=== PATIENT | male | born 1945 | race Caucasian/White ===

== ENCOUNTER → 2017-12-26 09:50 | Outpatient (BNVA) | payer MEDICARE, OTHER, SELFPAY | PROVIDERS: PCP Family Medicine; Referring Provider Family Medicine; Visit Provider Orthopaedic Surgery | DX: M65.342 Trigger finger, left ring finger (principal) | CPT/HCPCS: 99213; 99214 ==

== ENCOUNTER 2017-12-27 14:21 | Day surgery (SDC) | payer MEDICARE, OTHER, SELFPAY ==
[2017-12-27 14:28] VITALS: BP 168/94; PULSE 77; RESP 16; TEMP 35.6; O2SAT 100
[2017-12-27] MEDS: Lidocaine 2% Multi-Dose 50 ML VIAL (15:20)
--- NOTE | 2017-12-27 15:29 | PDOC.DSDIS_ITS ---
Discharge Plan Disposition Patient Disposition: HOME Condition: Good Discharge Details Reason For Visit: TRIGGER LRF Attending Provider: Tima Sharif Primary Care Provider: Ilia Palacios Home Meds and New Rx's Prescriptions: Continue ascorbic acid (vitamin C) [Vitamin C] 500 MG tablet 1 tab PO DAILY RF: 0 multivitamin 1 EACH capsule 1 cap PO DAILY RF: 0 calcium carbonate-vitamin D3 [Os-Heladio 500 + D3] 1 EACH tablet,chewable 1 tab PO DAILY RF: 0 varicella virus vacc live (PF) [Varivax (PF)] 1,350 UNIT/0.5 ML suspension for reconstitution 1,350 unit SQ ONCE Qty: 1 RF: 0 phenytoin [Dilantin Infatabs] 50 MG tablet,chewable 50 mg PO HS Qty: 90 RF: 4 diphenoxylate-atropine [Lomotil] 1 EACH tablet 1 tab PO Q6H PRN Qty: 120 RF: 0 phenytoin sodium extended [Dilantin Extended] 100 MG capsule 2 cap PO BID Qty: 450 RF: 3 hydrocortisone 2.5 % cream with perineal applicator 1 applic Topical BID Qty: 30 RF: 3 Discharge Instructions Additional Instructions: Bend and straighten fingers L hand 10 times/hour when awake to prevent swelling. Remove dressings, shower or bathe and get incision wet after 48 hours. Leave incision uncovered when it is dry and sealed. Keep dressings dry and intact for 48 hours Follow up in 's office in 10-14 days. Take tylenol or ibuprofen for pain, if needed. Stand Alone Forms: Aleta Malin (DSU) Referrals: Tima Sharif MD [ [facility] STAFF PHYSICIAN] - (f/u in 10-14 days.) Activity:: Activity as Tolerated Remove Dressings/Wound Care:: 48 hours Shower/Bathe:: 48 hours Diet:: As Tolerated Discharge Orders Discharge Orders: Discharge Order (Routine); Ordered 12/27/17 Ordered By: Tima Sharif DS: Diagnosis Discharge Diagnosis (1) Trigger finger, left ring finger: Status: Acute
--- NOTE | 2017-12-27 20:10 | ROE_ITS ---
DATE OF PROCEDURE: December 27, 2017 PREOPERATIVE DIAGNOSIS: Trigger left ring finger. POSTOPERATIVE DIAGNOSIS: Trigger left ring finger. PROCEDURE: Tendon sheath incision for trigger left ring finger. SURGEON: Tima Sharif M.D. ANESTHESIA: Local infiltration 2% Xylocaine solution and 0.5% Marcaine with epinephrine solution. INDICATIONS: This is a 72-year-old white male who has developed painful locking and catching of his left ring finger. This is interfering with his activities of daily living in a significant way. He has had a previous trigger finger on the right ring finger. He had a release with good results. He is asking for release on the left side at this point. The risks and complications of the procedure w ere explained to the patient in detail preoperatively. PROCEDURE: The patient was taken to the Operating Room on 12/27/17. He was placed supine on the str etcher. The left hand was prepped and draped free in the usual sterile fashion. I infiltrated over the proximal gennaro of the flexor sheath of the left ring finger with 2% Xylocaine solution. I then made a transverse incision about 5 to 7 mm distal to the distal palmar flexion crease over the flexor sheath of the left ring finger. The incision was about 2 cm in length. The incision was carried do wn to the subcu. Blunt-tipped Littler scissors were used to mobilize the soft tissue away from the f lexor sheath. With retractors inserted I was able to directly visualize the proximal gennaro of the f lexor sheath. I incised the proximal gennaro in the midline its entire length. The patient was then asked to actively flex and extend his left ring finger. He is now able to fully flex and extend his left ring finger without any locking or catching. The wound was infiltrated with saline solution. The wound margins were infiltrated with 0.5% Marcain e with epinephrine solution and further hemostasis was obtained with simple direct pressure. The ski n edges were approximated with 3 interrupted #4-0 nylon sutures. The wound was dressed with Xeroform gauze, sterile gauze 4x4s, and wrapped with a 2-inch Regulo bandage for a light pressure dressing. T he patient tolerated the procedure well. He was discharged to the Day Surgery Unit in good condition . The patient was discharged home from the Day Surgery Unit with instructions to keep his dressings dry and intact for 48 hours. After 48 hours he can remove his dressing, shower or bathe and get his inc ision wet. He is to leave the incision uncovered when it is dry and sealed. He may use his left barrios d as much as discomfort allows. He is encouraged to flex and extend the fingers of his left hand 10 times an hour while awake to prevent swelling. He will take Tylenol and ibuprofen for pain. He will follow up in Dr. Sharif's office in 10 to 14 days.
== END 2017-12-27 15:50 | disposition home or self-care (01) ==
PROVIDERS: PCP Family Medicine; Visit Provider Orthopaedic Surgery
PROC: (CPT 26055; principal; 2017-12-27 15:30)
DX: M65.342 Trigger finger, left ring finger (principal)
CPT/HCPCS: 26055

== ENCOUNTER → 2018-01-10 10:25 | Outpatient (BNVA) | payer MEDICARE, OTHER, SELFPAY | PROVIDERS: PCP Family Medicine; Referring Provider Family Medicine; Visit Provider Orthopaedic Surgery | DX: Z47.89 Encounter for other orthopedic aftercare (principal); M65.342 Trigger finger, left ring finger ==

== ENCOUNTER → 2018-02-20 09:08 | Outpatient (BNVA) | payer MEDICARE, OTHER, SELFPAY | PROVIDERS: PCP Family Medicine; Referring Provider Family Medicine; Visit Provider Orthopaedic Surgery | DX: Z47.89 Encounter for other orthopedic aftercare (principal); M65.342 Trigger finger, left ring finger; M72.8 Other fibroblastic disorders ==

== ENCOUNTER → 2018-04-10 09:50 | Outpatient (BNVA) | payer OTHER, SELFPAY | PROVIDERS: PCP Family Medicine; Referring Provider Family Medicine; Visit Provider Orthopaedic Surgery | DX: M65.342 Trigger finger, left ring finger (principal) | CPT/HCPCS: 99212; 99213 ==

== ENCOUNTER 2018-05-26 01:00 | Outpatient (CLI) | payer OTHER, SELFPAY ==
[2018-05-26 09:47] LABS: HCT 43.8 % (40.0-50.0); HGB 15.4 g/dL (13.5-17.5); Mean Corp. HGB Concentration 35.2 g/dL (32.0-36.0); Mean Corpuscular Hemoglobin 33.3 pg (27.0-33.0); Mean Corpuscular Volume 94.8 fL (80-95); Mean Platelet Volume 9.3 fL (8.0-11.0); Platelet Count 137 x1000/uL (130-400); RBC 4.62 m/cumm (4.50-6.00); RBC Distribution Width 12.5 % (11.8-14.1); White Blood Cell Count 5.65 k/cumm (4.4-10.8)
[2018-05-26 09:55] LABS: ALT 60 U/L (12-78); AST 39 U/L (15-37); Albumin 3.7 g/dL (3.4-5.0); Alkaline Phosphatase 63 U/L (46-116); Anion Gap 9.3 mmol/L (3-11); BUN 24 mg/dL (7-18); Bilirubin, Total 0.3 mg/dL (0.2-1.0); CO2 26.7 mmol/L (21.0-32.0); CREATININE 1.22 mg/dL (0.70-1.30); Calcium 8.3 mg/dL (8.5-10.1); Chloride 103 mmol/L (98-107); Estimated GFR 58.39 (mL/min/1.73m2); Glucose 98 mg/dL (70-100); Potassium 3.8 mmol/L (3.5-5.1); Sodium 139 mmol/L (136-145); Total Protein 7.2 g/dL (6.4-8.2)
[2018-05-26 10:09] LABS: PHENYTOIN (DILANTIN) 20.1 ug/mL (10.0-20.0)
== END 2018-05-26 01:20 ==
PROVIDERS: PCP Family Medicine; Visit Provider Family Medicine
DX: G40.909 Epilepsy, unspecified, not intractable, without status epilepticus (principal); Z51.81 Encounter for therapeutic drug level monitoring; Z79.899 Other long term (current) drug therapy
CPT/HCPCS: 36415; 80053; 85027; 80185

== ENCOUNTER 2018-07-12 10:36 | Outpatient (CLI) | payer OTHER, SELFPAY ==
--- NOTE | 2018-07-12 10:32 | DI.RAD_ITS ---
SYMPTOM/DIAGNOSIS: INDEX PAIN. LEFT HAND: Two views. No priors At the interphalangeal joints of the hand, note is made of varying degrees of joint space narrowing and periarticular spurring. The findings are most marked at the distal interphalangeal joints of the index, middle and little fingers. No acute fracture or dislocation is seen. Vascular calcifications are present in the soft tissues. 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 The findings are most marked in the index, middle and little fingers.
== END 2018-07-12 10:56 ==
PROVIDERS: PCP Family Medicine; Referring Provider Family Medicine; Visit Provider Orthopaedic Surgery
DX: M79.642 Pain in left hand (principal); M79.645 Pain in left finger(s); M19.042 Primary osteoarthritis, left hand; R29.898 Other symptoms and signs involving the musculoskeletal system; R20.8 Other disturbances of skin sensation
CPT/HCPCS: 99211; 99213; 73120

== ENCOUNTER 2018-10-17 12:46 | Emergency (ER) | payer OTHER, SELFPAY ==
[2018-10-17] VITALS (7 sets, daily range): BP systolic 155–173; BP diastolic 78–88; PULSE 55–61; RESP 16–22; TEMP 36.7; O2SAT 96–99
--- NOTE | 2018-10-17 13:16 | W.ED.GENAD ---
Discharge Plan Disposition Patient Disposition: HOME Condition: Stable Discharge Details Chief Complaint: Chest/Rib Clinical Impression: Contusion of rib Primary Care Provider: Ilia Palacios ED Provider: Sanjeev Nino Home Meds and New Rx's Prescriptions: Continued Urinox PO RF: 0 ascorbic acid (vitamin C) [Vitamin C] 500 MG tablet 1 tab PO DAILY RF: 0 multivitamin 1 EACH capsule 1 cap PO DAILY RF: 0 Os-Heladio 500 + D3 1 EACH tablet,chewable 1 tab PO DAILY RF: 0 diphenoxylate-atropine [Lomotil] 1 EACH tablet 1 tab PO Q6H PRN Qty: 120 RF: 0 hydrocortisone 2.5 % cream with perineal applicator 1 applic Topical BID Qty: 30 RF: 3 phenytoin [Dilantin Infatabs] 50 mg tablet,chewable 50 mg PO HS Qty: 90 RF: 4 phenytoin sodium extended [Dilantin Extended] 100 mg capsule 200 mg PO BID Qty: 450 RF: 3 benzonatate 100 mg capsule 100 mg PO TID PRN (Reason: cough) Qty: 30 RF: 2 Discharge Instructions Instructions: Rib Contusion (ED) Additional Instructions: you can take 1000mg tylenol and 600mg ibuprofen every 6 hours for pain as needed if pain is still present in a week see your primary care provider return to the emergency department for severe worsening pain, difficulty breathing or fevers Medical Decision Making 73 yo male comes in with left anterior chest pain that started after he fell and landed on a barrel while doing yard work. No loc and no fevers. Has no headache, neck pain, abd pian. He has pain with palptaion over 6-7 left ribs in lateral clavicular line without crepitus. will xray to eval for fx, less likely ptx. Given pain is traumatic do not feel workup for acs, pe or dissection indicated xray negative on my read and only has pain when I palpate the wall on his left chest. Will d/c home, advised f/u with pcp and return precautions given Differential Diagnosis contusion, fracture Imaging Data Radiologic Study: Attestation: I personally reviewed and interpreted this imaging study as follows: Imaging: X-Ray My impression: no acute findings ECG Data Attestation: I personally reviewed and interpreted this ECG (s) as follows: Prior ECG tracings: not available for review Interpretation: sinsu rhythm, rate of 60, pr 2-4, qtc 426 HPI General Mode of arrival: ambulatory. Date/Time Provider Initiated Documentation: 10/17/18 13:02. Limitations to Documentation: no limitations. Information obtained by: patient. History of Present Illness 73 year old M presents to the emergency department with the chief complaint of left sided chest pain, described as moderate, Quality is described as aching, and is localized to the chest. Patient reports no radiation. Patient started experiencing this day(s) (2) and it has been constant. No relieving factors improve symptom(s), Patient did receive the following treatments prior to arrival, none Related Data Home Medications Medication Instructions Recorded Confirmed Os-Heladio 500 + D3 1 tab PO DAILY tab.chew 04/30/12 10/04/18 ascorbic acid (vitamin C) [Vitamin 1 tab PO DAILY 04/30/12 10/04/18 C] multivitamin 1 cap PO DAILY 04/30/12 10/04/18 diphenoxylate-atropine [Lomotil] 1 tab PO Q6H PRN #120 tab 05/16/17 10/04/18 hydrocortisone 2.5 % topical cream 1 applic TOPICAL BID #30 gm 12/18/17 10/04/18 with perineal applicator Urinox PO 05/24/18 10/04/18 phenytoin 50 mg chewable tablet 50 mg PO HS #90 tab.chew 10/04/18 phenytoin sodium extended 100 mg 200 mg PO BID #450 cap 10/04/18 capsule benzonatate 100 mg capsule 100 mg PO TID PRN #30 cap 10/11/18 Previous Rx's Medication Instructions Recorded diphenoxylate-atropine [Lomotil] 1 tab PO Q6H PRN #120 tab 05/16/17 hydrocortisone 2.5 % topical cream 1 applic TOPICAL BID #30 gm 12/18/17 with perineal applicator phenytoin 50 mg chewable tablet 50 mg PO HS #90 tab.chew 10/04/18 phenytoin sodium extended 100 mg 200 mg PO BID #450 cap 10/04/18 capsule benzonatate 100 mg capsule 100 mg PO TID PRN #30 cap 10/11/18 Allergies Allergy/AdvReac Type Severity Reaction Status Date / Time camphor AdvReac Intermediate Nicolas Verified 10/04/18 10:04 lactose AdvReac Verified 10/04/18 10:04 General Stated Complaint: Chest/Rib GRACIA: 2 Review of Systems Review of Systems All systems reviewed & are unremarkable except as noted in HPI and below Constitutional Denies chills, Denies fever(s) and Denies weakness Cardiovascular Denies dyspnea Respiratory Denies cough and Denies dyspnea Gastrointestinal Denies abdominal pain, Denies nausea and Denies vomiting Musculoskeletal Denies joint swelling Neurologic Denies weakness Psychiatric Denies depression Endocrine Denies heat intolerance [facility] Surgical History (Updated 10/04/18 @ 12:41 by Ilia Palacios MD) History of surgical procedure (Inactive) INTESTINES (02/07/1955) STOMACH (02/07/1955) Trigger finger, left ring finger (Resolved) S/P trigger finger release DOS: 12/27/17 Family History Mother , 63 Alzheimer's disease Father , 62 Lung cancer Maternal Grandfather , 67 Stroke Heart disease Paternal Grandfather , 69 Stroke Maternal Grandmother , 72 Heart disease Stroke Paternal Grandmother , 77 Heart disease Daughter No problems noted. Daughter No problems noted. Social History (Updated 05/28/18 @ 14:33 by José Manuel Dickey) Smoking/Tobacco Use Status: Never Alcohol Intake: current Alcohol Intake frequency: 0-2 drinks per day Alcohol type: beer, wine and hard liquor Drug use: Never Substance use type: does not use Caregiver/Support person: No Household members: spouse Communication Needs: Corrective Lenses Pets and animals: No Sexually active: Yes Do you think of yourself as: straight/heterosexual Current gender identity: male What is your relationship status?: How often do you talk on the phone with friends or family?: decline to answer How often do you get together with friends or relatives?: decline to answer How often do you attend druze or taoist services?: decline to answer Do you belong to any clubs or organized social groups?: decline to answer Panel score (0-1 are the most socially isolated patients): 1 What type of physical activity do you participate in: walking Duration: 15-30 minutes/day Frequency: daily Cat/Pentecostalism: Faith Special cat needs: No Seatbelt use: sometimes Helmet use: No 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 Do you feel safe at home: Yes Do you feel safe in your relationship?: Yes Exam Const General: no acute distress Orientation: alert HENMT Head: normal to inspection Ears: external ears normal General nose exam: external nose normal Mouth: moist mucous membranes Eyes General: appearance normal, both eyes and all related structures Neck Neck: normal visual inspection Chest Chest: other (left anterior chest tenderness) Resp Effort & Inspection: normal respiratory effort and able to speak in complete sentences Cardio Rate: regular rate Skin General skin exam: no rashes or lesions noted Neuro General: alert and oriented x3 Extrem General: normal to inspection Psych Mental Status: mental status grossly normal Course Vital Signs Temperature 36.7 C 10/17/18 12:53 Pulse 59 L 10/17/18 12:53 Respiratory Rate 18 10/17/18 12:53 Blood Pressure 173/88 H 10/17/18 12:53 Pulse Oximetry 96 10/17/18 12:53 Temperature 36.7 C 10/17/18 12:53 Temperature Source Skin 10/17/18 12:53 Pulse 59 L 10/17/18 12:53 Respiratory Rate 18 10/17/18 12:53 Respiratory Effort Non-Labored 10/17/18 13:01 Blood Pressure 173/88 H 10/17/18 12:53 Blood Pressure Position Sitting 10/17/18 12:53 Pulse Oximetry 96 10/17/18 12:53 Oxygen Delivery Method Room Air 10/17/18 12:53 Oxygen Flow Rate 0 10/17/18 12:53
[2018-10-17] MEDS: Ibuprofen 600 MG TAB PO (13:36)
--- NOTE | 2018-10-17 13:37 | DI.RAD_ITS ---
SYMPTOMS/DIAGNOSIS: LEFT-SIDED CHEST PAIN PA AND LATERAL CHEST: Comparison is made with March,. The heart size is normal. The lungs are suboptimally inflated but appear clear. No infiltrate or effusion is seen. There is no evidence of pneumothorax. IMPRESSION: Negative chest x-ray.
== END 2018-10-17 13:58 | disposition home or self-care (01) ==
PROVIDERS: Emergency Provider Emergency Medicine; PCP Family Medicine
DX: R07.81 Pleurodynia (principal); S20.212A Contusion of left front wall of thorax, initial encounter; W01.198A Fall on same level from slipping, tripping and stumbling with subsequent striking against other object, initial encounter
CPT/HCPCS: 93005; 99284; 71046; 93010

== ENCOUNTER 2019-08-08 22:59 | Outpatient (REF) | payer OTHER, SELFPAY | END 2019-08-08 23:19 | LOC: LBN 22:59 | PROVIDERS: PCP Family Medicine; Visit Provider Family Medicine | DX: N39.0 Urinary tract infection, site not specified (principal) | CPT/HCPCS: 87077; 87086; 87186 ==

== ENCOUNTER 2019-08-09 16:31 | Emergency (ER) | payer OTHER, SELFPAY ==
[2019-08-09] VITALS (30 sets, daily range): BP systolic 120–134; BP diastolic 58–77; PULSE 57–99; RESP 15–20; TEMP 37.3–39.6; O2SAT 90–98
--- NOTE | 2019-08-09 16:34 | W.ED.GENAD ---
Discharge Plan Disposition Patient Disposition: HOME Condition: Improving Discharge Details Chief Complaint: Fever Clinical Impression: UTI (urinary tract infection), Hydronephrosis, Dehydration, Adrenal nodule Primary Care Provider: Ilia Palacios ED Provider: Diane Saucedo Home Meds and New Rx's Prescriptions: New cephalexin [Keflex] 500 mg capsule 500 mg PO BID Qty: 14 RF: 0 Continued Urinox PO RF: 0 hydrocortisone 2.5 % cream with perineal applicator 1 applic RI BID-QID PRN (Reason: pain) Qty: 30 RF: 4 ascorbic acid (vitamin C) [Vitamin C] 500 MG tablet 1 tab PO DAILY RF: 0 multivitamin 1 EACH capsule 1 cap PO DAILY RF: 0 Os-Heladio 500 + D3 1 EACH tablet,chewable 1 tab PO DAILY RF: 0 hydrocortisone 2.5 % cream with perineal applicator 1 applic Topical BID Qty: 30 RF: 3 phenytoin [Dilantin Infatabs] 50 mg tablet,chewable 50 mg PO HS Qty: 90 RF: 4 phenytoin sodium extended [Dilantin Extended] 100 mg capsule 200 mg PO BID Qty: 450 RF: 3 acetaminophen 500 mg Tablet 1,000 mg PO TID RF: 0 metoprolol succinate 50 mg tablet extended release 24 hr 50 mg PO HS RF: 0 Discontinued sulfamethoxazole-trimethoprim 800-160 mg tablet 1 tab PO BID Qty: 20 RF: 0 Discharge Instructions Instructions: Dehydration (ED), Urinary Tract Infection in Men (ED) Additional Instructions: Encourage water intake. You may continue to use Tylenol and/or ibuprofen to help with fevers or discomfort. Please stop the Bactrim and begin the Keflex as prescribed. Your next dosing of visit will be tomorrow morning. You will need follow-up with urology. Please call Monday to schedule follow-up appointment. I would also like for you to follow-up closely with your primary care provider. You have nodules noted on your adrenal glands, these will need to be followed up by your primary care provider. If you develop chills again, abdominal pain, back pain or other new/worsening symptoms please seek care urgently once again. Referrals: Leo Coelho MD [ [facility] STAFF PHYSICIAN] - Ilia Palacios MD [Primary Care Provider] - Discharge Data Discharge Date/Time-TO BE ENTERED AT DEPARTURE: 07/03/20 19:45 Medical Decision Making Patient is a pleasant 74-year-old gentleman presenting today with chief complaint of fever/chills. Reports that he began feeling ill approximately 4 days ago. States that initially he was feeling like he was having difficulty with urination. He describes this as a fire hose going through a straw. He denies any back pain. Denies any hematuria. States that he began having fevers and chills. States that he has been findings of her recent days sitting outside in the 90+ degrees heat to try to warm up during the day secondary to his chills. Has occasionally used Tylenol. He did contact his primary care yesterday who performed a UA and prescribed Bactrim. Patient states dosing last night and this morning. Denies any nausea vomiting. No change in his appetite. Denies abdominal pain. Patient reports daily bowel movements but this is diminished compared to his baseline. Denies any melena or hematochezia. No loose bowel movements. Denies any rectal pain. He reports 3 years of chronic cough that may be slightly worse today than baseline. No excessive phlegm production. On exam, patient is resting comfortably. He is febrile with a temp of 39.6. He is tachycardic with heart rate of 91. Blood pressure is stable. Patient appears slightly dry. Lungs are clear. Normal cardiac exam. Abdomen is benign. No CVA tenderness. Normal genitalia exam. Prostate exam was normal and nontender. I am concerned with the patient's fever and persistent symptoms that he may have urosepsis. We will plan for labs. Will get chest x-ray given the patient's cough. FINDINGS: Tubes, catheters and devices: EKG wires overlie the chest. Lungs: Unremarkable. No consolidation. Pleural space: Unremarkable. No pleural effusion. No pneumothorax. Heart/Mediastinum: Cardiomegaly. Diaphragm: Asymmetric elevation of the right hemidiaphragm. Bones/joints: Unremarkable for patient's age. IMPRESSION: No acute cardiopulmonary findings. Labs reviewed. No leukocytosis. Patient slightly anemic. Creatinine is slightly elevated at 1.36, patient is typically around 1.11.2. Urinalysis significant for moderate blood. Negative leukocyte esterase. Rare bacteria. I did review the UA from yesterday at which time patient had moderate blood, positive nitrate, small leukocyte esterase. No diff had been completed. Does not appear to culture was sent. I reevaluated the patient. He continues to be comfortable. He is temp is downtrending after Toradol and Tylenol. Concerned with the chills and agree with fever basically tomorrow. Lactate is normal and patient does not have any evidence of endorgan damage to suggest sepsis. However, with the blood persisting in the urine I do feel that evaluation from stone would be appropriate she has a patient has been having such difficulty with urination. Patient is not retaining urine. FINDINGS: Mediastinal space: Hiatal hernia. Liver: Hepatic steatosis. Gallbladder and bile ducts: Normal. No calcified stones. No ductal dilation. Pancreas: Normal. No ductal dilation. Spleen: Normal. No splenomegaly. Adrenals: Bilateral adrenal nodules measuring 1.5 and 2.0 cm which are incompletely evaluated on this noncontrast CT. Kidneys and ureters: Left perirenal fat infiltration. Left hydroureteronephrosis without evidence of calcified ureteral stone. Punctate nonobstructing right renal calculi. Stomach and bowel: Ventral hernia containing loop of bowel. Constipation. Extensive diverticulosis. Appendix: No evidence of appendicitis. Intraperitoneal space: Unremarkable. No free air. No significant fluid collection. Vasculature: Atherosclerotic disease. Lymph nodes: Infiltration of the mesenteric fat with enlarged mesenteric lymph nodes. Bladder: Thickened lobulated bladder wall consistent with inflammatory, infectious, or neoplastic process. Infiltration of the fat around the urinary bladder. Reproductive: Enlarged prostate. Bones/joints: Degenerative changes of the right and left hip. Multilevel degenerative changes of the thoracic and lumbar spine. Soft tissues: Unremarkable. IMPRESSION: 1. Mesenteric adenitis. 2. Left hydroureteronephrosis without calcified renal stone. 3. Abnormal bladder wall thickening with bladder wall cystic changes consistent with inflammatory, infectious, or neoplastic process. 4. Extensive diverticulosis. Constipation. 5. Bilateral adrenal nodules warrant further evaluation with dedicated CT 6. Multiple additional findings as discussed above. Discussed these findings with the patient. Also spoke with patient's at his request over the phone. We discussed the incidentals noted that we will need follow-up with primary care. With the increase in the patient's creatinine, I do feel that switching from Bactrim to Keflex would be appropriate. I will give a gram of Rocephin here. Am concerned that the hydronephrosis may be associated with pyelonephritis although patient is not having any CVA tenderness and no significant abnormalities to suggest severe infection on his labs. Also considered stone that may have passed versus stone that is not able to be visualized. This also may be part of the source, I did recommend follow-up with urology. We will also refer back to primary care. Patient was given strict return precautions. We also discussed care of his fevers he has been sitting outside in the heat during times of fever. I did discuss with him the importance of hydration. He will return with any new or worsening symptoms. All the questions and concerns were addressed and they are agreement this plan. HPI General Mode of arrival: ambulatory. Date/Time Provider Initiated Documentation: 08/09/19 16:34. Limitations to Documentation: no limitations. Information obtained by: patient and RN notes reviewed. History of Present Illness 74 year old M presents to the emergency department with the chief complaint of fever, dysurea, described as moderate, with intensity rated at 6. Quality is described as other (pressure with urination), and is localized to the genitals. Patient reports no radiation. Patient started experiencing this day(s) (4) and it has been constant. No relieving factors improve symptom(s), No exacerbating factors reported . Patient notes cough (chronic x 3 years, may be slightly worse but unclear, nonproductive) and fever/chills; denies chest pain, diaphoresis, headaches, loss of appetite, nausea/vomiting, rash, shortness of breath and weakness. Patient did receive the following treatments prior to arrival, other (began Bactrim yesterday) Related Data Home Medications Medication Instructions Recorded Confirmed Os-Heladio 500 + D3 1 tab PO DAILY tab.chew 04/30/12 08/09/19 ascorbic acid (vitamin C) [Vitamin 1 tab PO DAILY 04/30/12 08/09/19 C] multivitamin 1 cap PO DAILY 04/30/12 08/09/19 hydrocortisone 2.5 % topical cream 1 applic TOPICAL BID #30 gm 12/18/17 08/09/19 with perineal applicator Urinox PO 05/24/18 04/05/19 phenytoin 50 mg chewable tablet 50 mg PO HS #90 tab.chew 10/04/18 08/09/19 phenytoin sodium extended 100 mg 200 mg PO BID #450 cap 10/04/18 08/09/19 capsule hydrocortisone 2.5 % topical cream 1 applic RI BID-QID PRN #30 gm 04/05/19 08/09/19 with perineal applicator acetaminophen 1,000 mg PO TID 08/09/19 08/09/19 cephalexin [Keflex] 500 mg PO BID #14 cap 08/09/19 metoprolol succinate 50 mg PO HS 08/09/19 08/09/19 Previous Rx's Medication Instructions Recorded hydrocortisone 2.5 % topical cream 1 applic TOPICAL BID #30 gm 12/18/17 with perineal applicator phenytoin 50 mg chewable tablet 50 mg PO HS #90 tab.chew 10/04/18 phenytoin sodium extended 100 mg 200 mg PO BID #450 cap 10/04/18 capsule hydrocortisone 2.5 % topical cream 1 applic RI BID-QID PRN #30 gm 04/05/19 with perineal applicator cephalexin [Keflex] 500 mg PO BID #14 cap 08/09/19 Allergies Allergy/AdvReac Type Severity Reaction Status Date / Time camphor AdvReac Intermediate Nicolas Verified 08/09/19 16:43 lactose AdvReac Verified 08/09/19 16:43 General GRACIA: 2 Review of Systems Constitutional Constitutional: Reports as per HPI, Reports chills, Denies fatigue, Reports fever(s), Denies headache(s), Denies lethargy, Denies malaise and Denies poor appetite ENT Ears, Nose, Mouth, and Throat: Denies headache(s) Cardiovascular Cardiovascular: Reports as per HPI, Denies chest pain, Denies chest pain at rest, Denies chest pain with activity, Denies dyspnea and Denies dyspnea on exertion Respiratory Respiratory: Reports as per HPI, Denies change in phlegm color, Denies chest congestion, Reports cough (chronic, possibly increased over this week, not really noticible), Denies hemoptysis, Denies excessive phlegm production, Denies pain on inspiration, Denies pain with cough, Denies dyspnea and Denies dyspnea on exertion Gastrointestinal Gastrointestinal: Reports as per HPI, Denies abdominal pain, Denies melena, Denies bloating, Denies hematochezia, Reports change in bowel habits (reports typically 3x per day, now only 1x per day), Denies coffee ground emesis, Denies cramping, Denies diarrhea, Denies loose stools, Denies nausea and Denies vomiting Genitourinary Genitourinary: Reports as per HPI, Denies hematuria, Reports oliguria, Reports difficulty urinating, Denies genital lesions, Denies genital pain, Reports dysuria, Denies flank pain, Denies penile discharge, Denies scrotal swelling, Denies testicular mass, Denies testicular pain, Denies urinary frequency, Reports urinary hesitancy and Denies urinary urgency Musculoskeletal Musculoskeletal: Reports as per HPI and Denies back pain Integumentary/Breasts Skin/Breast: Reports as per HPI and Denies rash Neurologic Neurologic: Reports as per HPI and Denies headache(s) Endocrine Endocrine: Denies fatigue [facility] Surgical History History of surgical procedure (Inactive) INTESTINES (02/07/1955) STOMACH (02/07/1955) Trigger finger, left ring finger (Resolved) S/P trigger finger release DOS: 12/27/17 Family History Mother , 63 Alzheimer's disease Father , 62 Lung cancer Maternal Grandfather , 67 Stroke Heart disease Paternal Grandfather , 69 Stroke Maternal Grandmother , 72 Heart disease Stroke Paternal Grandmother , 77 Heart disease Daughter No problems noted. Daughter No problems noted. Social History Smoking/Tobacco Use Status: Never Alcohol Intake: current Alcohol Intake frequency: 0-2 drinks per day Alcohol type: beer, wine and hard liquor Drug use: Never Substance use type: does not use Caregiver/Support person: No Household members: spouse Communication Needs: Corrective Lenses Pets and animals: No Sexually active: Yes Do you think of yourself as: straight/heterosexual Current gender identity: male What is your relationship status?: How often do you talk on the phone with friends or family?: decline to answer How often do you get together with friends or relatives?: decline to answer How often do you attend latter day or pentecostalism services?: decline to answer Do you belong to any clubs or organized social groups?: decline to answer Panel score (0-1 are the most socially isolated patients): 1 What type of physical activity do you participate in: walking Duration: 15-30 minutes/day Frequency: daily Cat/Anabaptist: Buddhism Special cat needs: No Seatbelt use: sometimes Helmet use: No Drive intox or ride w/intox laundry route driver: No Do you feel safe at home: Yes Do you feel safe in your relationship?: Yes Exam Const General: cooperative, healthy appearing, comfortable, no acute distress and well developed Nutritional Appearance: average body habitus and well nourished Orientation: alert and awake [facility] Head: normal to inspection Mouth: moist mucous membranes Resp Effort & Inspection: normal respiratory effort, able to speak in complete sentences and no respiratory distress Auscultation: clear to auscultation bilaterally, no rales, no rhonchi and no wheezes Cardio Rate: regular rate Rhythm: regular rhythm Heart Sounds: S1 normal and S2 normal Back/Spine/Pelvis Back: no CVA tenderness Skin General skin exam: no rashes or lesions noted Trauma: no lacerations or abrasions Neuro General: patient alert and patient awake Cognition: normal cognition Speech: speech normal Gait: normal gait Psych Appearance: grossly normal and well kempt Mental Status: mental status grossly normal Speech and Movement: speech and movement normal
--- NOTE | 2019-08-09 16:45 | DI.RAD_ITS ---
EXAM: XR PORTABLE CHEST AP CLINICAL HISTORY: fever TECHNIQUE: 2D digital imaging was performed. COMPARISON: CR XR CHEST 2V PA LATERAL from 10/17/2018 FINDINGS: LUNGS: Clear. PLEURA: No pleural abnormality seen. HEART: Normal. MEDIASTINUM: Normal. BONES: Unremarkable. SOFT TISSUES: Unremarkable. IMPRESSION: No acute findings. DATA REPOSITORY: RADIATION DOSE DELIVERED:
[2019-08-09] MEDS: Ibuprofen 800 MG TAB PO (16:50)
[2019-08-09 17:26] LABS: Abs Immature Grans 0.01 k/cumm (0.0-0.09); Absolute Basophil Count 0.01 k/cumm (0.0-0.2); Absolute Eosinophil Count 0.01 k/cumm (0.0-0.7); Absolute Lymphocyte Count 0.72 k/cumm (1.2-3.4); Absolute Monocyte Count 0.83 k/cumm (0.11-0.7); Absolute Neutrophil Count 5.03 k/cumm (1.2-6.7); Basophils % 0.2; Eosinophils % 0.2; HCT 37.5 % (40.0-50.0); HGB 12.9 g/dL (13.5-17.5); Immature Grans % 0.2 %; Lactate 1.3 mmol/L (0.6-1.4); Lymphocytes % 10.9; Mean Corp. HGB Concentration 34.4 g/dL (32.0-36.0); Mean Corpuscular Volume 95.9 fL (80-95); Mean Platelet Volume 9.3 fL (8.0-11.0); Monocytes % 12.6; Neutrophils % 75.9; Platelet Count 129 x1000/uL (130-400); RBC 3.91 m/cumm (4.50-6.00); RBC Distribution Width 12.6 % (11.8-14.1); White Blood Cell Count 6.61 k/cumm (4.4-10.8)
[2019-08-09 17:38] LABS: Bilirubin Small (Negative); Blood Moderate (Negative); Clarity Sl Cloudy (Clear); Glucose Negative (Negative); Ketones Negative (Negative); Leukocyte Esterase Negative (Negative); Nitrite Negative (Negative); Specific Gravity 1.025 (1.005-1.025); pH 5.5 (5-8)
--- NOTE | 2019-08-09 17:45 | DI.CT_ITS ---
EXAM: CT RENAL COLIC WO CLINICAL HISTORY: difficulty urinating, mod blood. TECHNIQUE: Imaging Protocol: Axial computed tomography images with coronal and sagittal reformatted images were created and reviewed. COMPARISON: No exams were available for comparison FINDINGS: ABDOMEN: Lung Bases: Normal where visualized. Liver: Normal density. No measurable mass. Gallbladder and biliary tract: No radiodense calculus or biliary ductal dilation. Pancreas: Normal density, no abnormal calcifications or inflammatory process. Spleen: Normal. Kidneys: Normal size, contour and axis.Nonobstructing right nephrolithiasis. No left nephrolithiasis or ureterolithiasis is seen. There is mild high left hydroureteronephrosis and infiltration of the left perirenal fat. No masses seen. Adrenal glands: Bilateral hypodense nodules are seen on the adrenal glands. There is a 1.5 cm nodule in the right adrenal gland and a 2 cm nodule in the left adrenal gland. Lymph nodes: There are mildly enlarged lymph nodes in the mesentery with infiltration of the mesenter ic fat. Abdominal Aorta: Abdominal portion non-dilated. Atherosclerosis. PELVIS: Bladder:Bladder wall appears mildly thickened with infiltration of the surrounding fat. 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 There is extensive diverticulosis of the colon but no evidence of acute diverticulitis. Constipation is prese nt. No evidence of an acute appendicitis. There is a small anterior abdominal wall hernia slightly to the right of midline containing an unremarkable loop of bowel. No evidence of bowel obstruction i s seen. Peritoneal cavity: Please see the above discussion under lymph nodes. Reproductive organs: There is an enlarged prostate. Bones: Degenerative changes are seen in the spine. Soft Tissues: Within normal limits. IMPRESSION: 1. Infiltration of the mesentery with enlarged lymph nodes suspicious for mesenteric adenitis 2. Left hydroureteronephrosis without calcific stone. This may represent a recently passed stone. I nflammatory or infectious process cannot be excluded. 3. Thickened urinary bladder wall with infiltration of the surrounding soft tissues. This may repres ent an infectious or inflammatory cystitis. 4. Bilateral adrenal nodules which may represent adenomas. Non emergent follow-up should be consider ed. RADIATION DOSE DELIVERED: Total DLP DATA REPOSITORY: All CT scans at this facility are submitted to the National Radiology Data Registry (NRDR) Dose Index Registry (DIR) with the [employer] (ACR). RADIATION OPTIMIZATION: All CT scans at this facility use at least one of these dose optimization te chniques: automated exposure control; mA and/or kV adjustment per patient size (includes targeted exa ms where dose is matched to clinical indication); or iterative reconstruction.
--- NOTE | 2019-08-09 17:46 | DI.VRAD_ITS ---
PROCEDURE INFORMATION: Exam: XR Chest, 1 View Exam date and time: 08/09/2019 5:19 PM Age: 74 years old Clinical indication: Fever TECHNIQUE: Imaging protocol: XR of the chest Views: 1 view. COMPARISON: CR XR CHEST 2V PA LATERAL 12/15/2018 13:31 FINDINGS: Tubes, catheters and devices: EKG wires overlie the chest. Lungs: Unremarkable. No consolidation. Pleural space: Unremarkable. No pleural effusion. No pneumothorax. Heart/Mediastinum: Cardiomegaly. Diaphragm: Asymmetric elevation of the right hemidiaphragm. Bones/joints: Unremarkable for patient's age. IMPRESSION: No acute cardiopulmonary findings. Dictated and Authenticated by: Ni Guzman MD. Ordering:ALEE Contreras MD
[2019-08-09 17:48] LABS: Bacteria Rare HPF (Negative); Epithelial Cells Negative HPF (Negative); RBC 0-2 HPF (0-2)
[2019-08-09 17:49] LABS: C & S Indicated? No; Casts Negative LPF (Negative); Crystals Few Amorphous HPF (Negative); Mucus Trace (Negative)
[2019-08-09 17:49] LABS: ALT 38 U/L (16-63); AST 41 U/L (15-37); Albumin 2.9 g/dL (3.4-5.0); Alkaline Phosphatase 61 U/L (46-116); Anion Gap 9.2 mmol/L (3-11); BUN 16 mg/dL (7-18); Bilirubin, Total 0.5 mg/dL (0.2-1.0); CO2 25.8 mmol/L (21.0-32.0); CREATININE 1.36 mg/dL (0.70-1.30); Calcium 8.2 mg/dL (8.5-10.1); Chloride 102 mmol/L (98-107); Estimated GFR 51.37 (mL/min/1.73m2); Glucose 137 mg/dL (74-106); Magnesium 2.1 mg/dL (1.8-2.4); Potassium 3.8 mmol/L (3.5-5.1); Sodium 137 mmol/L (136-145); Total Protein 7.2 g/dL (6.4-8.2)
[2019-08-09] MEDS: Lactated Ringers 1,000 ML 1000 ML IV (17:49)
[2019-08-09] MEDS: Ketorolac 30 MG/ML VIAL IVP (17:49)
--- NOTE | 2019-08-09 18:55 | DI.VRAD_ITS ---
PROCEDURE INFORMATION: Exam: CT Abdomen And Pelvis Without Contrast Exam date and time: 08/09/2019 6:20 PM Age: 74 years old Clinical indication: Other: Difficulty urinating, mod blood TECHNIQUE: Imaging protocol: Computed tomography of the abdomen and pelvis without contrast. Radiation optimization: All CT scans at this facility use at least one of these dose optimization techniques: automated exposure control; mA and/or kV adjustment per patient size (includes targeted exams where dose is matched to clinical indication); or iterative reconstruction. COMPARISON: No relevant prior studies available. FINDINGS: Mediastinal space: Hiatal hernia. Liver: Hepatic steatosis. Gallbladder and bile ducts: Normal. No calcified stones. No ductal dilation. Pancreas: Normal. No ductal dilation. Spleen: Normal. No splenomegaly. Adrenals: Bilateral adrenal nodules measuring 1.5 and 2.0 cm which are incompletely evaluated on this noncontrast CT. Kidneys and ureters: Left perirenal fat infiltration. Left hydroureteronephrosis without evidence of calcified ureteral stone. Punctate nonobstructing right renal calculi. Stomach and bowel: Ventral hernia containing loop of bowel. Constipation. Extensive diverticulosis. Appendix: No evidence of appendicitis. Intraperitoneal space: Unremarkable. No free air. No significant fluid collection. Vasculature: Atherosclerotic disease. Lymph nodes: Infiltration of the mesenteric fat with enlarged mesenteric lymph nodes. Bladder: Thickened lobulated bladder wall consistent with inflammatory, infectious, or neoplastic process. Infiltration of the fat around the urinary bladder. Reproductive: Enlarged prostate. Bones/joints: Degenerative changes of the right and left hip. Multilevel degenerative changes of the thoracic and lumbar spine. Soft tissues: Unremarkable. IMPRESSION: 1. Mesenteric adenitis. 2. Left hydroureteronephrosis without calcified renal stone. 3. Abnormal bladder wall thickening with bladder wall cystic changes consistent with inflammatory, infectious, or neoplastic process. 4. Extensive diverticulosis. Constipation. 5. Bilateral adrenal nodules warrant further evaluation with dedicated CT 6. Multiple additional findings as discussed above. Dictated and Authenticated by: Ni Guzman MD. Ordering:ALEE Contreras MD
[2019-08-09] MEDS: cefTRIAXone 1 GM/50 ML BAG IVPB (19:09)
== END 2019-08-09 19:45 | disposition home or self-care (01) ==
PROVIDERS: Emergency Provider Physician Assistant; PCP Family Medicine
DX: N13.6 Pyonephrosis (principal); E86.0 Dehydration; R93.421 Abnormal radiologic findings on diagnostic imaging of right kidney; R93.422 Abnormal radiologic findings on diagnostic imaging of left kidney
CPT/HCPCS: 36415; 80053; 87040; 96361; 96365; 96375; 99284; 71045; 74176; 81003; 81015; 83605; 83735; 85025; 99285; J0696; J1885

== ENCOUNTER → 2019-08-22 08:59 | Outpatient (BNVA) | payer OTHER, SELFPAY | PROVIDERS: PCP Family Medicine; Referring Provider Family Medicine; Visit Provider Nurse Practitioner Gerontology | DX: N40.1 Benign prostatic hyperplasia with lower urinary tract symptoms (principal); R35.0 Frequency of micturition; N39.0 Urinary tract infection, site not specified; R10.9 Unspecified abdominal pain; N13.30 Unspecified hydronephrosis; E27.8 Other specified disorders of adrenal gland | CPT/HCPCS: 81003; 99204; 99215 ==

== ENCOUNTER 2019-08-22 10:16 | Outpatient (REF) | payer OTHER, SELFPAY | END 2019-08-22 10:36 | LOC: LBN 10:16 | PROVIDERS: PCP Family Medicine; Visit Provider Nurse Practitioner Gerontology | DX: N39.0 Urinary tract infection, site not specified (principal) | CPT/HCPCS: 87077; 87086; 87186 ==

== ENCOUNTER 2019-08-24 13:08 | Emergency (ER) | payer OTHER, SELFPAY ==
[2019-08-24 13:21] VITALS: BP 134/79; PULSE 75; RESP 15; TEMP 36.8; O2SAT 98
--- NOTE | 2019-08-24 13:28 | W.ED.GENAD ---
Discharge Plan Disposition Patient Disposition: HOME Condition: Stable Discharge Details Chief Complaint: Urinary Clinical Impression: UTI (urinary tract infection) Primary Care Provider: Ilia Palacios ED Provider: Eric Cope Home Meds and New Rx's Prescriptions: New cephalexin [Keflex] 500 mg capsule 500 mg PO BID Qty: 14 RF: 0 Continued Urinox PO RF: 0 hydrocortisone 2.5 % cream with perineal applicator 1 applic AK BID-QID PRN (Reason: pain) Qty: 30 RF: 4 diphenoxylate-atropine [Lomotil] 2.5-0.025 mg tablet 1 tab PO Q6H PRN Qty: 60 RF: 0 phenytoin sodium extended [Dilantin Extended] 100 mg capsule 200 mg PO BID Qty: 450 RF: 3 phenytoin [Dilantin Infatabs] 50 mg tablet,chewable 50 mg PO HS Qty: 90 RF: 4 ascorbic acid (vitamin C) [Vitamin C] 500 MG tablet 1 tab PO DAILY RF: 0 multivitamin 1 EACH capsule 1 cap PO DAILY RF: 0 Os-Heladio 500 + D3 1 EACH tablet,chewable 1 tab PO DAILY RF: 0 hydrocortisone 2.5 % cream with perineal applicator 1 applic Topical BID Qty: 30 RF: 3 acetaminophen 500 mg Tablet 1,000 mg PO TID RF: 0 metoprolol succinate 50 mg tablet extended release 24 hr 50 mg PO HS RF: 0 Discharge Instructions Instructions: Urinary Tract Infection in Men (ED) Additional Instructions: Keflex as directed. Plenty of fluids to avoid dehydration. You may continue taking [id number] medications for symptomatic control, you may find significant relief with Azo as well. Please watch for new or worsening symptoms and return to the ER for any concerns. I would recommend that you reach out to either your primary care provider or urology team on Monday for prompt outpatient reevaluation Medical Decision Making 74-year-old gentleman with history of hypertension, BPH, anxiety, hydronephrosis, recent UTI presents today reporting 3-day history of subjective fever and feeling like he has a urinary tract infection again. I was actually able to review his most recent ER visit, consultation with urology, and most recent urinary culture. Looks as though he grew out Klebsiella. He appears well, nontoxic. No evidence of abdominal pain, fever, back pain. He is currently afebrile with a heart rate in the 70s. Blood pressure 134/79. No evidence of sepsis. Will obtain urinalysis today and reassess. Urinalysis greater than 50 white cells, again reviewed the culture and sensitivity, will initiate Keflex therapy. Patient has no additional questions or concerns and is comfortable this plan. He has good outpatient follow-up both through his primary care provider and his urology team. He was encouraged to return to the ER for new or worsening symptoms Medical Records Medical records reviewed: Yes I reviewed the patient's medical records. Lab Data Lab results reviewed: Yes I reviewed the patient's lab results. Lab results narrative: 08/24/19 13:40 Urine - Reflex from Ua Urine Culture - Pending Laboratory Tests Range/Units 08/24/19 13:40 Urine Color (Yellow) Yellow Urine Clarity (Clear) Sl cloudy Urine pH (5-8) 6.0 Ur Specific [place] (1.005-1.025) 1.025 Urine Protein (Negative) mg/dL 100 H Urine Ketones (Negative) mg/dL Negative Urine Blood (Negative) Moderate H Urine Nitrite (Negative) Positive H Urine Bilirubin (Negative) Negative Urine Urobilinogen (Up TO 0.2) EU/dL 1.0 H Ur Leukocyte Esterase (Negative) Small H Urine RBC Not Applicable Urine WBC (0-5) HPF >50 H Ur Epithelial Cells Not Applicable Urine Crystals Not Applicable Urine Bacteria (Negative) HPF Moderate Urine Mucus Not Applicable Ur Culture Indicated? Yes Urine Glucose (Negative) mg/dL Negative HPI General Mode of arrival: ambulatory. Date/Time Provider Initiated Documentation: 08/24/19 13:16. Limitations to Documentation: no limitations. Information obtained by: patient. HPI Narrative: This is a 74-year-old gentleman who presents concerned that he may have a urinary tract infection. He reports subjective fever over the past couple of nights, not during the day. He reports urinary frequency, mild burning and hesitancy over the past couple of days. He was actually seen in our ER earlier this month and placed on Bactrim, subsequent follow-up with urology. He was evaluated by urology just over the past couple of days but they did not discussed the possibility of a urinary tract infection. He has a history of hydronephrosis, adrenal nodule, hypertension, BPH, mitral valve regurgitation, hyperlipidemia, epilepsy, anxiety. He has not taken his actual temperature. Denies any chest pain, shortness of breath, abdominal pain, back pain, hematuria diarrhea or constipation. Related Data Home Medications Medication Instructions Recorded Confirmed Os-Heladio 500 + D3 1 tab PO DAILY tab.chew 04/30/12 08/22/19 ascorbic acid (vitamin C) [Vitamin 1 tab PO DAILY 04/30/12 08/24/19 C] multivitamin 1 cap PO DAILY 04/30/12 08/24/19 hydrocortisone 2.5 % topical cream 1 applic TOPICAL BID #30 gm 12/18/17 08/24/19 with perineal applicator Urinox PO 05/24/18 08/22/19 hydrocortisone 2.5 % topical cream 1 applic [place] BID-QID PRN #30 gm 04/05/19 08/24/19 with perineal applicator acetaminophen 1,000 mg PO TID 08/09/19 08/22/19 metoprolol succinate 50 mg PO HS 08/09/19 08/24/19 diphenoxylate-atropine 2.5 1 tab PO Q6H PRN #60 tab 08/22/19 08/24/19 mg-0.025 mg tablet phenytoin 50 mg chewable tablet 50 mg PO HS #90 tab.chew 08/22/19 08/24/19 phenytoin sodium extended 100 mg 200 mg PO BID #450 cap 08/22/19 08/24/19 capsule cephalexin [Keflex] 500 mg PO BID #14 cap 08/24/19 Previous Rx's Medication Instructions Recorded hydrocortisone 2.5 % topical cream 1 applic TOPICAL BID #30 gm 12/18/17 with perineal applicator hydrocortisone 2.5 % topical cream 1 applic [place] BID-QID PRN #30 gm 04/05/19 with perineal applicator diphenoxylate-atropine 2.5 1 tab PO Q6H PRN #60 tab 08/22/19 mg-0.025 mg tablet phenytoin 50 mg chewable tablet 50 mg PO HS #90 tab.chew 08/22/19 phenytoin sodium extended 100 mg 200 mg PO BID #450 cap 08/22/19 capsule cephalexin [Keflex] 500 mg PO BID #14 cap 08/24/19 Allergies Allergy/AdvReac Type Severity Reaction Status Date / Time camphor AdvReac Intermediate Nicolas Verified 08/24/19 13:27 lactose AdvReac Verified 08/24/19 13:27 General Stated Complaint: Urinary GRACIA: 3 Review of Systems Constitutional Constitutional: Reports fever(s) (Subjective) and Denies headache(s) ENT Ears, Nose, Mouth, and Throat: Denies headache(s) Cardiovascular Cardiovascular: Denies chest pain and Denies dyspnea Respiratory Respiratory: Denies cough and Denies dyspnea Gastrointestinal Gastrointestinal: Denies abdominal pain, Denies diarrhea, Denies nausea and Denies vomiting Genitourinary Genitourinary: Denies hematuria, Denies genital pain, Reports dysuria, Denies flank pain, Denies testicular pain, Reports urinary frequency and Reports urinary hesitancy Musculoskeletal Musculoskeletal: Denies back pain Integumentary/Breasts Skin/Breast: Denies rash Neurologic Neurologic: Denies headache(s) [facility] Surgical History History of surgical procedure (Inactive) INTESTINES (02/07/1955) STOMACH (02/07/1955) Trigger finger, left ring finger (Resolved) S/P trigger finger release DOS: 12/27/17 Family History Mother , 63 Alzheimer's disease Father , 62 Lung cancer Maternal Grandfather , 67 Stroke Heart disease Paternal Grandfather , 69 Stroke Maternal Grandmother , 72 Heart disease Stroke Paternal Grandmother , 77 Heart disease Daughter No problems noted. Daughter No problems noted. Social History Smoking/Tobacco Use Status: Never Alcohol Intake: current Alcohol Intake frequency: 0-2 drinks per day Alcohol type: beer, wine and hard liquor Drug use: Never Substance use type: does not use Caregiver/Support person: No Household members: spouse Communication Needs: Corrective Lenses Pets and animals: No Sexually active: Yes Do you think of yourself as: straight/heterosexual Current gender identity: male What is your relationship status?: How often do you talk on the phone with friends or family?: decline to answer How often do you get together with friends or relatives?: decline to answer How often do you attend sikhism or latter-day services?: decline to answer Do you belong to any clubs or organized social groups?: decline to answer Panel score (0-1 are the most socially isolated patients): 1 What type of physical activity do you participate in: walking Duration: 15-30 minutes/day Frequency: daily Cat/Religious: Caodaism Special cat needs: No Seatbelt use: sometimes Helmet use: No Drive intox or ride w/intox truss driver helper: No Do you feel safe at home: Yes Do you feel safe in your relationship?: Yes Exam Const General: cooperative, healthy appearing, comfortable and no acute distress Orientation: alert, awake and oriented x3 HENMT Head: normal to inspection, normocephalic and atraumatic Mouth: moist mucous membranes Eyes Conjunctivae: conjunctivae normal Sclera: sclerae normal Neck Neck: normal visual inspection, full ROM, trachea midline and supple Resp Effort & Inspection: normal respiratory effort and able to speak in complete sentences Auscultation: clear to auscultation bilaterally Cardio Rate: regular rate Rhythm: regular rhythm GI Palpation: soft, not firm, no guarding, not rigid and nontender Back/Spine/Pelvis Back: No back tenderness Skin General skin exam: no rashes or lesions noted Neuro General: patient alert, patient awake, moves all extremities and no focal motor deficits Sensory Exam: no sensory deficits noted Psych Appearance: grossly normal Mental Status: mental status grossly normal Course Vital Signs Vital signs: Vital Signs Temperature 36.8 C 08/24/19 13:21 Pulse 75 08/24/19 13:21 Respiratory Rate 15 08/24/19 13:21 Blood Pressure 134/79 08/24/19 13:21 Pulse Oximetry 98 08/24/19 13:21 Temperature 36.8 C 08/24/19 13:21 Temperature Source Temporal Artery Scan 08/24/19 13:21 Pulse 75 08/24/19 13:21 Respiratory Rate 15 08/24/19 13:21 Respiratory Effort Non-Labored 08/24/19 13:25 Blood Pressure 134/79 08/24/19 13:21 Pulse Oximetry 98 08/24/19 13:21 Oxygen Delivery Method Room Air 08/24/19 13:21 Oxygen Flow Rate 0 08/24/19 13:21 Pain Level 0 08/24/19 13:21
[2019-08-24 13:45] LABS: Bilirubin Negative (Negative); Blood Moderate (Negative); Clarity Sl Cloudy (Clear); Glucose Negative (Negative); Ketones Negative (Negative); Leukocyte Esterase Small (Negative); Nitrite Positive (Negative); Specific Gravity 1.025 (1.005-1.025)
[2019-08-24 13:57] LABS: Bacteria Moderate HPF (Negative); WBC >50 HPF (0-5)
[2019-08-24 13:58] LABS: C & S Indicated? Yes
== END 2019-08-24 14:14 | disposition home or self-care (01) ==
PROVIDERS: Emergency Provider Physician Assistant; PCP Family Medicine
DX: N39.0 Urinary tract infection, site not specified (principal); B96.1 Klebsiella pneumoniae [K. pneumoniae] as the cause of diseases classified elsewhere; I10 Essential (primary) hypertension; Z87.440 Personal history of urinary (tract) infections
CPT/HCPCS: 87077; 99283; 81003; 81015; 87086; 87186

== ENCOUNTER 2019-09-02 01:23 | Outpatient (CLI) | payer OTHER, SELFPAY ==
--- NOTE | 2019-09-02 09:15 | DI.US_ITS ---
EXAM: US RENAL CLINICAL HISTORY: monitoring hydro, ?adrenal change.FLANK PAIN, R10.9. TECHNIQUE: Swan scale, color and spectral Doppler were used. COMPARISON: CT CT RENAL COLIC WO from 08/09/2019 FINDINGS: Renal size in cm: Right: 10.4 left: 10.6 Echogenicity: Normal Hydronephrosis: No Cyst or mass: 1.9 centimeter cyst in the mid left kidney. Nephrolithiasis: No Adrenal glands were not visualized. Bladder:Normal, no wall thickening. Both ureteral jets were visualized. Prevoid vol:101 cc Postvoid vol:90 cc Prostate volume 28 cc. IMPRESSION: Resolution of previously noted left hydronephrosis. Enlarged prostate. Elevated postvoid bladder r esidual. DATA REPOSITORY:
== END 2019-09-02 01:43 ==
PROVIDERS: PCP Family Medicine; Visit Provider Nurse Practitioner Gerontology
DX: R10.9 Unspecified abdominal pain (principal); N13.30 Unspecified hydronephrosis; N40.0 Benign prostatic hyperplasia without lower urinary tract symptoms
CPT/HCPCS: 76770

== ENCOUNTER → 2019-09-10 11:16 | Outpatient (BNVA) | payer OTHER, SELFPAY | PROVIDERS: PCP Family Medicine; Referring Provider Family Medicine; Visit Provider Nurse Practitioner Gerontology | DX: N40.1 Benign prostatic hyperplasia with lower urinary tract symptoms (principal); R35.0 Frequency of micturition; R35.1 Nocturia | CPT/HCPCS: 99213; 99442 ==

== ENCOUNTER 2019-09-20 04:42 | Outpatient (CLI) | payer OTHER, SELFPAY ==
[2019-09-20 08:22] LABS: PHENYTOIN (DILANTIN) 19.3 ug/mL (10.0-20.0)
[2019-09-20 08:26] LABS: Calculated LDL 42 mg/dL (<100); Cholesterol 141 mg/dL (<200); HDL Cholesterol 85 mg/dL (40-60); Triglyceride 74 mg/dL (<150)
== END 2019-09-20 05:02 ==
PROVIDERS: PCP Family Medicine; Visit Provider Family Medicine
DX: I10 Essential (primary) hypertension (principal); G40.909 Epilepsy, unspecified, not intractable, without status epilepticus; Z51.81 Encounter for therapeutic drug level monitoring
CPT/HCPCS: 36415; 80061; 80185

== ENCOUNTER 2019-10-24 20:48 | Outpatient (REF) | payer OTHER, SELFPAY ==
[2019-10-24 21:33] LABS: Bilirubin Negative (Negative); Blood Small (Negative); Clarity Clear (Clear); Glucose Negative (Negative); Ketones Negative (Negative); Leukocyte Esterase Negative (Negative); Nitrite Negative (Negative); Urobilinogen 0.2 EU/dL (Up TO 0.2)
[2019-10-24 21:37] LABS: Bacteria Rare HPF (Negative); C & S Indicated? No; Casts Negative LPF (Negative); Crystals Negative HPF (Negative); Epithelial Cells Rare HPF (Negative); Mucus Negative (Negative); WBC Negative HPF (0-5)
== END 2019-10-24 21:08 ==
LOC: LBN 20:48
PROVIDERS: PCP Family Medicine
DX: R30.0 Dysuria (principal)
CPT/HCPCS: 81003; 81015

== ENCOUNTER 2019-10-25 03:51 | Outpatient (CLI) | payer OTHER, SELFPAY ==
--- NOTE | 2019-10-25 10:52 | DI.RAD_ITS ---
EXAM: XR KNEE LT 3V AP,LAT,ELAINE CLINICAL HISTORY: left knee swelling pain without know injury,m25.562 TECHNIQUE: COMPARISON: No exams were available for comparison FINDINGS: Three views were obtained. There is severe narrowing of medial tibiofemoral cartilaginous joint spac e. There is mild subchondral sclerosis of the adjacent bones at the medial tibial femoral joint. Mi ld marginal osteophyte formation noted at multiple sites. Prominent superior enthesophyte of patella noted. IMPRESSION: Severe DJD predominantly involving medial tibiofemoral joint. RADIATION DOSE DELIVERED: Total DLP
== END 2019-10-25 04:11 ==
PROVIDERS: PCP Family Medicine
DX: M17.12 Unilateral primary osteoarthritis, left knee (principal)
CPT/HCPCS: 73562

== ENCOUNTER 2019-11-19 13:55 | Outpatient (CLI) | payer OTHER, SELFPAY ==
--- NOTE | 2019-11-19 11:00 | DI.RAD_ITS ---
EXAM: XR HIP PELVIS ADULT BL CLINICAL HISTORY: pain. TECHNIQUE: 2D digital imaging was performed. COMPARISON: No exams were available for comparison FINDINGS: There is mild right hip joint space narrowing and mild acetabular spurring. There is moderate narrow ing of the superior left hip joint space and mild spurring from the acetabulum and femoral head. SI joints and pubic symphysis are unremarkable. Vascular calcifications are noted. IMPRESSION: Moderate degenerative changes of the left hip. Mild degenerative changes of the right hip. DATA REPOSITORY: RADIATION DOSE DELIVERED:
== END 2019-11-19 14:15 ==
PROVIDERS: PCP Family Medicine; Referring Provider Family Medicine; Visit Provider Orthopaedic Surgery
DX: M16.0 Bilateral primary osteoarthritis of hip (principal); M25.551 Pain in right hip; M25.552 Pain in left hip; M25.562 Pain in left knee; M17.12 Unilateral primary osteoarthritis, left knee
CPT/HCPCS: 20610; 73521; 99214; J1040

== ENCOUNTER 2019-12-05 02:03 | Outpatient (CLI) | payer OTHER, SELFPAY ==
[2019-12-05 08:31] LABS: Abs Immature Grans 0.01 10^3/uL (0.0-0.06); Absolute Basophil Count 0.01 10^3/uL (0.0-0.2); Absolute Lymphocyte Count 3.04 10^3/uL (1.2-3.4); Absolute Monocyte Count 0.58 10^3/uL (0.1-0.8); Absolute Neutrophil Count 3.56 10^3/uL (1.2-6.7); Basophils % 0.1; Eosinophils % 1.4; HCT 42.9 % (40.0-50.0); HGB 14.5 g/dL (13.5-17.5); Immature Grans % 0.1; Lymphocytes % 41.6; MCH 32.4 pg (27.0-33.0); MCHC 33.8 % (32.0-36.0); MPV 8.8 fL (8.0-11.0); Monocytes % 7.9; Neutrophils % 48.9; Nucleated RBC 0 %; Platelet Count 141 10^3/uL (130-400); RBC 4.47 10^6/uL (4.36-5.78); RDW-SD 45.8 fL
[2019-12-05 08:32] LABS: Bilirubin Negative (Negative); Blood Trace-lysed (Negative); Clarity Clear (Clear); Glucose Negative (Negative); Ketones Negative (Negative); Leukocyte Esterase Trace (Negative); Nitrite Negative (Negative); Specific Gravity 1.015 (1.005-1.025); Urobilinogen 0.2 EU/dL (Up TO 0.2); pH 5.5 (5-8)
[2019-12-05 08:44] LABS: Bacteria Negative HPF (Negative); C & S Indicated? No; Casts Negative LPF (Negative); Crystals Negative HPF (Negative); Epithelial Cells Rare HPF (Negative); Mucus Negative (Negative); RBC 0-2 HPF (0-2); WBC 0-2 HPF (0-5)
[2019-12-05 09:45] LABS: Vitamin D 25 Total 43.6 ng/ml (30-100)
[2019-12-05 09:46] LABS: ALT 59 U/L (16-63); AST 38 U/L (15-37); Albumin 3.7 g/dL (3.4-5.0); Alkaline Phosphatase 60 U/L (46-116); Anion Gap 7.2 mmol/L (3-11); BUN 21 mg/dL (7-18); Bilirubin, Total 0.3 mg/dL (0.2-1.0); CO2 27.8 mmol/L (21.0-32.0); CREATININE 1.09 mg/dL (0.70-1.30); Calcium 8.4 mg/dL (8.5-10.1); Chloride 104 mmol/L (98-107); Creatine Kinase 54 U/L (39-308); Glucose 92 mg/dL (74-106); Potassium 3.9 mmol/L (3.5-5.1); Sodium 139 mmol/L (136-145)
[2019-12-05 09:55] LABS: ESR 9 mm/hr (1-20)
== END 2019-12-05 02:23 ==
PROVIDERS: PCP Family Medicine; Visit Provider Family Medicine
DX: I10 Essential (primary) hypertension (principal); E55.9 Vitamin D deficiency, unspecified; M79.18 Myalgia, other site
CPT/HCPCS: 36415; 80053; 82306; 82550; 85652; 81003; 81015; 84443; 85025

== ENCOUNTER → 2019-12-24 09:44 | Outpatient (BNVA) | payer OTHER, SELFPAY | PROVIDERS: PCP Family Medicine; Referring Provider Family Medicine; Visit Provider Orthopaedic Surgery | DX: M25.551 Pain in right hip (principal); M25.552 Pain in left hip; M25.562 Pain in left knee; M54.31 Sciatica, right side; M54.32 Sciatica, left side | CPT/HCPCS: 99213 ==

== ENCOUNTER 2020-01-01 18:53 | Emergency (ER) | payer OTHER, SELFPAY ==
[2020-01-01] VITALS (10 sets, daily range): BP systolic 120–136; BP diastolic 58–67; PULSE 68–84; RESP 15–22; TEMP 37.3–39.6; O2SAT 93–97
--- NOTE | 2020-01-01 19:27 | ED.GENADUL_ITS ---
Discharge Plan Disposition Patient Disposition: HOME Condition: Improving Discharge Details Clinical Impression: UTI (urinary tract infection), Fever Primary Care Provider: Jesse Gallardo ED Provider: Lisette Kent Home Meds and New Rx's Prescriptions: New cephalexin [Keflex] 500 mg capsule 500 mg PO QID 10 Days Qty: 40 RF: 0 Continued Urinox 200 mg PO DAILY RF: 0 hydrocortisone 2.5 % cream with perineal applicator 1 applic RI BID-QID PRN (Reason: pain) Qty: 30 RF: 4 phenytoin sodium extended [Dilantin Extended] 100 mg capsule 200 mg PO BID Qty: 450 RF: 3 phenytoin [Dilantin Infatabs] 50 mg tablet,chewable 50 mg PO HS Qty: 90 RF: 4 ascorbic acid (vitamin C) [Vitamin C] 500 MG tablet 1 tab PO DAILY RF: 0 multivitamin 1 EACH capsule 1 cap PO DAILY RF: 0 acetaminophen 500 mg Tablet 1,000 mg PO TID RF: 0 metoprolol succinate 50 mg tablet extended release 24 hr 50 mg PO HS RF: 0 Discharge Instructions Instructions: Urinary Tract Infection in Men (ED), Fever in Adults (ED) Additional Instructions: Drink plenty of fluids and get plenty of rest. Take the antibiotics until finished. Alternate tylenol and motrin as needed and directed for pain. Follow-up with your scheduled appointment with your primary care doctor next week. Return immediately to the emergency department if you develop any worsening or new concerning symptoms. Stand Alone Forms: PENDING COVID-19 TESTING Discharge Data Discharge Date/Time-TO BE ENTERED AT DEPARTURE: 01/01/20 21:35 Discharge Physician: Lisette Kent Medical Decision Making 1898 -- 74-year-old male with a history of hypertension, hyperlipidemia and previous UTIs presents for generalized weakness and fatigue today consistent with symptoms of previous UTI. Last antibiotic treatment for UTI in August 2019. Temp 103 per EMS. Temp 103.3 oral in the ED. Remainder of his vitals within normal limits. Patient appears nontoxic and comfortable. He is alert and oriented x3 and able to answer all questions. He states he has a chronic cough but states this is no different than usual. He denies chest pain, abdominal pain or urinary symptoms. 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 History and presentation most likely consistent with UTI. We will also obtain a chest x-ray to rule out pneumonia. Do not see an indication for CT head as he is awake and alert and history and presentation not consistent with meningitis and he has no meningeal signs. Do not see an indication for CT abdomen and pelvis as his abdomen is soft nontender and he has had no vomiting. 2044 -- Labs and imaging reviewed. White blood cell count 13. Lactate 1.6. Urinalysis notes 5-10 WBCs, sent for urine culture. Patient given IV fluids, IV Toradol and Tylenol and had significant improvement in symptoms and is now afebrile. He was given a dose of IV Rocephin. His previous urine cultures have been sensitive to cephalosporins. Patient states he would prefer to go home. We will send home with Keflex to go as well as prescription. Advised to follow up with the primary care doctor for re-evaluation. Usual and customary return precautions given prior to discharge. Medical Records Medical records reviewed: Yes I reviewed the patient's medical records. Imaging Data Radiologic Study: Radiologist's impression: XR Chest, 1 View Exam date and time: 01/01/2020 7:54 PM Age: 74 years old Clinical indication: Cough and fever TECHNIQUE: Imaging protocol: XR of the chest Views: 1 view. COMPARISON: CR XR PORTABLE CHEST AP 08/09/2019 5:13 PM FINDINGS: Lungs: No focal consolidation. Pleural space: No pleural effusion. No pneumothorax. Heart/Mediastinum: The heart and mediastinum are stable in appearance. Bones/joints: Mild degenerative changes are seen. IMPRESSION: No acute cardiopulmonary disease. Lab Data Lab results reviewed: Yes I reviewed the patient's lab results. Labs: 01/01/20 19:30 Urine - Reflex from Ua Urine Culture - Pending 01/01/20 20:00 Blood Blood Culture - Pending 01/01/20 19:38 Blood Blood Culture - Pending Laboratory Tests Range/Units 01/01/20 01/01/20 01/01/20 19:30 19:38 19:38 WBC (4.4-10.8) 10^3/uL RBC (4.36-5.78) 10^6/uL Hgb (13.5-17.5) g/dL Hct (40.0-50.0) % MCV (80-95) fL MCH (27.0-33.0) pg MCHC (32.0-36.0) % RDW (11.8-14.1) % Plt Count (130-400) 10^3/uL MPV (8.0-11.0) fL Immature Gran % Neutrophils % Lymphocytes % Monocytes % Eosinophils % Basophils % Nucleated RBC % % Absolute Neutrophils (1.2-6.7) 10^3/uL Absolute Lymphocytes (1.2-3.4) 10^3/uL Absolute Monocytes (0.1-0.8) 10^3/uL Absolute Eosinophils (0.0-0.7) 10^3/uL Absolute Basophils (0.0-0.2) 10^3/uL VBG Lactate (0.6-1.4) mmol/L 1.6 H Sodium (136-145) mmol/L 135 L Potassium (3.5-5.1) mmol/L 3.9 Chloride (98-107) mmol/L 102 Carbon Dioxide (21.0-32.0) mmol/L 24.3 Anion Gap (3-11) mmol/L 8.7 BUN (7-18) mg/dL 22 H Creatinine (0.70-1.30) mg/dL 1.32 H Estimated GFR/1.73 m2 (mL/min/1.73m2) 53.17 Glucose (74-106) mg/dL 162 H Calcium (8.5-10.1) mg/dL 8.8 Total Bilirubin (0.2-1.0) mg/dL 0.7 AST (15-37) U/L 24 ALT (16-63) U/L 41 Alkaline Phosphatase (46-116) U/L 54 Total Protein (6.4-8.2) g/dL 7.8 Albumin (3.4-5.0) g/dL 3.8 Lipase (73-393) U/L 61 Urine Color (Yellow) Yellow Urine Clarity (Clear) Clear Urine pH (5-8) 5.5 Ur Specific [place] (1.005-1.025) 1.025 Urine Protein (Negative) mg/dL 30 H Urine Ketones (Negative) mg/dL Trace H Urine Blood (Negative) Small H Urine Nitrite (Negative) Negative Urine Bilirubin (Negative) Negative Urine Urobilinogen (Up TO 0.2) EU/dL 0.2 Ur Leukocyte Esterase (Negative) Negative Urine RBC (0-2) HPF 5-10 H Urine WBC (0-5) HPF 5-10 Ur Epithelial Cells (Negative) HPF Rare Urine Crystals (Negative) HPF Negative Urine Bacteria (Negative) HPF Moderate Urine Casts (Negative) LPF 3-5 hyaline Urine Mucus (Negative) Trace Ur Culture Indicated? Yes Urine Glucose (Negative) mg/dL Negative Phenytoin (10.0-20.0) ug/mL Range/Units 01/01/20 01/01/20 19:38 20:00 WBC (4.4-10.8) 10^3/uL 13.71 H RBC (4.36-5.78) 10^6/uL 4.71 Hgb (13.5-17.5) g/dL 15.1 Hct (40.0-50.0) % 44.2 MCV (80-95) fL 93.8 MCH (27.0-33.0) pg 32.1 MCHC (32.0-36.0) % 34.2 RDW (11.8-14.1) % 12.4 Plt Count (130-400) 10^3/uL 126 L MPV (8.0-11.0) fL 9.4 Immature Gran % 0.4 Neutrophils % 86.6 Lymphocytes % 6.0 Monocytes % 6.9 Eosinophils % 0.0 Basophils % 0.1 Nucleated RBC % % 0 Absolute Neutrophils (1.2-6.7) 10^3/uL 11.87 H Absolute Lymphocytes (1.2-3.4) 10^3/uL 0.82 L Absolute Monocytes (0.1-0.8) 10^3/uL 0.95 H Absolute Eosinophils (0.0-0.7) 10^3/uL 0.00 Absolute Basophils (0.0-0.2) 10^3/uL 0.01 VBG Lactate (0.6-1.4) mmol/L Sodium (136-145) mmol/L Potassium (3.5-5.1) mmol/L Chloride (98-107) mmol/L Carbon Dioxide (21.0-32.0) mmol/L Anion Gap (3-11) mmol/L BUN (7-18) mg/dL Creatinine (0.70-1.30) mg/dL Estimated GFR/1.73 m2 (mL/min/1.73m2) Glucose (74-106) mg/dL Calcium (8.5-10.1) mg/dL Total Bilirubin (0.2-1.0) mg/dL AST (15-37) U/L ALT (16-63) U/L Alkaline Phosphatase (46-116) U/L Total Protein (6.4-8.2) g/dL Albumin (3.4-5.0) g/dL Lipase (73-393) U/L Urine Color (Yellow) Urine Clarity (Clear) Urine pH (5-8) Ur Specific [place] (1.005-1.025) Urine Protein (Negative) mg/dL Urine Ketones (Negative) mg/dL Urine Blood (Negative) Urine Nitrite (Negative) Urine Bilirubin (Negative) Urine Urobilinogen (Up TO 0.2) EU/dL Ur Leukocyte Esterase (Negative) Urine RBC (0-2) HPF Urine WBC (0-5) HPF Ur Epithelial Cells (Negative) HPF Urine Crystals (Negative) HPF Urine Bacteria (Negative) HPF Urine Casts (Negative) LPF Urine Mucus (Negative) Ur Culture Indicated? Urine Glucose (Negative) mg/dL Phenytoin (10.0-20.0) ug/mL 19.8 HPI General Mode of arrival: EMS . Date/Time Provider Initiated Documentation: 01/01/20 20:07 . Limitations to Documentation: no limitations . Information obtained by: patient . HPI Narrative: Patient is a 74-year-old male with a history of osteoarthritis, hypertension, hyperlipidemia, frequent UTIs who presents for generalized weakness since this morning. Patient states he felt increased weakness while walking around today to the point at one time he had to lower himself to the ground due to weakness. He denies any injury or fall. Patient was unaware of having a fever as he does not have a thermometer at home. Patient states his symptoms are similar to when he has had a UTI in the past. He denies any recent travel, recent sick contacts, recent known exposure to coronavirus, dysuria, hematuria, urinary frequency, headache, dizziness, chest pain, shortness of breath, cough, abdominal pain, vomiting or diarrhea. Related Data Home Medications Medication Instructions Recorded Confirmed ascorbic acid (vitamin C) [Vitamin 1 tab PO DAILY 03/25/13 11/26/20 C] multivitamin 1 cap PO DAILY 04/30/12 01/02/20 Urinox 200 mg PO DAILY 05/24/18 01/02/20 hydrocortisone 2.5 % topical cream 1 applic RI BID-QID PRN #30 gm 04/05/19 01/02/20 with perineal applicator acetaminophen 1,000 mg PO TID 08/09/19 01/02/20 metoprolol succinate 50 mg PO HS 08/09/19 01/02/20 phenytoin 50 mg chewable tablet 50 mg PO HS #90 tab.chew 08/22/19 01/02/20 phenytoin sodium extended 100 mg 200 mg PO BID #450 cap 08/22/19 01/02/20 capsule cephalexin [Keflex] 500 mg PO QID 10 Days #40 cap 01/01/20 01/02/20 Previous Rx's Medication Instructions Recorded hydrocortisone 2.5 % topical cream 1 applic RI BID-QID PRN #30 gm 04/05/19 with perineal applicator phenytoin 50 mg chewable tablet 50 mg PO HS #90 tab.chew 08/22/19 phenytoin sodium extended 100 mg 200 mg PO BID #450 cap 08/22/19 capsule cephalexin [Keflex] 500 mg PO QID 10 Days #40 cap 01/01/20 Allergies Allergy/AdvReac Type Severity Reaction Status Date / Time camphor AdvReac Intermediate Nicolas Verified 01/02/20 13:12 lactose AdvReac Verified 01/02/20 13:12 General Stated Complaint: Fever GRACIA: 2 Review of Systems All systems reviewed & are unremarkable except as noted in HPI and below Constitutional Constitutional: Reports as per HPI, Reports chills, Reports fatigue, Reports fever(s), Reports poor appetite and Reports weakness Eyes Eyes: Denies blurry vision ENT Ears, Nose, Mouth, and Throat: Denies dizziness, Denies sore throat and Denies throat swelling Cardiovascular Cardiovascular: Denies chest pain and Denies dyspnea Respiratory Respiratory: Denies cough and Denies dyspnea Gastrointestinal Gastrointestinal: Denies abdominal pain, Denies diarrhea and Denies vomiting Genitourinary Genitourinary: Denies hematuria and Denies dysuria Musculoskeletal Musculoskeletal: Denies back pain and Denies numbness Integumentary/Breasts Skin/Breast: Denies lesions and Denies rash Neurologic Neurologic: Denies dizziness, Denies localized weakness, Denies numbness and Reports weakness Endocrine Endocrine: Reports fatigue Allergic/Immunologic Allergic/Immunologic: Denies throat swelling [facility] Medical History (Updated 01/03/20 @ 18:30 by Eric Bernal) Arthralgia of knee, left Dysuria Hematuria Knee effusion Seizure disorder Surgical History History of surgical procedure INTESTINES (02/07/1955) STOMACH (02/07/1955) Trigger finger, left ring finger S/P trigger finger release DOS: 12/27/17 Family History Mother , 63 Alzheimer's disease Father , 62 Lung cancer Maternal Grandfather , 67 Stroke Heart disease Paternal Grandfather , 69 Stroke Maternal Grandmother , 72 Heart disease Stroke Paternal Grandmother , 77 Heart disease Daughter No problems noted. Daughter No problems noted. Social History Smoking/Tobacco Use Status: Never Smoking risk assessment performed?: Yes Alcohol Intake: current Alcohol Intake frequency: 0-2 drinks per day Alcohol type: hard liquor Drug use: Never Substance use type: does not use Caregiver/Support person: No Household members: spouse Communication Needs: None Do you need help understanding health information?: Never Pets and animals: No Sexually active: Yes Do you think of yourself as: straight/heterosexual Current gender identity: male What is your relationship status?: How often do you talk on the phone with friends or family?: once per week How often do you get together with friends or relatives?: once per week Do you belong to any clubs or organized social groups?: yes Panel score (0-1 are the most socially isolated patients): 2 What type of physical activity do you participate in: walking Duration: < 15 minutes/day Frequency: daily Cat/Christian: Jainism Special cat needs: No Seatbelt use: sometimes Helmet use: No Drive intox or ride w/intox professional driver: No Do you feel safe at home: Yes Do you feel safe in your relationship?: Yes Exam Const General: cooperative and no acute distress Orientation: alert, awake and oriented x3 HENMT Head: normal to inspection Ears: hearing grossly normal bilaterally and external ears normal General nose exam: external nose normal Face and sinus: normal facial exam Mouth: oral mucosae normal Teeth and gingiva: dentition normal Throat: posterior oropharynx normal Eyes General: appearance normal, both eyes and all related structures Eyelids: eyelids normal Pupils: PERRL EOM: EOM intact bilaterally Neck Neck: normal visual inspection Lymphatic: no lymphadenopathy noted Chest Chest: normal inspection of the chest Resp Effort & Inspection: normal respiratory effort and able to speak in complete sentences Auscultation: clear to auscultation bilaterally Cardio Rate: regular rate Rhythm: regular rhythm GI Inspection: normal to inspection Palpation: soft, not firm, no guarding, no hepatosplenomegaly, no masses and nontender Auscultation: normal bowel sounds Back/Spine/Pelvis Back: no CVA tenderness Thoracic/Lumbar Spine: thoracic and lumbar spine normal to inspection Skin General skin exam: no rashes or lesions noted Neuro General: patient alert and patient awake Cognition: normal cognition Speech: speech normal Gait: normal gait Motor: muscle tone normal throughout Sensory Exam: no sensory deficits noted Extrem General: normal to inspection, full ROM, capillary refill normal and no edema Psych Appearance: grossly normal Mental Status: mental status grossly normal Speech and Movement: speech and movement normal Affect: normal affect Thought Process: normal Course Vital Signs Vital signs: Vital Signs Temperature 103.3 F H 01/01/20 19:01 Pulse 84 01/01/20 19:01 Respiratory Rate 15 01/01/20 19:01 Blood Pressure 136/67 01/01/20 19:01 Pulse Oximetry 97 01/01/20 19:01 Temperature 103.3 F H 01/01/20 19:01 Temperature Source Oral 01/01/20 19:01 Pulse 84 01/01/20 19:01 Respiratory Rate 15 01/01/20 19:01 Respiratory Effort Non-Labored 01/01/20 19:07 Blood Pressure 136/67 01/01/20 19:01 Blood Pressure Position Supine 01/01/20 19:01 Pulse Oximetry 97 01/01/20 19:01 Oxygen Delivery Method Room Air 01/01/20 19:01 Oxygen Flow Rate 0 01/01/20 19:01 Pain Level 0 01/01/20 19:01
[2020-01-01] MEDS: Normal Saline 1,000 ML 1000 ML IV (19:43)
[2020-01-01 19:51] LABS: Lactate 1.6 mmol/L (0.6-1.4)
--- NOTE | 2020-01-01 19:53 | DI.RAD_ITS ---
EXAM: XR PORTABLE CHEST AP CLINICAL HISTORY: fever, cough, r/o pneumonia. TECHNIQUE: 2D digital imaging was performed. COMPARISON: CR,XR XR PORTABLE CHEST AP from 08/09/2019 FINDINGS: Heart size normal. Mediastinum is not widened. No infiltrates nor pleural effusions. No pneumothor ax. IMPRESSION: No acute pulmonary findings. DATA REPOSITORY: RADIATION DOSE DELIVERED:
[2020-01-01 19:55] LABS: Abs Immature Grans 0.06 10^3/uL (0.0-0.06); Absolute Lymphocyte Count 0.82 10^3/uL (1.2-3.4); Absolute Monocyte Count 0.95 10^3/uL (0.1-0.8); Basophils % 0.1; HCT 44.2 % (40.0-50.0); HGB 15.1 g/dL (13.5-17.5); Immature Grans % 0.4; MCH 32.1 pg (27.0-33.0); MCHC 34.2 % (32.0-36.0); MCV 93.8 fL (80-95); MPV 9.4 fL (8.0-11.0); Monocytes % 6.9; Neutrophils % 86.6; Nucleated RBC 0 %; Platelet Count 126 10^3/uL (130-400); RBC 4.71 10^6/uL (4.36-5.78); RDW 12.4 % (11.8-14.1); RDW-SD 43.1 fL; WBC 13.71 10^3/uL (4.4-10.8)
[2020-01-01] MEDS: ACETAMINOPHEN 1,000 MG/100 ML BTL 400 MG IVPB (19:55)
[2020-01-01 19:58] LABS: Absolute Basophil Count 0.01 10^3/uL (0.0-0.2); Absolute Neutrophil Count 11.87 10^3/uL (1.2-6.7)
[2020-01-01 20:03] LABS: Bilirubin Negative (Negative); Blood Small (Negative); Clarity Clear (Clear); Glucose Negative (Negative); Ketones Trace mg/dL (Negative); Leukocyte Esterase Negative (Negative); Nitrite Negative (Negative); Specific Gravity 1.025 (1.005-1.025); Urobilinogen 0.2 EU/dL (Up TO 0.2); pH 5.5 (5-8)
[2020-01-01] MEDS: Ketorolac 30 MG/ML VIAL IVP (20:09)
--- NOTE | 2020-01-01 20:14 | DI.VRAD_ITS ---
PROCEDURE INFORMATION: Exam: XR Chest, 1 View Exam date and time: 01/01/2020 7:54 PM Age: 74 years old Clinical indication: Cough and fever TECHNIQUE: Imaging protocol: XR of the chest Views: 1 view. COMPARISON: CR XR PORTABLE CHEST AP 08/09/2019 5:13 PM FINDINGS: Lungs: No focal consolidation. Pleural space: No pleural effusion. No pneumothorax. Heart/Mediastinum: The heart and mediastinum are stable in appearance. Bones/joints: Mild degenerative changes are seen. IMPRESSION: No acute cardiopulmonary disease. Dictated and Authenticated by: Francisco Weiss MD. Ordering:ARPIT Knox MD
[2020-01-01 20:17] LABS: ALT 41 U/L (16-63); AST 24 U/L (15-37); Albumin 3.8 g/dL (3.4-5.0); Alkaline Phosphatase 54 U/L (46-116); Anion Gap 8.7 mmol/L (3-11); BUN 22 mg/dL (7-18); Bilirubin, Total 0.7 mg/dL (0.2-1.0); CO2 24.3 mmol/L (21.0-32.0); CREATININE 1.32 mg/dL (0.70-1.30); Calcium 8.8 mg/dL (8.5-10.1); Chloride 102 mmol/L (98-107); Estimated GFR 53.17 (mL/min/1.73m2); Glucose 162 mg/dL (74-106); Lipase 61 U/L (73-393); Potassium 3.9 mmol/L (3.5-5.1); Sodium 135 mmol/L (136-145); Total Protein 7.8 g/dL (6.4-8.2)
[2020-01-01 20:22] LABS: Bacteria Moderate HPF (Negative); Crystals Negative HPF (Negative); Epithelial Cells Rare HPF (Negative); Mucus Trace (Negative)
[2020-01-01 20:23] LABS: C & S Indicated? Yes; Casts 3-5 Hyaline LPF (Negative)
[2020-01-01] MEDS: cefTRIAXone 1 GM/50 ML BAG IVPB (20:54)
[2020-01-01 20:55] LABS: PHENYTOIN (DILANTIN) 19.8 ug/mL (10.0-20.0)
[2020-01-01] MEDS: Normal Saline 500 ML IV (20:58)
[2020-01-01] MEDS: Cephalexin 500 MG CAP, 4 CAPS/BTL PO (21:23)
--- NOTE | 2020-01-02 12:30 | NUR.NOTE ---
Lab called with positive anaerobic blood culture, positive cocci in chains.
--- NOTE | 2020-01-02 12:38 | W.ED.FU ---
Received blood culture results from specimen obtained during ED visit last night, growing gram-positive chains. I called and spoke with the patient who notes he continues to have shivering chills intermittently and is unsteady on his feet. I advised the return to the emergency department for likely admission. He was encouraged to call EMS if he is unable to ambulate and safely be transported by relatives. Patient verbalized understanding of recommendation and will be coming into the emergency department soon as possible.
== END 2020-01-01 21:35 | disposition home or self-care (01) ==
LOC: ER 20:58
PROVIDERS: Emergency Provider Physician Assistant; PCP Family Medicine
DX: N39.0 Urinary tract infection, site not specified (principal); B95.2 Enterococcus as the cause of diseases classified elsewhere; R50.9 Fever, unspecified; R53.1 Weakness; I10 Essential (primary) hypertension; Z87.440 Personal history of urinary (tract) infections
CPT/HCPCS: 36415; 80053; 83690; 87040; 87077; 96361; 96365; 96375; 99284; U0003; 71045; 80185; 81003; 81015; 83605; 85025; 87086; 87186; 99285; J0131; J0696; J1885

== ENCOUNTER 2020-01-02 13:02 | Inpatient (IN) | payer OTHER, SELFPAY ==
[2020-01-02] VITALS (83 sets, daily range): BP systolic 92–169; BP diastolic 48–70; PULSE 58–90; RESP 12–29; TEMP 36.9–40.9; O2SAT 88–100
--- NOTE | 2020-01-02 13:13 | W.ED.GENAD ---
Discharge Plan Disposition Patient Disposition: [facility] INPATIENT Condition: Serious Discharge Details Clinical Impression: Sepsis Primary Care Provider: Jesse Gallardo ED Provider: Laura Toribio Home Meds and New Rx's Prescriptions: No Action Urinox 200 mg PO DAILY RF: 0 hydrocortisone 2.5 % cream with perineal applicator 1 applic LA BID-QID PRN (Reason: pain) Qty: 30 RF: 4 diphenoxylate-atropine [Lomotil] 2.5-0.025 mg tablet 1 tab PO Q6H PRN Qty: 60 RF: 0 phenytoin sodium extended [Dilantin Extended] 100 mg capsule 200 mg PO BID Qty: 450 RF: 3 phenytoin [Dilantin Infatabs] 50 mg tablet,chewable 50 mg PO HS Qty: 90 RF: 4 ascorbic acid (vitamin C) [Vitamin C] 500 MG tablet 1 tab PO DAILY RF: 0 multivitamin 1 EACH capsule 1 cap PO DAILY RF: 0 hydrocortisone 2.5 % cream with perineal applicator 1 applic Topical BID Qty: 30 RF: 3 cephalexin [Keflex] 500 mg capsule 500 mg PO QID 10 Days Qty: 40 RF: 0 acetaminophen 500 mg Tablet 1,000 mg PO TID RF: 0 metoprolol succinate 50 mg tablet extended release 24 hr 50 mg PO HS RF: 0 Medical Decision Making 74-year-old male presents to the ER after being called and told to return to the ED after receiving positive blood cultures. Patient was seen here yesterday for possible UTI, was placed on cephalexin and received 1 g of Rocephin IV piggyback. Upon contact with patient today by ER attending patient reported increased and continued weakness and rigors. Instructed to come back to the ER for IV antibiotics and possible admission. Blood culture noted gram-positive chains. Patient states that last night when he went home he became increasingly weaker, vomited x1 and has had fever and rigors since then. On initial exam he is alert and oriented and feels hot to the touch. He is extremely weak. He denies any chest pain, abdominal pain, shortness of breath. He does have a tight dry cough which he states he has had for years. He did have a chest x-ray yesterday which was negative for pneumonia or pleural effusion. He has a past medical history of hypertension hyperlipidemia and a bowel resection approximately 60 years ago. Patient's lactate came back elevated at 2.4 which is up from 1.6 yesterday. Does have increased weakness, rigors is concerning for SIRS criteria. Will add on Levaquin for broad-spectrum antibiotics. Patient seen here attending spoke with hospitalist Dr. Bernal who agrees to accept patient for admission. RN informed me that repeat rectal temperature was 105.7. IV levofloxacin ordered, acetaminophen IV ordered. EXAM: XR PORTABLE CHEST AP CLINICAL HISTORY: Cough, fever, PUI. TECHNIQUE: 2D digital imaging was performed. COMPARISON: CR,XR XR PORTABLE CHEST AP from 01/01/2020 FINDINGS: Chest leads in place. Heart size upper normal. Mediastinum not widened. Lungs remain clear with no infiltrates or pleural effusions. No pneumothorax. IMPRESSION: No acute pulmonary findings. No significant change compared to 01/01/2020. 1519: Patient transported up to floor with direct support staff, remained hemodynamically stable. HPI General Mode of arrival: wheelchair. Date/Time Provider Initiated Documentation: 01/02/20 13:03. Limitations to Documentation: no limitations. Information obtained by: patient. HPI Narrative: 74-year-old male presents to the ER after being called and told to return to the ED after receiving positive blood cultures. Patient was seen here yesterday for possible UTI, was placed on cephalexin and received 1 g of Rocephin IV piggyback. Upon contact with patient today by ER attending patient reported increased and continued weakness and rigors. Instructed to come back to the ER for IV antibiotics and possible admission. Blood culture noted gram-positive chains. Patient states that last night when he went home he became increasingly weaker, vomited x1 and has had fever and rigors since then. On initial exam he is alert and oriented and feels hot to the touch. He is extremely weak. He denies any chest pain, abdominal pain, shortness of breath. He does have a tight dry cough which he states he has had for years. He did have a chest x-ray yesterday which was negative for pneumonia or pleural effusion. He has a past medical history of hypertension hyperlipidemia and a bowel resection approximately 60 years ago. Related Data Home Medications Medication Instructions Recorded Confirmed ascorbic acid (vitamin C) [Vitamin 1 tab PO DAILY 04/30/12 01/02/20 C] multivitamin 1 cap PO DAILY 04/30/12 01/02/20 hydrocortisone 2.5 % topical cream 1 applic TOPICAL BID #30 gm 12/18/17 01/02/20 with perineal applicator Urinox 200 mg PO DAILY 05/24/18 01/02/20 hydrocortisone 2.5 % topical cream 1 applic LA BID-QID PRN #30 gm 04/05/19 01/02/20 with perineal applicator acetaminophen 1,000 mg PO TID 08/09/19 01/02/20 metoprolol succinate 50 mg PO HS 08/09/19 01/02/20 diphenoxylate-atropine 2.5 1 tab PO Q6H PRN #60 tab 08/22/19 01/02/20 mg-0.025 mg tablet phenytoin 50 mg chewable tablet 50 mg PO HS #90 tab.chew 08/22/19 01/02/20 phenytoin sodium extended 100 mg 200 mg PO BID #450 cap 08/22/19 01/02/20 capsule cephalexin [Keflex] 500 mg PO QID 10 Days #40 cap 01/01/20 01/02/20 Previous Rx's Medication Instructions Recorded hydrocortisone 2.5 % topical cream 1 applic TOPICAL BID #30 gm 12/18/17 with perineal applicator hydrocortisone 2.5 % topical cream 1 applic LA BID-QID PRN #30 gm 04/05/19 with perineal applicator diphenoxylate-atropine 2.5 1 tab PO Q6H PRN #60 tab 08/22/19 mg-0.025 mg tablet phenytoin 50 mg chewable tablet 50 mg PO HS #90 tab.chew 08/22/19 phenytoin sodium extended 100 mg 200 mg PO BID #450 cap 08/22/19 capsule cephalexin [Keflex] 500 mg PO QID 10 Days #40 cap 01/01/20 Allergies Allergy/AdvReac Type Severity Reaction Status Date / Time camphor AdvReac Intermediate Nicolas Verified 01/02/20 13:12 lactose AdvReac Verified 01/02/20 13:12 General Stated Complaint: [facility] GRACIA: 3 Review of Systems Narrative: Constitutional: Negative for weight loss, alert and oriented, well groomed, normal body habitus, appears uncomfortable. Hot to the touch low-grade fever at 37.6. HEENT: Denies trauma, headaches, blurry vision, nasal discharge, sore throat, trouble swallowing. Chest: Denies chest pain, palpitations, irregular rhythm, hypertension. Respiratory: Denies Shortness of breath, hemoptysis. Positive cough. GI: Denies abdominal pain, diarrhea, constipation. Had an episode of nausea and vomiting last night after being discharged from the hospital. : Denies hematuria, flank pain, rectal bleeding. Recent diagnosis of urinary tract infection. Neuro: Denies dizziness, blurry vision, , syncope, headache or facial numbness. Positive generalized weakness. Hematologic: Denies easy bruising, intolerance to heat or cold, hair loss. FORMERLY [facility], [facility] Medical History Arthralgia of knee, left Dysuria Hematuria Knee effusion Surgical History History of surgical procedure INTESTINES (02/07/1955) STOMACH (02/07/1955) Trigger finger, left ring finger S/P trigger finger release DOS: 12/27/17 Family History Mother , 63 Alzheimer's disease Father , 62 Lung cancer Maternal Grandfather , 67 Stroke Heart disease Paternal Grandfather , 69 Stroke Maternal Grandmother , 72 Heart disease Stroke Paternal Grandmother , 77 Heart disease Daughter No problems noted. Daughter No problems noted. Social History Smoking/Tobacco Use Status: Never Smoking risk assessment performed?: Yes Alcohol Intake: current Alcohol Intake frequency: 0-2 drinks per day Alcohol type: hard liquor Drug use: Never Substance use type: does not use Caregiver/Support person: No Household members: spouse Communication Needs: None Do you need help understanding health information?: Never Pets and animals: No Sexually active: Yes Do you think of yourself as: straight/heterosexual Current gender identity: male What is your relationship status?: How often do you talk on the phone with friends or family?: once per week How often do you get together with friends or relatives?: once per week Do you belong to any clubs or organized social groups?: yes Panel score (0-1 are the most socially isolated patients): 2 What type of physical activity do you participate in: walking Duration: < 15 minutes/day Frequency: daily Cat/Faith: Zoroastrian Special cat needs: No Seatbelt use: sometimes Helmet use: No Drive intox or ride w/intox 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 Appears stated age. Normal body habitus. Hot to the touch, low-grade temp of 37.6 Head: Normocephalic, no trauma. Eyes: Pupils PERRLA, Red reflex noted, EOM's intact. Eyelids symmetrical without lesions, discharge, or swelling. ENT: Bilateral TM's WNL, External ear normal to inspection, no mastoid TTP, swelling, or erythema, Nasal turbinates WNL, no nasal discharge. Normal dentition, Posterior pharynx WNL, no exudate. Chest: RRR, Normal S1, S2, distal pulses intact. Resp: Lungs clear to auscultation bilaterally, no wheezes, rales, or rhonchi. Abdomen: Soft nondistended. Musculoskeletal: Normal gait, 5/5 strength to all four extremities. Generalized weakness Skin: No suspicious rashes or lesions. Capillary refill less than 2 sec. Neurologic: Cranial nerves II-XII intact. Alert and oriented x 3. DTR's intact. No focal neuro deficit Hematologic/Lymphatic: No ecchymosis, no lymphadenopathy. Course Vital Signs Vital signs: Vital Signs Temperature 37.6 C H 01/02/20 13:09 Pulse 85 01/02/20 13:09 Respiratory Rate 18 01/02/20 13:09 Blood Pressure 169/70 H 01/02/20 13:09 Pulse Oximetry 99 01/02/20 13:09 Temperature 37.6 C H 01/02/20 13:09 Temperature Source Temporal Artery Scan 01/02/20 13:09 Pulse 85 01/02/20 13:09 Respiratory Rate 18 01/02/20 13:09 Blood Pressure 169/70 H 01/02/20 13:09 Blood Pressure Position Sitting 01/02/20 13:09 Pulse Oximetry 99 01/02/20 13:09 Oxygen Delivery Method Room Air 01/02/20 13:09 Oxygen Flow Rate 0 01/02/20 13:09
[2020-01-02 13:29] LABS: Abs Immature Grans 0.07 10^3/uL (0.0-0.06); Absolute Basophil Count 0.02 10^3/uL (0.0-0.2); Absolute Lymphocyte Count 1.47 10^3/uL (1.2-3.4); Absolute Monocyte Count 0.79 10^3/uL (0.1-0.8); Basophils % 0.2; HCT 40.9 % (40.0-50.0); HGB 13.8 g/dL (13.5-17.5); Immature Grans % 0.6; Lymphocytes % 12.4; MCH 32.5 pg (27.0-33.0); MCHC 33.7 % (32.0-36.0); MCV 96.5 fL (80-95); MPV 9.2 fL (8.0-11.0); Monocytes % 6.7; Neutrophils % 80.1; Nucleated RBC 0 %; Platelet Count 116 10^3/uL (130-400); RBC 4.24 10^6/uL (4.36-5.78); RDW 12.6 % (11.8-14.1); RDW-SD 44.5 fL; WBC 11.85 10^3/uL (4.4-10.8)
[2020-01-02 13:30] LABS: Lactate 2.4 mmol/L (0.6-1.4)
--- NOTE | 2020-01-02 13:30 | DI.RAD_ITS ---
EXAM: XR PORTABLE CHEST AP CLINICAL HISTORY: Cough, fever, PUI. TECHNIQUE: 2D digital imaging was performed. COMPARISON: CR,XR XR PORTABLE CHEST AP from 01/01/2020 FINDINGS: Chest leads in place. Heart size upper normal. Mediastinum not widened. Lungs remain clear with no infiltrates or pleural effusions. No pneumothorax. IMPRESSION: No acute pulmonary findings. No significant change compared to 01/01/2020. DATA REPOSITORY: RADIATION DOSE DELIVERED:
[2020-01-02 13:32] LABS: Absolute Neutrophil Count 9.49 10^3/uL (1.2-6.7)
[2020-01-02 13:42] LABS: ALT 30 U/L (16-63); AST 21 U/L (15-37); Albumin 3.3 g/dL (3.4-5.0); Alkaline Phosphatase 46 U/L (46-116); Anion Gap 6.8 mmol/L (3-11); BUN 23 mg/dL (7-18); Bilirubin, Total 0.5 mg/dL (0.2-1.0); CO2 26.2 mmol/L (21.0-32.0); CREATININE 1.53 mg/dL (0.70-1.30); Calcium 7.8 mg/dL (8.5-10.1); Chloride 101 mmol/L (98-107); Estimated GFR 44.84 (mL/min/1.73m2); Glucose 141 mg/dL (74-106); Magnesium 1.9 mg/dL (1.8-2.4); Potassium 3.6 mmol/L (3.5-5.1); Sodium 134 mmol/L (136-145); Total Protein 7.2 g/dL (6.4-8.2)
[2020-01-02] MEDS: Normal Saline 1,000 ML 1000 ML IV (13:45)
[2020-01-02] MEDS: cefTRIAXone 1 GM/50 ML BAG IVPB (13:47)
[2020-01-02] MEDS: ACETAMINOPHEN 1,000 MG/100 ML BTL 400 MG IVPB (14:12)
--- NOTE | 2020-01-02 14:15 | DI.VRAD_ITS ---
PROCEDURE INFORMATION: Exam: XR Chest, 1 View Exam date and time: 01/02/2020 1:40 PM Age: 74 years old Clinical indication: Cough and fever; Patient HX: PT under investigation for covid TECHNIQUE: Imaging protocol: XR of the chest Views: 1 view. COMPARISON: CR XR PORTABLE CHEST AP 01/01/2020 7:39 PM FINDINGS: Lungs: The lungs are clear without opacity or suspicious parenchymal finding. Pleural space: Unremarkable. No pleural effusion. No pneumothorax. Heart/Mediastinum: Cardiomegaly. Bones/joints: Unremarkable. IMPRESSION: 1. No acute pulmonary process. 2. Cardiomegaly. Dictated and Authenticated by: Duy Ackerman MD. Ordering:JULIA Sanchez MD
[2020-01-02] MEDS: levoFLOXacin 750 MG/150 ML BAG 100 MG IVPB (14:30)
[2020-01-02 15:18] LABS: Procalcitonin 1.3 ng/mL
[2020-01-02] MEDS: POTASSIUM CHLORIDE/0.9% NACL 1,000 ML 150 MEQ IV ×2 (16:07→22:45)
[2020-01-02] MEDS: Normal Saline Flush 10 ML SYR IVP (16:12)
[2020-01-02] MEDS: Enoxaparin 40 MG/0.4 ML SYR SC (16:12)
--- NOTE | 2020-01-02 16:37 | W.PM.HP.N ---
Date of service: 01/02/20 Time of Service: 16:37 Assessment and Plan Assessment and plan (1) Sepsis: Status: Acute Assessment and plan: Patient meets criteria for sepsis including elevated lactate and procalcitonin as well as tachycardia fever leukocytosis and evidence of acute endorgan injury including BEE in the setting document infection including UTI with bacteremia. Patient will continue broad-spectrum antibiotics with ceftriaxone 2 g IV daily along with Levaquin 750 mg IV daily. Will tighten antibiotic coverage once we have culture results and sensitivity. Qualifiers: Acute renal failure type: unspecified Sepsis acute organ dysfunction status: with acute organ dysfunction Sepsis type: sepsis due to unspecified organism Severe sepsis acute organ dysfunction type: acute renal failure Severe sepsis shock status: without septic shock Qualified Code(s): A41.9 - Sepsis, unspecified organism; R65.20 - Severe sepsis without septic shock; N17.9 - Acute kidney failure, unspecified (2) UTI (urinary tract infection): Status: Acute Assessment and plan: As above Qualifiers: Hematuria presence: with hematuria Urinary tract infection type: acute cystitis Qualified Code(s): N30.01 - Acute cystitis with hematuria (3) 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 Monitor his urine output checking postvoid residuals. (4) Sciatica: Status: Chronic Assessment and plan: Currently his sciatica seems to be improved. Will monitor. If we had not had a positive urine culture I would have been concern for possible paraspinal infection but with no reproducible pain with straight leg raising or palpation of the spine and now with positive urine culture I think the source clearly is a urinary tract infection possibly related to his BPH and poor voiding. 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 He denies dysuria or hematuria but admits to recent bilateral buttock pain w/radicular symptom down both legs. This has been present for about 3 weeks but suddenly improved over the past couple of days. Bowels are always loose w/ diarrhea since his bowel surgery as a child. No melena nor hematochezia. He also has a chronic cough but no sputum production and he denies any dyspnea nor any chest pains. Last night when he went to the ER he thought that he might be getting another UTI although he had no pain or burning w/ urination although he has had some urinary hesitancy and difficulty voiding. His evaluation in the ER last night included CXR which was unremarkable, UA w/ 5 to 10 WBC, 5-10 RBC and moderate bacteria although neg. for nitrites. His WBC was elevated at 13,000 and his lactate was 1.6. He was treated w/ Tylenol, iv fluids, Rocephin and dc home on Keflex. He returned today feeling no better (although he felt well enough last night to return home). He had further fever () and rigors. He again denies any pain w/ urination but has some difficulty initiating his urinary stream. He no longer has any buttock pain or radicular pain in his legs and he denies any paresthesias or perineal numbness. He had blood culture drawn last night which has come back positive for GPC in chains and his urine culture is also positive for GPC. His lactated is now up to 2.4. But his WBC is down to 11,850. His repeat CXR again shows no infiltrates. He is admitted for sepsis d/t urinary source. He will get renal ultrasound in the a.m. He was given further Rocephin and Levaquin in the ER. Review of Systems All systems reviewed & are unremarkable except as noted in HPI and below PFS Medical History (Updated 01/03/20 @ 18:30 by Eric Bernal) Arthralgia of knee, left Dysuria Hematuria Knee effusion Seizure disorder Surgical History History of surgical procedure INTESTINES (02/07/1955) STOMACH (02/07/1955) Trigger finger, left ring finger S/P trigger finger release DOS: 12/27/17 Family History Mother , 63 Alzheimer's disease Father , 62 Lung cancer Maternal Grandfather , 67 Stroke Heart disease Paternal Grandfather , 69 Stroke Maternal Grandmother , 72 Heart disease Stroke Paternal Grandmother , 77 Heart disease Daughter No problems noted. Daughter No problems noted. Social History Smoking/Tobacco Use Status: Never Smoking risk assessment performed?: Yes Alcohol Intake: current Alcohol Intake frequency: 0-2 drinks per day Alcohol type: hard liquor Drug use: Never Substance use type: does not use Caregiver/Support person: No Household members: spouse Communication Needs: None Do you need help understanding health information?: Never Pets and animals: No Sexually active: Yes Do you think of yourself as: straight/heterosexual Current gender identity: male What is your relationship status?: How often do you talk on the phone with friends or family?: once per week How often do you get together with friends or relatives?: once per week Do you belong to any clubs or organized social groups?: yes Panel score (0-1 are the most socially isolated patients): 2 What type of physical activity do you participate in: walking Duration: < 15 minutes/day Frequency: daily Cat/Baptism: Confucianism Special cat needs: No Seatbelt use: sometimes Helmet use: No Drive intox or ride w/intox 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: No Do you feel safe at home: Yes Do you feel safe in your relationship?: Yes Meds Home Medications and Allergies Home Medications Medication Instructions Recorded Confirmed Type ascorbic acid (vitamin C) [Vitamin 1 tab PO DAILY 04/30/12 01/02/20 History C] multivitamin 1 cap PO DAILY 04/30/12 01/02/20 History Urinox 200 mg PO DAILY 05/24/18 01/02/20 History hydrocortisone 2.5 % topical cream 1 applic [place] BID-QID PRN #30 gm 04/05/19 01/02/20 Rx with perineal applicator acetaminophen 1,000 mg PO TID 08/09/19 01/02/20 History metoprolol succinate 50 mg PO HS 08/09/19 01/02/20 History phenytoin 50 mg chewable tablet 50 mg PO HS #90 tab.chew 08/22/19 01/02/20 Rx phenytoin sodium extended 100 mg 200 mg PO BID #450 cap 08/22/19 01/02/20 Rx capsule cephalexin [Keflex] 500 mg PO QID 10 Days #40 cap 01/01/20 01/02/20 Rx Allergies Allergy/AdvReac Type Severity Reaction Status Date / Time camphor AdvReac Intermediate Nicolas Verified 01/02/20 13:12 lactose AdvReac Verified 01/02/20 13:12 Exam Narrative Exam Narrative: Elderly male in no acute distress, able to carry on prolonged conversation w/out dyspnea. He is alert and oriented person place time circumstance. Neck supple nontender no JVD no thyromegaly no cervical lymphadenopathy normal carotid pulses Lungs are clear to auscultation Heart is regular rate and rhythm no appreciable murmur rub or gallop. Abdomen is obese soft nontender no guarding no suprapubic tenderness. No CVA tenderness. Digital rectal exam reveals external hemorrhoids with normal sphincter tone. Prostate is markedly enlarged and tender Stool is negative for occult blood No pain with straight leg raising. Normal range of motion in both upper lower extremities. No spinal tenderness. No peripheral cyanosis or edema. Neuro exam grossly intact no focal deficits Results Labs Result diagrams: 01/03/20 06:25 01/03/20 06:25 Labs: Laboratory Results - last 24 hr 01/02/20 01/02/20 01/02/20 13:23 13:23 13:23 WBC 11.85 H RBC 4.24 L Hgb 13.8 Hct 40.9 MCV 96.5 H MCH 32.5 MCHC 33.7 RDW 12.6 Plt Count 116 L MPV 9.2 Immature Gran % 0.6 Neutrophils % 80.1 Lymphocytes % 12.4 Monocytes % 6.7 Eosinophils % 0.0 Basophils % 0.2 Nucleated RBC % 0 Absolute Neutrophils 9.49 H Absolute Lymphocytes 1.47 Absolute Monocytes 0.79 Absolute Eosinophils 0.00 Absolute Basophils 0.02 VBG Lactate 2.4 H* Sodium 134 L Potassium 3.6 Chloride 101 Carbon Dioxide 26.2 Anion Gap 6.8 BUN 23 H Creatinine 1.53 H Estimated GFR/1.73 m2 44.84 Glucose 141 H Calcium 7.8 L Magnesium 1.9 Total Bilirubin 0.5 AST 21 ALT 30 Alkaline Phosphatase 46 Total Protein 7.2 Albumin 3.3 L Procalcitonin 01/02/20 13:25 WBC RBC Hgb Hct MCV MCH MCHC RDW Plt Count MPV Immature Gran % Neutrophils % Lymphocytes % Monocytes % Eosinophils % Basophils % Nucleated RBC % Absolute Neutrophils Absolute Lymphocytes Absolute Monocytes Absolute Eosinophils Absolute Basophils VBG Lactate Sodium Potassium Chloride Carbon Dioxide Anion Gap BUN Creatinine Estimated GFR/1.73 m2 Glucose Calcium Magnesium Total Bilirubin AST ALT Alkaline Phosphatase Total Protein Albumin Procalcitonin 1.3 Last Vital Signs Temp 38.0 C H 01/02/20 15:25 Pulse 68 01/02/20 15:00 Resp 16 01/02/20 15:10 BP 109/48 L 01/02/20 15:00 Pulse Ox 95 01/02/20 15:10 COVID-19 Screening Have you, or household traveled for leisure in last 14 days?: No Had IN PERSON contact w/suspected or confirmed C-19 person: No
[2020-01-02 17:03] LABS: Lactate 1.2 mmol/L (0.6-1.4)
[2020-01-02] MEDS: Ipratropium/Albuterol 4 GM 120 PUFF INH IH (20:13)
[2020-01-02 20:22] LABS: Lactate 1.2 mmol/L (0.6-1.4)
[2020-01-02] MEDS: Metoprolol CR 50 MG TABCR PO (21:51)
[2020-01-03] VITALS (30 sets, daily range): BP systolic 102–178; BP diastolic 48–80; PULSE 44–81; RESP 12–25; TEMP 36.9–38.3; O2SAT 95–99
[2020-01-03] MEDS: Acetaminophen 325 MG TAB PO (00:04)
[2020-01-03] MEDS: POTASSIUM CHLORIDE/0.9% NACL 1,000 ML 150 MEQ IV ×2 (05:43→11:41)
[2020-01-03 06:36] LABS: Lactate 0.6 mmol/L (0.6-1.4)
[2020-01-03 06:42] LABS: Abs Immature Grans 0.02 10^3/uL (0.0-0.06); Absolute Eosinophil Count 0.02 10^3/uL (0.0-0.7); Absolute Lymphocyte Count 1.03 10^3/uL (1.2-3.4); Absolute Monocyte Count 0.59 10^3/uL (0.1-0.8); Absolute Neutrophil Count 4.55 10^3/uL (1.2-6.7); Eosinophils % 0.3; HCT 33.4 % (40.0-50.0); HGB 11.4 g/dL (13.5-17.5); Immature Grans % 0.3; Lymphocytes % 16.6; MCH 32.9 pg (27.0-33.0); MCHC 34.1 % (32.0-36.0); MCV 96.3 fL (80-95); MPV 9.5 fL (8.0-11.0); Monocytes % 9.5; Neutrophils % 73.3; Nucleated RBC 0 %; RBC 3.47 10^6/uL (4.36-5.78); RDW 12.5 % (11.8-14.1); RDW-SD 43.7 fL; WBC 6.21 10^3/uL (4.4-10.8)
[2020-01-03 06:56] LABS: ALT 21 U/L (16-63); AST 15 U/L (15-37); Albumin 2.5 g/dL (3.4-5.0); Alkaline Phosphatase 35 U/L (46-116); Anion Gap 6.6 mmol/L (3-11); BUN 15 mg/dL (7-18); Bilirubin, Total 0.4 mg/dL (0.2-1.0); CO2 23.4 mmol/L (21.0-32.0); CREATININE 1.07 mg/dL (0.70-1.30); Calcium 7.5 mg/dL (8.5-10.1); Chloride 108 mmol/L (98-107); Glucose 117 mg/dL (74-106); Sodium 138 mmol/L (136-145); Total Protein 5.9 g/dL (6.4-8.2)
--- NOTE | 2020-01-03 07:00 | DI.US_ITS ---
EXAM: US RENAL CLINICAL HISTORY: Urosepsis TECHNIQUE: Ultrasound performed using standard protocol. COMPARISON: US US RENAL from 09/02/2019 FINDINGS: Renal ultrasound was performed according to the usual protocol. Kidneys are normal in size and shape . There is an incidental 23 millimeter in diameter left midpole renal cyst. There is no hydronephro sis or nephrolithiasis. Urinary bladder is intrinsically unremarkable in appearance, pre and postvoid urinary bladder volume measurements are 403 cc and 156 cc respectively. Ureteral jets were noted bilaterally. IMPRESSION: Unremarkable appearance of the upper urinary tracts, no evidence of obstruction. Moderate postvoid residual volume of the bladder, 156 cc. DATA REPOSITORY:
[2020-01-03 07:23] LABS: Platelet Count 87 10^3/uL (130-400)
[2020-01-03] MEDS: Tamsulosin 0.4 MG CAPCR PO (08:30)
[2020-01-03] MEDS: Multivitamin TAB 1 TAB PO (08:30)
[2020-01-03] MEDS: Ipratropium/Albuterol 4 GM 120 PUFF INH IH ×4 (09:28→19:55)
[2020-01-03 10:30] LABS: Source Nasopharynx
[2020-01-03 11:17] LABS: Influenza A PCR Negative (Negative); Influenza B PCR Negative (Negative); RSV PCR Negative (Negative)
[2020-01-03 11:19] LABS: COVID-19 PCR Negative (Negative)
--- NOTE | 2020-01-03 11:40 | PDOC.CMIN ---
- If Service Date Differs Date of service: 01/03/20 Time of Service: 16:21 Care Management Initial Assess REASON FOR HOSPITALIZATION:: Bactermia, Sepsis PAST MEDICAL HISTORY/PAST SURGICAL HISTORY:: Arthralgia of knee, left, Dysuria, Hematuria, Knee effusion. History of surgical procedure, INTESTINES (02/07/1955), STOMACH (02/07/1955), Trigger finger, left ring finger: S/P trigger finger release PREVIOUS FUNCTIONAL STATUS/SOCIAL/FAMILY SUPPORTS:: Freedom resides with his , Genia in [facility]. He is independent at baseline in the community, and reports being in good health. He attributes this to his years of running cross [employer] and track in high school and college and staying active. Freedom reviews his alcohol use, his preference of whisky and reports he does not exceed two drinks daily. He reports drinking while he cooks dinner and reviews times in the past when he drank too much (during his father's fight with cancer and when he ), as well as times when he has stopped drinking due to heart issues and seizures and notes no withdrawal issues. Freedom does the errands at this time due to his concern for his jose miguel COVID as she has had prior hospitializations for pneumonia. He reports only going to the bank and grocery store and utilizing a mask 100% of the time, he shares no surprise that his Covid result was negative. He shares that he and his are doing well at home and require no additional services or supports at this time. CURRENT FUNCTIONAL STATUS:: Freedom remains on IV ABX treatment for urosepsis. 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 He is forthcoming with information and shares no concerns at this time. ADVANCE DIRECTIVES:: On file, , Genia as agent. Has patient been provided with info about the portal/API?: Yes Did the patient sign up for the portal?: No CODE STATUS:: Full Code INSURANCE COVERAGE / FINANCIAL ISSUES:: MVP MCR replacement. CURRENT HOME/COMMUNITY SERVICES/EQUIPMENT:: No current services or equipment. PRIMARY CARE PHYSICIAN:: Jesse Dumont POTENTIAL DISCHARGE NEEDS:: Follow up appointment with PCP. PATIENT/FAMILY EDUCATION NEEDS:: Review of discharge instructions, discuss Ask Me Three. ANTICIPATED BARRIERS TO DISCHARGE:: None identified at this time. TRANSPORTATION:: Via private vehicle with family. PLAN:: Freedom continues to be closely monitored and treated urosepsis, he transitioned to the M/S floor from the ICU today. CM continues to follow; anticipate he will return home when ready per MD, follow up with his PCP and plan of care and transport via private vehicle with family.
[2020-01-03] MEDS: cefTRIAXone 2 GM/50 ML BAG IVPB (11:44)
--- NOTE | 2020-01-03 12:35 | PHA.REVIEW ---
Pharmacy Admission Review - Admission Clinical Review (Last Reviewed 01/02/20 @ 23:37 by Eric Bernal) UTI (urinary tract infection) (Acute) Sepsis (Acute) Sciatica (Acute) camphor Adverse Reaction (Intermediate, Verified 01/02/20 13:12) Nicolas lactose Adverse Reaction (Verified 01/02/20 13:12) Height 5 ft 9 in Weight 83.4 kg - Renal Dosing Renal Dosing: BUN 15 mg/dL (7-18) D 01/03/20 06:25 Creatinine 1.07 mg/dL (0.70-1.30) 01/03/20 06:25 Medications needing adjustments: Reviewed (Crcl ~61 mL/min current meds okay) - Anticoagulation Anticoagulation: Hgb 11.4 g/dL (13.5-17.5) L D 01/03/20 06:25 Hct 33.4 % (40.0-50.0) L 01/03/20 06:25 Plt Count 87 10^3/uL (130-400) L 01/03/20 06:25 Creatinine 1.07 mg/dL (0.70-1.30) 01/03/20 06:25 DVT Prohphylaxis: Intervened Medications: Enoxaparin (discontinued due to plts, has SCDs and TEDs ordered) Therapeutic Anticoagulation: N/A - Opiate Usage Evaluate Pain Scale/Pains Meds: N/A - Relevant Labs Sodium 138 mmol/L (136-145) 01/03/20 06:25 Potassium 4.0 mmol/L (3.5-5.1) 01/03/20 06:25 Chloride 108 mmol/L (98-107) H 01/03/20 06:25 Magnesium 2.0 mg/dL (1.8-2.4) 01/03/20 06:25 Electrolytes, C-Reactive P, ESR: Reviewed - DM Control DM Control: Glucose 117 mg/dL (74-106) H 01/03/20 06:25 Insulin Dosing: N/A (slightly elevated so far this admission, no A1C has been done here.) - Heart Failure/[place] EF%, JOSE A's, B-Blockers, Diuretics: N/A - BP Control BP Control: Blood Pressure 157/70 Blood Pressure 138/75 Blood Pressure 123/55 Blood Pressure 149/51 Blood Pressure 102/48 If elevated: Reviewed (Has been up and down (elevated, low and normal) so far this admission. Has po metoprolol ordered.) - Qtc Review If Elevated: N/A - IV to PO Switch IV Medications: Reviewed - Home Meds Home Med List reviewed: Reviewed (Separate admin of cephalexin and multiviamin.) Relevent Home Meds Not ordered & why?: ascorbic acid, cephalexin (has other abx ordered), urinox - Current meds Current Medication Order Review: Reviewed - Comments Comments/Follow Ups: Watch BP, plts, SCr, for micro results, and for med changes (renal dosing adjustments,abx de-escalation). Antibiotic Activity - Pharmacy Antibiotic Review Pharmacy Antibiotic Activity: C/S review (One BC growing gram+ cocci, other no growth@24 hours, urine culture growing gram+ frank. Ceftriaxone and levofloxacin continue (day 2).)
--- NOTE | 2020-01-03 13:17 | PGE_ITS ---
Date of Service Date of service: 01/03/20 Time of Service: 13:17 Assessment and Plan Assessment and plan (1) Sepsis: Status: Acute Assessment and plan: Hemodynamically the patient has improved his acute kidney injury has resolved and the patient is responding to antibiotics for an enterococcal complicated UTI. Renal ultrasounds not showing any hydronephrosis or nephrolithiasis. I think he got the UTI from his BPH and inadequate emptying of his bladder. I will switch him over to ampicillin 2 g IV every 4 hours and repeat his blood cultures. If the blood cultures show no growth he could be switched over to oral antibiotics over the weekend with amoxicillin. He will need a 14-day course of antibiotics because of the bacteremia. He should have follow-up with urology. His Flomax was increased to 0.8 mg daily. I will add Proscar to his regimen as well but this will take months to work. Qualifiers: Sepsis type: sepsis due to unspecified organism Sepsis acute organ dysfunction status: with acute organ dysfunction Severe sepsis acute organ dysfunction type: acute renal failure Acute renal failure type: unspecified Severe sepsis shock status: without septic shock Qualified Code(s): A41.9 - Sepsis, unspecified organism; R65.20 - Severe sepsis without septic shock; N17.9 - Acute kidney failure, unspecified (2) UTI (urinary tract infection): Status: Acute Assessment and plan: As above. Will refer him to urology upon discharge Qualifiers: Urinary tract infection type: acute cystitis Hematuria presence: with hematuria Qualified Code(s): N30.01 - Acute cystitis with hematuria (3) Essential hypertension: Status: Acute Assessment and plan: Continue home dose of Toprol-XL (4) BPH NOS w ur obs/LUTS: Status: Chronic Assessment and plan: Continue Flomax and add Proscar to his regimen. He was using OTC medications for his BPH (5) Sciatica: Status: Chronic Assessment and plan: Currently asymptomatic Qualifiers: Laterality: bilateral Qualified Code(s): M54.31 - Sciatica, right side; M54.32 - Sciatica, left side Subjective Subjective Interval history since last seen: Overall patient is feeling much better today. He denies any nausea or vomiting or abdominal pain. He had one episode of dysuria last night but that is resolved. He has no back pain. Renal ultrasound showed no hydronephrosis and no stones. He has small to moderate postvoid resid ual. I have increase his Flomax to 0.8 mg daily. Blood cultures are growing Enterococcus in his urine culture is also growing Enterococcus. I will discontinue his Levaquin and ceftriaxone and switch him over to ampicillin 2 g IV every 4 hours. We will get repeat blood cultures and if there is no growth in the blood cultures he can be transitioned over to oral antibiotics over the weekend and discharged home. Exam Narrative Exam Narrative: Obese male who is alert and oriented person place time circumstance. Lungs are clear to auscultation. Heart regular rate and rhythm Abdomen soft nontender nondistended no suprapubic tenderness no flank tenderness. Objective Last Vital Signs Temp 37.1 C 01/03/20 06:45 Pulse 59 L 01/03/20 10:01 Resp 20 01/03/20 10:10 BP 157/70 H 01/03/20 10:01 Pulse Ox 96 01/03/20 00:02 Laboratory Results - last 24 hr 01/02/20 01/02/20 01/02/20 13:23 13:23 13:23 WBC 11.85 H RBC 4.24 L Hgb 13.8 Hct 40.9 MCV 96.5 H MCH 32.5 MCHC 33.7 RDW 12.6 Plt Count 116 L MPV 9.2 Immature Gran % 0.6 Neutrophils % 80.1 Lymphocytes % 12.4 Monocytes % 6.7 Eosinophils % 0.0 Basophils % 0.2 Nucleated RBC % 0 Absolute Neutrophils 9.49 H Absolute Lymphocytes 1.47 Absolute Monocytes 0.79 Absolute Eosinophils 0.00 Absolute Basophils 0.02 VBG Lactate 2.4 H* Sodium 134 L Potassium 3.6 Chloride 101 Carbon Dioxide 26.2 Anion Gap 6.8 BUN 23 H Creatinine 1.53 H Estimated GFR/1.73 m2 44.84 Glucose 141 H Calcium 7.8 L Magnesium 1.9 Total Bilirubin 0.5 AST 21 ALT 30 Alkaline Phosphatase 46 Total Protein 7.2 Albumin 3.3 L Procalcitonin COVID-19 Source COVID-19 PCR Influenza Type A (PCR) Influenza Type B (PCR) RSV (PCR) 01/02/20 01/02/20 01/02/20 13:25 17:00 20:10 WBC RBC Hgb Hct MCV MCH MCHC RDW Plt Count MPV Immature Gran % Neutrophils % Lymphocytes % Monocytes % Eosinophils % Basophils % Nucleated RBC % Absolute Neutrophils Absolute Lymphocytes Absolute Monocytes Absolute Eosinophils Absolute Basophils VBG Lactate 1.2 1.2 Sodium Potassium Chloride Carbon Dioxide Anion Gap BUN Creatinine Estimated GFR/1.73 m2 Glucose Calcium Magnesium Total Bilirubin AST ALT Alkaline Phosphatase Total Protein Albumin Procalcitonin 1.3 COVID-19 Source COVID-19 PCR Influenza Type A (PCR) Influenza Type B (PCR) RSV (PCR) 01/03/20 01/03/20 01/03/20 06:25 06:25 06:25 WBC 6.21 D RBC 3.47 L Hgb 11.4 L D Hct 33.4 L MCV 96.3 H MCH 32.9 MCHC 34.1 RDW 12.5 Plt Count 87 L MPV 9.5 Immature Gran % 0.3 Neutrophils % 73.3 Lymphocytes % 16.6 Monocytes % 9.5 Eosinophils % 0.3 Basophils % 0.0 Nucleated RBC % 0 Absolute Neutrophils 4.55 Absolute Lymphocytes 1.03 L Absolute Monocytes 0.59 Absolute Eosinophils 0.02 Absolute Basophils 0.00 VBG Lactate 0.6 Sodium 138 Potassium 4.0 Chloride 108 H Carbon Dioxide 23.4 Anion Gap 6.6 BUN 15 D Creatinine 1.07 Estimated GFR/1.73 m2 >= 60.00 Glucose 117 H Calcium 7.5 L Magnesium 2.0 Total Bilirubin 0.4 AST 15 ALT 21 Alkaline Phosphatase 35 L Total Protein 5.9 L Albumin 2.5 L Procalcitonin COVID-19 Source COVID-19 PCR Influenza Type A (PCR) Influenza Type B (PCR) RSV (PCR) 01/03/20 10:15 WBC RBC Hgb Hct MCV MCH MCHC RDW Plt Count MPV Immature Gran % Neutrophils % Lymphocytes % Monocytes % Eosinophils % Basophils % Nucleated RBC % Absolute Neutrophils Absolute Lymphocytes Absolute Monocytes Absolute Eosinophils Absolute Basophils VBG Lactate Sodium Potassium Chloride Carbon Dioxide Anion Gap BUN Creatinine Estimated GFR/1.73 m2 Glucose Calcium Magnesium Total Bilirubin AST ALT Alkaline Phosphatase Total Protein Albumin Procalcitonin COVID-19 Source Nasopharynx COVID-19 PCR Negative Influenza Type A (PCR) Negative Influenza Type B (PCR) Negative RSV (PCR) Negative
[2020-01-03] MEDS: Normal Saline 500 ML 30 ML IV (14:50)
[2020-01-03] MEDS: levoFLOXacin 750 MG/150 ML BAG 100 MG IVPB (14:50)
[2020-01-03] MEDS: Finasteride 5 MG TAB PO (16:19)
[2020-01-03] MEDS: AMPICILLIN SODIUM 2 GM in Normal Saline 100 ML IVPB ×3 (16:20→23:56)
--- NOTE | 2020-01-03 16:50 | NUR.NOTE ---
Nursing Note: At 1330 on 01/03/20, this RN received report on this pt. from Brianna Dunham RN. At 1344 on 01/03/20, pt. was transferred from ICU to Med/Surg per MD order. Pt. was settled in and oriented to room 209. VS were obtained; VSS except BP (155/78) and charge nurse is aware. Head to toe assessment performed; see flowsheet for more information. Pt. then transferred from room 209 to room 214 at 1630 on 01/03/20. RN will reassess as necessary.
[2020-01-03] MEDS: Normal Saline Flush 10 ML SYR IVP (20:15)
[2020-01-03] MEDS: Metoprolol CR 50 MG TABCR PO (21:45)
[2020-01-04] VITALS (8 sets, daily range): BP systolic 115–198; BP diastolic 70–82; PULSE 57–65; RESP 15–18; TEMP 36.6–37.1; O2SAT 97–99
[2020-01-04] MEDS: AMPICILLIN SODIUM 2 GM in Normal Saline 100 ML IVPB ×5 (03:39→20:40)
[2020-01-04] MEDS: Ipratropium/Albuterol 4 GM 120 PUFF INH IH ×4 (07:46→20:37)
[2020-01-04] MEDS: Normal Saline Flush 10 ML SYR IVP ×7 (08:40→20:38)
[2020-01-04] MEDS: Multivitamin TAB 1 TAB PO (08:40)
[2020-01-04] MEDS: Finasteride 5 MG TAB PO (08:40)
[2020-01-04] MEDS: Tamsulosin 0.4 MG CAPCR 0.8 MG PO (08:40)
[2020-01-04 09:14] LABS: Anion Gap 9.3 mmol/L (3-11); BUN 9 mg/dL (7-18); CO2 23.7 mmol/L (21.0-32.0); CREATININE 1.22 mg/dL (0.70-1.30); Calcium 8.2 mg/dL (8.5-10.1); Chloride 109 mmol/L (98-107); Estimated GFR 58.23 (mL/min/1.73m2); Glucose 181 mg/dL (74-106); Potassium 3.5 mmol/L (3.5-5.1); Sodium 142 mmol/L (136-145)
[2020-01-04 14:01] LABS: Hemoglobin A1C 5.5 % (<5.7)
--- NOTE | 2020-01-04 15:46 | W.PM.PROGNOT ---
Date of Service Date of service: 01/04/20 Time of Service: 15:46 Assessment and Plan Assessment and plan (1) UTI (urinary tract infection): Status: Acute Assessment and plan: + enterococcus faecalis On ampicillin 2 g IV Q4h. If repeat blood cx is negative tomorrow will d/c on oral amoxicillin for a 14 day course of antibiotics. Qualifiers: Urinary tract infection type: acute cystitis Hematuria presence: with hematuria Qualified Code(s): N30.01 - Acute cystitis with hematuria (2) Sepsis: Status: Acute Assessment and plan: Resolved. Qualifiers: Sepsis type: sepsis due to unspecified organism Sepsis acute organ dysfunction status: with acute organ dysfunction Severe sepsis acute organ dysfunction type: acute renal failure Acute renal failure type: unspecified Severe sepsis shock status: without septic shock Qualified Code(s): A41.9 - Sepsis, unspecified organism; R65.20 - Severe sepsis without septic shock; N17.9 - Acute kidney failure, unspecified (3) Essential hypertension: Status: Acute Assessment and plan: Variable BP readings; as high as 178 late afternoon on 01/02; now improved. Monitor. Cont Metoprolol 50mg po QHS (4) BPH NOS w ur obs/LUTS: Status: Chronic Assessment and plan: Likely a factor in his UTI. Had a previous UTI this past summer also. On Flomax and Proscar. Recommend Urology evaluation as outpt. Subjective Subjective Patient reports: feels better, tolerating a regular diet and afebrile; denies nausea and vomiting Exam Const General: cooperative and no acute distress Nutritional Appearance: average body habitus Resp Effort & Inspection: normal respiratory effort Auscultation: clear to auscultation bilaterally Cardio Rate: regular rate Rhythm: regular rhythm Heart Sounds: S1 normal and S2 normal GI Palpation: soft and nontender Auscultation: normal bowel sounds Extrem General: no pedal edema and no calf tenderness Objective Last Vital Signs Temp 36.6 C 01/04/20 08:27 Pulse 65 01/04/20 08:27 Resp 15 01/04/20 08:27 BP 115/81 01/04/20 08:27 Pulse Ox 99 01/04/20 08:27 Laboratory Results - last 24 hr 01/04/20 01/04/20 08:58 08:58 Sodium 142 Potassium 3.5 Chloride 109 H Carbon Dioxide 23.7 Anion Gap 9.3 BUN 9 D Creatinine 1.22 Estimated GFR/1.73 m2 58.23 Glucose 181 H Hemoglobin A1c 5.5 Calcium 8.2 L
[2020-01-04] MEDS: hydrALAZINE 20 MG/ML VIAL 10 MG IVP (16:32)
[2020-01-04] MEDS: Normal Saline 500 ML 200 ML IV (16:48)
--- NOTE | 2020-01-04 18:35 | CMPROGNOTE_ITS ---
- If Service Date Differs Date of service: 01/04/20 Time of Service: 18:35 Care Management Progress Note S/O: Per report, Freedom stated that he feels better today, he is tolerating a diet and he is afebrile. Per MD, he will likely discharge tomorrow on oral antibiotics, dependent on his repeat blood cultures being negative. CM will continue to follow. A: Freedom is a 74 year old male admitted to [facility] on 01/02/20 with Bacteremia, Sepsis. P: Anticipate Freedom will return home once medically cleared with no additional services. He will be driven home via private vehicle by family. He will follow up with his PCP and discharge plan of care. CM will continue to follow.
[2020-01-04] MEDS: Metoprolol CR 50 MG TABCR PO (22:29)
[2020-01-05 00:37] VITALS: BP 157/77; PULSE 60; RESP 18; TEMP 37; O2SAT 97
[2020-01-05] MEDS: AMPICILLIN SODIUM 2 GM in Normal Saline 100 ML IVPB ×3 (00:39→08:11)
[2020-01-05] MEDS: Acetaminophen 325 MG TAB PO (03:31)
[2020-01-05 07:14] LABS: Anion Gap 9.5 mmol/L (3-11); BUN 8 mg/dL (7-18); CO2 23.5 mmol/L (21.0-32.0); CREATININE 1.06 mg/dL (0.70-1.30); Calcium 8.1 mg/dL (8.5-10.1); Chloride 111 mmol/L (98-107); Glucose 105 mg/dL (74-106); Potassium 3.4 mmol/L (3.5-5.1); Sodium 144 mmol/L (136-145)
[2020-01-05] MEDS: Normal Saline Flush 10 ML SYR IVP (08:11)
[2020-01-05] MEDS: Tamsulosin 0.4 MG CAPCR 0.8 MG PO (08:12)
[2020-01-05] MEDS: Multivitamin TAB 1 TAB PO (08:12)
[2020-01-05] MEDS: Finasteride 5 MG TAB PO (08:13)
[2020-01-05 08:20] VITALS: BP 190/76; PULSE 56; RESP 15; TEMP 36.3; O2SAT 98
--- NOTE | 2020-01-05 09:09 | DSE_ITS ---
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 He denied dysuria or hematuria but admited to recent bilateral buttock pain w/radicular symptom down both legs. Symptoms present for about 3 weeks but suddenly improved over the past couple of days. Bowels are always loose w/ diarrhea since his bowel surgery as a child. No melena or hematochezia. He also has a chronic cough but no sputum production and he denies any dyspnea nor any chest pains. The night before this admission he presented to the ER; thought that he might be getting another UTI although he had no pain or burning w/ urination but he had some urinary hesitancy and difficulty voiding. The in itial ED workup included CXR which was unremarkable, UA w/ 5 to 10 WBC, 5-10 RBC and moderate bacteria although neg. for nitrites. His WBC was elevated at 13,000 and his lactate was 1.6. He was treated w/ Tylenol, iv fluids, Rocephin and dc home on Keflex. He returned on the day of this admission feeling no better (although he felt well enough last night to return home). He had further fever and rigors. + generalized weakness. He again denied any pain w/ urination but has some difficulty initiating his urinary stream. He no longer had any buttock pain or radicular pain in his legs and he denied any paresthesias or perineal numbness. He had blood culture drawn the night before, which had come back positive for GPC in chains and his urine culture is also positive for GPC. His was elevated at 2.4. But his WBC was down to 11,850. His repeat CXR again showed no infiltrates. He was admitted for sepsis d/t urinary source. He was given further Rocephin and Levaquin in the ER. ID of urine and blood culture bacteria showed enterococcus faecalis. Antibiotic coverage changed to IV Ampicillin. He continued to improve and repeat blood culture was showing no growth x 24 hours. He will d/c on amoxicillin 875mg BID for 12 days. Given this is his second urinary tract infection and he has ongoing symptoms of BPH; retention and frequency. Follow up with PCP in 1-2 weeks. Home Meds and New Rx's Prescriptions: New tamsulosin 0.4 mg Capsule 0.8 mg PO DAILY Qty: 30 RF: 0 amoxicillin 875 mg tablet 875 mg PO BID Qty: 60 RF: 0 amlodipine 5 mg tablet 5 mg PO DAILY Qty: 30 RF: 0 Continued Urinox 200 mg PO DAILY RF: 0 hydrocortisone 2.5 % cream with perineal applicator 1 applic NC BID-QID PRN (Reason: pain) Qty: 30 RF: 4 phenytoin sodium extended [Dilantin Extended] 100 mg capsule 200 mg PO BID Qty: 450 RF: 3 phenytoin [Dilantin Infatabs] 50 mg tablet,chewable 50 mg PO HS Qty: 90 RF: 4 ascorbic acid (vitamin C) [Vitamin C] 500 MG tablet 1 tab PO DAILY RF: 0 multivitamin 1 EACH capsule 1 cap PO DAILY RF: 0 acetaminophen 500 mg Tablet 1,000 mg PO TID RF: 0 metoprolol succinate 50 mg tablet extended release 24 hr 50 mg PO HS RF: 0 Discontinued cephalexin [Keflex] 500 mg capsule 500 mg PO QID 10 Days Qty: 40 RF: 0 Discharge Instructions Instructions: Urinary Tract Infection in Men (DC) Stand Alone Forms: Nursing Discharge Form Referrals: Jesse Gallardo [Primary Care Provider] - (Please call Monday to make a follow up appointment) Activity:: Activity as Tolerated Equipment/Supplies:: No Equipment Needed Diet:: Low Sodium Discharge Orders Discharge Orders: Discharge Order (Routine); Ordered 01/05/20 Ordered By: Dago Fairchild Discharge Data Discharge Date/Time-TO BE ENTERED AT DEPARTURE: 01/05/20 11:22 DS: Summary Status at Discharge Functional status at discharge: independent ambulation Overall status at discharge: patient is back to baseline Mental Status: mental status grossly normal Speech and Movement: speech and movement normal Mood: congruent mood Affect: normal affect Exam Psych Mental Status: mental status grossly normal Speech and Movement: speech and movement normal Mood: congruent mood Affect: normal affect DS: Data Vitals/I&O Vitals and I&O: Vital Signs Temperature 36.3 C L 01/05/20 08:20 Temperature Source Tympanic 01/05/20 08:20 Pulse 56 L 01/05/20 08:20 Pulse Rhythm Regular 01/05/20 06:44 Pulse 58 L 01/03/20 10:10 Respiratory Rate 15 01/05/20 08:20 Respiratory Effort Non-Labored 01/05/20 06:44 Respiratory Depth Normal 01/05/20 06:44 Respiratory Pattern Normal 01/05/20 06:44 Blood Pressure 190/76 H 01/05/20 08:20 Blood Pressure Mean 92 01/03/20 10:01 Blood Pressure Position Supine 01/02/20 16:00 Pulse Oximetry 98 01/05/20 08:20 Oxygen Delivery Method Room Air 01/05/20 08:20 Oxygen Flow Rate 0 01/05/20 08:20 Pain Level 0 01/05/20 08:20 Comment 01/04/20 17:00 Intake & Output 01/04/20 01/04/20 01/05/20 11:59 23:59 11:59 Intake Total 1173.333 / 2363.333 1190.000 / 2363.333 362 / 362 Output Total 1300 / 2725 1425 / 2725 1075 / 1075 Balance -126.667 / -361.667 -235.000 / -361.667 -713 / -713 Weight 82.4 kg 82.6 kg Intake: IV 383.333 / 843.333 460.000 / 843.333 212 / 212 Oral 790 / 1520 730 / 1520 150 / 150 Output: Urine 1300 / 2725 1425 / 2725 1075 / 1075 Other: Urine Color Yellow Yellow Yellow Urine Appearance Clear Clear Clear Urine Odor Strong Strong Strong Comment Void x1 in the urinal. Void x1 in the urinal. Voiding Methods Urinal Toilet Toilet Data Completed and Pending Labs on day of discharge: Labs from last 24 hours 01/05/20 01/04/20 01/04/20 06:36 08:58 08:58 Sodium 144 142 Potassium 3.4 L 3.5 Chloride 111 H 109 H Carbon Dioxide 23.5 23.7 Anion Gap 9.5 9.3 BUN 8 9 D Creatinine 1.06 1.22 Estimated GFR/1.73 m2 >= 60.00 58.23 Glucose 105 D 181 H Hemoglobin A1c 5.5 Calcium 8.1 L 8.2 L Preliminary micro results at discharge 01/03/20 16:11 Blood Culture - Preliminary Blood NO GROWTH 24 HOURS 01/03/20 15:56 Blood Culture - Preliminary Blood NO GROWTH 24 HOURS [facility] Medical History Arthralgia of knee, left Dysuria Hematuria Knee effusion Seizure disorder Surgical History History of surgical procedure INTESTINES (02/07/1955) STOMACH (02/07/1955) Trigger finger, left ring finger S/P trigger finger release DOS: 12/27/17 Family History Mother , 63 Alzheimer's disease Father , 62 Lung cancer Maternal Grandfather , 67 Stroke Heart disease Paternal Grandfather , 69 Stroke Maternal Grandmother , 72 Heart disease Stroke Paternal Grandmother , 77 Heart disease Daughter No problems noted. Daughter No problems noted. Social History Smoking/Tobacco Use Status: Never Smoking risk assessment performed?: Yes Alcohol Intake: current Alcohol Intake frequency: 0-2 drinks per day Alcohol type: hard liquor Drug use: Never Substance use type: does not use Caregiver/Support person: No Household members: spouse Communication Needs: None Do you need help understanding health information?: Never Pets and animals: No Sexually active: Yes Do you think of yourself as: straight/heterosexual Current gender identity: male What is your relationship status?: How often do you talk on the phone with friends or family?: once per week How often do you get together with friends or relatives?: once per week Do you belong to any clubs or organized social groups?: yes Panel score (0-1 are the most socially isolated patients): 2 What type of physical activity do you participate in: walking Duration: < 15 minutes/day Frequency: daily Cat/Yarsani: Orthodoxy Special cat needs: No Seatbelt use: sometimes Helmet use: No Drive intox or ride w/intox local truck driver: No Do you feel safe at home: Yes Do you feel safe in your relationship?: Yes
[2020-01-05 09:30] VITALS: BP 190/76; BP 190/85; PULSE 81
[2020-01-05 09:35] VITALS: BP 158/76; PULSE 60
[2020-01-05] MEDS: Ipratropium/Albuterol 4 GM 120 PUFF INH IH (09:50)
--- NOTE | 2020-01-05 16:48 | PDOC.CMDIS ---
- If Service Date Differs Date of service: 01/05/20 Time of Service: 16:48 LACE Index Scoring Tool - Questions: Length of Stay (in days): 4 - 6 Acuity (Admit via E.D.?): Yes E.D. Visits: 4 - Answers: Total Score: 11 Risk of Readmission: High Risk Care Management Discharge Reason for Hospitalization: Bactermia, Sepsis Discharge Plan: Freedom will return home with no additional services today. His will drive him home via private vehicle. He will follow up with his PCP and discharge plan of care. He is happy to be going home. Patient/Family Education Needs: Review discharge instructions regarding activity levels and medications, discussion of self care needs including ask me three.
[2020-01-06 08:28] LABS: Streptococcus Pneumoniae Ag, U Negative (Negative)
== END 2020-01-05 11:22 | disposition home or self-care (01) | DRG 872 ==
LOC: ER 15:22 → ICU 15:32 → MS 01-03 13:46
PROVIDERS: Family Medicine; Admitting Provider Internal Medicine; Emergency Provider Registered Nurse Emergency; PCP Family Medicine; Visit Provider Internal Medicine
DX: A41.81 Sepsis due to Enterococcus (principal); N17.9 Acute kidney failure, unspecified; N30.01 Acute cystitis with hematuria; I10 Essential (primary) hypertension; N40.1 Benign prostatic hyperplasia with lower urinary tract symptoms; E78.5 Hyperlipidemia, unspecified; R65.20 Severe sepsis without septic shock; M54.32 Sciatica, left side; M54.31 Sciatica, right side; G40.909 Epilepsy, unspecified, not intractable, without status epilepticus
CPT/HCPCS: 36415; 76770; 80048; 80053; 84145; 87040; 94640; 96361; 96365; 96375; 99223; 99232; 99233; 99239; 99285; J1650; 71045; 83036; 83605; 83735; 85025; 87450; 94667; J0131; J0290; J0360; J0696; J1956; J3490

== ENCOUNTER → 2020-02-11 13:07 | Outpatient (BNVA) | payer OTHER, SELFPAY | PROVIDERS: PCP Family Medicine; Referring Provider Family Medicine; Visit Provider Nurse Practitioner Gerontology | DX: N40.1 Benign prostatic hyperplasia with lower urinary tract symptoms (principal); R33.8 Other retention of urine; I10 Essential (primary) hypertension | CPT/HCPCS: 81003; 99215 ==

== ENCOUNTER → 2020-04-13 10:50 | Outpatient (BNVA) | payer OTHER, SELFPAY | PROVIDERS: PCP Family Medicine; Referring Provider Family Medicine; Visit Provider Nurse Practitioner Gerontology | DX: N40.1 Benign prostatic hyperplasia with lower urinary tract symptoms (principal); R33.8 Other retention of urine | CPT/HCPCS: 99213 ==

== ENCOUNTER 2020-04-20 01:22 | Outpatient (CLI) | payer OTHER, SELFPAY ==
--- NOTE | 2020-04-20 07:00 | DI.RAD_ITS ---
EXAM: XR LUMBAR SPINE COMPLETE CLINICAL HISTORY: Continued pain in the posterior legs from buttock,bilat leg pain, m79.605,m. TECHNIQUE: 2D digital imaging was performed. COMPARISON: No exams were available for comparison FINDINGS: There is a deformity of the left transverse process of L3 which is possibly related to prior fracture . There are no acute fractures evident. There is mild degenerative anterolisthesis of L4 upon L5, a pproximately 3 millimeters. There is moderate disc space narrowing at L5-S1 level with vacuum phenom enon seen within this diminished disc space. Other disc spaces exhibit height. Mild degenerative ch anges the sacroiliac facet joints. No scoliosis. Calcified artery in left side of the abdomen noted which is possibly renal or splenic artery. IMPRESSION: Degenerative anterolisthesis L4 upon L5, grade 1. Moderate-advanced disc space narrowing at L5-S1 level DATA REPOSITORY: RADIATION DOSE DELIVERED:
== END 2020-04-20 01:42 ==
PROVIDERS: PCP Family Medicine; Visit Provider Nurse Practitioner Family
DX: M43.16 Spondylolisthesis, lumbar region (principal); M51.36 Other intervertebral disc degeneration, lumbar region
CPT/HCPCS: 72110

== ENCOUNTER 2020-09-02 03:36 | Outpatient (CLI) | payer OTHER, SELFPAY ==
[2020-09-02 10:00] LABS: ALT 47 U/L (16-63); AST 35 U/L (15-37); Albumin 3.5 g/dL (3.4-5.0); Alkaline Phosphatase 46 U/L (46-116); BUN 24 mg/dL (7-18); Bilirubin, Total 0.3 mg/dL (0.2-1.0); Calcium 8.5 mg/dL (8.5-10.1); Calculated LDL 37 mg/dL (<100); Chloride 107 mmol/L (98-107); Cholesterol 168 mg/dL (<200); Glucose 92 mg/dL (74-106); HDL Cholesterol 122 mg/dL (40-60); Potassium 4.1 mmol/L (3.5-5.1); Sodium 143 mmol/L (136-145); Total Protein 6.6 g/dL (6.4-8.2); Triglyceride 48 mg/dL (<150)
[2020-09-02 10:08] LABS: PHENYTOIN (DILANTIN) 25.5 ug/mL (10.0-20.0)
[2020-09-02 17:05] LABS: PSA, Screening 2.3 ng/mL (0.0-6.5)
== END 2020-09-02 03:37 | disposition home or self-care (01) ==
LOC: LBO 03:36
PROVIDERS: PCP Nurse Practitioner Family; Visit Provider Nurse Practitioner Family
DX: E78.5 Hyperlipidemia, unspecified (principal); G40.309 Generalized idiopathic epilepsy and epileptic syndromes, not intractable, without status epilepticus; Z51.81 Encounter for therapeutic drug level monitoring; N40.1 Benign prostatic hyperplasia with lower urinary tract symptoms; Z12.5 Encounter for screening for malignant neoplasm of prostate
CPT/HCPCS: 36415; 80053; 80061; 84153; 80185

== ENCOUNTER 2020-09-04 01:31 | Outpatient (CLI) | payer OTHER, SELFPAY ==
[2020-09-04 12:38] LABS: PHENYTOIN (DILANTIN) 12.9 ug/mL (10.0-20.0)
== END 2020-09-04 01:32 | disposition home or self-care (01) ==
LOC: LOS 01:31
PROVIDERS: PCP Nurse Practitioner Family; Visit Provider Nurse Practitioner Family
DX: G40.309 Generalized idiopathic epilepsy and epileptic syndromes, not intractable, without status epilepticus (principal); Z51.81 Encounter for therapeutic drug level monitoring
CPT/HCPCS: 36415; 80185

== ENCOUNTER 2020-10-08 03:31 | Outpatient (CLI) | payer OTHER, SELFPAY ==
[2020-10-09 12:29] LABS: Lyme Ab w Rflx to Lyme Confirm Negative (Negative)
[2020-10-10 18:37] LABS: Anaplasma phagocytophilum Negative (Negative); B. miyamotoi PCR Negative (Negative); Babesia divergens/MO-1 Negative (Negative); Babesia duncani Negative (Negative); Babesia microti Negative (Negative); Ehrlichia chaffeensis Negative (Negative); Ehrlichia ewingii/canis Negative (Negative); Ehrlichia muris eauclairensis Negative (Negative)
== END 2020-10-08 03:32 | disposition home or self-care (01) ==
LOC: LBO 03:31
PROVIDERS: PCP Nurse Practitioner Family; Visit Provider Nurse Practitioner Family
DX: W57.XXXA Bitten or stung by nonvenomous insect and other nonvenomous arthropods, initial encounter (principal); T14.8XXA Other injury of unspecified body region, initial encounter
CPT/HCPCS: 36415; 87798; 86618

== ENCOUNTER → 2020-10-15 15:28 | Outpatient (BNVA) | payer OTHER, SELFPAY | PROVIDERS: PCP Nurse Practitioner Family; Referring Provider Family Medicine; Visit Provider Nurse Practitioner Gerontology | DX: N40.1 Benign prostatic hyperplasia with lower urinary tract symptoms (principal); R33.8 Other retention of urine | CPT/HCPCS: 99214 ==

== ENCOUNTER 2020-10-19 03:00 | Outpatient (CLI) | payer OTHER, SELFPAY ==
--- NOTE | 2020-10-19 14:25 | DI.MRI_ITS ---
Exam(s) MR LUMBAR SPINE WO EXAM: MR LUMBAR SPINE WO CLINICAL HISTORY: Worsening sciatica bilaterally. M54.31 SCIATICA RT , M54.32 SCIATICA LEFT. TECHNIQUE: Multiplanar multisequence MRI of the Lumbar spine was performed. COMPARISON: CR XR LUMBAR SPINE COMPLETE from 04/20/2020 CR XR LUMBAR SPINE COMPLETE from 04/20/2020 FINDINGS: Bones: The last intervertebral disc space is designated the L5/S1 level for the numbering purpose of this examination. The vertebral body heights are well maintained. Alignment is satisfactory. The si gnal characteristics are unremarkable. Cord: The conus tip ends at the T12 level. It is of normal size and signal intensity. T12-L1: No disc herniations or bulges are present. L1-2: No disc herniations or bulges are present. L2-3: No disc herniations or bulges are present. L3-4: No disc herniations or bulges are present. L4-5: Disc normal height. Prominent posterior disc bulging encroaching on the central canal as well as neural foramen, left greater than right. Facet degenerative changes and fluid within the facet j oints. Prominent ligamentous hypertrophy. Severe central canal stenosis and severe left neural fora monse narrowing.. L5-S1: Small endplate osteophytes and mild disc bulging, slightly eccentric toward the right. Facet degenerative changes, right greater than left. Ligamentous hypertrophy. No significant central radha l stenosis. Severe right and moderate left neural foraminal narrowing. The visualized SI joints and sacrum are well maintained. Parapelvic cysts left kidney. Diverticulosi s descending colon. Aorta normal diameter. IMPRESSION: Combination of degenerative disc bulging and facet degenerative changes create severe central canal s tenosis as well as severe neural foraminal narrowing at L4-5. Severe neural foraminal narrowing, right greater than left at L 5 S1. DATA REPOSITORY:
== END 2020-10-19 03:20 ==
PROVIDERS: PCP Nurse Practitioner Family; Visit Provider Nurse Practitioner Family
DX: M54.31 Sciatica, right side (principal); M54.32 Sciatica, left side; M48.061 Spinal stenosis, lumbar region without neurogenic claudication; M47.816 Spondylosis without myelopathy or radiculopathy, lumbar region
CPT/HCPCS: 72148

== ENCOUNTER → 2021-01-14 13:55 | Outpatient (BNVA) | payer OTHER, SELFPAY | PROVIDERS: PCP Nurse Practitioner Family; Referring Provider Nurse Practitioner Family; Visit Provider Nurse Practitioner Gerontology | DX: N40.1 Benign prostatic hyperplasia with lower urinary tract symptoms (principal); R33.8 Other retention of urine | CPT/HCPCS: 99213 ==

== ENCOUNTER → 2021-04-14 14:54 | Outpatient (BNVA) | payer OTHER, SELFPAY | PROVIDERS: PCP Nurse Practitioner Family; Referring Provider Nurse Practitioner Family; Visit Provider Nurse Practitioner Gerontology | DX: N40.1 Benign prostatic hyperplasia with lower urinary tract symptoms (principal); R33.8 Other retention of urine | CPT/HCPCS: 99214 ==

== ENCOUNTER → 2021-05-20 14:21 | Outpatient (BNVA) | payer OTHER, SELFPAY | PROVIDERS: PCP Nurse Practitioner Family; Referring Provider Nurse Practitioner Family; Visit Provider Physical Therapy Assistant | DX: L72.3 Sebaceous cyst (principal) | CPT/HCPCS: 99212 ==

== ENCOUNTER → 2021-06-10 11:20 | Outpatient (BNVA) | payer OTHER, SELFPAY | PROVIDERS: PCP Nurse Practitioner Family; Referring Provider Nurse Practitioner Family; Visit Provider Physical Therapy Assistant | DX: C34.91 Malignant neoplasm of unspecified part of right bronchus or lung (principal) | CPT/HCPCS: 11644 ==

== ENCOUNTER 2021-06-10 13:10 | Outpatient (REF) | payer MEDICARE, SELFPAY ==
--- NOTE | 2021-06-10 11:50 | SKI_PTH ---
PATIENT: Freedom Deshpande LOC: [facility] U#:[id number] AGE/SX: 76/M ROOM: RE06/10/[address]: PARI Saenz : 1945 BED: DIS: 06/10/2021 SPEC #: [id number] RECD: 06/10/21 14:27 STATUS: CHARANJIT GROSS #: [id number] JONH: 06/10/21 11:[address]: Ambika Brown DEPT: Surgical Specimen RECD BY: Fili Travis Tissues: 1 - SKIN BIOPSY(SHAVE/PUNCH) Procedures: SKIN LEVEL 4 Comments: [id number]
== END 2021-06-10 13:11 | disposition home or self-care (01) ==
LOC: LBN 13:10
PROVIDERS: PCP Nurse Practitioner Family; Visit Provider Physical Therapy Assistant
DX: C44.319 Basal cell carcinoma of skin of other parts of face (principal)
CPT/HCPCS: 88305

== ENCOUNTER → 2021-06-17 14:16 | Outpatient (BNVA) | payer MEDICARE, SELFPAY | PROVIDERS: PCP Nurse Practitioner Family; Referring Provider Nurse Practitioner Family; Visit Provider Physical Therapy Assistant | DX: Z48.02 Encounter for removal of sutures (principal) ==

== ENCOUNTER 2021-07-15 15:18 | Outpatient (REF) | payer MEDICARE, SELFPAY ==
--- NOTE | 2021-07-15 14:45 | SKI_PTH ---
PATIENT: Freedom Deshpande LOC: [facility] U#:[id number] AGE/SX: 76/M ROOM: RE07/15/[address]: PARI Saenz : 1945 BED: DIS: 07/15/2021 SPEC #: [id number] RECD: 07/15/21 17:44 STATUS: CHARANJIT REGloria #: [id number] JONH: 07/15/21 14:[address]: Ambika Brown DEPT: Surgical Specimen RECD BY: Pat Braun ENTERED: 07/15/21 17:45 SP TYPE: LEANNE JO DR: Abimael Diaz, DAYTIME CAREGIVER Tissues: 1 - SKIN BIOPSY(SHAVE/PUNCH) Procedures: SKIN LEVEL 4 Comments:
== END 2021-07-15 15:19 | disposition home or self-care (01) ==
LOC: LBN 15:18
PROVIDERS: PCP Nurse Practitioner Family; Visit Provider Physical Therapy Assistant
DX: C44.319 Basal cell carcinoma of skin of other parts of face (principal)
CPT/HCPCS: 88305

== ENCOUNTER → 2021-07-26 10:55 | Outpatient (BNVA) | payer MEDICARE, SELFPAY | PROVIDERS: PCP Nurse Practitioner Family; Referring Provider Nurse Practitioner Family; Visit Provider Physical Therapy Assistant | DX: C44.319 Basal cell carcinoma of skin of other parts of face (principal); Z48.02 Encounter for removal of sutures | CPT/HCPCS: 99212 ==

== ENCOUNTER → 2021-07-26 14:43 | Outpatient (BNVA) | payer MEDICARE, SELFPAY | PROVIDERS: PCP Nurse Practitioner Family; Referring Provider Nurse Practitioner Family; Visit Provider Nurse Practitioner Gerontology | DX: R35.1 Nocturia (principal); N40.1 Benign prostatic hyperplasia with lower urinary tract symptoms; N13.8 Other obstructive and reflux uropathy | CPT/HCPCS: 51798; 99214 ==

== ENCOUNTER 2021-09-21 01:51 | Outpatient (CLI) | payer MEDICARE, SELFPAY ==
[2021-09-21 09:01] LABS: Potassium 3.9 mmol/L (3.5-5.1)
[2021-09-21 09:05] LABS: PHENYTOIN (DILANTIN) 18.4 ug/mL (10.0-20.0)
== END 2021-09-21 01:52 | disposition home or self-care (01) ==
PROVIDERS: PCP Nurse Practitioner Family; Visit Provider Nurse Practitioner Family
DX: I10 Essential (primary) hypertension (principal); G40.909 Epilepsy, unspecified, not intractable, without status epilepticus; Z51.81 Encounter for therapeutic drug level monitoring; Z79.899 Other long term (current) drug therapy
CPT/HCPCS: 36415; 80185; 82565; 84132

== ENCOUNTER 2021-11-04 11:52 | Outpatient (CLI) | payer MEDICARE, SELFPAY ==
--- NOTE | 2021-11-04 08:45 | DI.RAD_ITS ---
Exam(s) XR KNEE LT 3V AP,LAT,LEAINE EXAM: XR KNEE LT 3V AP,LAT,ELAINE CLINICAL HISTORY: left knee DJD. TECHNIQUE: 2D digital imaging was performed of the left knee. Three images were obtained. AP, late ral and PA tunnel views were obtained. COMPARISON: CR XR KNEE LT 3V AP,LAT,ELAINE from 10/25/2019 FINDINGS: BONES: No acute fracture is present. No bony destructive lesion is seen. There is an enthesophyte at the superior aspect of the patella. JOINTS: The knee is normally aligned. There is a small joint effusion. There is narrowing of the med ial femoral tibial joint space. Periarticular spurring is seen involving the medial and lateral femo ral tibial joints. SOFT TISSUE: Extensive vascular calcifications are present. IMPRESSION: Moderate DJD of the knee. DATA REPOSITORY: RADIATION DOSE DELIVERED:
== END 2021-11-04 11:53 | disposition home or self-care (01) ==
LOC: DIORS 11:52
PROVIDERS: PCP Nurse Practitioner Family; Referring Provider Nurse Practitioner Family; Visit Provider Physician Assistant
DX: M17.12 Unilateral primary osteoarthritis, left knee (principal)
CPT/HCPCS: 20610; 73562; J1040

== ENCOUNTER 2021-11-17 06:23 | Day surgery (SDC) | payer MEDICARE, SELFPAY ==
[2021-11-17 06:34] VITALS: BP 144/69; PULSE 73; RESP 16; TEMP 36.2; O2SAT 97
[2021-11-17] MEDS: Sodium Bicarbonate 50 MEQ/50 ML VIAL (07:30)
[2021-11-17] MEDS: Lidocaine 1.5 % Pres-Free W/EPI 1/200,000 30 ML VIAL (07:30)
--- NOTE | 2021-11-17 07:31 | PDOC.DSDIS_ITS ---
Discharge Plan Disposition Patient Disposition: HOME Condition: Good Discharge Details Reason For Visit: Left Index Finger Trigger Finger Release Attending Provider: Jesus Pena Primary Care Provider: Abimael Diaz Home Meds and New Rx's Prescriptions: Continued finasteride 5 mg tablet 5 mg PO DAILY Qty: 90 3RF tamsulosin 0.4 mg capsule 0.8 mg PO DAILY Qty: 180 3RF Rx Instructions: Take one cap in AM and one in PM Bioflex [id number] mg tablet 2 tab PO multivitamin 1 EACH capsule 1 cap PO DAILY amlodipine 10 mg tablet 10 mg PO DAILY Qty: 90 4RF losartan 100 mg tablet 100 mg PO DAILY Qty: 90 3RF diphenoxylate-atropine [Lomotil] 2.5-0.025 mg tablet 1 tab PO BID PRN (Reason: diarrhea) Qty: 20 0RF dicyclomine 20 mg tablet 20 mg PO QID PRN (Reason: IBS) Qty: 90 2RF hydrocortisone 2.5 % cream with perineal applicator 1 applic ND BID-QID PRN (Reason: pain) Qty: 30 4RF phenytoin [Dilantin Infatabs] 50 mg tablet,chewable 50 mg PO HS Qty: 90 4RF Rx Instructions: Take with phenytoin 200 mg HS phenytoin sodium extended [Dilantin Extended] 100 mg capsule 200 mg PO BID Qty: 450 3RF Rx Instructions: Dilantin brand name only medically necessary acetaminophen 500 mg Tablet 1,000 mg PO TID Discharge Instructions Stand Alone Forms: Aleta Malin (DSU), Becky De La Torre Finger Release Referrals: Jesus Pena MD [ [facility] STAFF PHYSICIAN] - Activity:: Activity as Tolerated Remove Dressings/Wound Care:: 72 hours Shower/Bathe:: 72 hours Diet:: As Tolerated Discharge Orders Discharge Orders: Discharge Order (Routine); Ordered 11/17/21 Ordered By: Anh Elise DS: Diagnosis Discharge Diagnosis (1) Trigger finger, left index finger: Status: Acute
[2021-11-17 07:43] VITALS: BP 131/75; PULSE 61; RESP 16; TEMP 36.1; O2SAT 95
--- NOTE | 2021-11-17 17:04 | W.PM.OP ---
Date of service: 11/17/21 Time of Service: 07:45 Operative Note Operative Note DATE OF PROCEDURE: 11/17/21 PRE-OP DIAGNOSIS: Left Index Finger Trigger Finger POST-OP DIAGNOSIS: same PROCEDURE: Trigger Finger Release - Left Index Finger SURGEON: Jesus Pena Refer to Anesthesia Record PATHOLOGY: none sent COMPLICATIONS: None Patient was transported to: same day Patient's condition: stable Indications: I have seen Jerry in clinic for symptoms of a trigger finger. The catching, clicking, locking, and pain limited function. The diagnosis of trigger finger was evident. The symptoms had not responded to conservative measures. I discussed trigger finger release with the patient. I reviewed the risks of the procedure to include, but not limited to, bleeding, infection, pain, stiffness, incomplete release, damage to nerves or vessels, continued catching, recurrence. Despite these risks, the patient elected to proceed. Findings: There was a tightened A1 gennaro which was released. The flexor tendons were inspected and the patient was able to move the finger without any catching, clicking, or locking. Procedure Description: Jerry was greeted in the preoperative holding area where the correct side was identified and marked. The consent was reviewed with the patient and signed. All questions were answered. Jerry was taken back to the operating room. The patient was placed into the supine position on the operating room table with the left arm on an arm board. All bony prominences were well padded. No prophylactic antibiotics were administered since this was a clean, elective hand surgical case. The left arm was then prepped with Chloraprep and draped in a standard fashion with stockinette and extremity drape. A timeout to confirm correct identity, side and site, procedure, allergies, anesthesia, and medical concerns was performed. The surgical site was marked as a longitudinal incision directly over the A1 gennaro of the involved digit. This was confirmed with palpation during finger flexion. This area, overlying the metacarpal head, was then anesthetized with 1.5% Lidocaine. The patient tolerated this well and once the anesthetic had setup, the procedure began. A longitudinal incision was made through skin only, approximately 1cm. The deep tissues were dissected bluntly. Once the A1 gennaro and flexor tendons were identified the soft tissue including neurovascular structures were retracted medially and laterally. There were no crossing structures over the A1 gennaro. The proximal edge of the gennaro was identified and the gennaro was incised with tenotomy scissors. There was a release of the tendons once this was fully released. The tendons were then removed from the wound and inspected. Excess synovium was resected. The tendons were then returned and the patient was asked to move the finger into deep flexion and back to extension. There was no recreation of the pre-operative symptoms. The hand was then once more inspected for any A0 gennaro or area of possible constriction. The wound was then irrigated and the skin was closed with a 4-0 Nylon. This was dressed with gauze and a Conform dressing. The patient tolerated the procedure well and was returned to the Same Day Surgery area in a stable condition suffering no known complication.
== END 2021-11-17 08:23 | disposition home or self-care (01) ==
PROVIDERS: PCP Nurse Practitioner Family; Visit Provider Student in an Organized Health Care Education/Training Program
PROC: (CPT 26055; principal; 2021-11-17 07:30)
DX: M65.322 Trigger finger, left index finger (principal)
CPT/HCPCS: 26055

== ENCOUNTER → 2021-11-26 08:46 | Outpatient (BNVA) | payer MEDICARE, SELFPAY | PROVIDERS: PCP Nurse Practitioner Family; Referring Provider Nurse Practitioner Family; Visit Provider Student in an Organized Health Care Education/Training Program | DX: M65.322 Trigger finger, left index finger (principal) ==

== ENCOUNTER → 2021-12-27 10:59 | Outpatient (BNVA) | payer MEDICARE, SELFPAY | PROVIDERS: PCP Nurse Practitioner Family; Referring Provider Nurse Practitioner Family; Visit Provider Student in an Organized Health Care Education/Training Program | DX: Z47.89 Encounter for other orthopedic aftercare (principal); M65.322 Trigger finger, left index finger ==

== ENCOUNTER 2022-01-24 16:29 | Outpatient (CLI) | payer MEDICARE, SELFPAY ==
[2022-01-24 17:22] LABS: BUN 26 mg/dL (7-18); CREATININE 1.1 mg/dL (0.70-1.30); Estimated GFR 70.01 (mL/min/1.73m2)
== END 2022-01-24 16:30 | disposition home or self-care (01) ==
LOC: LBO 16:29
PROVIDERS: PCP Nurse Practitioner Family; Visit Provider Nurse Practitioner Gerontology
DX: N40.1 Benign prostatic hyperplasia with lower urinary tract symptoms (principal); Z12.5 Encounter for screening for malignant neoplasm of prostate
CPT/HCPCS: 36415; 51798; 84153; 84520; 99214; 82565

== ENCOUNTER → 2022-01-27 10:12 | Outpatient (BNVA) | payer MEDICARE, SELFPAY | PROVIDERS: PCP Nurse Practitioner Family; Referring Provider Nurse Practitioner Family; Visit Provider Student in an Organized Health Care Education/Training Program | DX: Z47.89 Encounter for other orthopedic aftercare (principal); M65.322 Trigger finger, left index finger; M17.12 Unilateral primary osteoarthritis, left knee ==

== ENCOUNTER 2022-02-09 11:18 | Outpatient (REF) | payer MEDICARE, SELFPAY ==
[2022-02-09 12:34] LABS: Bilirubin Negative (Negative); Blood Trace-intact (Negative); Clarity Sl Cloudy (Clear); Glucose Negative (Negative); Ketones Negative (Negative); Leukocyte Esterase Trace (Negative); Nitrite Negative (Negative); Specific Gravity 1.015 (1.005-1.025); Urobilinogen 0.2 EU/dL (Up TO 0.2)
[2022-02-09 12:46] LABS: Bacteria Moderate HPF (Negative); C & S Indicated? C&S Done As Ordered; Casts Negative LPF (Negative); Crystals Negative HPF (Negative); Epithelial Cells Negative HPF (Negative); Mucus Negative (Negative)
== END 2022-02-09 11:19 | disposition home or self-care (01) ==
LOC: LBN 11:18
PROVIDERS: PCP Nurse Practitioner Family; Visit Provider Nurse Practitioner Gerontology
DX: R82.998 Other abnormal findings in urine (principal); R10.2 Pelvic and perineal pain; N40.1 Benign prostatic hyperplasia with lower urinary tract symptoms
CPT/HCPCS: 87077; 81003; 81015; 87086; 87186

== ENCOUNTER 2022-02-17 21:58 | Inpatient (IN) | payer MEDICARE, SELFPAY ==
[2022-02-17 22:05] VITALS: BP 165/77; PULSE 73; RESP 20; TEMP 36.6; O2SAT 97
--- NOTE | 2022-02-17 22:15 | DI.CT_ITS ---
Exam(s) CT ABDOMEN PELVIS W EXAM: CT ABDOMEN PELVIS W CLINICAL HISTORY: lower abdominal pain, multiple abd surgeries TECHNIQUE: Imaging Protocol: Axial computed tomography images with coronal and sagittal reformatted images were created and reviewed CONTRAST MATERIAL: Intravenous: Omnipaque 350 Contrast volume:100 mL Oral: No COMPARISON: CT CT RENAL COLIC WO from 08/09/2019 MR MR LUMBAR SPINE WO from 10/19/2020 FINDINGS: ABDOMEN: Lung Bases: There is a small hiatal hernia. Mild dependent atelectasis is seen in the left lung base . Liver: The dome of the liver is not included on this examination. No measurable mass. There does diego ear to be decreased attenuation of the liver suggesting fatty infiltration. Portal, Superior Mesenteric, and Splenic Veins: Unremarkable. Gallbladder and Biliary Tract: No radiodense calculus or dilation. Pancreas: Normal density, no abnormal calcifications or inflammatory process. Spleen: Normal. Adrenals: There is stable small bilateral adrenal nodules. These likely reflect adrenal adenomas. Kidneys: Normal size, contour and axis. No radiodense stones or obstructive uropathy. There is a 1.2 cm simple cyst in the left kidney. This is unchanged compared to the MRI and prior CT examinations. Abdominal Aorta: Abdominal portion non-dilated. Atherosclerosis is present. Bowel: There is diverticulosis seen in the colon but no evidence of acute diverticulitis. The duoden um does not appear to cross the midline consistent with a malrotation of the bowel. There is dilatat ion of the cecum and proximal ascending colon. This part of the colon is distended with fecal materi al. There is a transition point seen in the left upper quadrant (series 7, image 273.). There is th ickening of the wall of the transverse colon at this level. No evidence of appendicitis. Peritoneal Cavity: No ascites, collection or mesenteric inflammatory response. No free air. Lymph Nodes: There are mild plan large lymph nodes in the mesentery. Bones: Within normal limits for the patient's age. Soft Tissues: There does appear to be a tiny anterior midline abdominal wall hernia containing a knuc kle of small bowel. The bowel is unremarkable without evidence of obstruction. PELVIS: Bladder: Bladder diverticula are present. Reproductive Organs: There is an enlarged prostate gland. Lymph Nodes: Within normal limits. Bones: Within normal limits for the patient's age. IMPRESSION: 1. Abrupt narrowing of the distal transverse colon with wall thickening. There is marked dilatation of the colon proximal to this lesion. The findings concerning for colonic stricture. A malignant et iology cannot be excluded. Colonoscopy is recommended for further evaluation. 2. Marked diverticulosis of the left colon and sigmoid colon. No evidence of diverticulitis. 3. 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 RADIATION DOSE DELIVERED: 728.47mGy.cm Total DLP DATA REPOSITORY: All CT scans at this facility are submitted to the National Radiology Data Registry (NRDR) Dose Index Registry (DIR) with the [employer] ([employer]). RADIATION OPTIMIZATION: All CT scans at this facility use at least one of these dose optimization te chniques: automated exposure control; mA and/or kV adjustment per patient size (includes targeted exa ms where dose is matched to clinical indication); or iterative reconstruction.
[2022-02-17] MEDS: Ondansetron 4 MG/2 ML VIAL IVP (22:26)
[2022-02-17] MEDS: Normal Saline 1,000 ML 1000 ML IV (22:27)
[2022-02-17] MEDS: MORPHine 4 MG/ML SYR IVP (22:29)
[2022-02-17 22:30] LABS: Abs Immature Grans 0.02 10^3/uL (0.0-0.06); Absolute Basophil Count 0.01 10^3/uL (0.0-0.2); Absolute Eosinophil Count 0.13 10^3/uL (0.0-0.7); Absolute Lymphocyte Count 1.62 10^3/uL (1.2-3.4); Absolute Monocyte Count 0.44 10^3/uL (0.1-0.8); Absolute Neutrophil Count 3.58 10^3/uL (1.2-6.7); Basophils % 0.2; Eosinophils % 2.2; HCT 37.3 % (40.0-50.0); HGB 12.4 g/dL (13.5-17.5); Immature Grans % 0.3; Lymphocytes % 27.9; MCHC 33.2 % (32.0-36.0); MCV 90 fL (80-95); MPV 8.8 fL (8.0-11.0); Monocytes % 7.6; Neutrophils % 61.8; Platelet Count 239 10^3/uL (130-400); RBC 4.13 10^6/uL (4.36-5.78); RDW 13.2 % (11.8-14.1); RDW-SD 43.7 fL
[2022-02-17 22:31] LABS: Lactate 2.5 mmol/L (0.6-1.4)
[2022-02-17 22:44] LABS: Bilirubin Negative (Negative); Blood Small (Negative); Clarity Clear (Clear); Glucose Negative (Negative); Ketones Negative (Negative); Leukocyte Esterase Negative (Negative); Nitrite Negative (Negative); Specific Gravity 1.025 (1.005-1.025); Urobilinogen 0.2 EU/dL (Up TO 0.2); pH 5.5 (5-8)
[2022-02-17 22:44] LABS: BUN 19 mg/dL (7-18); CREATININE 1.2 mg/dL (0.70-1.30); Calcium 8.6 mg/dL (8.5-10.1); Estimated GFR 63.07 (mL/min/1.73m2); Glucose 142 mg/dL (74-106)
[2022-02-17] MEDS: HYDROmorphone 2 MG/ML SYR 1 MG IVP (22:44)
[2022-02-17 22:45] LABS: ALT 47 U/L (16-63); AST 40 U/L (15-37); Albumin 3.7 g/dL (3.4-5.0); Alkaline Phosphatase 69 U/L (46-116); Anion Gap 10.1 mmol/L (3-11); Bilirubin, Total 0.2 mg/dL (0.2-1.0); CO2 25.9 mmol/L (21.0-32.0); Chloride 102 mmol/L (98-107); Potassium 3.8 mmol/L (3.5-5.1); Sodium 138 mmol/L (136-145); Total Protein 7.9 g/dL (6.4-8.2)
[2022-02-17 22:49] LABS: WBC Negative HPF (0-5)
[2022-02-17 22:50] LABS: Bacteria Rare HPF (Negative); C & S Indicated? No; Casts Negative LPF (Negative); Crystals Negative HPF (Negative); Epithelial Cells Rare HPF (Negative); Mucus Negative (Negative)
--- NOTE | 2022-02-17 23:11 | W.ED.GENAD ---
Discharge Plan Disposition Patient Disposition: Admit to [facility] Condition: Stable Discharge Details Chief Complaint: Abd Prob Clinical Impression: Colon stricture Primary Care Provider: Abimael Diaz ED Provider: Librado Malone Home Meds and New Rx's Prescriptions: No Action finasteride 5 mg tablet 5 mg PO DAILY Qty: 90 3RF tamsulosin 0.4 mg capsule 0.8 mg PO DAILY Qty: 180 3RF Rx Instructions: Take one cap in AM and one in PM multivitamin 1 EACH capsule 1 cap PO DAILY amlodipine 10 mg tablet 10 mg PO DAILY Qty: 90 4RF losartan 100 mg tablet 100 mg PO DAILY Qty: 90 3RF diphenoxylate-atropine [Lomotil] 2.5-0.025 mg tablet 1 tab PO BID PRN (Reason: diarrhea) Qty: 20 0RF dicyclomine 20 mg tablet 20 mg PO QID PRN (Reason: IBS) Qty: 90 2RF hydrocortisone 2.5 % cream with perineal applicator 1 applic MN BID-QID PRN (Reason: pain) Qty: 30 4RF phenytoin [Dilantin Infatabs] 50 mg tablet,chewable 50 mg PO HS Qty: 90 4RF Rx Instructions: Take with phenytoin 200 mg HS phenytoin sodium extended [Dilantin Extended] 100 mg capsule 200 mg PO BID Qty: 450 3RF Rx Instructions: Dilantin brand name only medically necessary amoxicillin 500 mg capsule 500 mg PO TID Qty: 21 0RF acetaminophen 500 mg Tablet 1,000 mg PO TID Medical Decision Making 76-year-old male with a past medical history of 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 Patient states that at 7 PM this evening he developed achy dull abdominal pain in the lower abdomen that radiated to the left lower abdomen. He denies any vomiting or diarrhea. No blood in his stool. He denies any chest pain or shortness of breath. He has had diverticulitis before and had still that the symptoms feel similar. Past medical history is also positive for irritable bowel syndrome, as well as your recent urinary tract infection for which she received penicillin a few weeks ago. He denies any recent diarrhea. No other complaints at this time. No other modifying factors. Exam demonstrates a tender left mid and left lower abdomen. No significant right-sided tenderness. Differential is broad but includes obstruction, adhesion pain, or diverticulitis. We will get a CT scan, monitor closely, treat his pain, and reassess. 2:[address] scan shows evidence of notable wall thickening and stenosis of the distal transverse colon concerning for a distal transverse colon stricture. Lactate is elevated greater than 2. Pain is improved after medications, however the patient did get slightly apneic while sleeping after the Dilaudid. Urinalysis is negative for infection. The remainder the patient's laboratory work-up is stable at this time. Vital signs remain notably stable. Discussed the case with our surgeon on-call Dr. Hernandez, she reviewed the case and images, did request that we reach out to [facility] for discussion of potential stenting options. I did reach out to [facility] and spoke with Dr. Yan, and upon review of the case they do not recommended stenting at this time, and feel that partial colectomy is the ideal direction for treatment. Additionally they do not have any beds available at this time. This was relayed to Dr. Hernandez. I discussed this all in depth with the patient as well. We will admit the patient here at [facility], he will make an n.p.o. I will place bridging orders on Dr. Hernandez's behalf of n.p.o. status, pain meds, subcu heparin, Protonix, and general admission orders. Discussed red flags for which to return. I have extensively reviewed the treatment plan with the patient. I have addressed all patient concerns at this time. I have also discussed the plan with the admitting physician and they agree with the current assessment and plan and have agreed to assume responsibility for the patient. All parties demonstrate verbal understanding and agreement with our assessment and plan at this time. The documentation in this chart was dictated using Smart[employer] dictation software. Please excuse any dictation errors. Liver: Fatty liver change. No focal hepatic pathology. Gallbladder and bile ducts: The gallbladder is normal in size and shape. No stones or inflammatory changes. Pancreas: Normal. No ductal dilation. Spleen: Upper limits of normal in size. Adrenal glands: No acute adrenal pathology. No suspicious masses. Small bilateral benign nodules are suggested stable since 2019. Kidneys and ureters: No acute renal changes. Left renal cyst with benign appearance measuring 12 mm.No further imaging follow up of the renal cyst is recommended based on MIPS criteria. 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 There is prominent fecal retention and distension of the transverse colon. The transverse colon is distended to 7.6 cm. There is an area of narrowing at the distal transverse colon. See series 4, images 27 through 31. Can not exclude a colonic stricture. Possibility of a neoplastic segment can not be excluded. This is approximally 6 cm in length. See coronal series 5, images 43 through 38. The left colon has severe diverticulosis. Sigmoid colon with severe diverticulosis. No acute diverticulitis changes. Small bowel loops are unremarkable in appearance. No acute obstruction. No edema. Gastric contour morphology are unremarkable. There is a small hiatal hernia without acute features. Appendix: No evidence of appendicitis. Intraperitoneal space: No free fluid. No free air. Vasculature: Unremarkable. No abdominal aortic aneurysm. Lymph nodes: A small lymph node is seen along the medial aspect of the distal colonic stricture measuring 7 x 6 mm. Series 7, image 264.. No enlarged lymph nodes. Urinary bladder: Urinary bladder is mildly distended. There are multiple small diverticula and appearance of bladder sacculation. This suggest chronic outlet obstruction. Reproductive: Moderate nonspecific prostate enlargement. Bones/joints: Degenerative lumbar spine changes. No acute skeletal pathology. Soft tissues: Unremarkable. IMPRESSION: 1. Distal transverse colon area of narrowing and wall thickening measuring 6 cm in length. Wall thickness measuring up to 8 mm. This is concerning for a distal transverse colon stricture. This might be benign or malignant. Colonoscopic evaluation is recommended. There is distension of large bowel and fecal retention proximal to this focus. A small lymph node is seen medial to this stricture on axial series 7, image 264 measuring 7 x 6 mm. 2. Left colon and sigmoid colon with severe diverticulosis. No acute diverticulitis. 3. Urinary bladder changes consistent with chronic outlet obstruction. 4. Moderate prostate enlargement. 5. 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 6. Benign left renal cyst. 7. Fatty liver change. Thank you for allowing us to participate in the care of your patient. Dictated and Authenticated by: Nazario Gipson MD 02/17/2022 11:50 PM Eastern Time ([place] & [place] HPI General Date/Time Provider Initiated Documentation: 02/17/22 22:11. 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 Patient states that at 7 PM this evening he developed achy dull abdominal pain in the lower abdomen that radiated to the left lower abdomen. He denies any vomiting or diarrhea. No blood in his stool. He denies any chest pain or shortness of breath. He has had diverticulitis before and had still that the symptoms feel similar. Past medical history is also positive for irritable bowel syndrome, as well as your recent urinary tract infection for which she received penicillin a few weeks ago. He denies any recent diarrhea. No other complaints at this time. No other modifying factors. Related Data Home Medications Medication Instructions Recorded Confirmed multivitamin 1 cap PO DAILY 04/30/12 01/28/22 acetaminophen 500 mg tablet 1,000 mg PO TID 08/09/19 01/28/22 amlodipine 10 mg tablet 10 mg PO DAILY #90 tabs 03/10/21 01/28/22 losartan 100 mg tablet 100 mg PO DAILY #90 tabs 05/03/21 01/28/22 diphenoxylate-atropine 2.5 1 tab PO BID PRN diarrhea #20 tabs 06/03/21 01/28/22 mg-0.025 mg tablet (Lomotil) finasteride 5 mg tablet 5 mg PO DAILY #90 tabs 07/26/21 01/28/22 tamsulosin 0.4 mg capsule 0.8 mg PO DAILY #180 caps 07/26/21 01/28/22 dicyclomine 20 mg tablet 20 mg PO QID PRN IBS #90 tabs 08/13/21 01/28/22 hydrocortisone 2.5 % topical cream 1 applic MN BID-QID PRN pain #30 11/11/21 01/28/22 with perineal applicator grams phenytoin 50 mg chewable tablet 50 mg PO HS ##90 11/11/21 01/28/22 (Dilantin Infatabs) phenytoin sodium extended 100 mg 200 mg PO BID #450 caps 11/11/21 01/28/22 capsule (Dilantin Extended) amoxicillin 500 mg capsule 500 mg PO TID #21 caps 02/10/22 Previous Rx's Medication Instructions Recorded amlodipine 10 mg tablet 10 mg PO DAILY #90 tabs 03/10/21 losartan 100 mg tablet 100 mg PO DAILY #90 tabs 05/03/21 diphenoxylate-atropine 2.5 1 tab PO BID PRN diarrhea #20 tabs 06/03/21 mg-0.025 mg tablet (Lomotil) finasteride 5 mg tablet 5 mg PO DAILY #90 tabs 07/26/21 tamsulosin 0.4 mg capsule 0.8 mg PO DAILY #180 caps 07/26/21 dicyclomine 20 mg tablet 20 mg PO QID PRN IBS #90 tabs 08/13/21 hydrocortisone 2.5 % topical cream 1 applic MN BID-QID PRN pain #30 11/11/21 with perineal applicator grams phenytoin 50 mg chewable tablet 50 mg PO HS ##90 11/11/21 (Dilantin Infatabs) phenytoin sodium extended 100 mg 200 mg PO BID #450 caps 11/11/21 capsule (Dilantin Extended) amoxicillin 500 mg capsule 500 mg PO TID #21 caps 02/10/22 Allergies Allergy/AdvReac Type Severity Reaction Status Date / Time camphor AdvReac Intermediate Nicolas Verified 01/27/22 10:27 lactose AdvReac Verified 01/27/22 10:27 General Stated Complaint: Abd Prob GRACIA: 3 Review of Systems All systems reviewed & are unremarkable except as noted in HPI and below PFSH All Active Problems (Updated 02/18/22 @ 02:24 by Librado Malone DO) Colon stricture (Acute) Trigger finger, left index finger (Acute) S/P Release: 11/17/2021 Lactose intolerance (Acute) Hypertension (Chronic) Hyperlipidemia (Acute) BPH NOS w ur obs/LUTS (Acute) Amblyopia (Acute) O.D. Basal cell carcinoma (Acute) Removed 09/06/21 Mitral valve regurgitation (Chronic) Hemorrhoids (Chronic) Epilepsy (Chronic 11/08/11) Aura 2006 Diverticulosis of colon without diverticulitis (Chronic) colonoscopy 2004 Congenital malrotation of intestine (Chronic) Anxiety (Chronic) obsessive thinking; sexual problems; possible depression Alcohol intake above recommended sensible limits (Chronic) Regular alcohol Medical History Dysuria Hematuria Intention tremor Knee effusion Leg weakness, bilateral Osteoarthritis of both hips Osteoarthritis of left knee Depo-medrol injection: 11/04/2021; 11/19/19 Sciatica Seizure disorder Tick bite Surgical History History of surgical procedure INTESTINES (02/07/1955) STOMACH (02/07/1955) Trigger finger, left ring finger S/P trigger finger release DOS: 12/27/17 Family History Mother , 63 Alzheimer's disease Father , 62 Lung cancer Maternal Grandfather , 67 Stroke Heart disease Paternal Grandfather , 69 Stroke Maternal Grandmother , 72 Heart disease Stroke Paternal Grandmother , 77 Heart disease Daughter No problems noted. Daughter No problems noted. Social History Smoking/Tobacco Use Status: Never Second Hand Exposure: Yes Smoking risk assessment performed?: Yes Alcohol Intake: current Alcohol Intake frequency: a few times a week Alcohol type: beer and hard liquor Drug use: Never Substance use type: does not use Caregiver/Support person: No Household members: spouse Communication Needs: None Do you need help understanding health information?: Never Pets and animals: No Sexually active: Yes Do you think of yourself as: straight/heterosexual Current gender identity: male What is your relationship status?: How often do you talk on the phone with friends or family?: twice per week How often do you get together with friends or relatives?: once per week Do you belong to any clubs or organized social groups?: yes Panel score (0-1 are the most socially isolated patients): 3 What type of physical activity do you participate in: walking and aerobic Duration: 15-30 minutes/day Frequency: 5-6 times per week Cat/Taoism: [employer]beterian Special cat needs: No Seatbelt use: sometimes Helmet use: No Drive intox or ride w/intox minibus driver: No Do you feel safe at home: Yes Do you feel safe in your relationship?: Yes Exam Narrative Exam Narrative: 1.Const: Well-nourished, Well-developed, appearing stated age 2.Eyes: PERRL, no conjunctival injection, and symmetrical lids. 3.ENT: Atraumatic external nose and ears. Moist MM. Neck: Symmetric, trachea midline, No thyromegaly. 4.CVS: +S1/S2, No murmurs or gallops. Peripheral pulses 2+ and equal in all extremities. Brisk capillary refill in all extremities. 5.RESP: Unlabored respiratory effort. Clear to auscultation bilaterally. No wheezes rales or rhonchi 6.GI: Soft, nondistended, no guarding. Patient does have some mild rebound in the left lower quadrant, notable tenderness in that area. Suprapubic region is nontender. Genital region is unremarkable. 7.MSK: Normocephalic/Atraumatic, Extremities w/o deformity or ttp No cyanosis or clubbing, Normal movement of all extremities 8.Skin: Warm, Dry. No rashes or lesions. 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 Sensation grossly intact, no focal neurologic deficits. 10.Psych: (AAO) x3. Appropriate mood and affect Course Vital Signs Vital signs: Vital Signs Temperature 36.6 C 02/17/22 22:05 Pulse 73 02/17/22 22:05 Respiratory Rate 20 02/17/22 22:05 Blood Pressure 165/77 H 02/17/22 22:05 Pulse Oximetry 97 02/17/22 22:05 Temperature 36.6 C 02/17/22 22:05 Temperature Source Temporal Artery Scan 02/17/22 22:05 Pulse 73 02/17/22 22:05 Respiratory Rate 20 02/17/22 22:05 Respiratory Effort 02/17/22 22:35 Blood Pressure 165/77 H 02/17/22 22:05 Pulse Oximetry 97 02/17/22 22:05 Oxygen Delivery Method Room Air 02/17/22 22:05 Oxygen Flow Rate 0 02/17/22 22:05 Pain Level 27 02/17/22 22:05 Lab/Test Results Lab/Test Results: Laboratory Tests Range/Units 02/17/22 02/17/22 02/17/22 22:26 22:26 22:26 WBC (4.4-10.8) 10^3/uL 5.80 RBC (4.36-5.78) 10^6/uL 4.13 L Hgb (13.5-17.5) g/dL 12.4 L Hct (40.0-50.0) % 37.3 L MCV (80-95) fL 90 MCH (27.0-33.0) pg 30.0 MCHC (32.0-36.0) % 33.2 RDW (11.8-14.1) % 13.2 Plt Count (130-400) 10^3/uL 239 MPV (8.0-11.0) fL 8.8 Immature Gran % 0.3 Neutrophils % 61.8 Lymphocytes % 27.9 Monocytes % 7.6 Eosinophils % 2.2 Basophils % 0.2 Nucleated RBC % (0.0-0.3) % 0.0 Absolute Neutrophils (1.2-6.7) 10^3/uL 3.58 Absolute Lymphocytes (1.2-3.4) 10^3/uL 1.62 Absolute Monocytes (0.1-0.8) 10^3/uL 0.44 Absolute Eosinophils (0.0-0.7) 10^3/uL 0.13 Absolute Basophils (0.0-0.2) 10^3/uL 0.01 VBG Lactate (0.6-1.4) mmol/L 2.5 H* Sodium (136-145) mmol/L 138 Potassium (3.5-5.1) mmol/L 3.8 Chloride (98-107) mmol/L 102 Carbon Dioxide (21.0-32.0) mmol/L 25.9 Anion Gap (3-11) mmol/L 10.1 BUN (7-18) mg/dL 19 H Creatinine (0.70-1.30) mg/dL 1.2 Est GFR (CKD-EPI 2020) (mL/min/1.73m2) 63.07 Glucose (74-106) mg/dL 142 H Calcium (8.5-10.1) mg/dL 8.6 Total Bilirubin (0.2-1.0) mg/dL 0.2 AST (15-37) U/L 40 H ALT (16-63) U/L 47 Alkaline Phosphatase (46-116) U/L 69 Total Protein (6.4-8.2) g/dL 7.9 Albumin (3.4-5.0) g/dL 3.7 Urine Color (Yellow) Urine Clarity (Clear) Urine pH (5-8) Ur Specific [place] (1.005-1.025) Urine Protein (Negative) mg/dL Urine Ketones (Negative) mg/dL Urine Blood (Negative) Urine Nitrite (Negative) Urine Bilirubin (Negative) Urine Urobilinogen (Up TO 0.2) EU/dL Ur Leukocyte Esterase (Negative) Urine RBC (0-2) HPF Urine WBC (0-5) HPF Ur Epithelial Cells (Negative) HPF Urine Crystals (Negative) HPF Urine Bacteria (Negative) HPF Urine Casts (Negative) LPF Urine Mucus (Negative) Ur Culture Indicated? Urine Glucose (Negative) mg/dL Range/Units 02/17/22 22:35 WBC (4.4-10.8) 10^3/uL RBC (4.36-5.78) 10^6/uL Hgb (13.5-17.5) g/dL Hct (40.0-50.0) % MCV (80-95) fL MCH (27.0-33.0) pg MCHC (32.0-36.0) % RDW (11.8-14.1) % Plt Count (130-400) 10^3/uL MPV (8.0-11.0) fL Immature Gran % Neutrophils % Lymphocytes % Monocytes % Eosinophils % Basophils % Nucleated RBC % (0.0-0.3) % Absolute Neutrophils (1.2-6.7) 10^3/uL Absolute Lymphocytes (1.2-3.4) 10^3/uL Absolute Monocytes (0.1-0.8) 10^3/uL Absolute Eosinophils (0.0-0.7) 10^3/uL Absolute Basophils (0.0-0.2) 10^3/uL VBG Lactate (0.6-1.4) mmol/L Sodium (136-145) mmol/L Potassium (3.5-5.1) mmol/L Chloride (98-107) mmol/L Carbon Dioxide (21.0-32.0) mmol/L Anion Gap (3-11) mmol/L BUN (7-18) mg/dL Creatinine (0.70-1.30) mg/dL Est GFR (CKD-EPI 2020) (mL/min/1.73m2) Glucose (74-106) mg/dL Calcium (8.5-10.1) mg/dL Total Bilirubin (0.2-1.0) mg/dL AST (15-37) U/L ALT (16-63) U/L Alkaline Phosphatase (46-116) U/L Total Protein (6.4-8.2) g/dL Albumin (3.4-5.0) g/dL Urine Color (Yellow) Yellow Urine Clarity (Clear) Clear Urine pH (5-8) 5.5 Ur Specific [place] (1.005-1.025) 1.025 Urine Protein (Negative) mg/dL Negative Urine Ketones (Negative) mg/dL Negative Urine Blood (Negative) Small H Urine Nitrite (Negative) Negative Urine Bilirubin (Negative) Negative Urine Urobilinogen (Up TO 0.2) EU/dL 0.2 Ur Leukocyte Esterase (Negative) Negative Urine RBC (0-2) HPF 3-5 H Urine WBC (0-5) HPF Negative Ur Epithelial Cells (Negative) HPF Rare Urine Crystals (Negative) HPF Negative Urine Bacteria (Negative) HPF Rare Urine Casts (Negative) LPF Negative Urine Mucus (Negative) Negative Ur Culture Indicated? No Urine Glucose (Negative) mg/dL Negative
[2022-02-17] MEDS: Normal Saline - Diluent 50 ML VIAL IV (23:20)
[2022-02-17] MEDS: Omnipaque 350 MG/ML 100 ML BTL IJ (23:20)
[2022-02-17 23:48] VITALS: BP 164/88; PULSE 71; RESP 10
--- NOTE | 2022-02-17 23:50 | DI.VRAD_ITS ---
PROCEDURE INFORMATION: Exam: CT Abdomen And Pelvis With Contrast Exam date and time: 02/17/2022 11:09 PM Age: 76 years old Clinical indication: Abdominal pain; Localized; Lower; Prior surgery; Surgery date: 6+ months; Surgery type: Sections of large and small bowel removed; Additional info: Lower abd pain TECHNIQUE: Imaging protocol: Computed tomography of the abdomen and pelvis with contrast. Radiation optimization: All CT scans at this facility use at least one of these dose optimization techniques: automated exposure control; mA and/or kV adjustment per patient size (includes targeted exams where dose is matched to clinical indication); or iterative reconstruction. Contrast material: OMNI 350; Contrast volume: 100 ml; Contrast route: INTRAVENOUS (IV); COMPARISON: CR XR HIP PELVIS ADULT BL 11/19/2019 11:12 AM FINDINGS: Liver: Fatty liver change. No focal hepatic pathology. Gallbladder and bile ducts: The gallbladder is normal in size and shape. No stones or inflammatory changes. Pancreas: Normal. No ductal dilation. Spleen: Upper limits of normal in size. Adrenal glands: No acute adrenal pathology. No suspicious masses. Small bilateral benign nodules are suggested stable since 2019. Kidneys and ureters: No acute renal changes. Left renal cyst with benign appearance measuring 12 mm.No further imaging follow up of the renal cyst is recommended based on MIPS criteria. 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 There is prominent fecal retention and distension of the transverse colon. The transverse colon is distended to 7.6 cm. There is an area of narrowing at the distal transverse colon. See series 4, images 27 through 31. Can not exclude a colonic stricture. Possibility of a neoplastic segment can not be excluded. This is approximally 6 cm in length. See coronal series 5, images 43 through 38. The left colon has severe diverticulosis. Sigmoid colon with severe diverticulosis. No acute diverticulitis changes. Small bowel loops are unremarkable in appearance. No acute obstruction. No edema. Gastric contour morphology are unremarkable. There is a small hiatal hernia without acute features. Appendix: No evidence of appendicitis. Intraperitoneal space: No free fluid. No free air. Vasculature: Unremarkable. No abdominal aortic aneurysm. Lymph nodes: A small lymph node is seen along the medial aspect of the distal colonic stricture measuring 7 x 6 mm. Series 7, image 264.. No enlarged lymph nodes. Urinary bladder: Urinary bladder is mildly distended. There are multiple small diverticula and appearance of bladder sacculation. This suggest chronic outlet obstruction. Reproductive: Moderate nonspecific prostate enlargement. Bones/joints: Degenerative lumbar spine changes. No acute skeletal pathology. Soft tissues: Unremarkable. IMPRESSION: 1. Distal transverse colon area of narrowing and wall thickening measuring 6 cm in length. Wall thickness measuring up to 8 mm. This is concerning for a distal transverse colon stricture. This might be benign or malignant. Colonoscopic evaluation is recommended. There is distension of large bowel and fecal retention proximal to this focus. A small lymph node is seen medial to this stricture on axial series 7, image 264 measuring 7 x 6 mm. 2. Left colon and sigmoid colon with severe diverticulosis. No acute diverticulitis. 3. Urinary bladder changes consistent with chronic outlet obstruction. 4. Moderate prostate enlargement. 5. 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 6. Benign left renal cyst. 7. Fatty liver change. Dictated and Authenticated by: Nazario Gipson MD. Ordering:JAY Pavon MD
[2022-02-17 23:54] VITALS: BP 143/63; PULSE 60; RESP 8; O2SAT 96
[2022-02-17] MEDS: ACETAMINOPHEN 1,000 MG/100 ML BTL 400 MG (23:59)
[2022-02-18] VITALS (9 sets, daily range): BP systolic 156–190; BP diastolic 62–81; PULSE 54–66; RESP 12–18; TEMP 36–36.7; O2SAT 95–100
[2022-02-18 02:29] LABS: Source Nasal/Nares
[2022-02-18 02:59] LABS: COVID-19 PCR Negative (Negative)
[2022-02-18] MEDS: Normal Saline Flush 10 ML SYR IVP ×3 (04:24→23:40)
[2022-02-18] MEDS: Normal Saline 1,000 ML 150 ML IV (04:25)
[2022-02-18 06:29] LABS: Lactate 0.9 mmol/L (0.6-1.4)
[2022-02-18 06:32] LABS: HCT 35.1 % (40.0-50.0); HGB 11.5 g/dL (13.5-17.5); MCH 29.9 pg (27.0-33.0); MCHC 32.8 % (32.0-36.0); MCV 91 fL (80-95); MPV 8.5 fL (8.0-11.0); Platelet Count 192 10^3/uL (130-400); RBC 3.85 10^6/uL (4.36-5.78); RDW 13.5 % (11.8-14.1); RDW-SD 45.5 fL; WBC 7.91 10^3/uL (4.4-10.8)
[2022-02-18 06:43] LABS: PTT Activated 24.1 sec (21.0-27.5)
[2022-02-18 07:01] LABS: ALT 37 U/L (16-63); AST 29 U/L (15-37); Albumin 3.2 g/dL (3.4-5.0); Alkaline Phosphatase 60 U/L (46-116); Anion Gap 7.4 mmol/L (3-11); BUN 19 mg/dL (7-18); Bilirubin, Total 0.3 mg/dL (0.2-1.0); CO2 25.6 mmol/L (21.0-32.0); Calcium 8.2 mg/dL (8.5-10.1); Chloride 106 mmol/L (98-107); Estimated GFR 78.49 (mL/min/1.73m2); Glucose 101 mg/dL (74-106); Potassium 4.1 mmol/L (3.5-5.1); Sodium 139 mmol/L (136-145); Total Protein 6.9 g/dL (6.4-8.2)
[2022-02-18] MEDS: Pantoprazole 40 MG VIAL IVP (08:21)
[2022-02-18] MEDS: Heparin 5,000 UNITS/ML VIAL 5000 UNITS SC (08:23)
--- NOTE | 2022-02-18 08:49 | PDOC.CMIN ---
- If Service Date Differs Date of service: 02/18/22 Time of Service: 08:49 Care Management Initial Assess REASON FOR HOSPITALIZATION:: abdominal pain PAST MEDICAL HISTORY/PAST SURGICAL HISTORY:: All Active Problems (Updated 02/18/22 @ 02:24 by Librado Malone DO). Colon stricture (Acute). Trigger finger, left index finger (Acute). S/P Release: 11/17/2021. Lactose intolerance (Acute). Hypertension (Chronic). Hyperlipidemia (Acute). BPH NOS w ur obs/LUTS (Acute). Amblyopia (Acute). O.D. Basal cell carcinoma (Acute). Removed 09/06/21. Mitral valve regurgitation (Chronic). Hemorrhoids (Chronic). Epilepsy (Chronic 11/08/11). Aura 2005. Diverticulosis of colon without diverticulitis (Chronic). colonoscopy 2003. Congenital malrotation of intestine (Chronic). Anxiety (Chronic). obsessive thinking; sexual problems; possible depression. Alcohol intake above recommended sensible limits (Chronic). Regular alcohol. Medical History . Dysuria. Hematuria. Intention tremor. Knee effusion. Leg weakness, bilateral. Osteoarthritis of both hips. Osteoarthritis of left knee. Depo-medrol injection: 11/04/2021; 11/19/19. Sciatica. Seizure disorder. Tick bite. Surgical History . History of surgical procedure. INTESTINES (02/07/1955). STOMACH (02[birth year]07/1954). Trigger finger, left ring finger. S/P trigger finger release. DOS: 12/27/17 PREVIOUS FUNCTIONAL STATUS/SOCIAL/FAMILY SUPPORTS:: Jerry resides with his , Genia in a single family home in [facility]. They have 2 daughters; one lives in [place] and the other lives in [place], [place]. They also have 4 grandchildren, 3 boys and one girl. 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 He leads a very active lifestyle and is independent in the community. CURRENT FUNCTIONAL STATUS:: Jerry was sitting up in a chair when CM met with him. He talked a lot about his history of bowel issues which began at age 9. He reported that he has had diarrhea all of his life but has learned to live with it. Jerry informed CM that he is feeling really depressed today. When asked why, he stated that Dr. Hernandez told him that he needs to have surgery on Monday for an intestinal obstruction and that he may need to have a colostomy. He stated that he does not think he can handle that. He feels it will interfere with his active lifestyle and may be fraught with problems. Jerry reported that he has known people who have a colostomy. He understands that there can be issues with poor fit and need for frequent bag changes among other things. He explained that on Monday the surgeon will resect the part of his bowel that is obstructed. He will only need the colostomy if they find cancer or some other issue that cannot be corrected with a resection. ADVANCE DIRECTIVES:: On file. [facility] Has patient been provided with info about the portal/API?: Yes Did the patient sign up for the portal?: Yes (previously) CODE STATUS:: Full Code INSURANCE COVERAGE / FINANCIAL ISSUES:: [employer] CURRENT HOME/COMMUNITY SERVICES/EQUIPMENT:: none currently PRIMARY CARE PHYSICIAN:: Abimael Diaz POTENTIAL DISCHARGE NEEDS:: follow up with PCP and plan of care PATIENT/FAMILY EDUCATION NEEDS:: Review of discharge instructions, limitations, activity, diet, follow up plan, Ask Me Three TRANSPORTATION:: via private vehicle with family PLAN:: Anticipate Jerry will discharge home, possibly with new home health services when medically cleared by provider. He will follow up with his PCP and surgery and transport with family. CM will support Jerry and assess for discharge concerns.
--- NOTE | 2022-02-18 09:07 | HPE_ITS ---
Date of service: 02/18/22 Time of Service: 07:47 Assessment and Plan Assessment and plan (1) Colon stricture: Status: Acute Assessment and plan: This is a 76yo male who presents with appears to be a colonic structure of unknown etiology (possibly anastomotic, ischemic, diverticular) causing a near complete large bowel obstruction. At this time, he denies abdominal pain, and is non-toxic. An outside consult obtained in the ED did not think that he was a candidate for a stent due to location of the stricture. We will attempt to gently administer a bowel prep, and proceed to the operating room after the weekend for colectomy. --slear liquids --daily labs --ambulate --gentle bowel prep --minimize narcotics --GI/DVT prophylaxis (2) Hypertension: Status: Chronic Assessment and plan: --vital signs q4 --home meds Qualifiers: Hypertension type: essential hypertension Qualified Code(s): I10 - Essential (primary) hypertension (3) Epilepsy: Status: Chronic Assessment and plan: Distant history of seizures --continue home phenytoin Qualifiers: Epilepsy type: generalized idiopathic Intractability: not intractable Status epilepticus: without status epilepticus Qualified Code(s): G40.309 - Generalized idiopathic epilepsy and epileptic syndromes, not intractable, without status epilepticus History of Present Illness History of Present Illness Chief Complaint: abdominal pain Narrative: This is a 76-year-old male with a past medical history significant for congeni renzo malrotation of the intestines. He describes having half of my colon, and six feet of small instestine removed at age 9. He denies subsequent abdominal surgery. He presented last evening for evaluation of abdominal pain.? Patient describes that at 7 PM in the evening, about an hour after finishing his supper, he developed achy dull abdominal pain in the lower abdomen that radiated to the left lower abdomen.? He denies any vomiting or diarrhea.? No blood or mucus in his stool.?No recent change in bowel habits or caliber. He denies any chest pain or shortness of breath.? He has had uncomplicated diverticulitis treated as an outpatient a couple of times in the past and stated that the symptoms feel similar.? Past medical history is also positive for irritable bowel syndrome, as well as a recent urinary tract infection for which he received penicillin a few weeks ago.?No other complaints at this time.? No other modifying factors. He had 3 bowel movements prior to presentation and was continuing to pass flatus. Due to his previous resections, he usually has 3-7 loose/soft bowel movements daily. He has intermittently used fiber supplementation and Lomotil in the past to slow/thicken his stools, but not at present. He admits to a slight increase of intermittent abdominal cramping recently, but attributes this to his IBS, and occasionally uses dicyclomine. His last colonoscopy was in 2003. Review of Systems Narrative: A 10-point ROS was conducted, relevant findings above. [facility] All Active Problems (Updated 02/18/22 @ 02:24 by Librado Malone DO) Colon stricture (Acute) Trigger finger, left index finger (Acute) S/P Release: 11/17/2021 Lactose intolerance (Acute) Hypertension (Chronic) Hyperlipidemia (Acute) BPH NOS w ur obs/LUTS (Acute) Amblyopia (Acute) O.D. Basal cell carcinoma (Acute) Removed 09/06/21 Mitral valve regurgitation (Chronic) Hemorrhoids (Chronic) Epilepsy (Chronic 11/08/11) Aura 2006 Diverticulosis of colon without diverticulitis (Chronic) colonoscopy 2003 Congenital malrotation of intestine (Chronic) Anxiety (Chronic) obsessive thinking; sexual problems; possible depression Alcohol intake above recommended sensible limits (Chronic) Regular alcohol Medical History Dysuria Hematuria Intention tremor Knee effusion Leg weakness, bilateral Osteoarthritis of both hips Osteoarthritis of left knee Depo-medrol injection: 11/04/2021; 11/19/19 Sciatica Seizure disorder Tick bite Surgical History History of surgical procedure INTESTINES (02/07/1955) STOMACH (02/07/1955) Trigger finger, left ring finger S/P trigger finger release DOS: 12/27/17 Family History Mother , 63 Alzheimer's disease Father , 62 Lung cancer Maternal Grandfather , 67 Stroke Heart disease Paternal Grandfather , 69 Stroke Maternal Grandmother , 72 Heart disease Stroke Paternal Grandmother , 77 Heart disease Daughter No problems noted. Daughter No problems noted. Social History Smoking/Tobacco Use Status: Never Second Hand Exposure: Yes Smoking risk assessment performed?: Yes Alcohol Intake: current Alcohol Intake frequency: a few times a week Alcohol type: beer and hard liquor Drug use: Never Substance use type: does not use Caregiver/Support person: No Household members: spouse Communication Needs: None Do you need help understanding health information?: Never Pets and animals: No Sexually active: Yes Do you think of yourself as: straight/heterosexual Current gender identity: male What is your relationship status?: How often do you talk on the phone with friends or family?: twice per week How often do you get together with friends or relatives?: once per week Do you belong to any clubs or organized social groups?: yes Panel score (0-1 are the most socially isolated patients): 3 What type of physical activity do you participate in: walking and aerobic Duration: 15-30 minutes/day Frequency: 5-6 times per week Cat/Shinto: [employer] Special cat needs: No Seatbelt use: sometimes Helmet use: No Drive intox or ride w/intox cdl b driver: No Do you feel safe at home: Yes Do you feel safe in your relationship?: Yes Meds Allergies and Home Medications Allergies Allergy/AdvReac Type Severity Reaction Status Date / Time camphor AdvReac Intermediate Nicolas Verified 01/27/22 10:27 lactose AdvReac Verified 01/27/22 10:27 Home Medications Medication Instructions Recorded Confirmed Type multivitamin 1 cap PO DAILY 04/30/12 02/18/22 History acetaminophen 500 mg tablet 1,000 mg PO TID 08/09/19 02/18/22 History amlodipine 10 mg tablet 10 mg PO DAILY #90 tabs 03/10/21 02/18/22 Rx losartan 100 mg tablet 100 mg PO DAILY #90 tabs 05/03/21 02/18/22 Rx diphenoxylate-atropine 2.5 1 tab PO BID PRN diarrhea #20 tabs 06/03/21 02/18/22 Rx mg-0.025 mg tablet (Lomotil) finasteride 5 mg tablet 5 mg PO DAILY #90 tabs 07/26/21 02/18/22 Rx tamsulosin 0.4 mg capsule 0.8 mg PO DAILY #180 caps 07/26/21 02/18/22 Rx dicyclomine 20 mg tablet 20 mg PO QID PRN IBS #90 tabs 08/13/21 02/18/22 Rx hydrocortisone 2.5 % topical cream 1 applic KY BID-QID PRN pain #30 11/11/21 Rx with perineal applicator grams phenytoin 50 mg chewable tablet 50 mg PO HS ##90 11/11/21 02/18/22 Rx (Dilantin Infatabs) phenytoin sodium extended 100 mg 200 mg PO BID #450 caps 11/11/21 02/18/22 Rx capsule (Dilantin Extended) amoxicillin 500 mg capsule 500 mg PO TID #21 caps 02/10/22 Rx Exam Const General: cooperative, healthy appearing, comfortable, no acute distress and well developed Orientation: alert, awake and oriented x3 Eyes Alignment and Position: alignment abnormal Neck Neck: normal visual inspection, supple and no torticollis Resp Effort & Inspection: normal respiratory effort and able to speak in complete sentences Auscultation: clear to auscultation bilaterally Cardio Rate: regular rate Rhythm: regular rhythm Heart Sounds: S1 normal and S2 normal GI Inspection: no abdominal wall ecchymosis, distended (very mild) and incision (well-healed old incisions with some superficial contractions) Palpation: soft, not firm, no guarding, not rigid, nontender and other (benign abdominal exam at this time) Percussion: normal to percussion Auscultation: normal bowel sounds Skin General skin exam: turgor normal and no jaundice Neuro General: patient alert, patient awake, patient oriented x3 and moves all extremities Cognition: normal cognition Speech: speech normal Extrem General: normal to inspection, no clubbing, cyanosis or edema, no pedal edema and no calf tenderness Psych Appearance: grossly normal and well kempt Mental Status: mental status grossly normal Speech and Movement: speech and movement normal Affect: normal affect Thought Process: normal Insight: insight good Judgment: judgment good Results Imaging Abdomen CT scan report/results: report reviewed Imaging Studies: CT ABD/PEL (02/17/2022): FINDINGS: Liver: Fatty liver change. No focal hepatic pathology. Gallbladder and bile ducts: The gallbladder is normal in size and shape. No stones or inflammatory changes. Pancreas: Normal. No ductal dilation. Spleen: Upper limits of normal in size. Adrenal glands: No acute adrenal pathology. No suspicious masses. Small bilateral benign nodules are suggested stable since 2019. Kidneys and ureters: No acute renal changes. Left renal cyst with benign appearance measuring 12 mm.No further imaging follow up of the renal cyst is recommended based on MIPS criteria. 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 There is prominent fecal retention and distension of the transverse colon. The transverse colon is distended to 7.6 cm. There is an area of narrowing at the distal transverse colon. See series 4, images 27 through 31. Can not exclude a colonic stricture. Possibility of a neoplastic segment can not be excluded. This is approximally 6 cm in length. See coronal series 5, images 43 through 38. The left colon has severe diverticulosis. Sigmoid colon with severe diverticulosis. No acute diverticulitis changes. Small bowel loops are unremarkable in appearance. No acute obstruction. No edema. Gastric contour morphology are unremarkable. There is a small hiatal hernia without acute features. Appendix: No evidence of appendicitis. Intraperitoneal space: No free fluid. No free air. Vasculature: Unremarkable. No abdominal aortic aneurysm. Lymph nodes: A small lymph node is seen along the medial aspect of the distal colonic stricture measuring 7 x 6 mm. Series 7, image 264.. No enlarged lymph nodes. Urinary bladder: Urinary bladder is mildly distended. There are multiple small diverticula and appearance of bladder sacculation. This suggest chronic outlet obstruction. Reproductive: Moderate nonspecific prostate enlargement. Bones/joints: Degenerative lumbar spine changes. No acute skeletal pathology. Soft tissues: Unremarkable. IMPRESSION: 1. Distal transverse colon area of narrowing and wall thickening measuring 6 cm in length. Wall thickness measuring up to 8 mm. This is concerning for a distal transverse colon stricture. This might be benign or malignant. Colonoscopic evaluation is recommended. There is distension of large bowel and fecal retention proximal to this focus. A small lymph node is seen medial to this stricture on axial series 7, image 264 measuring 7 x 6 mm. 2. Left colon and sigmoid colon with severe diverticulosis. No acute diverticulitis. 3. Urinary bladder changes consistent with chronic outlet obstruction. 4. Moderate prostate enlargement. 5. 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 6. Benign left renal cyst. 7. Fatty liver change. Labs Result diagrams: 02/18/22 06:21 02/18/22 06:21 Labs: Laboratory Results - last 24 hr 02/17/22 02/17/22 02/17/22 22:26 22:26 22:26 WBC 5.80 RBC 4.13 L Hgb 12.4 L Hct 37.3 L MCV 90 MCH 30.0 MCHC 33.2 RDW 13.2 Plt Count 239 MPV 8.8 Immature Gran % 0.3 Neutrophils % 61.8 Lymphocytes % 27.9 Monocytes % 7.6 Eosinophils % 2.2 Basophils % 0.2 Nucleated RBC % 0.0 Absolute Neutrophils 3.58 Absolute Lymphocytes 1.62 Absolute Monocytes 0.44 Absolute Eosinophils 0.13 Absolute Basophils 0.01 PT INR APTT VBG Lactate 2.5 H* Sodium 138 Potassium 3.8 Chloride 102 Carbon Dioxide 25.9 Anion Gap 10.1 BUN 19 H Creatinine 1.2 Est GFR (CKD-EPI 2020) 63.07 Glucose 142 H Calcium 8.6 Total Bilirubin 0.2 AST 40 H ALT 47 Alkaline Phosphatase 69 Total Protein 7.9 Albumin 3.7 Urine Color Urine Clarity Urine pH Ur Specific [place] Urine Protein Urine Ketones Urine Blood Urine Nitrite Urine Bilirubin Urine Urobilinogen Ur Leukocyte Esterase Urine RBC Urine WBC Ur Epithelial Cells Urine Crystals Urine Bacteria Urine Casts Urine Mucus Ur Culture Indicated? Urine Glucose COVID-19 Source SARS-CoV-2 (PCR) 02/17/22 02/18/22 02/18/22 22:35 02:00 06:21 WBC RBC Hgb Hct MCV MCH MCHC RDW Plt Count MPV Immature Gran % Neutrophils % Lymphocytes % Monocytes % Eosinophils % Basophils % Nucleated RBC % Absolute Neutrophils Absolute Lymphocytes Absolute Monocytes Absolute Eosinophils Absolute Basophils PT INR APTT VBG Lactate Sodium 139 Potassium 4.1 Chloride 106 Carbon Dioxide 25.6 Anion Gap 7.4 BUN 19 H Creatinine 1.0 Est GFR (CKD-EPI 2020) 78.49 Glucose 101 Calcium 8.2 L Total Bilirubin 0.3 AST 29 ALT 37 Alkaline Phosphatase 60 Total Protein 6.9 Albumin 3.2 L Urine Color Yellow Urine Clarity Clear Urine pH 5.5 Ur Specific [place] 1.025 Urine Protein Negative Urine Ketones Negative Urine Blood Small H Urine Nitrite Negative Urine Bilirubin Negative Urine Urobilinogen 0.2 Ur Leukocyte Esterase Negative Urine RBC 3-5 H Urine WBC Negative Ur Epithelial Cells Rare Urine Crystals Negative Urine Bacteria Rare Urine Casts Negative Urine Mucus Negative Ur Culture Indicated? No Urine Glucose Negative COVID-19 Source Nasal/Nares SARS-CoV-2 (PCR) Negative 02/18/22 02/18/22 02/18/22 06:21 06:21 06:21 WBC 7.91 RBC 3.85 L Hgb 11.5 L Hct 35.1 L MCV 91 MCH 29.9 MCHC 32.8 RDW 13.5 Plt Count 192 MPV 8.5 Immature Gran % Neutrophils % Lymphocytes % Monocytes % Eosinophils % Basophils % Nucleated RBC % Absolute Neutrophils Absolute Lymphocytes Absolute Monocytes Absolute Eosinophils Absolute Basophils PT 10.0 INR 1.0 APTT 24.1 VBG Lactate 0.9 Sodium Potassium Chloride Carbon Dioxide Anion Gap BUN Creatinine Est GFR (CKD-EPI 2020) Glucose Calcium Total Bilirubin AST ALT Alkaline Phosphatase Total Protein Albumin Urine Color Urine Clarity Urine pH Ur Specific [place] Urine Protein Urine Ketones Urine Blood Urine Nitrite Urine Bilirubin Urine Urobilinogen Ur Leukocyte Esterase Urine RBC Urine WBC Ur Epithelial Cells Urine Crystals Urine Bacteria Urine Casts Urine Mucus Ur Culture Indicated? Urine Glucose COVID-19 Source SARS-CoV-2 (PCR) Last Vital Signs Temp 97.9 F 02/18/22 07:10 Pulse 62 02/18/22 07:10 Resp 16 02/18/22 07:10 BP 160/78 H 02/18/22 08:18 Pulse Ox 98 02/18/22 07:10 PAWSS Have you Been Recently Intoxicated or Drunk Within the Last 30 days?: No Have you Ever Experienced Previous Episodes of Alcohol Withdrawal?: No Have you ever Experienced Withdrawal Seizures?: No Have you ever Experienced Delirium Tremens(DT)s?: No Have you ever undergone Alcohol Rehabilitation Treatment (i.e, inpt ot outpatient treatment programs)?: No Have you ever Experienced Blackouts?: No Have you ever Combined Alcohol with other Downers within the last 90 days?: No Have you ever Combined Alcohol with any other Substance of Abuse during the last 90 days?: No Positive Blood Alcohol level on Presentation? [PCS.BAL]: No Evidence of Increased Autonomic Activity (i.e. HR>120, tremor, sweating, agitation, nausea)?: No Result: 0 Time Spent Time spent with Patient: 55-74 minutes Time was spent: preparing to see the patient(eg.review tests), obtaining and/or reviewing separately otained hiistory, referring, communicating with other health healthcare administrative assistant, indepentently interpreting results and counseling the patient
[2022-02-18] MEDS: Lactated Ringers 1,000 ML 80 ML IV ×2 (11:09→23:39)
[2022-02-18] MEDS: Finasteride 5 MG TAB PO (12:23)
[2022-02-18] MEDS: amLODIPine 10 MG TAB PO (12:23)
[2022-02-18] MEDS: Tamsulosin 0.4 MG CAPCR 0.8 MG PO (12:23)
[2022-02-18] MEDS: Polyethylene Glycol 3350 17 GM PACKET PO (17:32)
[2022-02-19 03:58] VITALS: BP 166/56; PULSE 54; RESP 18; TEMP 36.2; O2SAT 97
[2022-02-19 06:21] LABS: HGB 10.5 g/dL (13.5-17.5); MCHC 32.8 % (32.0-36.0); MCV 91 fL (80-95); MPV 8.7 fL (8.0-11.0); Platelet Count 152 10^3/uL (130-400); RDW 13.6 % (11.8-14.1); RDW-SD 45.5 fL; WBC 3.65 10^3/uL (4.4-10.8)
[2022-02-19 06:42] LABS: Anion Gap 7.4 mmol/L (3-11); BUN 11 mg/dL (7-18); CO2 27.6 mmol/L (21.0-32.0); CREATININE 0.9 mg/dL (0.70-1.30); Calcium 8.3 mg/dL (8.5-10.1); Chloride 109 mmol/L (98-107); Estimated GFR 89.07 (mL/min/1.73m2); Glucose 97 mg/dL (74-106); Magnesium 2.2 mg/dL (1.8-2.4); Potassium 3.8 mmol/L (3.5-5.1); Sodium 144 mmol/L (136-145)
[2022-02-19] MEDS: amLODIPine 10 MG TAB PO (07:50)
[2022-02-19] MEDS: Tamsulosin 0.4 MG CAPCR 0.8 MG PO (07:50)
[2022-02-19] MEDS: Finasteride 5 MG TAB PO (07:50)
[2022-02-19] MEDS: Normal Saline Flush 10 ML SYR IVP (07:51)
[2022-02-19] MEDS: Pantoprazole 40 MG VIAL IVP (07:51)
[2022-02-19 07:58] VITALS: BP 171/78; PULSE 57; RESP 18; TEMP 36.5; O2SAT 97
[2022-02-19 11:39] VITALS: BP 143/59; PULSE 58; RESP 18; TEMP 36.1; O2SAT 99
[2022-02-19] MEDS: Lactated Ringers 1,000 ML 80 ML IV (12:19)
[2022-02-19] MEDS: Dicyclomine 20 MG TAB PO ×3 (13:20→19:23)
[2022-02-19 15:18] VITALS: BP 151/68; PULSE 57; RESP 18; TEMP 36.7; O2SAT 100
--- NOTE | 2022-02-19 15:19 | PGE_ITS ---
Date of Service Date of service: 02/19/22 Time of Service: 13:43 Assessment and Plan Assessment and plan (1) Colon stricture: Status: Acute Assessment and plan: This is a 76yo male who presents with appears to be a colonic stricture of unknown etiology (possibly anastomotic, ischemic, diverticular) causing a near complete large bowel obstruction. At this time, he denies abdominal pain, and is non-toxic. Previous consultation regarding stenting was from general surgery. Will consult [facility] regarding ability to place a stent. --clear liquids --daily labs --ambulate --gentle bowel prep with Miralax --minimize narcotics --GI/DVT prophylaxis --plan for colectomy on 02/21 pending GI consult (2) Hypertension: Status: Chronic Assessment and plan: --vital signs q4 --home meds Qualifiers: Hypertension type: essential hypertension Qualified Code(s): I10 - Essential (primary) hypertension (3) Epilepsy: Status: Chronic Assessment and plan: Distant history of seizures --continue home phenytoin Qualifiers: Epilepsy type: generalized idiopathic Intractability: not intractable Status epilepticus: without status epilepticus Qualified Code(s): G40.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 Denies any pain currently. Tolerating liquids. Has had bowel movements last night and today. +Ambulating. Voiding well. 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) Const General: cooperative, healthy appearing, comfortable and no acute distress Nutritional Appearance: well nourished Orientation: alert, awake and oriented x3 Resp Effort & Inspection: normal respiratory effort and able to speak in complete sentences Auscultation: clear to auscultation bilaterally Cardio Rate: regular rate Rhythm: regular rhythm Heart Sounds: S1 normal and S2 normal GI Inspection: normal to inspection and distended (mild) Palpation: soft, not firm, no guarding and tender (very minimal generalized tenderness) Percussion: tympanic to percussion (particularly towards right/midline) Auscultation: normal bowel sounds Neuro General: patient alert, patient awake, patient oriented x3, moves all extremities and no focal motor deficits Cognition: normal cognition Speech: speech normal Psych Appearance: grossly normal Mental Status: mental status grossly normal Speech and Movement: speech and movement normal Mood: congruent mood Affect: normal affect Insight: insight good Judgment: judgment good Objective Last Vital Signs Temp 98.1 F 02/19/22 15:18 Pulse 57 L 02/19/22 15:18 Resp 18 02/19/22 15:18 BP 151/68 H 02/19/22 15:18 Pulse Ox 100 02/19/22 15:18 Laboratory Results - last 24 hr 02/19/22 02/19/22 06:01 06:01 WBC 3.65 L RBC 3.50 L Hgb 10.5 L Hct 32.0 L MCV 91 MCH 30.0 MCHC 32.8 RDW 13.6 Plt Count 152 MPV 8.7 Sodium 144 Potassium 3.8 Chloride 109 H Carbon Dioxide 27.6 Anion Gap 7.4 BUN 11 Creatinine 0.9 Est GFR (CKD-EPI 2020) 89.07 Glucose 97 Calcium 8.3 L Magnesium 2.2 PAWSS Have you Been Recently Intoxicated or Drunk Within the Last 30 days?: No Have you Ever Experienced Previous Episodes of Alcohol Withdrawal?: No Have you ever Experienced Withdrawal Seizures?: No Have you ever Experienced Delirium Tremens(DT)s?: No Have you ever undergone Alcohol Rehabilitation Treatment (i.e, inpt ot outpatient treatment programs)?: No Have you ever Experienced Blackouts?: No Have you ever Combined Alcohol with other Downers within the last 90 days?: No Have you ever Combined Alcohol with any other Substance of Abuse during the last 90 days?: No Positive Blood Alcohol level on Presentation? [PCS.BAL]: No Evidence of Increased Autonomic Activity (i.e. HR>120, tremor, sweating, agitation, nausea)?: No Result: 0 Time Spent with Patient Time Spent with Patient: 35-49 minutes Time was spent: preparing to see the patient(eg.review tests), ordering medications,tests, procedures, referring, communicating with other health director of home care hospice, indepentently interpreting results and counseling the patient
[2022-02-19] MEDS: Polyethylene Glycol 3350 238 GM BTL 119 GM PO (15:41)
[2022-02-19 19:25] VITALS: BP 171/78; PULSE 65; RESP 16; TEMP 36.9; O2SAT 94
[2022-02-19 23:22] VITALS: BP 173/83; PULSE 58; RESP 18; TEMP 36.7; O2SAT 98
[2022-02-20] MEDS: Lactated Ringers 1,000 ML 80 ML IV ×2 (00:05→12:40)
[2022-02-20 03:30] VITALS: BP 170/75; PULSE 64; RESP 16; TEMP 36.7; O2SAT 96
[2022-02-20 06:47] LABS: HCT 30.9 % (40.0-50.0); HGB 10.3 g/dL (13.5-17.5); MCH 30.8 pg (27.0-33.0); MCHC 33.3 % (32.0-36.0); MCV 93 fL (80-95); Platelet Count 161 10^3/uL (130-400); RBC 3.34 10^6/uL (4.36-5.78); RDW 13.3 % (11.8-14.1); RDW-SD 44.9 fL; WBC 3.69 10^3/uL (4.4-10.8)
[2022-02-20 06:57] LABS: BUN 8 mg/dL (7-18); Calcium 8.3 mg/dL (8.5-10.1); Chloride 109 mmol/L (98-107); Estimated GFR 78.49 (mL/min/1.73m2); Glucose 89 mg/dL (74-106); Potassium 3.5 mmol/L (3.5-5.1); Sodium 143 mmol/L (136-145)
[2022-02-20 07:39] VITALS: BP 162/73; PULSE 53; RESP 16; TEMP 36.3; O2SAT 96
[2022-02-20] MEDS: Pantoprazole 40 MG VIAL IVP (07:42)
[2022-02-20] MEDS: amLODIPine 10 MG TAB PO (07:42)
[2022-02-20] MEDS: Tamsulosin 0.4 MG CAPCR 0.8 MG PO (07:42)
[2022-02-20] MEDS: Dicyclomine 20 MG TAB PO ×4 (07:42→19:15)
[2022-02-20] MEDS: Normal Saline Flush 10 ML SYR IVP (07:42)
[2022-02-20] MEDS: Finasteride 5 MG TAB PO (07:43)
[2022-02-20] MEDS: Potassium Chloride Liquid 20 MEQ PKT 40 MEQ PO (09:44)
[2022-02-20 12:00] VITALS: BP 168/51; PULSE 57; RESP 18; TEMP 36.4; O2SAT 98
--- NOTE | 2022-02-20 13:52 | W.PM.PROGNOT ---
Date of Service Date of service: 02/20/22 Time of Service: 13:53 Assessment and Plan Assessment and plan (1) Colon stricture: Status: Acute Assessment and plan: This is a 76yo male who presents with appears to be a colonic stricture of unknown etiology (possibly anastomotic, ischemic, diverticular) causing a near complete large bowel obstruction. At this time, he denies abdominal pain, and is non-toxic. I spoke with [facility], and they state that the anatomy of his stricture is not amenable to stenting. --clear liquids --NPO past midnight --daily labs --ambulate --gentle bowel prep with Miralax --minimize narcotics --GI/DVT prophylaxis --plan for colonoscopy, and partial colectomy on 02/21 pending urinanalysis; Expectied operative and postoperative course discussed with the patient and his . All questions answered. (2) Dysuria: Assessment and plan: Pt with history of multiple UTIs in the last three years. His last was 2 weeks ago for which he completed a course of PCN on 02/17. Pt is complaining of persistent burning on urination. --check urinanalysis (3) Hypertension: Status: Chronic Assessment and plan: --vital signs q4 --home meds Qualifiers: Hypertension type: essential hypertension Qualified Code(s): I10 - Essential (primary) hypertension (4) Epilepsy: Status: Chronic Assessment and plan: Distant history of seizures --continue home phenytoin Qualifiers: Epilepsy type: generalized idiopathic Intractability: not intractable Status epilepticus: without status epilepticus Qualified Code(s): G40.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 Denies pain, nausea/vomiting. He is passing flatus and stool. 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) Const General: cooperative, healthy appearing, comfortable and no acute distress Nutritional Appearance: well nourished Orientation: alert, awake and oriented x3 Resp Effort & Inspection: normal respiratory effort and able to speak in complete sentences Auscultation: clear to auscultation bilaterally Cardio Rate: regular rate Rhythm: regular rhythm Heart Sounds: S1 normal and S2 normal GI Inspection: normal to inspection and distended (decreased distention) Palpation: soft, not firm, no guarding, not rigid and nontender Auscultation: normal bowel sounds Neuro General: patient alert, patient awake, patient oriented x3, moves all extremities and no focal motor deficits Cognition: normal cognition Speech: speech normal Psych Appearance: grossly normal Mental Status: mental status grossly normal Speech and Movement: speech and movement normal Mood: congruent mood Affect: normal affect Insight: insight good Judgment: judgment good Objective Last Vital Signs Temp 97.5 F L 02/20/22 12:00 Pulse 57 L 02/20/22 12:00 Resp 18 02/20/22 12:00 BP 168/51 H 02/20/22 12:00 Pulse Ox 98 02/20/22 12:00 Laboratory Results - last 24 hr 02/20/22 02/20/22 05:57 05:57 WBC 3.69 L RBC 3.34 L Hgb 10.3 L Hct 30.9 L MCV 93 MCH 30.8 MCHC 33.3 RDW 13.3 Plt Count 161 MPV 9.0 Sodium 143 Potassium 3.5 Chloride 109 H Carbon Dioxide 26.0 Anion Gap 8.0 BUN 8 Creatinine 1.0 Est GFR (CKD-EPI 2020) 78.49 Glucose 89 Calcium 8.3 L PAWSS Have you Been Recently Intoxicated or Drunk Within the Last 30 days?: No Have you Ever Experienced Previous Episodes of Alcohol Withdrawal?: No Have you ever Experienced Withdrawal Seizures?: No Have you ever Experienced Delirium Tremens(DT)s?: No Have you ever undergone Alcohol Rehabilitation Treatment (i.e, inpt ot outpatient treatment programs)?: No Have you ever Experienced Blackouts?: No Have you ever Combined Alcohol with other Downers within the last 90 days?: No Have you ever Combined Alcohol with any other Substance of Abuse during the last 90 days?: No Positive Blood Alcohol level on Presentation? [PCS.BAL]: No Evidence of Increased Autonomic Activity (i.e. HR>120, tremor, sweating, agitation, nausea)?: No Result: 0 Time Spent with Patient Time Spent with Patient: 35-49 minutes Time was spent: preparing to see the patient(eg.review tests), ordering medications,tests, procedures, referring, communicating with other health certified caregiver, indepentently interpreting results and counseling the patient
[2022-02-20 14:59] LABS: Bilirubin Negative (Negative); Blood Negative (Negative); Clarity Clear (Clear); Glucose Negative (Negative); Ketones Negative (Negative); Leukocyte Esterase Negative (Negative); Nitrite Negative (Negative); Specific Gravity 1.015 (1.005-1.025); Urobilinogen 0.2 EU/dL (Up TO 0.2); pH 6.5 (5-8)
[2022-02-20] MEDS: Polyethylene Glycol 3350 238 GM BTL 119 GM PO (18:03)
[2022-02-20] MEDS: Bisacodyl 5 MG TABEC 10 MG PO (19:14)
[2022-02-20 19:36] VITALS: BP 171/103; PULSE 50; RESP 18; TEMP 36.3; O2SAT 99
[2022-02-20] MEDS: metroNIDAZOLE 500 MG TAB PO (21:59)
[2022-02-20] MEDS: Ciprofloxacin 500 MG TAB PO (21:59)
[2022-02-20 22:44] VITALS: BP 158/79; PULSE 50; RESP 16; TEMP 36; O2SAT 98
[2022-02-21] VITALS (16 sets, daily range): BP systolic 94–195; BP diastolic 50–73; PULSE 52–99; RESP 12–17; TEMP 35.5–37.3; O2SAT 2–100; BMI 25.5
[2022-02-21] MEDS: Lactated Ringers 1,000 ML 80 ML IV (00:32)
[2022-02-21 06:23] LABS: HCT 32.1 % (40.0-50.0); HGB 10.5 g/dL (13.5-17.5); MCH 30.3 pg (27.0-33.0); MCHC 32.7 % (32.0-36.0); MCV 93 fL (80-95); MPV 8.7 fL (8.0-11.0); Platelet Count 151 10^3/uL (130-400); RBC 3.46 10^6/uL (4.36-5.78); RDW 13.2 % (11.8-14.1); RDW-SD 44.8 fL; WBC 3.88 10^3/uL (4.4-10.8)
[2022-02-21 06:37] LABS: Anion Gap 9.2 mmol/L (3-11); BUN 7 mg/dL (7-18); CO2 24.8 mmol/L (21.0-32.0); Calcium 8.3 mg/dL (8.5-10.1); Chloride 110 mmol/L (98-107); Estimated GFR 78.49 (mL/min/1.73m2); Glucose 91 mg/dL (74-106); Potassium 3.5 mmol/L (3.5-5.1); Sodium 144 mmol/L (136-145)
--- NOTE | 2022-02-21 08:50 | PDOC.CMPRO ---
- If Service Date Differs Date of service: 02/21/22 Time of Service: 08:51 Care Management Progress Note S/O:Jerry was sitting up in a chair when CM met with him. He was NPO awaiting surgery. On Monday Jerry indicated that he did not think he could handle having an ostomy but informed CM that he now feels differently. He shared that one of his nurses over the weekend talked to him about ostomies and related a story of an elderly patient who had had an ostomy for years and dealt with it very well. She also explained that there are new products available, such as waterproof appliances, that make it possible to swim and shower. Jerry admitted that that made him feel better, although of course he still hopes it won't be necessary. A:Jerry is a 76 year old man admitted with a large bowel stricture P:Anticipate Jerry will discharge home, possibly with new home health services, when medically cleared by provider. He will follow up with his PCP and surgery and transport with family. CM will support Jerry and assess for discharge concerns.
[2022-02-21] MEDS: Pantoprazole 40 MG VIAL IVP (08:51)
--- NOTE | 2022-02-21 11:18 | W.ANESPRE ---
General Info Date of Service Date Performed: 02/21/22 Height: 5 ft 8.5 in Weight: 77.4 kg Body Mass Index (BMI): 25.5 Surgical Procedure: Operation Date: 02/21/22 11:50 Proposed Procedure Side Surgeon p Hemicolectomy Wilmer Hernandez MD s Colonoscopy Wilmer Hernandez MD Meds Allergies and Home Medications Allergies Allergy/AdvReac Type Severity Reaction Status Date / Time camphor AdvReac Intermediate Nicolas Verified 01/27/22 10:27 lactose AdvReac Verified 01/27/22 10:27 Home Medication Medication Instructions Recorded multivitamin 1 cap PO DAILY 04/30/12 acetaminophen 500 mg tablet 1,000 mg PO TID 08/09/19 amlodipine 10 mg tablet 10 mg PO DAILY #90 tabs 03/10/21 losartan 100 mg tablet 100 mg PO DAILY #90 tabs 05/03/21 diphenoxylate-atropine 2.5 1 tab PO BID PRN diarrhea #20 tabs 06/03/21 mg-0.025 mg tablet (Lomotil) finasteride 5 mg tablet 5 mg PO DAILY #90 tabs 07/26/21 tamsulosin 0.4 mg capsule 0.8 mg PO DAILY #180 caps 07/26/21 dicyclomine 20 mg tablet 20 mg PO QID PRN IBS #90 tabs 08/13/21 hydrocortisone 2.5 % topical cream 1 applic UT BID-QID PRN pain #30 11/11/21 with perineal applicator grams phenytoin 50 mg chewable tablet 50 mg PO HS ##90 11/11/21 (Dilantin Infatabs) phenytoin sodium extended 100 mg 200 mg PO BID #450 caps 11/11/21 capsule (Dilantin Extended) amoxicillin 500 mg capsule 500 mg PO TID #21 caps 02/10/22 Current Visit Medications: Current Medications Generic Name Dose Route Start Last Admin Trade Name Freq PRN Reason Stop Dose Admin Amlodipine Besylate 10 mg 02/18/22 12:00 02/21/22 08:05 Amlodipine 10 Mg Tab PO Not Given DAILY ANN MARIE Dicyclomine HCl 20 mg 02/19/22 12:00 02/21/22 08:33 Dicyclomine 20 Mg Tab PO Not Given QID ANN MARIE Finasteride 5 mg 02/18/22 12:00 02/21/22 08:05 Finasteride 5 Mg Tab PO Not Given DAILY ANN MARIE Heparin Sodium (Porcine) 5,000 units 02/18/22 08:00 02/21/22 08:05 Heparin 5,000 Units/Ml Vial SC Not Given Q12H ANN MARIE Sodium Chloride 500 mls @ 0 mls/hr 02/18/22 02:03 Saline 500ml Bag IV PRN PRN As Directed Ringer's Solution 1,000 mls @ 80 mls/hr 02/18/22 11:00 02/21/22 00:32 IV 80 mls/hr INFUSION ANN MARIE Administration IV Miscellaneous Supplies 1 each 02/18/22 02:15 Iv Access IV DIRECTED ANN MARIE Morphine Sulfate 2 mg 02/18/22 10:56 Morphine 2 Mg/Ml Syr IVP Q3H PRN PRN Pantoprazole Sodium 40 mg 02/18/22 08:30 02/21/22 08:51 Pantoprazole 40 Mg Vial IVP 40 mg DAILY ANN MARIE Administration Phenytoin 50 mg 02/18/22 04:15 02/20/22 21:57 Phenytoin 50 Mg Chew PO 50 mg HS ANN MARIE Administration Phenytoin Sodium 200 mg 02/18/22 08:30 02/21/22 08:18 Phenytoin-Extended 100 Mg Cap PO 200 mg BID ANN MARIE Administration Sodium Chloride 0 ml 02/18/22 02:03 02/20/22 07:42 Normal Saline Flush 10 Ml Syr IVP 20 ml PRN PRN Administration Tamsulosin HCl 0.8 mg 02/18/22 12:30 02/21/22 08:06 Tamsulosin 0.4 Mg Capcr PO Not Given DAILY ANN MARIE PFSH Active Problems Active Problems: Problem Status Onset Code Colon stricture K56.699 Trigger finger, left index finger M65.322 Lactose intolerance E73.9 Hypertension I10 Hyperlipidemia E78.5 BPH NOS w ur obs/LUTS N40.1 Amblyopia H53.009 Basal cell carcinoma C44.91 Mitral valve regurgitation I34.0 Hemorrhoids K64.9 Epilepsy 11/08/11 G40.909 Diverticulosis of colon without diverticulitis K57.30 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 Anxiety F41.9 Alcohol intake above recommended sensible limits Z72.89 Medical History Medical History Dysuria Hematuria Intention tremor Knee effusion Leg weakness, bilateral Osteoarthritis of both hips Osteoarthritis of left knee Depo-medrol injection: 11/04/2021; 11/19/19 Sciatica Seizure disorder Tick bite Surgical History Surgical History History of surgical procedure INTESTINES (02/07/1955) STOMACH (02/07/1955) Trigger finger, left ring finger S/P trigger finger release DOS: 12/27/17 Tobacco Smoking/Tobacco Use Status: Never Passive smoking exposure: Yes Second hand exposure: Yes Alcohol Alcohol Intake: current Alcohol intake frequency: a few times a week Alcohol type: beer and hard liquor Substance Use Substance use: Never Substance use type: does not use Vital Signs and Lab Results Vital Signs Most Recent Vital Signs in EMR: Most Recent Vital Signs Temp Pulse Resp BP Pulse Ox 36.8 C 52 L 17 164/73 H 95 02/21/22 07:19 02/21/22 07:19 02/21/22 07:19 02/21/22 07:19 02/21/22 07:19 Lab Results Result Diagrams: 02/21/22 06:12 02/21/22 06:12 Blood Type / Crossmatch: Patient ABO/Rh O Positive 02/21/22 Antibody Screen NEGATIVE 02/21/22 Complete Blood Count: White Blood Count 3.88 10^3/uL (4.4-10.8) L 02/21/22 06:12 Red Blood Count 3.46 10^6/uL (4.36-5.78) L 02/21/22 06:12 Hemoglobin 10.5 g/dL (13.5-17.5) L 02/21/22 06:12 Hematocrit 32.1 % (40.0-50.0) L 02/21/22 06:12 Platelet Count 151 10^3/uL (130-400) 02/21/22 06:12 Venous Blood Lactate 0.9 mmol/L (0.6-1.4) 02/18/22 06:21 Complete Metabolic Panel: Sodium 144 mmol/L (136-145) 02/21/22 06:12 Potassium 3.5 mmol/L (3.5-5.1) 02/21/22 06:12 Chloride 110 mmol/L (98-107) H 02/21/22 06:12 Carbon Dioxide 24.8 mmol/L (21.0-32.0) 02/21/22 06:12 BUN 7 mg/dL (7-18) 02/21/22 06:12 Creatinine 1.0 mg/dL (0.70-1.30) 02/21/22 06:12 Est GFR (CKD-EPI 2020) 78.49 (mL/min/1.73m2) 02/21/22 06:12 Magnesium 2.2 mg/dL (1.8-2.4) 02/19/22 06:01 Calcium 8.3 mg/dL (8.5-10.1) L 02/21/22 06:12 Albumin 3.2 g/dL (3.4-5.0) L 02/18/22 06:21 Glucose 91 mg/dL (74-106) 02/21/22 06:12 Liver Function Panel: Alanine Aminotransferase (ALT/SGPT) 37 U/L (16-63) 02/18/22 06:21 Aspartate Amino Transf (AST/SGOT) 29 U/L (15-37) 02/18/22 06:21 Coagulation Panel: INR International Normalized Ratio 1.0 (0.9-1.1) 02/18/22 06:21 Prothrombin Time 10.0 sec (9.3-11.0) 02/18/22 06:21 Activated Partial Thromboplast Time 24.1 sec (21.0-27.5) 02/18/22 06:21 Cardiac Panel: No Data to Display Arterial Blood Gas: No Data to Display Venous Blood Gas: No Data to Display Pancreas Panel: No Data to Display Thyroid Panel: No Data to Display Infectious Disease: Coronavirus (COVID-19)(PCR) Negative (Negative) 02/18/22 02:00 Coronavirus 2019 Source Nasal/Nares 02/18/22 02:00 Blood Cultures: No Data to Display Toxicology Panel: No Data to Display Anesthesia Assessment and Plan Anesthesia History Personal History: No History of Anesthesia Complications Family History: No Family History of Anesthesia Complications Exercise Tolerance Exercise Tolerance: Metabolic Equivalents>4 Pertinent Negatives Pertinent Negatives: No Symptoms of GERD Cardiac & Pulmonary Exam Cardiac Exam: Normal S1/S2 Heart Sounds Pulmonary Exam: Clear Bilateral Breath Sounds Implantable Cardiac Device Does patient have a Pacemaker or an ICD?: No Airway Exam Known Difficult Airway: No Mallampati Class: 2 Mouth Opening: Normal (> 3cm) Thyromental Distance: Greater than 3 cm Neck Range of Motion: Full ROM Neck Circumference: Normal Teeth Condition: Normal Dentition ASA Classification ASA Score: ASA 3 Emergency Case?: Yes NPO Status NPO Status: NPO Clears >2 hours, Solids >8 hours Anesthesia Plan Resuscitation Status: Full Code Anesthesia Technique: General Anesthesia Airway Planned: Endotracheal Tube Pain Management: Epidural (Requested by Dr. Hernandez) Monitors Used: Standard Monitors Preoperative Comments:: Reviewed our records and [facility] records and cannot find ECHO r/t history noted of mitral regurgitation. Reports diagnosed in the and the ECHO was done here. Has not had repeat, has not had any significant cardiovascular issues so has not sought followup.
[2022-02-21] MEDS: Lactated Ringers 1,000 ML 30 ML IV ×2 (13:12→18:09)
--- NOTE | 2022-02-21 13:29 | ANES.NEUR_ITS ---
Epidural/Spinal Catheter Date Performed: 02/21/22 Procedure Start: 12:57 Procedure Stop: 13:07 Requesting Provider: Wilmer Hernandez Procedure Location: PACU Reason Performed: Postoperative Analgesia Standard Monitors Applied: Blood Pressure and SpO2 Patient Position: Sitting Sedation Given (Indicate Dose Given): No Sedation given Patient Mental Status: Awake Sterility: Hand Hygiene, Surgical Cap, Surgical Mask, Sterile Gloves, Sterile Drape/Sheet, Eye Protection and Chlorhexidine Procedure Location: L3-L4 Interspace Epidural Needle: Tuohy 17 Guage Needle Length: 3.5 Inch Needle Approach: Midline Epidural Procedure: Skin Prepped, Sterile Drape Placed, 1% Lidocaine to skin and subcutaneous tissue with 25G needle, Tuohy Needle placed, ABBY to Saline Used, Epidural Catheter Placed, Negative Heme and Negative CSF Flow Catheter Placed?: Catheter Placed Test Dose (Indicate Dose Given): 5ml 1.5% Lidocaine with 1:200K Epinephrine Given and Negative Test Dose Loss of R esistance Depth (cm): 8 Catheter depth at skin (cm): 13 Dressing: Sorbaview Dressing Placed and Mastisol Used Epidural Provider Bolus (Indicate Dose Given): None Given Additives (Indicate Dose Given ): None Infusion Medication: No Infusion Started Block Level: N/A Paresthesia: None Ultrasound: Not Used Number of Attempts (See previous attempts in note section): 1 Procedure Tolerated: No Complications and Patient tolerated well Procedure Outcome: Successful Performed By: Anthony Berrios
[2022-02-21] MEDS: Bupivacaine 0.5% Pres-Free W/EPI 30 ML VIAL (14:07)
[2022-02-21] MEDS: ceFAZolin 2 GM/50 ML BAG 200 GM (14:11)
[2022-02-21 19:00] LABS: CEA 1.9 ng/mL (See Note)
--- NOTE | 2022-02-21 20:58 | BOWEL_PTH ---
PATIENT: Freedom Deshpande LOC: U#:[id number] AGE/SX: 76/M ROOM: RE02/18/[address]: Wilmer Hernandez : 1945 BED: A DIS: 02/27/2022 SPEC #: [id number] RECD: 02/22/22 12:23 STATUS: CHARANJIT REQ #: [id number] JONH: 02/21/22 20:[address]: Wilmer Hernandez DEPT: Surgical Specimen RECD BY: Pat Braun ENTERED: 02/22/22 12:24 SP TYPE: Bowel OTHR DR: Abimael Diaz, JOINT CREASER Tissues: 1 - BOWEL RESECTION(OTHER) 2 - BOWEL RESECTION(OTHER) Procedures: IMMUNOPEROXIDASE STAIN GROSS AND MICRO LEVEL 5 GROSS AND MICRO LEVEL 6 Comments: [id number]
[2022-02-21] MEDS: FentaNYL/ROPIvacaine 2 mcg/ml and 0.1% 200 ML CADD Cassette EP (21:17)
--- NOTE | 2022-02-21 21:37 | ROE_ITS ---
Date of service: 02/21/22 Time of Service: 21:37 Operative Note Operative Note DATE OF PROCEDURE: 02/21/22 PRE-OP DIAGNOSIS: colonic stricture POST-OP DIAGNOSIS: same Extnsive adhesive disease PROCEDURE: Flexible sigmoidoscopy, Exploratory laparotomy, extensive lysis of adhesions (>2 hours), takedown of splenic flexure, repair of seromuscular sigmoid tear, small bowel resection, tranverse colectomy with colo-colo anastomosis SURGEON: Wilmer Hernandez ASSISTING SURGEON: Celso Bose MEDICAL RESEARCH TECH: Jessica Win MEDICAL RESEARCH TECH: Jenn Stoddard ANESTHESIA TYPE: General LMA/ETT Refer to Anesthesia Record ESTIMATED BLOOD LOSS: 200 PATHOLOGY: other (1. transverse colon 2. small bowel) COMPLICATIONS: Other (Adjacent ileal small bowel enterotomies were created in obtaining access to the abdomen. These were removed with a short segment small bowel resection.) Patient was transported to: PACU Patient's condition: stable Implants: none Indications: Colonic stricture with impending large bowel obstruction Findings: 1. 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 Dense adhesive small and large boewl disease 2. Thickening of colon in region of knwn colonic stricture 4. Hard atherosclerotic vessel emanating from lateral aspect of right colon' 5. Spleen with apical speckling. Procedure Description: The patient was seen and identified by name and birthdate in the preoperative holding area. He was brought into the operating room. Sequential compression devices were applied to the lower extremities. An epidural catheter was placed by anesthesia for optimal postopearative pain control. General anesthesia was induced and the patient was intubated. The patient was repositioned in left lateral position. A time out was called and participated in by the entire OR staff. Once we were in agreement, we proceeded. A digital rectal exam was performed. External exam demonstrated external hemorrhoidal tissue. Internal exam revealed slightly decreased sphincter tone, and no palpable masses or gross blood. .The colonoscope was then introduced and advanced to the descending colon under direct visualization with significant difficulty. The desire was to visualize the area of the stricture, and to ensure there were no visible cancers. However, there? was severe diverticulosis with spasm and limited mobility, and the procedure was terminated. No large masses or cancers were seen. The scope was withdrawn from the anus. The patient was transferred to the operating room table in lithotomy position, with careful attention to padding all pressure points. A English catheter was placed under sterile conditions. The abdomen was prepped and draped in standard fashion. A midline incision was made with careful dissection down to the fascia. The peritoneum was entered in the supraumbilical area. It immediately became apparent that there was extensive adhesive disease. When extending the incision caudally, inicidentail enterotomities were made in mobilizing bowel off of the anterior abdominal wall. These were controlled with 3-0 silk sutures. We continued our dissection so that we could fully explore the anatomy of the abdomen. Extensive adhesiolysis was performed for greater two hours. We did note early that the ascsedning colon (with an intact appendix) was present in the midline with the small bowel located mostly in the right hemiabdomen, which conirmed the patien's history of intestinal malrotation .There were dense adhesions of the small bowel to the resctosigmoid near the pelvis. A superficial (~4cm) seromuscular tear near the tenia on the antimesenteric side of the sigmoid was repaired with interrupted 3-0 silk sutures. We turned our attention to mobilizing the left colon and dividing it from the sigmoid fossa and white line of Toldt. This was extended cephalad to divide the splenocolic ligament, and careful mobilization of the splenic flexure, with attention not to avulse the spleen. The spleen was noted to have some unfamiliar yellowish apical speckling. As we moved proximally, the omentum was divided off of the transverse colon. The stricured area of concern was dense and palplable. This is when we noted that the transverse colon seemed to be tethered down by a foreshortened middle colic artery, and it was not possible to visualize the vascular arcade. The junction of the ascending and transverse colon were liberated from the hepatocolic attachments, as there was not a true hepatic flexure. At this point, the colon was fully mobilized. After extensive consideration, we decided to perform a non-oncological tranverse colectomy, as the colon was fully mobilized. The ascending and descending colon were each divided with a blue load of the SHILPA stapler. The colon was resected, ensuring hemostasis, using a handheld Ligasure device. To ensure adequate blood supply, we gave the colonic ends some time to demarcate from any ischemia., At this point, we addressed the incidential small bowel enterotomies that were made on entering the abdomen. They were located within the same knuckle of adhesed bowel. After clearing the proximal and distal limbs, they were each divided with a SHILPA stapler. A standard functional side-to side stapled anastomosis was created. The common channel was closed in a two-layered handsewn fashion. The mesenteric defect was closed with running 3-0 Vicryl. The anastomwosis was satisfactorily patent. We once again addressed the ascending and descending colonic segments, and were satisfied that they were each adequately perfused. A stay suture was applied, demonstrating that the segments could come together without tension. Small enterotomies were then made in the tenia of each the ascending and descending colon segments. The legs of the SHILPA stapler were and placed into each segment. The SHILPA stapler was fired, with the tenia of each colonic segment lining up to each other, and a [id number] anastomosis was created. The common channel was closed in a two-layered handsewn manner. The abdomen was irrigated with warm saline, and a thorough inspection of the abdomen was completed. Satisfied with our resections and anastomoses. The abdomen was closed with loop 0-PDS from each the caudal and cephalad aspects of the wound, and tied down just above the umbilicus. The subcutaneous layer was irrigated, and the skin was closed with suzanne. A NOAM dressing was placed. Al l counts of sharp and soft objects/instruments were correct prior to closure of the wound. The presence of Dr. Celso Bose was necessary for operative assistance, and critical decision making. The patient was awaken in the operating room, and transferred to the PACU in stable condition.
[2022-02-21] MEDS: HYDROmorphone 2 MG/ML SYR IVP (21:55)
--- NOTE | 2022-02-21 22:06 | W.ANESPOSTOP ---
Postoperative Evaluation Date, Time and Location Date Performed: 02/21/22 Time Performed: 22:07 Patient Location: PACU Vital Signs Most Recent Imported Vital Signs: Most Recent Vital Signs Temp Pulse Resp BP Pulse Ox 36.2 C L 63 15 186/71 H 100 02/21/22 21:23 02/21/22 21:23 02/21/22 21:23 02/21/22 21:23 02/21/22 21:23 Pain Score Most Recent Pain Score: Most Recent Pain Score Pain Level 6 02/21/22 21:23 Assessment Mental Status: Arousable with meaningful communication Airway and Respiratory Function: Patent airway with normal (patient baseline) respiratory exam Cardiovascular Function: Hemodynamically Stable Hydration Status: Adequately Hydrated Nausea & Vomiting: No Nausea or Vomiting Pain: Pain is Moderate or Severe Postoperative Pain Management: Pain being addressed with medication Peripheral Nerve Block: Patient did not receive a nerve block Postoperative Comments:: pain is 6/10, epidural bolus done 5 mL x 3 with minimal effect, IV hydromorphone given with some effect.
[2022-02-21] MEDS: Lactated Ringers 1,000 ML 100 ML IV (22:49)
[2022-02-21] MEDS: Normal Saline Flush 10 ML SYR IVP ×2 (22:49→23:58)
[2022-02-21] MEDS: MORPHine 2 MG/ML SYR IVP (23:53)
[2022-02-22] VITALS (32 sets, daily range): BP systolic 105–144; BP diastolic 56–72; PULSE 69–80; RESP 12–20; TEMP 37.1–38.4; O2SAT 1–100
[2022-02-22] MEDS: Heparin 5,000 UNITS/ML VIAL 5000 UNITS SC (00:02)
[2022-02-22] MEDS: Dicyclomine 20 MG TAB PO ×3 (01:27→12:11)
[2022-02-22] MEDS: FentaNYL/ROPIvacaine 2 mcg/ml and 0.1% 200 ML CADD Cassette EP ×2 (04:06→16:43)
[2022-02-22] MEDS: ACETAMINOPHEN 1,000 MG/100 ML BTL 400 MG IVPB ×3 (04:47→20:10)
[2022-02-22 06:34] LABS: HGB 9.7 g/dL (13.5-17.5); MCH 30.7 pg (27.0-33.0); MCHC 33.4 % (32.0-36.0); MCV 92 fL (80-95); MPV 9.2 fL (8.0-11.0); Platelet Count 177 10^3/uL (130-400); RBC 3.16 10^6/uL (4.36-5.78); RDW 13.2 % (11.8-14.1); RDW-SD 44.1 fL; WBC 10.59 10^3/uL (4.4-10.8)
[2022-02-22 06:50] LABS: Anion Gap 9.7 mmol/L (3-11); BUN 14 mg/dL (7-18); CO2 25.3 mmol/L (21.0-32.0); CREATININE 1.7 mg/dL (0.70-1.30); Calcium 7.6 mg/dL (8.5-10.1); Chloride 109 mmol/L (98-107); Estimated GFR 41.52 (mL/min/1.73m2); Glucose 129 mg/dL (74-106); Potassium 4.1 mmol/L (3.5-5.1); Sodium 144 mmol/L (136-145)
--- NOTE | 2022-02-22 07:35 | W.PM.PROGNOT ---
Date of Service Date of service: 02/22/22 Time of Service: 07:35 Assessment and Plan Assessment and plan (1) Colon stricture: Status: Acute Assessment and plan: POD #1 s/p Exploratory laparotomy, extensive lysis of adhesions (>2 hours), repair of seromuscular sigmoid tear, small bowel resection, tranverse colectomy with colo-colo anastomosis NG tube in place;Sips of water and ice chips okay English in place Epidural in place, management per anesthesia. Pain currently well controlled, reported 2/10PL NOAM dressing in place over midline incision. GI/DVT prophylaxis Pulmonary toilet Ordered chloroseptic spray to help with sore throat. Continue with pain control and gentle activity as tolerated. I have reviewed and agree with Zara Brown's note. Will clamp NGT. May have ice chips and water. Pt encouraged to OOB today. (2) Hypertension: Status: Chronic Assessment and plan: --vital signs q4 --home meds Qualifiers: Hypertension type: essential hypertension Qualified Code(s): I10 - Essential (primary) hypertension (3) Epilepsy: Status: Chronic Assessment and plan: Distant history of seizures --continue home phenytoin Qualifiers: Epilepsy type: generalized idiopathic Intractability: not intractable Status epilepticus: without status epilepticus Qualified Code(s): G40.309 - Generalized idiopathic epilepsy and epileptic syndromes, not intractable, without status epilepticus Subjective Subjective Interval history since last seen: Patient reports that his pain is currently 6/10PL. His largest complaint is having the sensation that one of his dilantin pills is stuck in the back of his throat. He states that he drank some water, however this did not resolve his symptoms. he denies having any nausea or vomiting. Exam Const General: cooperative, healthy appearing and comfortable Orientation: alert and oriented x3 Resp Effort & Inspection: normal respiratory effort, no audible wheezes and no cough GI Other: NOAM dressing in place. Some shadowing noted. Abdomen is soft, non-distended. Tender to palpation. NG tube in place. Objective Last Vital Signs Temp 37.9 C H 02/22/22 06:34 Pulse 71 02/22/22 06:34 Resp 18 02/22/22 07:18 BP 107/63 02/22/22 06:34 Pulse Ox 93 02/22/22 06:34 Laboratory Results - last 24 hr 02/21/22 02/22/22 02/22/22 06:12 05:39 05:39 WBC 10.59 RBC 3.16 L Hgb 9.7 L Hct 29.0 L MCV 92 MCH 30.7 MCHC 33.4 RDW 13.2 Plt Count 177 MPV 9.2 Sodium 144 Potassium 4.1 Chloride 109 H Carbon Dioxide 25.3 Anion Gap 9.7 BUN 14 Creatinine 1.7 H Est GFR (CKD-EPI 2020) 41.52 Glucose 129 H Calcium 7.6 L Patient ABO/Rh O Positive Antibody Screen NEGATIVE PAWSS Have you Been Recently Intoxicated or Drunk Within the Last 30 days?: No Have you Ever Experienced Previous Episodes of Alcohol Withdrawal?: No Have you ever Experienced Withdrawal Seizures?: No Have you ever Experienced Delirium Tremens(DT)s?: No Have you ever undergone Alcohol Rehabilitation Treatment (i.e, inpt ot outpatient treatment programs)?: No Have you ever Experienced Blackouts?: No Have you ever Combined Alcohol with other Downers within the last 90 days?: No Have you ever Combined Alcohol with any other Substance of Abuse during the last 90 days?: No Positive Blood Alcohol level on Presentation? [PCS.BAL]: No Evidence of Increased Autonomic Activity (i.e. HR>120, tremor, sweating, agitation, nausea)?: No Result: 0 Time Spent with Patient Time Spent with Patient: <25 minutes Time was spent: preparing to see the patient(eg.review tests) and obtaining and/or [facility]
--- NOTE | 2022-02-22 07:54 | NUR.NOTE ---
Nursing Note: 0750am on 02/22/22. upon recognition of pts left forearm iv leaking. I removed it. hemostasis in expected time frame. due to the critical condition of this gentlemen. I started a new 20g IV catheter in his right mid forearm 1 attempt was used. prior to insertion. turniquite was used. alcohol wipes and chlorahexadine prep used prior to insertion. pt tolerated iv stick well x2 NS flushes with positive blood return secured with iv tagaderm.
[2022-02-22] MEDS: Finasteride 5 MG TAB PO (07:58)
[2022-02-22] MEDS: Pantoprazole 40 MG VIAL IVP (07:58)
[2022-02-22] MEDS: Tamsulosin 0.4 MG CAPCR 0.8 MG PO (07:58)
[2022-02-22] MEDS: amLODIPine 10 MG TAB PO (07:58)
[2022-02-22] MEDS: Normal Saline Flush 10 ML SYR IVP ×2 (07:59→20:32)
[2022-02-22] MEDS: Enoxaparin 40 MG/0.4 ML SYR SC (07:59)
--- NOTE | 2022-02-22 09:19 | PDOC.CMPRO ---
- If Service Date Differs Date of service: 02/22/22 Time of Service: 09:20 Care Management Progress Note S/O:Jerry was sitting up in bed when CM met with him. He stated that he is having a lot of pain and that it hurts whenever he moves. He did inform CM that his surgery went welle and he did not have to have an ostomy for which he is very grateful. Jerry spoke again of the issues he has had with diarrhea since age 9 and is unsure how this surgery will affect that. Jerry has an NG tube and is limited to sips of water and ice chips at this time. He had a slight temperature of 37.9 last night however he is afebrile today. His vital signs are stable. His nurse suggested that he use an incentive spirometer but Jerry expressed a reluctance to do so as he is afraid it will increase his discomfort. CM reminded him of the importance of good pulmonary toilet for the prevention of pneumonia. A:Jerry is a 76 year old man admitted with a large bowel stricture P:Anticipate Jeryr will discharge home, possibly with new home health services, when medically cleared by provider. He will follow up with his PCP and surgery and transport with family. CM will support Jerry and assess for discharge concerns.
[2022-02-22] MEDS: Lactated Ringers 1,000 ML 100 ML IV (12:36)
--- NOTE | 2022-02-22 13:54 | W.ANESEPD ---
Epidural/Spinal Daily Note Date Performed: 02/22/22 Assessment Time: 13:54 Patient Location: Med/Surg Catheter Type in Place: Epidural Catheter Dressing Assessment: Dressing intact with good adherence Catheter Assessment: Catheter Labeled and Intact and Functioning Previous Catheter Depth Noted (cm): 13 Current Catheter Depth (cm): 13 Current Medication Infusion: Ropivacaine 0.1% with Fentanyl 2mcg/ml Current Maintenance Infusion Rate (ml/hour): 10 Current PCEA Bolus Dose (ml): 5 Current Pain Score (0-10): 1 Medication Infusion Stopped, Catheter Removal Planned: No Sensory / Motor Block Comments: Right quad more numb than the opposing leg New Bolus Given or Change in Infusion Made: No Daily Management Comments: Discussed plan with patient, agrees. Will continue infusion until next pranay assessment. Completed By: Anthony Berrios
[2022-02-22] MEDS: Lactated Ringers 1,000 ML 125 ML IV (20:32)
[2022-02-23] VITALS (15 sets, daily range): BP systolic 136–169; BP diastolic 68–81; PULSE 67–83; RESP 16–24; TEMP 37–38.2; O2SAT 90–99
[2022-02-23] MEDS: FentaNYL/ROPIvacaine 2 mcg/ml and 0.1% 200 ML CADD Cassette EP (03:15)
[2022-02-23] MEDS: ACETAMINOPHEN 1,000 MG/100 ML BTL 400 MG IVPB ×3 (03:41→20:47)
[2022-02-23] MEDS: Normal Saline Flush 10 ML SYR IVP ×2 (03:42→08:45)
--- NOTE | 2022-02-23 05:29 | W.ANESEPD ---
Epidural/Spinal Daily Note Date Performed: 02/23/22 Assessment Time: 05:05 Patient Location: Med/Surg Catheter Type in Place: Epidural Catheter Dressing Assessment: Dressing intact with good adherence Catheter Assessment: Catheter Labeled and Catheter Compromised, Catheter Removed (See Procedure Comment) Previous Catheter Depth Noted (cm): 13 Current Catheter Depth (cm): 18 Current Medication Infusion: Ropivacaine 0.1% with Fentanyl 2mcg/ml Current Maintenance Infusion Rate (ml/hour): 10 Current PCEA Bolus Dose (ml): 5 Current Pain Score (0-10): 1 Medication Infusion Stopped, Catheter Removal Planned: Yes Sensory / Motor Block Comments: Patient with full CMS, denies any numbness. Reports pain tolerable when lying still (1/10), not tolerable and achy when moving (3/10). Attempted to determine level of block with alcohol pad. Per patient no change in sensation anywhere, able to describe coldness with alcohol pad at every site assessed. New Bolus Given or Change in Infusion Made: No Daily Management Comments: Dressing with some leakage, patient with some edema to back. Uncertain if backflow from epidural or if serous drainage from epidural site. With lack of coverage and reported 10/10 when forced to make big moves: discussed with Dr. Hernandez and decision to discontinue epidural and replacement with BUSINESS CONTINUITY COORDINATOR. Completed By: Anthony Berrios
--- NOTE | 2022-02-23 05:34 | W.ANESNEU ---
Epidural/Spinal Cath. Removal Date Performed: 02/23/22 Procedure Time: 05:20 Catheter Removal Type: Epidural Catheter Procedure Location: Med/Surg Patient Position: Right Lateral Decubitus Catheter Removal Procedure: Dressing Removed, Catheter Removed without Resistance, Catheter Tip Intact and Dressing Applied (Bandaid to site) Paresthesia: None Procedure Tolerated: No Complications and Patient tolerated well Procedure Outcome: Successful Procedure Comment:: Last Lovenox at 0759 on 02/22/2022. Patient's RN assisted. Performed By: Anthony Berrios
[2022-02-23] MEDS: Lactated Ringers 1,000 ML 125 ML IV (06:11)
[2022-02-23 06:22] LABS: HCT 26.2 % (40.0-50.0); HGB 8.8 g/dL (13.5-17.5); MCH 30.6 pg (27.0-33.0); MCHC 33.6 % (32.0-36.0); MCV 91 fL (80-95); MPV 8.9 fL (8.0-11.0); Platelet Count 124 10^3/uL (130-400); RBC 2.88 10^6/uL (4.36-5.78); RDW 13.4 % (11.8-14.1); RDW-SD 44.2 fL; WBC 8.25 10^3/uL (4.4-10.8)
[2022-02-23 06:32] LABS: Anion Gap 7.7 mmol/L (3-11); BUN 19 mg/dL (7-18); CO2 25.3 mmol/L (21.0-32.0); CREATININE 1.4 mg/dL (0.70-1.30); Calcium 7.5 mg/dL (8.5-10.1); Chloride 107 mmol/L (98-107); Estimated GFR 52.41 (mL/min/1.73m2); Glucose 93 mg/dL (74-106); Potassium 3.7 mmol/L (3.5-5.1); Sodium 140 mmol/L (136-145)
[2022-02-23] MEDS: Pantoprazole 40 MG VIAL IVP (08:45)
[2022-02-23] MEDS: Finasteride 5 MG TAB PO (08:46)
[2022-02-23] MEDS: amLODIPine 10 MG TAB PO (08:46)
[2022-02-23] MEDS: Tamsulosin 0.4 MG CAPCR 0.8 MG PO (08:46)
[2022-02-23 08:55] LABS: Bilirubin Negative (Negative); Blood Moderate (Negative); Clarity Clear (Clear); Glucose Negative (Negative); Ketones 15 mg/dL (Negative); Leukocyte Esterase Negative (Negative); Nitrite Negative (Negative); Specific Gravity 1.025 (1.005-1.025); Urobilinogen 0.2 EU/dL (Up TO 0.2)
[2022-02-23 09:03] LABS: Bacteria Negative HPF (Negative); C & S Indicated? No; Crystals Negative HPF (Negative); Epithelial Cells Rare HPF (Negative); Mucus Negative (Negative); WBC Negative HPF (0-5)
--- NOTE | 2022-02-23 09:36 | PT.INIE ---
Date of service: 02/23/22 Time of Service: 09:36 PT Notes Visit Reasons: Large Bowel Stricture Physical Therapy Inpatient Initial Evaluation Date: 02/23/2022 Referring Doctor: Wilmer Hernandez MD PT Orders: PT CONSULT: Limited ability. S/P ex lap early post op mobility; epidural in place Precautions: Fall. Standard. Activity as tolerated. Patient Profile/Admitting Diagnosis: Freedom is a 76-year-old male patient with hypertension, epilepsy, colon stricture S/P exploratory laparotomoy with extensive lysis of adhesions, repair of seromuscular sigmoid tear, small bowel resection, and transverse colectomy with colo-colo anastomosis on postoperative day 2. PMHX: All Active Problems?(Updated 02/18/22 @ 02:24 by Librado Malone DO) Colon stricture (Acute) Trigger finger, left index finger (Acute) S/P Release: 11/17/2021Lactose intolerance (Acute) Hypertension (Chronic) Hyperlipidemia (Acute) BPH NOS w ur obs/LUTS (Acute) Amblyopia (Acute) O.D. Basal cell carcinoma (Acute) Removed 09/06/21 Mitral valve regurgitation (Chronic) Hemorrhoids (Chronic) Epilepsy (Chronic 11/08/11) Aura 2006 Diverticulosis of colon without diverticulitis (Chronic) colonoscopy 2004 Congenital malrotation of intestine (Chronic) Anxiety (Chronic) obsessive thinking; sexual problems; possible depression Alcohol intake above recommended sensible limits (Chronic) Regular alcohol Medical History? 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 History of surgical procedure INTESTINES (02/07/1955) STOMACH? (02/07/1955) Trigger finger, left ring finger S/P trigger finger release DOS: 12/27/17 Social History/Home Situation: Equipment Owned/DME: Lives with in a private home with 3 steps to enter with rails on both sides. 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 Independent with all aspects without an assistive device prior to hospitalization. Subjective: Complains of pain in surgical incision site at 5-6/10 with movement transitions. Denies headache, chest pain, and lightheadedness throughout session. Objective: General Observation: Dressing over abdominal surgical incision. English catheter in place. IV access through right UE. Epidural so pump in place. Mental Status: Alert and oriented as to person, place, time, and purpose. Able to pay attention, focus, and respond appropriately. Pain: 5-6/10 in abdominal surgical incision Vital Signs: Closely monitored by nursing staff, BP up in the 160s/60s mmHg immediately before PT session ROM: Right Upper Extremity: Shoulder Flexion WFL. Shoulder abduction WFL. Elbow flexion WFL. Wrist flexion WFL. Functional opening and closing of hand WFL. Left Upper Extremity: Shoulder Flexion WFL. Shoulder abduction WFL. Elbow flexion WFL. Wrist flexion WFL. Functional opening and closing of hand WFL. Right Lower Extremity: Hip flexion lacks 50% of AROM due to pain. Hip abduction WFL. Knee flexion WFL. Ankle dorsiflexion WFL. Ankle plantarflexion WFL. Left Lower Extremity: Hip flexion 50% of AROM due to pain. Hip abduction WFL. Knee flexion WFL. Ankle dorsiflexion WFL. Ankle plantarflexion WFL. Strength: Right Upper Extremity: Shoulder flexors 4/5. Shoulder abductors 4/5. Elbow flexors 5/5. Elbow extensors 5/5. Electro Tech strong. Left Upper Extremity: Shoulder flexors 4/5. Shoulder abductors 4/5. Elbow flexors 5/5. Elbow extensors 5/5. Electro Tech strong. Right Lower Extremity: Hip flexors 2-/5. Hip abductors 2-/5. Knee flexors 4-/5. Knee extensors 4-/5. Ankle dorsiflexors 4/5. Ankle plantarflexors 4/5. Left Lower Extremity: Hip flexors 2-/5. Hip abductors 2-/5. Knee flexors 4-/5. Knee extensors 4-/5. Ankle dorsiflexors 4/5. Ankle plantarflexors 4/5. Bed Mobility/Transfers: Side lying to sit with contact guard assist Sit to stand contact guard assist Stand to sit contact guard assist Bed to bedside commode contact guard assist Bedside commode to bed contact guard assist Bed to reclining chair contact guard assist Reclining chair to bed contact guard assist Gait: Instructed patient with level surface ambulation of 30 feet requiring stand by assist. Jessica decreased. Pain level at 5-6/10 needing to press pump twice due to pain. Balance: Static Sitting: Normal Dynamic Sitting: Good Static Standing: Fair Dynamic Standing: Fair Special Tests: Mobility Limitations Standardized Measure [facility] AM-PAC 6 clicks Basic Mobility Inpatient Short Form: Raw Score: 19 CMS Score: 42% deficit Informed Consent/Education: Patient was instructed in purpose of PT consult and plan of care. Agreeable to proceed with established PT POC to achieve personal goals. Assessment: Patient limited by pain, works well with use of epidural pump to maximize session performance. Patient presents with clinical signs and symptoms consistent with current/admitting diagnoses that have resulted to mobility limitations, gait instability, generalized weakness, and overall ADL decline as demonstrated by the following impairment level findings: 1. Decreased strength to B hip major muscle groups due to pain 2. Impaired standing balance 3. Impaired activity tolerance 4. Limitation of joint range of motion in B hips due to pain complaint 5. Shortness of breath 6. Swelling Impairments are contributing to the following functional limitations: 1. Decline in bed mobility skills 2. Decline in transfer skills 3. Difficulty with ambulation without assistive device 4. Increased completion time for mobility ADL performance 5. Increased risk for falls 6. Difficulty with managing steps alone safely Patient is assessed as a 03304 moderate complexity based on the following: History: 76-year-old male with past medical history as indicated above Examination: Demonstrable impairment in strength, balance, and mobility level with underlying impairments and functional limitations as exhibited above as well as deficit score of 42% utilizing the [facility] Mobility Inpatient Short Form Presentation: Evolving Decision Makin moderate complexity Goals: Goals X1 week 1. Supine-Sit independent 2. Sit-Supine independent 3. Sit-Stand independent 4. Stand-Sit independent with no AD 5. Bed-Chair independent with no AD 6. Chair-Bed independent with no AD 7. Independent gait on level surface with use of SPC for at least 300 feet without report of pain nor dyspnea 8. Independent stair negotiation while holding onto B rails for at least 3 steps without report of pain nor dyspnea 9. Independent with home exercise program 10. Good static and dynamic standing balance/tolerance Plan of Care/Treatment Plan: 1-2x/day, 7 days/week x 1 week. Plan of care has been reviewed with the YARD PERSON providing the service under Physical Therapy direction. Initiate Physical Therapy intervention for pain management as needed, strengthening, bed mobility, transfers, gait, stairs, balance training, and use of assistive device. DISCHARGE RECOMMENDATIONS: [] Home with no services [] [X] Home with services. Home when medically cleared by surgeon/hospitalist. Recommend patient will benefit from home health PT services in order to progress mobility level using SPC, assess home safety, identify additional equipment needs, and establish a functional maintenance program that will increase ability of patient to remain at home. [] Home with outpatient PT [] [] SNF for continued rehabilitation [] [] Snf Care [] [] SNF versus LTC based on ability to participate and progress [] TREATMENT CODE/TIME: 49620 x 20 minutes, 91317 x 18 minutes beginning at 9:36 AM. Thank you for the opportunity to participate in the care of this patient. Adele Banuelos PT, DPT, CLT [facility] [place], [place]
--- NOTE | 2022-02-23 10:01 | W.PM.PROGNOT ---
Date of Service Date of service: 02/23/22 Time of Service: 10:01 Assessment and Plan Assessment and plan (1) Colon stricture: Status: Acute Assessment and plan: POD #2 s/p Exploratory laparotomy, extensive lysis of adhesions (>2 hours), repair of seromuscular sigmoid tear, small bowel resection, tranverse colectomy with colo-colo anastomosis Lengthy discussion on the importance and benefits of participating in Physical Therapy. As well as sitting in the chair. Patient is reluctant, but willing to try. NG tube in place;Sips of water and ice chips okay English in place Epidural was d/c. DIABETOLOGIST now in place. NOAM dressing in place over midline incision. GI/DVT prophylaxis Pulmonary toilet Continue with pain control and gentle activity as tolerated. (2) Hypertension: Status: Chronic Assessment and plan: --vital signs q4 --home meds Qualifiers: Hypertension type: essential hypertension Qualified Code(s): I10 - Essential (primary) hypertension (3) Epilepsy: Status: Chronic Assessment and plan: Distant history of seizures --continue home phenytoin Qualifiers: Epilepsy type: generalized idiopathic Intractability: not intractable Status epilepticus: without status epilepticus Qualified Code(s): G40.309 - Generalized idiopathic epilepsy and epileptic syndromes, not intractable, without status epilepticus Subjective Subjective Interval history since last seen: Arrive with patient lying in bed. He states that his pain is well controlled at rest, however increases to upwards of 6-7/10PL with movement and repositioning in bed. He describes that he felt like he could have a BM this morning, however he was not able to pass any stool. Exam Const General: cooperative, healthy appearing and comfortable Orientation: alert and oriented x3 Resp Effort & Inspection: normal respiratory effort, no audible wheezes and no cough Cardio Rate: regular rate Rhythm: regular rhythm GI Other: NOAM dressing in place NG tube in place and clamped Abdomen is soft, tender. Objective Last Vital Signs Temp 37.7 C H 02/23/22 09:32 Pulse 74 02/23/22 09:32 Resp 20 02/23/22 09:32 BP 169/77 H 02/23/22 09:32 Pulse Ox 94 02/23/22 09:32 Laboratory Results - last 24 hr 02/23/22 02/23/22 02/23/22 06:15 06:15 08:39 WBC 8.25 RBC 2.88 L Hgb 8.8 L Hct 26.2 L MCV 91 MCH 30.6 MCHC 33.6 RDW 13.4 Plt Count 124 L MPV 8.9 Sodium 140 Potassium 3.7 Chloride 107 Carbon Dioxide 25.3 Anion Gap 7.7 BUN 19 H Creatinine 1.4 H Est GFR (CKD-EPI 2020) 52.41 Glucose 93 Calcium 7.5 L Urine Color Yellow Urine Clarity Clear Urine pH 5.0 Ur Specific [place] 1.025 Urine Protein 30 H Urine Ketones 15 H Urine Blood Moderate H Urine Nitrite Negative Urine Bilirubin Negative Urine Urobilinogen 0.2 Ur Leukocyte Esterase Negative Urine RBC 10-20 H Urine WBC Negative Ur Epithelial Cells Rare Urine Crystals Negative Urine Bacteria Negative Urine Casts 5-10 Fine Granular Urine Mucus Negative Ur Culture Indicated? No Urine Glucose Negative PAWSS Have you Been Recently Intoxicated or Drunk Within the Last 30 days?: No Have you Ever Experienced Previous Episodes of Alcohol Withdrawal?: No Have you ever Experienced Withdrawal Seizures?: No Have you ever Experienced Delirium Tremens(DT)s?: No Have you ever undergone Alcohol Rehabilitation Treatment (i.e, inpt ot outpatient treatment programs)?: No Have you ever Experienced Blackouts?: No Have you ever Combined Alcohol with other Downers within the last 90 days?: No Have you ever Combined Alcohol with any other Substance of Abuse during the last 90 days?: No Positive Blood Alcohol level on Presentation? [PCS.BAL]: No Evidence of Increased Autonomic Activity (i.e. HR>120, tremor, sweating, agitation, nausea)?: No Result: 0 Time Spent with Patient Time Spent with Patient: <25 minutes Time was spent: preparing to see the patient(eg.review tests) Course I have seen and examined the patient, and am in agreement with the note written by Ambika Brown above. The patient's epidural was removed in the glove stitcher hours do to inadequate coverage, and he was started on a hydromorphone DIABETOLOGIST. Ambulation and incentive spirometry were heavily emphasized and encouraged to help prevent post-operative complications. --will change fluids to D51/2NS +20meq/KCL --NGT clamping trial this evening for possible NG removal, pt has good bowel sounds Vital Signs Vital signs: Vital Signs Temperature 97.9 F 02/17/22 22:05 Pulse 73 02/17/22 22:05 Respiratory Rate 20 02/17/22 22:05 Blood Pressure 165/77 H 02/17/22 22:05 Pulse Oximetry 97 02/17/22 22:05 Temperature 100.0 F H 02/23/22 11:24 Temperature Source Tympanic 02/23/22 11:24 Pulse 74 02/23/22 11:24 Pulse Rhythm Regular 02/23/22 04:03 Respiratory Rate 16 02/23/22 11:24 Respiratory Effort 02/23/22 04:03 Respiratory Depth Shallow 02/23/22 04:03 Respiratory Pattern Normal 02/23/22 04:03 Blood Pressure 168/69 H 02/23/22 11:24 Pulse Oximetry 94 02/23/22 11:24 Oxygen Delivery Method Room Air 02/23/22 11:24 Oxygen Flow Rate 0 02/23/22 11:24 Pain Level 1 02/23/22 15:17 Comment 02/23/22 03:12 Lab/Test Results Lab/Test Results: Laboratory Tests Range/Units 02/17/22 02/17/22 02/17/22 22:26 22:26 22:26 WBC (4.4-10.8) 10^3/uL 5.80 RBC (4.36-5.78) 10^6/uL 4.13 L Hgb (13.5-17.5) g/dL 12.4 L Hct (40.0-50.0) % 37.3 L MCV (80-95) fL 90 MCH (27.0-33.0) pg 30.0 MCHC (32.0-36.0) % 33.2 RDW (11.8-14.1) % 13.2 Plt Count (130-400) 10^3/uL 239 MPV (8.0-11.0) fL 8.8 Immature Gran % 0.3 Neutrophils % 61.8 Lymphocytes % 27.9 Monocytes % 7.6 Eosinophils % 2.2 Basophils % 0.2 Nucleated RBC % (0.0-0.3) % 0.0 Absolute Neutrophils (1.2-6.7) 10^3/uL 3.58 Absolute Lymphocytes (1.2-3.4) 10^3/uL 1.62 Absolute Monocytes (0.1-0.8) 10^3/uL 0.44 Absolute Eosinophils (0.0-0.7) 10^3/uL 0.13 Absolute Basophils (0.0-0.2) 10^3/uL 0.01 PT (9.3-11.0) sec INR (0.9-1.1) APTT (21.0-27.5) sec VBG Lactate (0.6-1.4) mmol/L 2.5 H* Sodium (136-145) mmol/L 138 Potassium (3.5-5.1) mmol/L 3.8 Chloride (98-107) mmol/L 102 Carbon Dioxide (21.0-32.0) mmol/L 25.9 Anion Gap (3-11) mmol/L 10.1 BUN (7-18) mg/dL 19 H Creatinine (0.70-1.30) mg/dL 1.2 Est GFR (CKD-EPI 2020) (mL/min/1.73m2) 63.07 Glucose (74-106) mg/dL 142 H Calcium (8.5-10.1) mg/dL 8.6 Magnesium (1.8-2.4) mg/dL Total Bilirubin (0.2-1.0) mg/dL 0.2 AST (15-37) U/L 40 H ALT (16-63) U/L 47 Alkaline Phosphatase (46-116) U/L 69 Total Protein (6.4-8.2) g/dL 7.9 Albumin (3.4-5.0) g/dL 3.7 Carcinoembryonic Ag (See Note) ng/ml Urine Color (Yellow) Urine Clarity (Clear) Urine pH (5-8) Ur Specific [place] (1.005-1.025) Urine Protein (Negative) mg/dL Urine Ketones (Negative) mg/dL Urine Blood (Negative) Urine Nitrite (Negative) Urine Bilirubin (Negative) Urine Urobilinogen (Up TO 0.2) EU/dL Ur Leukocyte Esterase (Negative) Urine RBC (0-2) HPF Urine WBC (0-5) HPF Ur Epithelial Cells (Negative) HPF Urine Crystals (Negative) HPF Urine Bacteria (Negative) HPF Urine Casts (Negative) LPF Urine Mucus (Negative) Ur Culture Indicated? Urine Glucose (Negative) mg/dL COVID-19 Source SARS-CoV-2 (PCR) (Negative) Patient ABO/Rh Antibody Screen Range/Units 01/12/23 01/13/23 01/13/23 22:35 02:00 06:21 WBC (4.4-10.8) 10^3/uL RBC (4.36-5.78) 10^6/uL Hgb (13.5-17.5) g/dL Hct (40.0-50.0) % MCV (80-95) fL MCH (27.0-33.0) pg MCHC (32.0-36.0) % RDW (11.8-14.1) % Plt Count (130-400) 10^3/uL MPV (8.0-11.0) fL Immature Gran % Neutrophils % Lymphocytes % Monocytes % Eosinophils % Basophils % Nucleated RBC % (0.0-0.3) % Absolute Neutrophils (1.2-6.7) 10^3/uL Absolute Lymphocytes (1.2-3.4) 10^3/uL Absolute Monocytes (0.1-0.8) 10^3/uL Absolute Eosinophils (0.0-0.7) 10^3/uL Absolute Basophils (0.0-0.2) 10^3/uL PT (9.3-11.0) sec INR (0.9-1.1) APTT (21.0-27.5) sec VBG Lactate (0.6-1.4) mmol/L Sodium (136-145) mmol/L 139 Potassium (3.5-5.1) mmol/L 4.1 Chloride (98-107) mmol/L 106 Carbon Dioxide (21.0-32.0) mmol/L 25.6 Anion Gap (3-11) mmol/L 7.4 BUN (7-18) mg/dL 19 H Creatinine (0.70-1.30) mg/dL 1.0 Est GFR (CKD-EPI 2020) (mL/min/1.73m2) 78.49 Glucose (74-106) mg/dL 101 Calcium (8.5-10.1) mg/dL 8.2 L Magnesium (1.8-2.4) mg/dL Total Bilirubin (0.2-1.0) mg/dL 0.3 AST (15-37) U/L 29 ALT (16-63) U/L 37 Alkaline Phosphatase (46-116) U/L 60 Total Protein (6.4-8.2) g/dL 6.9 Albumin (3.4-5.0) g/dL 3.2 L Carcinoembryonic Ag (See Note) ng/ml Urine Color (Yellow) Yellow Urine Clarity (Clear) Clear Urine pH (5-8) 5.5 Ur Specific [place] (1.005-1.025) 1.025 Urine Protein (Negative) mg/dL Negative Urine Ketones (Negative) mg/dL Negative Urine Blood (Negative) Small H Urine Nitrite (Negative) Negative Urine Bilirubin (Negative) Negative Urine Urobilinogen (Up TO 0.2) EU/dL 0.2 Ur Leukocyte Esterase (Negative) Negative Urine RBC (0-2) HPF 3-5 H Urine WBC (0-5) HPF Negative Ur Epithelial Cells (Negative) HPF Rare Urine Crystals (Negative) HPF Negative Urine Bacteria (Negative) HPF Rare Urine Casts (Negative) LPF Negative Urine Mucus (Negative) Negative Ur Culture Indicated? No Urine Glucose (Negative) mg/dL Negative COVID-19 Source Nasal/Nares SARS-CoV-2 (PCR) (Negative) Negative Patient ABO/Rh Antibody Screen Range/Units 02/18/22 02/18/22 02/18/22 06:21 06:21 06:21 WBC (4.4-10.8) 10^3/uL 7.91 RBC (4.36-5.78) 10^6/uL 3.85 L Hgb (13.5-17.5) g/dL 11.5 L Hct (40.0-50.0) % 35.1 L MCV (80-95) fL 91 MCH (27.0-33.0) pg 29.9 MCHC (32.0-36.0) % 32.8 RDW (11.8-14.1) % 13.5 Plt Count (130-400) 10^3/uL 192 MPV (8.0-11.0) fL 8.5 Immature Gran % Neutrophils % Lymphocytes % Monocytes % Eosinophils % Basophils % Nucleated RBC % (0.0-0.3) % Absolute Neutrophils (1.2-6.7) 10^3/uL Absolute Lymphocytes (1.2-3.4) 10^3/uL Absolute Monocytes (0.1-0.8) 10^3/uL Absolute Eosinophils (0.0-0.7) 10^3/uL Absolute Basophils (0.0-0.2) 10^3/uL PT (9.3-11.0) sec 10.0 INR (0.9-1.1) 1.0 APTT (21.0-27.5) sec 24.1 VBG Lactate (0.6-1.4) mmol/L 0.9 Sodium (136-145) mmol/L Potassium (3.5-5.1) mmol/L Chloride (98-107) mmol/L Carbon Dioxide (21.0-32.0) mmol/L Anion Gap (3-11) mmol/L BUN (7-18) mg/dL Creatinine (0.70-1.30) mg/dL Est GFR (CKD-EPI 2020) (mL/min/1.73m2) Glucose (74-106) mg/dL Calcium (8.5-10.1) mg/dL Magnesium (1.8-2.4) mg/dL Total Bilirubin (0.2-1.0) mg/dL AST (15-37) U/L ALT (16-63) U/L Alkaline Phosphatase (46-116) U/L Total Protein (6.4-8.2) g/dL Albumin (3.4-5.0) g/dL Carcinoembryonic Ag (See Note) ng/ml Urine Color (Yellow) Urine Clarity (Clear) Urine pH (5-8) Ur Specific [place] (1.005-1.025) Urine Protein (Negative) mg/dL Urine Ketones (Negative) mg/dL Urine Blood (Negative) Urine Nitrite (Negative) Urine Bilirubin (Negative) Urine Urobilinogen (Up TO 0.2) EU/dL Ur Leukocyte Esterase (Negative) Urine RBC (0-2) HPF Urine WBC (0-5) HPF Ur Epithelial Cells (Negative) HPF Urine Crystals (Negative) HPF Urine Bacteria (Negative) HPF Urine Casts (Negative) LPF Urine Mucus (Negative) Ur Culture Indicated? Urine Glucose (Negative) mg/dL COVID-19 Source SARS-CoV-2 (PCR) (Negative) Patient ABO/Rh Antibody Screen Range/Units 02/19/22 02/19/22 02/20/22 06:01 06:01 05:57 WBC (4.4-10.8) 10^3/uL 3.65 L RBC (4.36-5.78) 10^6/uL 3.50 L Hgb (13.5-17.5) g/dL 10.5 L Hct (40.0-50.0) % 32.0 L MCV (80-95) fL 91 MCH (27.0-33.0) pg 30.0 MCHC (32.0-36.0) % 32.8 RDW (11.8-14.1) % 13.6 Plt Count (130-400) 10^3/uL 152 MPV (8.0-11.0) fL 8.7 Immature Gran % Neutrophils % Lymphocytes % Monocytes % Eosinophils % Basophils % Nucleated RBC % (0.0-0.3) % Absolute Neutrophils (1.2-6.7) 10^3/uL Absolute Lymphocytes (1.2-3.4) 10^3/uL Absolute Monocytes (0.1-0.8) 10^3/uL Absolute Eosinophils (0.0-0.7) 10^3/uL Absolute Basophils (0.0-0.2) 10^3/uL PT (9.3-11.0) sec INR (0.9-1.1) APTT (21.0-27.5) sec VBG Lactate (0.6-1.4) mmol/L Sodium (136-145) mmol/L 144 143 Potassium (3.5-5.1) mmol/L 3.8 3.5 Chloride (98-107) mmol/L 109 H 109 H Carbon Dioxide (21.0-32.0) mmol/L 27.6 26.0 Anion Gap (3-11) mmol/L 7.4 8.0 BUN (7-18) mg/dL 11 8 Creatinine (0.70-1.30) mg/dL 0.9 1.0 Est GFR (CKD-EPI 2020) (mL/min/1.73m2) 89.07 78.49 Glucose (74-106) mg/dL 97 89 Calcium (8.5-10.1) mg/dL 8.3 L 8.3 L Magnesium (1.8-2.4) mg/dL 2.2 Total Bilirubin (0.2-1.0) mg/dL AST (15-37) U/L ALT (16-63) U/L Alkaline Phosphatase (46-116) U/L Total Protein (6.4-8.2) g/dL Albumin (3.4-5.0) g/dL Carcinoembryonic Ag (See Note) ng/ml Urine Color (Yellow) Urine Clarity (Clear) Urine pH (5-8) Ur Specific [place] (1.005-1.025) Urine Protein (Negative) mg/dL Urine Ketones (Negative) mg/dL Urine Blood (Negative) Urine Nitrite (Negative) Urine Bilirubin (Negative) Urine Urobilinogen (Up TO 0.2) EU/dL Ur Leukocyte Esterase (Negative) Urine RBC (0-2) HPF Urine WBC (0-5) HPF Ur Epithelial Cells (Negative) HPF Urine Crystals (Negative) HPF Urine Bacteria (Negative) HPF Urine Casts (Negative) LPF Urine Mucus (Negative) Ur Culture Indicated? Urine Glucose (Negative) mg/dL COVID-19 Source SARS-CoV-2 (PCR) (Negative) Patient ABO/Rh Antibody Screen Range/Units 02/20/22 02/20/22 02/20/22 05:57 05:57 14:30 WBC (4.4-10.8) 10^3/uL 3.69 L RBC (4.36-5.78) 10^6/uL 3.34 L Hgb (13.5-17.5) g/dL 10.3 L Hct (40.0-50.0) % 30.9 L MCV (80-95) fL 93 MCH (27.0-33.0) pg 30.8 MCHC (32.0-36.0) % 33.3 RDW (11.8-14.1) % 13.3 Plt Count (130-400) 10^3/uL 161 MPV (8.0-11.0) fL 9.0 Immature Gran % Neutrophils % Lymphocytes % Monocytes % Eosinophils % Basophils % Nucleated RBC % (0.0-0.3) % Absolute Neutrophils (1.2-6.7) 10^3/uL Absolute Lymphocytes (1.2-3.4) 10^3/uL Absolute Monocytes (0.1-0.8) 10^3/uL Absolute Eosinophils (0.0-0.7) 10^3/uL Absolute Basophils (0.0-0.2) 10^3/uL PT (9.3-11.0) sec INR (0.9-1.1) APTT (21.0-27.5) sec VBG Lactate (0.6-1.4) mmol/L Sodium (136-145) mmol/L Potassium (3.5-5.1) mmol/L Chloride (98-107) mmol/L Carbon Dioxide (21.0-32.0) mmol/L Anion Gap (3-11) mmol/L BUN (7-18) mg/dL Creatinine (0.70-1.30) mg/dL Est GFR (CKD-EPI 2020) (mL/min/1.73m2) Glucose (74-106) mg/dL Calcium (8.5-10.1) mg/dL Magnesium (1.8-2.4) mg/dL Total Bilirubin (0.2-1.0) mg/dL AST (15-37) U/L ALT (16-63) U/L Alkaline Phosphatase (46-116) U/L Total Protein (6.4-8.2) g/dL Albumin (3.4-5.0) g/dL Carcinoembryonic Ag (See Note) ng/ml 1.9 Urine Color (Yellow) Yellow Urine Clarity (Clear) Clear Urine pH (5-8) 6.5 Ur Specific [place] (1.005-1.025) 1.015 Urine Protein (Negative) mg/dL Negative Urine Ketones (Negative) mg/dL Negative Urine Blood (Negative) Negative Urine Nitrite (Negative) Negative Urine Bilirubin (Negative) Negative Urine Urobilinogen (Up TO 0.2) EU/dL 0.2 Ur Leukocyte Esterase (Negative) Negative Urine RBC (0-2) HPF Urine WBC (0-5) HPF Ur Epithelial Cells (Negative) HPF Urine Crystals (Negative) HPF Urine Bacteria (Negative) HPF Urine Casts (Negative) LPF Urine Mucus (Negative) Ur Culture Indicated? Urine Glucose (Negative) mg/dL Negative COVID-19 Source SARS-CoV-2 (PCR) (Negative) Patient ABO/Rh Antibody Screen Range/Units 02/21/22 02/21/22 02/21/22 06:12 06:12 06:12 WBC (4.4-10.8) 10^3/uL 3.88 L RBC (4.36-5.78) 10^6/uL 3.46 L Hgb (13.5-17.5) g/dL 10.5 L Hct (40.0-50.0) % 32.1 L MCV (80-95) fL 93 MCH (27.0-33.0) pg 30.3 MCHC (32.0-36.0) % 32.7 RDW (11.8-14.1) % 13.2 Plt Count (130-400) 10^3/uL 151 MPV (8.0-11.0) fL 8.7 Immature Gran % Neutrophils % Lymphocytes % Monocytes % Eosinophils % Basophils % Nucleated RBC % (0.0-0.3) % Absolute Neutrophils (1.2-6.7) 10^3/uL Absolute Lymphocytes (1.2-3.4) 10^3/uL Absolute Monocytes (0.1-0.8) 10^3/uL Absolute Eosinophils (0.0-0.7) 10^3/uL Absolute Basophils (0.0-0.2) 10^3/uL PT (9.3-11.0) sec INR (0.9-1.1) APTT (21.0-27.5) sec VBG Lactate (0.6-1.4) mmol/L Sodium (136-145) mmol/L 144 Potassium (3.5-5.1) mmol/L 3.5 Chloride (98-107) mmol/L 110 H Carbon Dioxide (21.0-32.0) mmol/L 24.8 Anion Gap (3-11) mmol/L 9.2 BUN (7-18) mg/dL 7 Creatinine (0.70-1.30) mg/dL 1.0 Est GFR (CKD-EPI 2020) (mL/min/1.73m2) 78.49 Glucose (74-106) mg/dL 91 Calcium (8.5-10.1) mg/dL 8.3 L Magnesium (1.8-2.4) mg/dL Total Bilirubin (0.2-1.0) mg/dL AST (15-37) U/L ALT (16-63) U/L Alkaline Phosphatase (46-116) U/L Total Protein (6.4-8.2) g/dL Albumin (3.4-5.0) g/dL Carcinoembryonic Ag (See Note) ng/ml Urine Color (Yellow) Urine Clarity (Clear) Urine pH (5-8) Ur Specific [place] (1.005-1.025) Urine Protein (Negative) mg/dL Urine Ketones (Negative) mg/dL Urine Blood (Negative) Urine Nitrite (Negative) Urine Bilirubin (Negative) Urine Urobilinogen (Up TO 0.2) EU/dL Ur Leukocyte Esterase (Negative) Urine RBC (0-2) HPF Urine WBC (0-5) HPF Ur Epithelial Cells (Negative) HPF Urine Crystals (Negative) HPF Urine Bacteria (Negative) HPF Urine Casts (Negative) LPF Urine Mucus (Negative) Ur Culture Indicated? Urine Glucose (Negative) mg/dL COVID-19 Source SARS-CoV-2 (PCR) (Negative) Patient ABO/Rh O Positive Antibody Screen NEGATIVE Range/Units 02/22/22 02/22/22 02/23/22 05:39 05:39 06:15 WBC (4.4-10.8) 10^3/uL 10.59 RBC (4.36-5.78) 10^6/uL 3.16 L Hgb (13.5-17.5) g/dL 9.7 L Hct (40.0-50.0) % 29.0 L MCV (80-95) fL 92 MCH (27.0-33.0) pg 30.7 MCHC (32.0-36.0) % 33.4 RDW (11.8-14.1) % 13.2 Plt Count (130-400) 10^3/uL 177 MPV (8.0-11.0) fL 9.2 Immature Gran % Neutrophils % Lymphocytes % Monocytes % Eosinophils % Basophils % Nucleated RBC % (0.0-0.3) % Absolute Neutrophils (1.2-6.7) 10^3/uL Absolute Lymphocytes (1.2-3.4) 10^3/uL Absolute Monocytes (0.1-0.8) 10^3/uL Absolute Eosinophils (0.0-0.7) 10^3/uL Absolute Basophils (0.0-0.2) 10^3/uL PT (9.3-11.0) sec INR (0.9-1.1) APTT (21.0-27.5) sec VBG Lactate (0.6-1.4) mmol/L Sodium (136-145) mmol/L 144 140 Potassium (3.5-5.1) mmol/L 4.1 3.7 Chloride (98-107) mmol/L 109 H 107 Carbon Dioxide (21.0-32.0) mmol/L 25.3 25.3 Anion Gap (3-11) mmol/L 9.7 7.7 BUN (7-18) mg/dL 14 19 H Creatinine (0.70-1.30) mg/dL 1.7 H 1.4 H Est GFR (CKD-EPI 2020) (mL/min/1.73m2) 41.52 52.41 Glucose (74-106) mg/dL 129 H 93 Calcium (8.5-10.1) mg/dL 7.6 L 7.5 L Magnesium (1.8-2.4) mg/dL Total Bilirubin (0.2-1.0) mg/dL AST (15-37) U/L ALT (16-63) U/L Alkaline Phosphatase (46-116) U/L Total Protein (6.4-8.2) g/dL Albumin (3.4-5.0) g/dL Carcinoembryonic Ag (See Note) ng/ml Urine Color (Yellow) Urine Clarity (Clear) Urine pH (5-8) Ur Specific [place] (1.005-1.025) Urine Protein (Negative) mg/dL Urine Ketones (Negative) mg/dL Urine Blood (Negative) Urine Nitrite (Negative) Urine Bilirubin (Negative) Urine Urobilinogen (Up TO 0.2) EU/dL Ur Leukocyte Esterase (Negative) Urine RBC (0-2) HPF Urine WBC (0-5) HPF Ur Epithelial Cells (Negative) HPF Urine Crystals (Negative) HPF Urine Bacteria (Negative) HPF Urine Casts (Negative) LPF Urine Mucus (Negative) Ur Culture Indicated? Urine Glucose (Negative) mg/dL COVID-19 Source SARS-CoV-2 (PCR) (Negative) Patient ABO/Rh Antibody Screen Range/Units 02/23/22 02/23/22 06:15 08:39 WBC (4.4-10.8) 10^3/uL 8.25 RBC (4.36-5.78) 10^6/uL 2.88 L Hgb (13.5-17.5) g/dL 8.8 L Hct (40.0-50.0) % 26.2 L MCV (80-95) fL 91 MCH (27.0-33.0) pg 30.6 MCHC (32.0-36.0) % 33.6 RDW (11.8-14.1) % 13.4 Plt Count (130-400) 10^3/uL 124 L MPV (8.0-11.0) fL 8.9 Immature Gran % Neutrophils % Lymphocytes % Monocytes % Eosinophils % Basophils % Nucleated RBC % (0.0-0.3) % Absolute Neutrophils (1.2-6.7) 10^3/uL Absolute Lymphocytes (1.2-3.4) 10^3/uL Absolute Monocytes (0.1-0.8) 10^3/uL Absolute Eosinophils (0.0-0.7) 10^3/uL Absolute Basophils (0.0-0.2) 10^3/uL PT (9.3-11.0) sec INR (0.9-1.1) APTT (21.0-27.5) sec VBG Lactate (0.6-1.4) mmol/L Sodium (136-145) mmol/L Potassium (3.5-5.1) mmol/L Chloride (98-107) mmol/L Carbon Dioxide (21.0-32.0) mmol/L Anion Gap (3-11) mmol/L BUN (7-18) mg/dL Creatinine (0.70-1.30) mg/dL Est GFR (CKD-EPI 2020) (mL/min/1.73m2) Glucose (74-106) mg/dL Calcium (8.5-10.1) mg/dL Magnesium (1.8-2.4) mg/dL Total Bilirubin (0.2-1.0) mg/dL AST (15-37) U/L ALT (16-63) U/L Alkaline Phosphatase (46-116) U/L Total Protein (6.4-8.2) g/dL Albumin (3.4-5.0) g/dL Carcinoembryonic Ag (See Note) ng/ml Urine Color (Yellow) Yellow Urine Clarity (Clear) Clear Urine pH (5-8) 5.0 Ur Specific [place] (1.005-1.025) 1.025 Urine Protein (Negative) mg/dL 30 H Urine Ketones (Negative) mg/dL 15 H Urine Blood (Negative) Moderate H Urine Nitrite (Negative) Negative Urine Bilirubin (Negative) Negative Urine Urobilinogen (Up TO 0.2) EU/dL 0.2 Ur Leukocyte Esterase (Negative) Negative Urine RBC (0-2) HPF 10-20 H Urine WBC (0-5) HPF Negative Ur Epithelial Cells (Negative) HPF Rare Urine Crystals (Negative) HPF Negative Urine Bacteria (Negative) HPF Negative Urine Casts (Negative) LPF 5-10 Fine Granular Urine Mucus (Negative) Negative Ur Culture Indicated? No Urine Glucose (Negative) mg/dL Negative COVID-19 Source SARS-CoV-2 (PCR) (Negative) Patient ABO/Rh Antibody Screen
--- NOTE | 2022-02-23 10:21 | PDOC.CMPRO ---
- If Service Date Differs Date of service: 02/23/22 Time of Service: 10:21 Care Management Progress Note S/O:Jerry was sitting up in bed visiting with his when CM met with him. He continues to endorse severe abdominal pain, particularly with movement. He informed CM that he was able to ambulate with PT this morning but that it took him a long time to recover. He also stated that he would not be agreeable to ambulating again this afternoon. Jerry still has a NG tube but shared that the plan is for it to be removed this afternoon. He verbalized that he is pleased about that but does not want his swain removed. He is concerned that he will have to void frequently and with movement will experience more pain. A:Jerry is a 76 year old man admitted with a large bowel stricture P:Anticipate Jerry will discharge home, possibly with new home health services, when medically cleared by provider. He will follow up with his PCP and surgery and transport with family. CM will support Jerry and assess for discharge concerns.
--- NOTE | 2022-02-23 10:50 | CHAPLAIN ---
Jerry was up in the chair when I visited. He told me he'd had been up walking to the door and back earlier today, but that any movement is painful. He winced a few times while we were talking. Jerry said he was allowed water and ice chips at one point, and now just ice chips so I don't know if they know what they're doing. He also complained of having to wait for someone to unstop his catheter when it was clamped to collect a sample. I suggested he ask his nurse if he has any questions about having water. He has an NG tube and is experiencing pain whenever he moves, so he seemed to be struggling more today. His will be in this afternoon to visit.
[2022-02-23] MEDS: POTASSIUM CHLORIDE/D5-0.45NACL 1,000 ML 125 MEQ IV (14:38)
--- NOTE | 2022-02-23 14:39 | NUR.NOTE ---
Nursing Note: At approximately 1436 on 02/23/22, this RN entered the pt.'s room to check on the pt. and noted that Dr. Hernandez and PARI Paul were in the pt.'s room. Per MD, IV fluids to be switched from LR at 125 mL/hr to D5 1/2NS w/ 20KCL at 125 mL/hr. Per MD, pt. to have a NG tube clamping trial. NG tube to remain clamped, pt. to continue PO intake (water and ice chips), residual to be checked at 1800, and then MD to be paged with residual amount to determine if NG tube can be removed or not. Charge nurse notified of these orders.
--- NOTE | 2022-02-23 15:38 | PT.INNT ---
Date of service: 02/23/22 Time of Service: 15:38 PT Notes Visit Reasons: Large Bowel Stricture 02/23/2022 Patient refused PT x2 in p.m., reporting that he had just walked in the room without assistive device nor nursing support. He reports after walking the second time independently, that he had an increase in pain. Will attempt to resume PT services tomorrow morning.
--- NOTE | 2022-02-23 22:46 | NUR.NOTE ---
Per MD order, patient's NG tube was removed at approximately 1945. Patient tolerated this well. Nursing Note:
[2022-02-24] VITALS (12 sets, daily range): BP systolic 137–166; BP diastolic 57–90; PULSE 59–114; RESP 16–20; TEMP 36.5–37.9; O2SAT 92–99
[2022-02-24] MEDS: POTASSIUM CHLORIDE/D5-0.45NACL 1,000 ML 125 MEQ IV ×3 (02:03→18:32)
[2022-02-24] MEDS: ACETAMINOPHEN 1,000 MG/100 ML BTL 400 MG IVPB ×2 (03:14→19:57)
[2022-02-24 06:50] LABS: HCT 25.3 % (40.0-50.0); HGB 8.3 g/dL (13.5-17.5); MCH 30.4 pg (27.0-33.0); MCHC 32.8 % (32.0-36.0); MCV 93 fL (80-95); MPV 9.4 fL (8.0-11.0); Platelet Count 134 10^3/uL (130-400); RBC 2.73 10^6/uL (4.36-5.78); RDW 13.2 % (11.8-14.1); RDW-SD 44.6 fL; WBC 6.67 10^3/uL (4.4-10.8)
[2022-02-24 06:59] LABS: Anion Gap 7.7 mmol/L (3-11); BUN 13 mg/dL (7-18); CO2 26.3 mmol/L (21.0-32.0); CREATININE 1.2 mg/dL (0.70-1.30); Calcium 7.7 mg/dL (8.5-10.1); Chloride 106 mmol/L (98-107); Estimated GFR 63.07 (mL/min/1.73m2); Glucose 149 mg/dL (74-106); Potassium 3.6 mmol/L (3.5-5.1); Sodium 140 mmol/L (136-145)
--- NOTE | 2022-02-24 07:04 | W.PM.PROGNOT ---
Date of Service Date of service: 02/24/22 Time of Service: 07:04 Assessment and Plan Assessment and plan (1) Colon stricture: Status: Acute Assessment and plan: POD #3 s/p Exploratory laparotomy, extensive lysis of adhesions (>2 hours), repair of seromuscular sigmoid tear, small bowel resection, tranverse colectomy with colo-colo anastomosis Continues to have Low grade fevers; No leukocytosis. UA checked yesterday remarkable for RBCs NG tube was removed last night;Sips of water and ice chips okay CORRECTIVE AND MANUAL ARTS THERAPIST now in place, with good pain control NOAM dressing in place over midline incision. GI/DVT prophylaxis Pulmonary toilet Continue working with PT to increase activity tolerance and independence with mobility and transfers. I saw and examined Jerry around 5:00 tonight, and I agree with Zara Brown's notes. He complains of some incisional pain that is a little better compared to yesterday. He is passing a significant amount of flatus through today, with no bowel movement yet. He denies any nausea or vomiting. He has been tolerating clears just fine. His abdomen is soft and nondistended. He is tender along the incision. The noam dressing is fine. Hopefully, we can advance his diet tomorrow, and he can continue to work with physical therapy. (2) Hypertension: Status: Chronic Assessment and plan: --vital signs q4 --home meds Qualifiers: Hypertension type: essential hypertension Qualified Code(s): I10 - Essential (primary) hypertension (3) Epilepsy: Status: Chronic Assessment and plan: Distant history of seizures --continue home phenytoin Qualifiers: Epilepsy type: generalized idiopathic Intractability: not intractable Status epilepticus: without status epilepticus Qualified Code(s): G40.309 - Generalized idiopathic epilepsy and epileptic syndromes, not intractable, without status epilepticus Subjective Subjective Interval history since last seen: Arrive with the patient sleeping comfortably. He states he does not have any pain currently, because he has not been moving. Denies any nausea or vomiting. Exam Const General: cooperative, healthy appearing and comfortable Orientation: alert and oriented x3 Resp Effort & Inspection: normal respiratory effort, no audible wheezes and no cough GI Inspection: normal to inspection Palpation: soft and tender Auscultation: normal bowel sounds Other: NOAM dressing in place Objective Last Vital Signs Temp 37.9 C H 02/24/22 04:00 Pulse 68 02/24/22 03:10 Resp 18 02/24/22 04:00 BP 144/90 H 02/24/22 03:10 Pulse Ox 97 02/24/22 04:00 Laboratory Results - last 24 hr 02/23/22 02/24/22 08:39 06:25 WBC 6.67 RBC 2.73 L Hgb 8.3 L Hct 25.3 L MCV 93 MCH 30.4 MCHC 32.8 RDW 13.2 Plt Count 134 MPV 9.4 Urine Color Yellow Urine Clarity Clear Urine pH 5.0 Ur Specific [place] 1.025 Urine Protein 30 H Urine Ketones 15 H Urine Blood Moderate H Urine Nitrite Negative Urine Bilirubin Negative Urine Urobilinogen 0.2 Ur Leukocyte Esterase Negative Urine RBC 10-20 H Urine WBC Negative Ur Epithelial Cells Rare Urine Crystals Negative Urine Bacteria Negative Urine Casts 5-10 Fine Granular Urine Mucus Negative Ur Culture Indicated? No Urine Glucose Negative PAWSS Have you Been Recently Intoxicated or Drunk Within the Last 30 days?: No Have you Ever Experienced Previous Episodes of Alcohol Withdrawal?: No Have you ever Experienced Withdrawal Seizures?: No Have you ever Experienced Delirium Tremens(DT)s?: No Have you ever undergone Alcohol Rehabilitation Treatment (i.e, inpt ot outpatient treatment programs)?: No Have you ever Experienced Blackouts?: No Have you ever Combined Alcohol with other Downers within the last 90 days?: No Have you ever Combined Alcohol with any other Substance of Abuse during the last 90 days?: No Positive Blood Alcohol level on Presentation? [PCS.BAL]: No Evidence of Increased Autonomic Activity (i.e. HR>120, tremor, sweating, agitation, nausea)?: No Result: 0 Time Spent with Patient Time Spent with Patient: <25 minutes Time was spent: preparing to see the patient(eg.review tests)
--- NOTE | 2022-02-24 08:58 | PDOC.CMPRO ---
- If Service Date Differs Date of service: 02/24/22 Time of Service: 08:58 Care Management Progress Note S/O:Jerry was sitting up in a chair when CM met with him. His color was improved from yesterday and he stated that he was pain free at that time. Jerry did inform CM that he has severe pain whenever he moves or changes position though. He rated it as a 2. CM noted that a pain level of 2 is generally considered minor, more like a discomfort. What he was describing sounded different than that. He thought about it and adjusted his estimate to be between 4 and 6, but noted that medication does help. Jerry informed CM that his SENIOR DIRECTOR INSIGHT was no longer working but when CM discussed this with nursing, determined that it was. Jerry was re-educated about use of the SENIOR DIRECTOR INSIGHT. A:Jerry is a 76 year old man admitted with a large bowel stricture P:Anticipate Jerry will discharge home, possibly with new home health services, when medically cleared by provider. He will follow up with his PCP and surgery and transport with family. CM will support Jerry and assess for discharge concerns.
[2022-02-24] MEDS: Tamsulosin 0.4 MG CAPCR 0.8 MG PO (09:38)
[2022-02-24] MEDS: Finasteride 5 MG TAB PO (09:38)
[2022-02-24] MEDS: amLODIPine 10 MG TAB PO (09:38)
[2022-02-24] MEDS: Normal Saline Flush 10 ML SYR IVP (11:10)
[2022-02-24] MEDS: Pantoprazole 40 MG VIAL IVP (11:10)
--- NOTE | 2022-02-24 13:13 | PT.INTREAT ---
Date of service: 02/24/22 Time of Service: 10:23 PT Notes Visit Reasons: Large Bowel Stricture Inpatient Physical Therapy Treatment Note [facility] Date: 02/24/2022 PRECAUTIONS: Activity as tolerated SUBJECTIVE: Freedom is pleasant and agreeable to participating in PT. He reports that he is feeling a little better today, although continues to have some abdominal and gas pain. OBJECTIVE: PAIN: Patient c/o abdominal pain, which increases with gait training and transfers BED MOBILITY/TRANSFERS Stand-sit: I Sit-stand: I GAIT Assistive Device: FWW Weight bearing: Full Assist: I Distance: 100' Deviation: Increased pain in abdominal area ASSESSMENT: Patient tolerated session with increased B knee pain and fatigue with gait training, requiring a seated rest. She fatigues quickly and demonstrates limited activity tolerance. Patient's progress is limited due to pain in B knees with weight bearing activities, as well as sudden knee-buckling due to pain and weakness. PLAN: Continue with gait training, to tolerance, for continued progression toward baseline level of function, which is ambulating without an AD. TREATMENT CODE/TIME: Session 1: 19 minutes; [id number] (10:23) Session 2: Patient declined to participate in p.m. session due to pain
[2022-02-25] VITALS (7 sets, daily range): BP systolic 132–160; BP diastolic 62–80; PULSE 62–72; RESP 15–20; TEMP 36.3–37.3; O2SAT 95–98
[2022-02-25] MEDS: POTASSIUM CHLORIDE/D5-0.45NACL 1,000 ML 125 MEQ IV ×2 (02:28→11:24)
[2022-02-25] MEDS: ACETAMINOPHEN 1,000 MG/100 ML BTL 400 MG IVPB ×3 (03:28→19:56)
[2022-02-25 06:37] LABS: HCT 23.3 % (40.0-50.0); HGB 7.7 g/dL (13.5-17.5); MCH 30.2 pg (27.0-33.0); MCV 91 fL (80-95); MPV 9.4 fL (8.0-11.0); Platelet Count 136 10^3/uL (130-400); RBC 2.55 10^6/uL (4.36-5.78); RDW 13.3 % (11.8-14.1); RDW-SD 43.6 fL; WBC 4.92 10^3/uL (4.4-10.8)
[2022-02-25 06:50] LABS: BUN 7 mg/dL (7-18); Calcium 7.6 mg/dL (8.5-10.1); Chloride 109 mmol/L (98-107); Estimated GFR 78.49 (mL/min/1.73m2); Glucose 141 mg/dL (74-106); Potassium 3.8 mmol/L (3.5-5.1); Sodium 140 mmol/L (136-145)
[2022-02-25] MEDS: Finasteride 5 MG TAB PO (08:32)
[2022-02-25] MEDS: amLODIPine 10 MG TAB PO (08:32)
[2022-02-25] MEDS: Tamsulosin 0.4 MG CAPCR 0.8 MG PO (08:32)
--- NOTE | 2022-02-25 08:55 | PDOC.CMPRO ---
- If Service Date Differs Date of service: 02/25/22 Time of Service: 08:55 Care Management Progress Note S/O:Jerry was sitting up in a chair when CM met with him. He was preparing to go for a walk with PT. Jerry had his swain catheter removed this morning. He was reluctant to have this done because of fears of increased discomfort with movement getting to the BR or commode. Jerry continues to complain of pain, both abdominal and knee pain, when ambulating. He only tolerated one session with PT yesterday, refusing the afternoon session due to pain and fatigue. Clinically Jerry is slowly improving however his H&H has been slowly dropping and was 7.7 and 23.3 this morning. Jerry's T-max in the past 24 hours was 37.8 and his vital signs are stable. He is tolerating a clear liquid diet and and passing some gas. He still has not had a bowel movement. A:Jerry is a 76 year old man admitted with a large bowel stricture P:Anticipate Jerry will discharge home, possibly with new home health services, when medically cleared by provider. He will follow up with his PCP and surgery and transport with family. CM will support Jerry and assess for discharge concerns.
[2022-02-25] MEDS: Normal Saline Flush 10 ML SYR IVP (10:57)
[2022-02-25] MEDS: Pantoprazole 40 MG VIAL IVP (10:58)
--- NOTE | 2022-02-25 14:04 | W.PM.PROGNOT ---
Date of Service Date of service: 02/25/22 Time of Service: 14:04 Assessment and Plan Assessment and plan (1) Colon stricture: Status: Resolved Assessment and plan: He is doing well after laparotomy and lysis of adhesions with transverse colectomy. I think it would be fine to try some Dulcolax and milk of magnesia today. I will shut off his supplemental IV fluids. His labs are certainly reassuring with regards to infection, although his hemoglobin does continue to fall. He has no evidence of gastrointestinal bleeding, his vital signs are fine, and he is otherwise asymptomatic with regards to his anemia, we will hold off on transfusion for today. Subjective Subjective Interval history since last seen: He feels a little better today. He still has pain when getting up from the bed, but has been sitting in the chair for most of the day and has done well English catheter removed. He has been consuming clears, with an occasional pickup or so, but he denies any nausea. He does not have much appetite. He still passing a little bit of flatus, but not much relative to yesterday. He has had no bowel movement yet. Exam GI Inspection: distended (Very mild distention relative to yesterday) Palpation: soft, no guarding and nontender Percussion: dullness to percussion Auscultation: hypoactive bowel sounds Objective Last Vital Signs Temp 97.3 F L 02/25/22 11:46 Pulse 72 02/25/22 11:46 Resp 16 02/25/22 11:46 BP 134/77 02/25/22 11:46 Pulse Ox 98 02/25/22 11:46 Laboratory Results - last 24 hr 02/25/22 02/25/22 06:20 06:20 WBC 4.92 RBC 2.55 L Hgb 7.7 L Hct 23.3 L MCV 91 MCH 30.2 MCHC 33.0 RDW 13.3 Plt Count 136 MPV 9.4 Sodium 140 Potassium 3.8 Chloride 109 H Carbon Dioxide 26.0 Anion Gap 5.0 BUN 7 Creatinine 1.0 Est GFR (CKD-EPI 2020) 78.49 Glucose 141 H Calcium 7.6 L PAWSS Have you Been Recently Intoxicated or Drunk Within the Last 30 days?: No Have you Ever Experienced Previous Episodes of Alcohol Withdrawal?: No Have you ever Experienced Withdrawal Seizures?: No Have you ever Experienced Delirium Tremens(DT)s?: No Have you ever undergone Alcohol Rehabilitation Treatment (i.e, inpt ot outpatient treatment programs)?: No Have you ever Experienced Blackouts?: No Have you ever Combined Alcohol with other Downers within the last 90 days?: No Have you ever Combined Alcohol with any other Substance of Abuse during the last 90 days?: No Positive Blood Alcohol level on Presentation? [PCS.BAL]: No Evidence of Increased Autonomic Activity (i.e. HR>120, tremor, sweating, agitation, nausea)?: No Result: 0 Time Spent with Patient Time Spent with Patient: 25-34 minutes Time was spent: preparing to see the patient(eg.review tests), indepentently interpreting results and counseling the patient
--- NOTE | 2022-02-25 14:16 | PT.INTREAT ---
Date of service: 02/25/22 Time of Service: 10:30 PT Notes Visit Reasons: Large Bowel Stricture Inpatient Physical Therapy Treatment Note [facility] Date: 02/25/2022 PRECAUTIONS: Activity as tolerated SUBJECTIVE: Freedom is pleasant and agreeable to participating in PT. He reports that he is feeling a little better today, although continues to have some abdominal and gas pain. He reports that he has been ambulating independently within his room. OBJECTIVE: PAIN: Patient c/o abdominal pain, which increases with transfers BED MOBILITY/TRANSFERS Stand-sit: I Sit-stand: I GAIT Assistive Device: FWW Weight bearing: Full Assist: I Distance: 200' Deviation: SOB STAIRS: Up/down 6x4 and 4x6 using B rails and a step-over pattern with supervision. ASSESSMENT: Patient tolerated session with increased abdominal discomfort with transfers. He demonstrates SOB with gait training, although was able to tolerate a progression in gait distance with FWW support without c/o pain. PLAN: Continue with gait training without AD support, if able to tolerate, for continued progression toward baseline level of function TREATMENT CODE/TIME: 25 minutes; [id number] x2 (10:30)
[2022-02-25] MEDS: Normal Saline 500 ML 30 ML IV (15:24)
[2022-02-25] MEDS: Losartan 50 MG TAB 100 MG PO (21:49)
[2022-02-26] MEDS: ACETAMINOPHEN 1,000 MG/100 ML BTL 400 MG IVPB ×2 (03:31→11:42)
[2022-02-26 03:35] VITALS: BP 160/80; PULSE 63; RESP 20; TEMP 36.2; O2SAT 98
[2022-02-26 06:20] LABS: HCT 23.6 % (40.0-50.0); HGB 7.6 g/dL (13.5-17.5); MCH 29.9 pg (27.0-33.0); MCHC 32.2 % (32.0-36.0); MCV 93 fL (80-95); MPV 9.2 fL (8.0-11.0); Platelet Count 133 10^3/uL (130-400); RBC 2.54 10^6/uL (4.36-5.78); RDW 13.3 % (11.8-14.1); RDW-SD 45.2 fL; WBC 3.48 10^3/uL (4.4-10.8)
[2022-02-26 06:38] LABS: Anion Gap 6.9 mmol/L (3-11); BUN 8 mg/dL (7-18); CO2 25.1 mmol/L (21.0-32.0); CREATININE 0.9 mg/dL (0.70-1.30); Calcium 7.9 mg/dL (8.5-10.1); Chloride 112 mmol/L (98-107); Estimated GFR 89.07 (mL/min/1.73m2); Glucose 93 mg/dL (74-106); Potassium 3.7 mmol/L (3.5-5.1); Sodium 144 mmol/L (136-145)
[2022-02-26 07:35] VITALS: BP 135/64; PULSE 59; RESP 16; TEMP 37.7; O2SAT 97
--- NOTE | 2022-02-26 09:24 | W.PM.PROGNOT ---
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 He is hemodynamically stable. Some degree of postoperative ileus seems to be resolving nicely. There is no obvious wound infection but scant, non-purulent discharge is noted from the midline abdominal incision which may represent nothing but it is noted. Overall plan: Regular diet Hep-Lock all IV fluids Possible discharge home tomorrow Subjective Subjective Interval history since last seen: No issues overnight. No nausea. He has been tolerating clear liquids. He has been having some bowel movements. Passing gas. Pain is controlled. Good urine output. Exam Narrative Exam Narrative: General: Nontoxic, comfortable and interactive Neuro: Alert and oriented x3 Psych: Appropriate mood and affect, appropriate and good insight and understanding Abdomen: Soft, mildly distended, no significant tenderness. I removed his midline dressing. There is scabbing on the midline incision that is oozing a small amount of serosanguineous fluid. No erythema. New are otherwise intact. Objective Last Vital Signs Temp 99.9 F H 02/26/22 07:35 Pulse 59 L 02/26/22 07:35 Resp 16 02/26/22 07:35 BP 135/64 02/26/22 07:35 Pulse Ox 97 02/26/22 07:35 Laboratory Results - last 24 hr 02/26/22 02/26/22 06:12 06:12 WBC 3.48 L RBC 2.54 L Hgb 7.6 L Hct 23.6 L MCV 93 MCH 29.9 MCHC 32.2 RDW 13.3 Plt Count 133 MPV 9.2 Sodium 144 Potassium 3.7 Chloride 112 H Carbon Dioxide 25.1 Anion Gap 6.9 BUN 8 Creatinine 0.9 Est GFR (CKD-EPI 2020) 89.07 Glucose 93 Calcium 7.9 L PAWSS Have you Been Recently Intoxicated or Drunk Within the Last 30 days?: No Have you Ever Experienced Previous Episodes of Alcohol Withdrawal?: No Have you ever Experienced Withdrawal Seizures?: No Have you ever Experienced Delirium Tremens(DT)s?: No Have you ever undergone Alcohol Rehabilitation Treatment (i.e, inpt ot outpatient treatment programs)?: No Have you ever Experienced Blackouts?: No Have you ever Combined Alcohol with other Downers within the last 90 days?: No Have you ever Combined Alcohol with any other Substance of Abuse during the last 90 days?: No Positive Blood Alcohol level on Presentation? [PCS.BAL]: No Evidence of Increased Autonomic Activity (i.e. HR>120, tremor, sweating, agitation, nausea)?: No Result: 0 Time Spent with Patient Time Spent with Patient: <25 minutes Time was spent: referring, communicating with other health home care music therapist, indepentently interpreting results and counseling the patient
[2022-02-26] MEDS: Finasteride 5 MG TAB PO (09:40)
[2022-02-26] MEDS: amLODIPine 10 MG TAB PO (09:41)
[2022-02-26] MEDS: Tamsulosin 0.4 MG CAPCR 0.8 MG PO (09:41)
[2022-02-26] MEDS: Pantoprazole 40 MG VIAL IVP (09:41)
[2022-02-26] MEDS: Normal Saline 500 ML 30 ML IV (09:42)
--- NOTE | 2022-02-26 10:19 | PT.INTREAT ---
Date of service: 02/26/22 Time of Service: 09:50 PT Notes Visit Reasons: Large Bowel Stricture Inpatient Physical Therapy Treatment Note [facility] Date: 02/26/2022 PRECAUTIONS: Activity as tolerated SUBJECTIVE: Freedom is pleasant and agreeable to participating in PT. He reports that the doctor is allowing him to eat solid food for lunch so will see how it goes. Really wants to go home. Continues to have abdominal pain with coughing, twisting to wipe himself as well as with blowing his nose. OBJECTIVE: PAIN: Patient c/o abdominal pain, which increases with transfers BED MOBILITY/TRANSFERS Stand-sit: I Sit-stand: I GAIT Assistive Device: None Weight bearing: Full Assist: I Distance: 200' Deviation: SOB STAIRS: Up/down 6x4 and 4x6 using rails and a step-over pattern with supervision. ASSESSMENT: Patient tolerated session with increased abdominal discomfort with transfers. He had no SOB with gait training, however did rest after completing the stairs. PLAN: Continue with gait training without AD support, if able to tolerate, for continued progression toward baseline level of function TREATMENT CODE/TIME: 25 minutes; [id number] x2 (9:50) Kavita Deshpande, MPT
[2022-02-26 15:27] VITALS: BP 150/61; PULSE 64; RESP 18; TEMP 36.9; O2SAT 99
[2022-02-26] MEDS: Normal Saline Flush 10 ML SYR IVP (19:56)
[2022-02-26] MEDS: Losartan 50 MG TAB 100 MG PO (21:35)
[2022-02-26 21:47] VITALS: BP 161/71; PULSE 69; RESP 18; TEMP 36.9; O2SAT 95
[2022-02-26] MEDS: Acetaminophen 325 MG TAB 650 MG PO (23:44)
[2022-02-27 05:51] LABS: HCT 23.8 % (40.0-50.0); HGB 7.8 g/dL (13.5-17.5); MCH 30.2 pg (27.0-33.0); MCHC 32.8 % (32.0-36.0); MCV 92 fL (80-95); MPV 9.1 fL (8.0-11.0); Platelet Count 154 10^3/uL (130-400); RBC 2.58 10^6/uL (4.36-5.78); RDW 13.6 % (11.8-14.1); RDW-SD 45.4 fL; WBC 3.87 10^3/uL (4.4-10.8)
[2022-02-27 05:53] VITALS: BP 164/69; PULSE 73; RESP 16; TEMP 36.5; O2SAT 98
[2022-02-27 06:06] LABS: Anion Gap 7.9 mmol/L (3-11); BUN 10 mg/dL (7-18); CO2 26.1 mmol/L (21.0-32.0); CREATININE 1.1 mg/dL (0.70-1.30); Chloride 112 mmol/L (98-107); Estimated GFR 70.01 (mL/min/1.73m2); Glucose 106 mg/dL (74-106); Potassium 3.4 mmol/L (3.5-5.1); Sodium 146 mmol/L (136-145)
[2022-02-27 07:40] VITALS: BP 177/70; PULSE 59; RESP 16; TEMP 36.7; O2SAT 99
[2022-02-27] MEDS: Acetaminophen 325 MG TAB 650 MG PO (08:07)
[2022-02-27] MEDS: amLODIPine 10 MG TAB PO (08:07)
[2022-02-27] MEDS: Finasteride 5 MG TAB PO (08:07)
[2022-02-27] MEDS: Normal Saline Flush 10 ML SYR IVP (08:07)
[2022-02-27] MEDS: Tamsulosin 0.4 MG CAPCR 0.8 MG PO (08:07)
[2022-02-27] MEDS: Pantoprazole 40 MG VIAL IVP (08:07)
--- NOTE | 2022-02-27 09:45 | PT.INTREAT ---
PT Notes Visit Reasons: Large Bowel Stricture Inpatient Physical Therapy Treatment Note [facility] Date: 02/27/22 SUBJECTIVE: I am hoping to go home today. Less pain with mvmt and no pain with blowing his nose. Eating solid food without any problems and my bowel mvmts are back their normal. OBJECTIVE: [] PAIN: in abdominal region. BED MOBILITY/TRANSFERS Rolling L/R:I Supine-sit: I Sit-supine: I Sit-stand: I Stand-sit: I Bed-Chair: I Chair-bed:I GAIT Assistive Device: none Weight bearing: full Assist:S Distance: 400'+ STAIRS:ascend/descend 4x6 steps and 6x4 steps with no hand rail, step over gait. ASSESSMENT: tolerated session well. No LOB or SOB noted during session. Appears to be back to his baseline, ambulating without an AD. No resting required during gait or stair negotiation. Independent and safe with all transfers. PLAN: possible d/c to home with later today. TREATMENT CODE/TIME: 23 min [id number]
--- NOTE | 2022-02-27 10:20 | PGE_ITS ---
Date of Service Date of service: 02/27/22 Time of Service: 11:24 Assessment and Plan Assessment and plan (1) Colon stricture: Status: Resolved Assessment and plan: 76 yo man POD 6 from ex-lap, SBR, colon resection. HD stable. Good bowel function. Hydrating with oral intake only ~48 hours. Ready for DC home. Subjective Subjective Interval history since last seen: HGB stable. No complaints. Having BMs and passing gas. Pain controlled with Tylenol only. He wants to go home. Exam Narrative Exam Narrative: Gen: Nontoxic and comfortable. Neuro: AxOx3 Psych: Good mood and affect and good insight. Abdomen: Soft, no distention, grossly nontender. The incision is dry, intact. No erythema. [place] intact. Objective Last Vital Signs Temp 98.1 F 02/27/22 07:40 Pulse 59 L 02/27/22 07:40 Resp 16 02/27/22 07:40 BP 177/70 H 02/27/22 07:40 Pulse Ox 99 02/27/22 07:40 Laboratory Results - last 24 hr 02/27/22 02/27/22 05:24 05:24 WBC 3.87 L RBC 2.58 L Hgb 7.8 L Hct 23.8 L MCV 92 MCH 30.2 MCHC 32.8 RDW 13.6 Plt Count 154 MPV 9.1 Sodium 146 H Potassium 3.4 L Chloride 112 H Carbon Dioxide 26.1 Anion Gap 7.9 BUN 10 Creatinine 1.1 Est GFR (CKD-EPI 2020) 70.01 Glucose 106 Calcium 8.0 L PAWSS Have you Been Recently Intoxicated or Drunk Within the Last 30 days?: No Have you Ever Experienced Previous Episodes of Alcohol Withdrawal?: No Have you ever Experienced Withdrawal Seizures?: No Have you ever Experienced Delirium Tremens(DT)s?: No Have you ever undergone Alcohol Rehabilitation Treatment (i.e, inpt ot outpatient treatment programs)?: No Have you ever Experienced Blackouts?: No Have you ever Combined Alcohol with other Downers within the last 90 days?: No Have you ever Combined Alcohol with any other Substance of Abuse during the last 90 days?: No Positive Blood Alcohol level on Presentation? [PCS.BAL]: No Evidence of Increased Autonomic Activity (i.e. HR>120, tremor, sweating, agitation, nausea)?: No Result: 0 Time Spent with Patient Time Spent with Patient: <25 minutes Time was spent: referring, communicating with other health hemodialysis patient care specialist, indepentently interpreting results and counseling the patient
--- NOTE | 2022-02-28 09:26 | INDS_ITS ---
Date of service: 02/28/22 PT Notes Visit Reasons: Large Bowel Stricture Physical Therapy Inpatient Discharge Summary Date: 02/28/2022 Dates of Service: 02/23/2022 through 02/27/2022 This is a clinical summary of care provided for the duration of dates listed above. No charge was made in the completion of this documentation. Referring Doctor:? Wilmer Hernandez,? PT Orders: PT CONSULT: Limited ability.? S/P ex lap early post op mobility;? epidural in place Precautions: Fall. Standard. Activity as tolerated. Patient Profile/Admitting Diagnosis:? Freedom is a 76-year-old male patient with? hypertension,? epilepsy,? colon stricture S/P exploratory laparotomoy with extensive lysis of adhesions,? repair of seromuscular sigmoid tear,? small bowel resection, and transverse colectomy with colo-colo anastomosis on postoperative day 2. PMHX: All Active Problems?(Updated 02/18/22 @ 02:24 by Librado Malone DO) Colon stricture (Acute) Trigger finger, left index finger (Acute) S/P Release: 11/17/2021Lactose intolerance (Acute) Hypertension (Chronic) Hyperlipidemia (Acute) BPH NOS w ur obs/LUTS (Acute) Amblyopia (Acute) O.D. Basal cell carcinoma (Acute) Removed 09/06/21 Mitral valve regurgitation (Chronic) Hemorrhoids (Chronic) Epilepsy (Chronic 11/08/11) Aura 2006 Diverticulosis of colon without diverticulitis (Chronic) colonoscopy 2004 Congenital malrotation of intestine (Chronic) Anxiety (Chronic) obsessive thinking; sexual problems; possible depression Alcohol intake above recommended sensible limits (Chronic) Regular alcohol Medical History? 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 History of surgical procedure INTESTINES (02/07/1955) STOMACH? (02/07/1955) Trigger finger, left ring finger S/P trigger finger release DOS: 12/27/17 Social History/Home Situation: Equipment Owned/DME: Lives with in a private home with 3 steps to enter with rails on both sides.? 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 Independent with all aspects without an assistive device prior to hospitalization. Subjective: NT. See most recent [employer] notes. Objective: General Observation: NT. See most recent [employer] notes. Mental Status: NT. See most recent [employer] notes. Pain: NT. See most recent [employer] notes. Vital Signs: NT. See most recent [employer] notes. ROM: Right Upper Extremity: ? Shoulder Flexion WFL. Shoulder abduction WFL. Elbow flexion WFL. Wrist flexion WFL. Functional opening and closing of hand WFL. Left Upper Extremity:? Shoulder Flexion WFL. Shoulder abduction WFL. Elbow flexion WFL. Wrist flexion WFL. Functional opening and closing of hand WFL. Right Lower Extremity: Hip flexion lacks 50% of AROM due to pain. Hip abduction WFL. Knee flexion WFL. Ankle dorsiflexion WFL. Ankle plantarflexion WFL. Left Lower Extremity: Hip flexion 50% of AROM due to pain. Hip abduction WFL. Knee flexion WFL. Ankle dorsiflexion WFL. Ankle plantarflexion WFL. Strength: Right Upper Extremity: Shoulder flexors 4/5. Shoulder abductors 4/5. Elbow flexors 5/5. Elbow extensors 5/5. Telecommunications Engineer strong. Left Upper Extremity: Shoulder flexors 4/5. Shoulder abductors 4/5. Elbow flexors 5/5. Elbow extensors 5/5. Telecommunications Engineer strong. Right Lower Extremity: Hip flexors 2-/5. Hip abductors 2-/5. Knee flexors 4-/5. Knee extensors 4-/5. Ankle dorsiflexors 4/5. Ankle plantarflexors 4/5. Left Lower Extremity: Hip flexors 2-/5. Hip abductors 2-/5. Knee flexors 4-/5. Knee extensors 4-/5. Ankle dorsiflexors 4/5. Ankle plantarflexors 4/5. OBJECTIVE: ? PAIN: N/T. Please refer to most recent [employer] notes. ? BED MOBILITY/TRANSFERS? Rolling L/R: independent Supine-sit: independent? Sit-supine: independent ? Sit-stand: independent? Stand-sit: independent ? Bed-Chair: independent? Chair-bed: independent ? GAIT? Assistive Device: None? Weight bearing: Full Assist: supervision ? Distance: 400 feet? STAIRS:ascend/descend 4x6 steps and 6x4 steps with no hand rail, step over gait.? Balance: Static Sitting: Normal Dynamic Sitting: Good Static Standing: Fair Dynamic Standing: Fair Assessment: Patient has achieved all goals below with no use of an AD except for hallway ambulation which required supervision assist for safety. Goals: Goals X1 week 1. Supine-Sit independent MET 2. Sit-Supine independent MET 3. Sit-Stand independent MET 4. Stand-Sit independent with no AD MET 5. Bed-Chair independent with no AD MET 6. Chair-Bed independent with no AD MET 7. Independent gait on level surface with use of SPC for at least 300 feet without report of pain nor dyspnea MET 8. Independent stair negotiation while holding onto B rails for at least 3 steps without report of pain nor dyspnea NOT MET 9. Independent with home exercise program MET 10. Good static and dynamic standing balance/tolerance MET DISCHARGE RECOMMENDATIONS: [] ? Home with no services [] [X] ? Home with services.? Home when medically cleared by surgeon/hospitalist.? Recommend patient will benefit from home health PT services in order to progress mobility level using SPC, assess home safety, identify additional equipment needs, and establish a functional maintenance program that will increase ability of patient to remain at home. [] ? Home with outpatient PT [] [] ? SNF for continued rehabilitation [] [] ? [facility] [] [] ? SNF versus LTC based on ability to participate and progress [] TREATMENT CODE/TIME: NH Thank you for the opportunity to participate in the care of this patient. Adele Banuelos PT, DPT, CLT [facility] [place], [place]
== END 2022-02-27 12:15 | disposition home or self-care (01) | DRG 330 ==
LOC: ER 02-18 02:24 → MS 02-18 02:54
PROVIDERS: Admitting Provider Surgery; Emergency Provider Student in an Organized Health Care Education/Training Program; PCP Nurse Practitioner Family; Visit Provider Surgery
PROC: 0DJD8ZZ Inspection of Lower Intestinal Tract, Via Natural or Artificial Opening Endoscopic (ICD-10-PCS; CPT 45330; principal; 2022-02-21 11:30)
PROC: 0DJD8ZZ Inspection of Lower Intestinal Tract, Via Natural or Artificial Opening Endoscopic (ICD-10-PCS; CPT 45378; 2022-02-21 11:30)
DX: K56.50 Intestinal adhesions [bands], unspecified as to partial versus complete obstruction (principal); K91.71 Accidental puncture and laceration of a digestive system organ or structure during a digestive system procedure; Q43.3 Congenital malformations of intestinal fixation; I10 Essential (primary) hypertension; G40.309 Generalized idiopathic epilepsy and epileptic syndromes, not intractable, without status epilepticus; E78.5 Hyperlipidemia, unspecified; N40.1 Benign prostatic hyperplasia with lower urinary tract symptoms; I34.0 Nonrheumatic mitral (valve) insufficiency; H53.001 Unspecified amblyopia, right eye; E73.9 Lactose intolerance, unspecified; F41.9 Anxiety disorder, unspecified; K57.30 Diverticulosis of large intestine without perforation or abscess without bleeding; K64.8 Other hemorrhoids; M16.0 Bilateral primary osteoarthritis of hip; M17.12 Unilateral primary osteoarthritis, left knee; M54.30 Sciatica, unspecified side; R30.0 Dysuria
CPT/HCPCS: 45330; 44005; 44160; 44139; 44604; 36415; 80048; 80053; 85027; 86850; 86900; 86901; 87635; 96361; 96374; 96375; 97162; 97530; 99222; 99232; 99285; J1650; 74177; 81003; 81015; 82378; 83605; 83735; 85025; 85610; 85730; 88307; 88309; 88361; J0131; J0690; J1100; J1170; J1644; J2270; J2370; J2405; J2704; J3490

== ENCOUNTER → 2022-03-04 09:24 | Outpatient (BNVA) | payer MEDICARE, SELFPAY | PROVIDERS: PCP Nurse Practitioner Family; Referring Provider Nurse Practitioner Family; Visit Provider Surgery | DX: Z48.815 Encounter for surgical aftercare following surgery on the digestive system (principal); C18.9 Malignant neoplasm of colon, unspecified; K57.30 Diverticulosis of large intestine without perforation or abscess without bleeding; Q43.3 Congenital malformations of intestinal fixation; K56.699 Other intestinal obstruction unspecified as to partial versus complete obstruction | CPT/HCPCS: 36415 ==

== ENCOUNTER 2022-03-04 10:48 | Outpatient (REF) | payer MEDICARE, SELFPAY ==
[2022-03-04 12:05] LABS: Abs Immature Grans 0.03 10^3/uL (0.0-0.06); Absolute Basophil Count 0.03 10^3/uL (0.0-0.2); Absolute Eosinophil Count 0.24 10^3/uL (0.0-0.7); Absolute Lymphocyte Count 1.15 10^3/uL (1.2-3.4); Absolute Neutrophil Count 3.61 10^3/uL (1.2-6.7); Basophils % 0.5; Eosinophils % 4.4; HCT 27.9 % (40.0-50.0); HGB 9.3 g/dL (13.5-17.5); Immature Grans % 0.5; Lymphocytes % 21.1; MCH 31.6 pg (27.0-33.0); MCHC 33.3 % (32.0-36.0); MCV 95 fL (80-95); MPV 8.9 fL (8.0-11.0); Monocytes % 7.3; Neutrophils % 66.2; Platelet Count 327 10^3/uL (130-400); RBC 2.94 10^6/uL (4.36-5.78); RDW 13.8 % (11.8-14.1); RDW-SD 46.2 fL; WBC 5.46 10^3/uL (4.4-10.8)
[2022-03-04 12:11] LABS: PHENYTOIN (DILANTIN) 6.8 ug/mL (10.0-20.0)
[2022-03-04 12:12] LABS: Iron 29 ug/dL (65-175); Total Iron Binding Capacity 348 ug/dL (250-450); Transferrin Sat 8 % (20-55)
[2022-03-04 12:25] LABS: Ferritin 68 ng/mL (26-388)
[2022-03-07 08:54] LABS: CEA 1.6 ng/mL (See Note)
== END 2022-03-04 10:49 | disposition home or self-care (01) ==
LOC: LBN 10:48
PROVIDERS: PCP Nurse Practitioner Family; Visit Provider Surgery
DX: C18.9 Malignant neoplasm of colon, unspecified (principal); E78.2 Mixed hyperlipidemia; G40.309 Generalized idiopathic epilepsy and epileptic syndromes, not intractable, without status epilepticus; G40.909 Epilepsy, unspecified, not intractable, without status epilepticus; I10 Essential (primary) hypertension; I34.0 Nonrheumatic mitral (valve) insufficiency; K57.30 Diverticulosis of large intestine without perforation or abscess without bleeding; K64.9 Unspecified hemorrhoids; M54.31 Sciatica, right side; M54.32 Sciatica, left side; N40.1 Benign prostatic hyperplasia with lower urinary tract symptoms; Q43.3 Congenital malformations of intestinal fixation; Z72.89 Other problems related to lifestyle; C44.91 Basal cell carcinoma of skin, unspecified
CPT/HCPCS: 80185; 82378; 82728; 83540; 83550; 85025

== ENCOUNTER → 2022-03-11 10:52 | Outpatient (BNVA) | payer MEDICARE, SELFPAY | PROVIDERS: PCP Nurse Practitioner Family; Referring Provider Nurse Practitioner Family; Visit Provider Surgery | DX: Z48.815 Encounter for surgical aftercare following surgery on the digestive system (principal); C18.9 Malignant neoplasm of colon, unspecified; D50.9 Iron deficiency anemia, unspecified ==

== ENCOUNTER 2022-03-14 03:26 | Outpatient (CLI) | payer MEDICARE, SELFPAY ==
[2022-03-14 12:54] LABS: PHENYTOIN (DILANTIN) 11.4 ug/mL (10.0-20.0)
== END 2022-03-14 03:27 | disposition home or self-care (01) ==
LOC: LOS 03:27
PROVIDERS: PCP Nurse Practitioner Family; Visit Provider Nurse Practitioner Family
DX: G40.309 Generalized idiopathic epilepsy and epileptic syndromes, not intractable, without status epilepticus (principal); Z79.899 Other long term (current) drug therapy; Z51.81 Encounter for therapeutic drug level monitoring
CPT/HCPCS: 36415; 80185

== ENCOUNTER → 2022-03-18 10:55 | Outpatient (BNVA) | payer MEDICARE, SELFPAY | PROVIDERS: PCP Nurse Practitioner Family; Referring Provider Nurse Practitioner Family; Visit Provider Surgery | DX: Z48.815 Encounter for surgical aftercare following surgery on the digestive system (principal); C18.9 Malignant neoplasm of colon, unspecified; D50.9 Iron deficiency anemia, unspecified ==

== ENCOUNTER 2022-03-30 02:33 | Outpatient (CLI) | payer MEDICARE, SELFPAY ==
[2022-03-30 11:49] LABS: Abs Immature Grans 0.02 10^3/uL (0.0-0.06); Absolute Basophil Count 0.03 10^3/uL (0.0-0.2); Absolute Eosinophil Count 0.17 10^3/uL (0.0-0.7); Absolute Lymphocyte Count 2.06 10^3/uL (1.2-3.4); Absolute Monocyte Count 0.47 10^3/uL (0.1-0.8); Basophils % 0.5; Eosinophils % 2.9; HCT 32.9 % (40.0-50.0); HGB 10.3 g/dL (13.5-17.5); Immature Grans % 0.3; Lymphocytes % 34.6; MCH 27.9 pg (27.0-33.0); MCHC 31.3 % (32.0-36.0); MCV 89 fL (80-95); MPV 8.8 fL (8.0-11.0); Monocytes % 7.9; Neutrophils % 53.8; Platelet Count 176 10^3/uL (130-400); RBC 3.69 10^6/uL (4.36-5.78); RDW 13.4 % (11.8-14.1); RDW-SD 44.1 fL; WBC 5.95 10^3/uL (4.4-10.8)
[2022-03-30 12:23] LABS: Anion Gap 8.3 mmol/L (3-11); BUN 22 mg/dL (7-18); CO2 26.7 mmol/L (21.0-32.0); Calcium 8.5 mg/dL (8.5-10.1); Chloride 106 mmol/L (98-107); Ferritin 24 ng/mL (26-388); Glucose 98 mg/dL (74-106); Potassium 3.8 mmol/L (3.5-5.1); Sodium 141 mmol/L (136-145)
[2022-03-30 12:24] LABS: Iron 44 ug/dL (65-175); Total Iron Binding Capacity 409 ug/dL (250-450); Transferrin Sat 11 % (20-55)
== END 2022-03-30 02:34 | disposition home or self-care (01) ==
LOC: LBO 02:33
PROVIDERS: Student in an Organized Health Care Education/Training Program; PCP Nurse Practitioner Family; Visit Provider Surgery
DX: D50.9 Iron deficiency anemia, unspecified (principal); C18.9 Malignant neoplasm of colon, unspecified; I10 Essential (primary) hypertension
CPT/HCPCS: 36415; 80048; 85027; 82728; 83540; 83550; 85025

== ENCOUNTER → 2022-03-31 11:26 | Outpatient (BNVA) | payer MEDICARE, SELFPAY | PROVIDERS: PCP Nurse Practitioner Family; Referring Provider Nurse Practitioner Family; Visit Provider Surgery | DX: D50.9 Iron deficiency anemia, unspecified (principal); C18.9 Malignant neoplasm of colon, unspecified; K57.30 Diverticulosis of large intestine without perforation or abscess without bleeding; Q43.3 Congenital malformations of intestinal fixation; K64.9 Unspecified hemorrhoids ==

== ENCOUNTER 2022-05-02 02:39 | Outpatient (CLI) | payer MEDICARE, SELFPAY ==
[2022-05-02 10:27] LABS: HCT 37.8 % (40.0-50.0); HGB 12.4 g/dL (13.5-17.5); MCH 29.5 pg (27.0-33.0); MCHC 32.8 % (32.0-36.0); MCV 90 fL (80-95); MPV 8.8 fL (8.0-11.0); Platelet Count 144 10^3/uL (130-400); RBC 4.21 10^6/uL (4.36-5.78); RDW 17.2 % (11.8-14.1); RDW-SD 56.4 fL; WBC 8.09 10^3/uL (4.4-10.8)
[2022-05-02 11:09] LABS: Ferritin 34 ng/mL (26-388)
[2022-05-02 14:45] LABS: Iron 178 ug/dL (65-175); Total Iron Binding Capacity 365 ug/dL (250-450); Transferrin Sat 49 % (20-55)
== END 2022-05-02 02:40 | disposition home or self-care (01) ==
LOC: LBO 02:39
PROVIDERS: PCP Nurse Practitioner Family; Visit Provider Surgery
DX: C18.9 Malignant neoplasm of colon, unspecified (principal); D50.9 Iron deficiency anemia, unspecified; F41.9 Anxiety disorder, unspecified; I10 Essential (primary) hypertension; K57.30 Diverticulosis of large intestine without perforation or abscess without bleeding
CPT/HCPCS: 36415; 85027; 82728; 83540; 83550; 85014; 85018

== ENCOUNTER 2022-07-01 01:38 | Outpatient (CLI) | payer MEDICARE, SELFPAY ==
[2022-07-01 11:37] LABS: Abs Immature Grans 0.02 10^3/uL (0.0-0.06); Absolute Basophil Count 0.01 10^3/uL (0.0-0.2); Absolute Eosinophil Count 0.08 10^3/uL (0.0-0.7); Absolute Lymphocyte Count 1.78 10^3/uL (1.2-3.4); Absolute Monocyte Count 0.54 10^3/uL (0.1-0.8); Basophils % 0.2; Eosinophils % 1.3; HCT 38.7 % (40.0-50.0); Immature Grans % 0.3; MCH 30.4 pg (27.0-33.0); MCHC 33.6 % (32.0-36.0); MCV 90 fL (80-95); MPV 8.8 fL (8.0-11.0); Monocytes % 8.8; Neutrophils % 60.4; Platelet Count 142 10^3/uL (130-400); RBC 4.28 10^6/uL (4.36-5.78); RDW 17.2 % (11.8-14.1); RDW-SD 57.9 fL; WBC 6.13 10^3/uL (4.4-10.8)
[2022-07-01 12:01] LABS: ALT 57 U/L (16-63); AST 33 U/L (15-37); Albumin 3.6 g/dL (3.4-5.0); Alkaline Phosphatase 60 U/L (46-116); Anion Gap 9.2 mmol/L (3-11); BUN 25 mg/dL (7-18); Bilirubin, Total 0.3 mg/dL (0.2-1.0); CO2 24.8 mmol/L (21.0-32.0); CREATININE 1.2 mg/dL (0.70-1.30); Calcium 8.5 mg/dL (8.5-10.1); Chloride 109 mmol/L (98-107); Estimated GFR 62.67 (mL/min/1.73m2); Glucose 91 mg/dL (74-106); Potassium 3.8 mmol/L (3.5-5.1); Sodium 143 mmol/L (136-145); Total Protein 7.2 g/dL (6.4-8.2)
== END 2022-07-01 01:39 | disposition home or self-care (01) ==
LOC: LBO 01:42
PROVIDERS: PCP Nurse Practitioner Family; Visit Provider Internal Medicine Hematology & Oncology
DX: C18.4 Malignant neoplasm of transverse colon (principal)
CPT/HCPCS: 36415; 80053; 80185; 85025

== ENCOUNTER → 2022-07-25 14:41 | Outpatient (BNVA) | payer MEDICARE, SELFPAY | PROVIDERS: PCP Nurse Practitioner Family; Visit Provider Nurse Practitioner Gerontology | DX: R33.8 Other retention of urine (principal); N40.1 Benign prostatic hyperplasia with lower urinary tract symptoms | CPT/HCPCS: 51798; 99214 ==

== ENCOUNTER 2022-07-26 03:18 | Outpatient (CLI) | payer MEDICARE, SELFPAY ==
[2022-07-26 09:39] LABS: Abs Immature Grans 0.01 10^3/uL (0.0-0.06); Absolute Basophil Count 0.02 10^3/uL (0.0-0.2); Absolute Eosinophil Count 0.15 10^3/uL (0.0-0.7); Absolute Monocyte Count 0.35 10^3/uL (0.1-0.8); Absolute Neutrophil Count 1.81 10^3/uL (1.2-6.7); Basophils % 0.4; Eosinophils % 3.3; HCT 38.5 % (40.0-50.0); HGB 13.3 g/dL (13.5-17.5); Immature Grans % 0.2; Lymphocytes % 48.5; MCHC 34.5 % (32.0-36.0); MCV 93 fL (80-95); MPV 8.4 fL (8.0-11.0); Monocytes % 7.7; Neutrophils % 39.9; Platelet Count 138 10^3/uL (130-400); RBC 4.15 10^6/uL (4.36-5.78); RDW 15.9 % (11.8-14.1); RDW-SD 49.5 fL; WBC 4.54 10^3/uL (4.4-10.8)
[2022-07-26 09:55] LABS: ALT 35 U/L (16-63); AST 25 U/L (15-37); Albumin 3.5 g/dL (3.4-5.0); Alkaline Phosphatase 57 U/L (46-116); Anion Gap 12.3 mmol/L (3-11); BUN 24 mg/dL (7-18); Bilirubin, Total 0.3 mg/dL (0.2-1.0); CO2 21.7 mmol/L (21.0-32.0); CREATININE 1.3 mg/dL (0.70-1.30); Calcium 8.4 mg/dL (8.5-10.1); Chloride 110 mmol/L (98-107); Estimated GFR 56.93 (mL/min/1.73m2); Glucose 142 mg/dL (74-106); Potassium 3.8 mmol/L (3.5-5.1); Sodium 144 mmol/L (136-145); Total Protein 7.2 g/dL (6.4-8.2)
[2022-07-26 11:19] LABS: PHENYTOIN (DILANTIN) 11.5 ug/mL (10.0-20.0)
== END 2022-07-26 03:19 | disposition home or self-care (01) ==
LOC: LBO 03:18
PROVIDERS: PCP Nurse Practitioner Family; Visit Provider Internal Medicine Hematology & Oncology
DX: C18.4 Malignant neoplasm of transverse colon (principal); Z79.899 Other long term (current) drug therapy
CPT/HCPCS: 36415; 80053; 80186; 80185; 85025

== ENCOUNTER 2022-08-24 09:09 | Outpatient (CLI) | payer MEDICARE, SELFPAY ==
--- NOTE | 2022-08-24 | DI.MRI_ITS ---
Exam(s) MR LUMBAR SPINE WO EXAM: MR LUMBAR SPINE WO CLINICAL HISTORY: RADICULOPATHY LS SPINE, M54.16,LOW BACK PAIN,PERSIST WITH CONSERV TREATMENT. TECHNIQUE: Multiplanar multisequence MRI of the Lumbar spine was performed. COMPARISON: MR MR LUMBAR SPINE WO from 10/19/2020 CR XR KNEE LT 3V AP,LAT,ELAINE from 11/04/2021 FINDINGS: Bones: The last intervertebral disc space is designated the L5/S1 level for the numbering purpose of this examination. The vertebral body heights are well maintained. Alignment is satisfactory. The si gnal characteristics are unremarkable. Cord: The conus tip ends at the T12 level. It is of normal size and signal intensity. T12-L1: No disc herniations or bulges are present. L1-2: No disc herniations or bulges are present. L2-3: No disc herniations or bulges are present. L3-4: No disc herniations or bulges are present. L4-5: Disc height is maintained. Broad-based disc bulging and small endplate osteophytes. Facet de generative changes and ligamentous hypertrophy combine with the disc bulging to produce severe centra l canal stenosis as well as severe left and moderate right neural foraminal narrowing. Slight spondy lolisthesis. No significant change from prior. L5-S1: Disc height is maintained. Minimal disc bulging. Facet degenerative changes cause severe bi lateral neural foraminal narrowing. No significant central canal stenosis. Significant change fro m prior. Soft tissues: The visualized SI joints and sacrum are well maintained. The paraspinal soft tissues ar e unremarkable. IMPRESSION: There is central canal stenosis as well as bilateral neural foraminal narrowing at L4-5 secondary to combination of disc bulging and facet degenerative changes. Bilateral neural foraminal narrowing at L5-S1 secondary to facet joint encroachment. No new findings. DATA REPOSITORY:
== END 2022-08-24 09:29 ==
LOC: DI 09:09
PROVIDERS: PCP Nurse Practitioner Family; Visit Provider Pain Medicine Interventional Pain Medicine
DX: M47.27 Other spondylosis with radiculopathy, lumbosacral region (principal); M54.50 Low back pain, unspecified
CPT/HCPCS: 72148

== ENCOUNTER 2022-08-25 02:34 | Outpatient (CLI) | payer MEDICARE, SELFPAY ==
[2022-08-25 10:22] LABS: Abs Immature Grans 0.02 10^3/uL (0.0-0.06); Absolute Eosinophil Count 0.11 10^3/uL (0.0-0.7); Absolute Lymphocyte Count 2.15 10^3/uL (1.2-3.4); Absolute Monocyte Count 0.38 10^3/uL (0.1-0.8); Absolute Neutrophil Count 1.89 10^3/uL (1.2-6.7); Eosinophils % 2.4; HCT 39.2 % (40.0-50.0); HGB 13.2 g/dL (13.5-17.5); Immature Grans % 0.4; Lymphocytes % 47.3; MCH 33.7 pg (27.0-33.0); MCHC 33.7 % (32.0-36.0); MCV 100 fL (80-95); MPV 9.3 fL (8.0-11.0); Monocytes % 8.4; Neutrophils % 41.5; Platelet Count 137 10^3/uL (130-400); RBC 3.92 10^6/uL (4.36-5.78); RDW 16.7 % (11.8-14.1); RDW-SD 59.8 fL; WBC 4.55 10^3/uL (4.4-10.8)
[2022-08-25 10:39] LABS: ALT 44 U/L (16-63); AST 32 U/L (15-37); Albumin 3.5 g/dL (3.4-5.0); Alkaline Phosphatase 58 U/L (46-116); Anion Gap 12.4 mmol/L (3-11); BUN 28 mg/dL (7-18); Bilirubin, Total 0.3 mg/dL (0.2-1.0); CO2 22.6 mmol/L (21.0-32.0); CREATININE 1.1 mg/dL (0.70-1.30); Calcium 8.1 mg/dL (8.5-10.1); Chloride 107 mmol/L (98-107); Estimated GFR 69.57 (mL/min/1.73m2); Glucose 93 mg/dL (74-106); Potassium 4.1 mmol/L (3.5-5.1); Sodium 142 mmol/L (136-145); Total Protein 7.1 g/dL (6.4-8.2)
[2022-08-25 10:41] LABS: PHENYTOIN (DILANTIN) 21.5 ug/mL (10.0-20.0)
[2022-08-25 20:48] LABS: CEA 4.7 ng/mL (See Note)
== END 2022-08-25 02:35 | disposition home or self-care (01) ==
LOC: LBO 02:34
PROVIDERS: PCP Nurse Practitioner Family; Visit Provider Internal Medicine Hematology & Oncology
DX: G40.909 Epilepsy, unspecified, not intractable, without status epilepticus (principal); C18.4 Malignant neoplasm of transverse colon; Z79.899 Other long term (current) drug therapy
CPT/HCPCS: 36415; 80053; 80185; 82378; 85025

== ENCOUNTER → 2022-09-08 10:50 | Outpatient (BNVA) | payer MEDICARE, SELFPAY | PROVIDERS: PCP Nurse Practitioner Family; Referring Provider Nurse Practitioner Family; Visit Provider Student in an Organized Health Care Education/Training Program | DX: M65.311 Trigger thumb, right thumb (principal) | CPT/HCPCS: 20550; J1030 ==

== ENCOUNTER 2022-09-13 03:51 | Outpatient (CLI) | payer MEDICARE, SELFPAY ==
[2022-09-13 09:38] LABS: Abs Immature Grans 0.01 10^3/uL (0.0-0.06); Absolute Lymphocyte Count 2.01 10^3/uL (1.2-3.4); Absolute Neutrophil Count 2.53 10^3/uL (1.2-6.7); HCT 37.4 % (40.0-50.0); HGB 12.9 g/dL (13.5-17.5); Immature Grans % 0.2; Lymphocytes % 39.8; MCH 35.1 pg (27.0-33.0); MCHC 34.5 % (32.0-36.0); MCV 102 fL (80-95); MPV 8.8 fL (8.0-11.0); Monocytes % 7.9; Neutrophils % 50.1; Platelet Count 125 10^3/uL (130-400); RBC 3.68 10^6/uL (4.36-5.78); RDW 17.2 % (11.8-14.1); RDW-SD 63.3 fL; WBC 5.05 10^3/uL (4.4-10.8)
[2022-09-13 10:01] LABS: ALT 30 U/L (16-63); AST 23 U/L (15-37); Albumin 3.6 g/dL (3.4-5.0); Alkaline Phosphatase 54 U/L (46-116); BUN 24 mg/dL (7-18); Bilirubin, Total 0.3 mg/dL (0.2-1.0); CREATININE 1.2 mg/dL (0.70-1.30); Calcium 8.2 mg/dL (8.5-10.1); Chloride 108 mmol/L (98-107); Estimated GFR 62.67 (mL/min/1.73m2); Glucose 121 mg/dL (74-106); Potassium 3.8 mmol/L (3.5-5.1); Sodium 141 mmol/L (136-145); Total Protein 6.9 g/dL (6.4-8.2)
[2022-09-13 10:10] LABS: PHENYTOIN (DILANTIN) 18.9 ug/mL (10.0-20.0)
== END 2022-09-13 03:52 | disposition home or self-care (01) ==
LOC: LBO 03:51
PROVIDERS: PCP Nurse Practitioner Family; Visit Provider Internal Medicine Hematology & Oncology
DX: C18.4 Malignant neoplasm of transverse colon; Z79.899 Other long term (current) drug therapy
CPT/HCPCS: 36415; 80053; 80185; 85025

== ENCOUNTER 2022-10-07 02:45 | Outpatient (CLI) | payer MEDICARE, SELFPAY ==
[2022-10-07 12:53] LABS: Abs Immature Grans 0.02 10^3/uL (0.0-0.06); Absolute Basophil Count 0.01 10^3/uL (0.0-0.2); Absolute Lymphocyte Count 2.21 10^3/uL (1.2-3.4); Absolute Monocyte Count 0.52 10^3/uL (0.1-0.8); Absolute Neutrophil Count 2.74 10^3/uL (1.2-6.7); Basophils % 0.2; Eosinophils % 1.8; HCT 38.8 % (40.0-50.0); HGB 13.7 g/dL (13.5-17.5); Immature Grans % 0.4; Lymphocytes % 39.5; MCH 36.1 pg (27.0-33.0); MCHC 35.3 % (32.0-36.0); MCV 102 fL (80-95); MPV 8.8 fL (8.0-11.0); Monocytes % 9.3; Neutrophils % 48.8; Platelet Count 124 10^3/uL (130-400); RBC 3.79 10^6/uL (4.36-5.78); RDW 16.4 % (11.8-14.1); RDW-SD 62.9 fL
[2022-10-07 13:09] LABS: ALT 45 U/L (16-63); AST 38 U/L (15-37); Albumin 3.8 g/dL (3.4-5.0); Alkaline Phosphatase 58 U/L (46-116); Anion Gap 11.7 mmol/L (3-11); BUN 23 mg/dL (7-18); Bilirubin, Total 0.4 mg/dL (0.2-1.0); CO2 21.3 mmol/L (21.0-32.0); CREATININE 1.3 mg/dL (0.70-1.30); Calcium 8.2 mg/dL (8.5-10.1); Chloride 105 mmol/L (98-107); Estimated GFR 56.93 (mL/min/1.73m2); Glucose 127 mg/dL (74-106); Potassium 3.8 mmol/L (3.5-5.1); Sodium 138 mmol/L (136-145); Total Protein 7.3 g/dL (6.4-8.2)
[2022-10-07 13:22] LABS: PHENYTOIN (DILANTIN) 22.1 ug/mL (10.0-20.0)
== END 2022-10-07 02:46 | disposition home or self-care (01) ==
LOC: LBO 02:45
PROVIDERS: PCP Nurse Practitioner Family; Visit Provider Internal Medicine Hematology & Oncology
DX: C18.4 Malignant neoplasm of transverse colon (principal); Z79.899 Other long term (current) drug therapy
CPT/HCPCS: 36415; 80053; 80185; 85025

== ENCOUNTER 2022-10-28 01:56 | Outpatient (CLI) | payer MEDICARE, SELFPAY ==
[2022-10-28 10:44] LABS: Abs Immature Grans 0.01 10^3/uL (0.0-0.06); Absolute Basophil Count 0.02 10^3/uL (0.0-0.2); Absolute Eosinophil Count 0.08 10^3/uL (0.0-0.7); Absolute Lymphocyte Count 2.04 10^3/uL (1.2-3.4); Absolute Monocyte Count 0.35 10^3/uL (0.1-0.8); Absolute Neutrophil Count 2.35 10^3/uL (1.2-6.7); Basophils % 0.4; Eosinophils % 1.6; HCT 39.5 % (40.0-50.0); HGB 13.3 g/dL (13.5-17.5); Immature Grans % 0.2; Lymphocytes % 42.1; MCH 34.9 pg (27.0-33.0); MCHC 33.7 % (32.0-36.0); MCV 104 fL (80-95); MPV 8.4 fL (8.0-11.0); Monocytes % 7.2; Neutrophils % 48.5; Platelet Count 212 10^3/uL (130-400); RBC 3.81 10^6/uL (4.36-5.78); RDW 13.1 % (11.8-14.1); RDW-SD 50.7 fL; WBC 4.85 10^3/uL (4.4-10.8)
[2022-10-28 10:59] LABS: ALT 48 U/L (16-63); AST 41 U/L (15-37); Albumin 3.5 g/dL (3.4-5.0); Alkaline Phosphatase 60 U/L (46-116); Anion Gap 9.7 mmol/L (3-11); BUN 25 mg/dL (7-18); Bilirubin, Total 0.2 mg/dL (0.2-1.0); CO2 24.3 mmol/L (21.0-32.0); CREATININE 1.1 mg/dL (0.70-1.30); Chloride 104 mmol/L (98-107); Estimated GFR 69.57 (mL/min/1.73m2); Glucose 120 mg/dL (74-106); Sodium 138 mmol/L (136-145); Total Protein 7.5 g/dL (6.4-8.2)
[2022-10-28 12:21] LABS: PHENYTOIN (DILANTIN) 12.1 ug/mL (10.0-20.0)
== END 2022-10-28 01:57 | disposition home or self-care (01) ==
LOC: LBO 01:56
PROVIDERS: PCP Nurse Practitioner Family; Visit Provider Internal Medicine Hematology & Oncology
DX: C18.4 Malignant neoplasm of transverse colon (principal); Z79.899 Other long term (current) drug therapy
CPT/HCPCS: 36415; 80053; 80186; 80185; 85025

== ENCOUNTER → 2022-10-31 08:34 | Outpatient (BNVA) | payer MEDICARE, SELFPAY | PROVIDERS: PCP Nurse Practitioner Family; Referring Provider Nurse Practitioner Family; Visit Provider Student in an Organized Health Care Education/Training Program | DX: M65.332 Trigger finger, left middle finger (principal) | CPT/HCPCS: 20550; J1030 ==

== ENCOUNTER 2022-11-09 03:31 | Outpatient (CLI) | payer MEDICARE, SELFPAY ==
[2022-11-09 12:12] LABS: Abs Immature Grans 0.01 10^3/uL (0.0-0.06); Absolute Basophil Count 0.02 10^3/uL (0.0-0.2); Absolute Eosinophil Count 0.05 10^3/uL (0.0-0.7); Absolute Lymphocyte Count 2.02 10^3/uL (1.2-3.4); Absolute Monocyte Count 0.44 10^3/uL (0.1-0.8); Absolute Neutrophil Count 2.62 10^3/uL (1.2-6.7); Basophils % 0.4; HCT 38.5 % (40.0-50.0); HGB 13.4 g/dL (13.5-17.5); Immature Grans % 0.2; Lymphocytes % 39.1; MCH 35.5 pg (27.0-33.0); MCHC 34.8 % (32.0-36.0); MCV 102 fL (80-95); Monocytes % 8.5; Neutrophils % 50.8; Platelet Count 117 10^3/uL (130-400); RBC 3.77 10^6/uL (4.36-5.78); RDW 13.2 % (11.8-14.1); RDW-SD 48.6 fL; WBC 5.16 10^3/uL (4.4-10.8)
[2022-11-09 12:34] LABS: ALT 42 U/L (16-63); AST 32 U/L (15-37); Albumin 3.7 g/dL (3.4-5.0); Alkaline Phosphatase 62 U/L (46-116); Anion Gap 11.1 mmol/L (3-11); BUN 21 mg/dL (7-18); Bilirubin, Total 0.3 mg/dL (0.2-1.0); CO2 21.9 mmol/L (21.0-32.0); CREATININE 1.1 mg/dL (0.70-1.30); Calcium 8.7 mg/dL (8.5-10.1); Chloride 105 mmol/L (98-107); Estimated GFR 69.57 (mL/min/1.73m2); Glucose 100 mg/dL (74-106); Potassium 3.8 mmol/L (3.5-5.1); Sodium 138 mmol/L (136-145); Total Protein 7.5 g/dL (6.4-8.2)
== END 2022-11-09 03:32 | disposition home or self-care (01) ==
PROVIDERS: PCP Nurse Practitioner Family; Visit Provider Internal Medicine Hematology & Oncology
DX: C18.4 Malignant neoplasm of transverse colon (principal)
CPT/HCPCS: 36415; 80053; 80185; 85025

== ENCOUNTER 2022-12-07 05:10 | Outpatient (CLI) | payer MEDICARE, SELFPAY ==
[2022-12-07 08:40] LABS: Abs Immature Grans 0.01 10^3/uL (0.0-0.06); Absolute Basophil Count 0.02 10^3/uL (0.0-0.2); Absolute Eosinophil Count 0.13 10^3/uL (0.0-0.7); Absolute Lymphocyte Count 2.55 10^3/uL (1.2-3.4); Absolute Monocyte Count 0.46 10^3/uL (0.1-0.8); Absolute Neutrophil Count 1.98 10^3/uL (1.2-6.7); Basophils % 0.4; Eosinophils % 2.5; HCT 40.8 % (40.0-50.0); Immature Grans % 0.2; Lymphocytes % 49.5; MCH 35.4 pg (27.0-33.0); MCHC 34.3 % (32.0-36.0); MCV 103 fL (80-95); MPV 8.7 fL (8.0-11.0); Monocytes % 8.9; Neutrophils % 38.5; Platelet Count 128 10^3/uL (130-400); RBC 3.96 10^6/uL (4.36-5.78); RDW 14.8 % (11.8-14.1); RDW-SD 56.3 fL; WBC 5.15 10^3/uL (4.4-10.8)
[2022-12-07 08:56] LABS: ALT 40 U/L (16-63); AST 28 U/L (15-37); Albumin 3.9 g/dL (3.4-5.0); Alkaline Phosphatase 52 U/L (46-116); Anion Gap 11.7 mmol/L (3-11); BUN 25 mg/dL (7-18); Bilirubin, Total 0.4 mg/dL (0.2-1.0); CO2 23.3 mmol/L (21.0-32.0); CREATININE 1.1 mg/dL (0.70-1.30); Calcium 8.9 mg/dL (8.5-10.1); Chloride 103 mmol/L (98-107); Estimated GFR 69.57 (mL/min/1.73m2); Glucose 98 mg/dL (74-106); Potassium 3.5 mmol/L (3.5-5.1); Sodium 138 mmol/L (136-145); Total Protein 7.5 g/dL (6.4-8.2)
[2022-12-09 00:09] LABS: Phenytoin, Free 1.3 mcg/mL (1.0 - 2.0); Phenytoin, Total 14.6 mcg/mL
== END 2022-12-07 05:11 | disposition home or self-care (01) ==
LOC: LBO 05:10
PROVIDERS: PCP Nurse Practitioner Family; Visit Provider Internal Medicine Hematology & Oncology
DX: C18.4 Malignant neoplasm of transverse colon (principal)
CPT/HCPCS: 36415; 80053; 80186; 80185; 85025

== ENCOUNTER 2023-01-06 01:36 | Outpatient (CLI) | payer MEDICARE, SELFPAY ==
[2023-01-06 10:12] LABS: Abs Immature Grans 0.02 10^3/uL (0.0-0.06); Absolute Basophil Count 0.01 10^3/uL (0.0-0.2); Absolute Lymphocyte Count 1.87 10^3/uL (1.2-3.4); Absolute Neutrophil Count 3.38 10^3/uL (1.2-6.7); Basophils % 0.2; Eosinophils % 1.7; HCT 39.2 % (40.0-50.0); HGB 13.5 g/dL (13.5-17.5); Immature Grans % 0.3; Lymphocytes % 32.4; MCH 35.8 pg (27.0-33.0); MCHC 34.4 % (32.0-36.0); MCV 104 fL (80-95); MPV 8.9 fL (8.0-11.0); Monocytes % 6.9; Neutrophils % 58.5; Platelet Count 137 10^3/uL (130-400); RBC 3.77 10^6/uL (4.36-5.78); RDW-SD 57.4 fL; WBC 5.78 10^3/uL (4.4-10.8)
[2023-01-06 10:27] LABS: ALT 40 U/L (16-63); AST 31 U/L (15-37); Albumin 3.6 g/dL (3.4-5.0); Alkaline Phosphatase 53 U/L (46-116); Anion Gap 9.4 mmol/L (3-11); BUN 22 mg/dL (7-18); Bilirubin, Total 0.3 mg/dL (0.2-1.0); CO2 24.6 mmol/L (21.0-32.0); CREATININE 1.2 mg/dL (0.70-1.30); Calcium 8.6 mg/dL (8.5-10.1); Chloride 106 mmol/L (98-107); Estimated GFR 62.67 (mL/min/1.73m2); Glucose 125 mg/dL (74-106); Potassium 3.8 mmol/L (3.5-5.1); Sodium 140 mmol/L (136-145); Total Protein 7.3 g/dL (6.4-8.2)
[2023-01-06 10:36] LABS: PHENYTOIN (DILANTIN) 13.3 ug/mL (10.0-20.0)
== END 2023-01-06 01:37 | disposition home or self-care (01) ==
LOC: LBO 01:36
PROVIDERS: PCP Nurse Practitioner Family; Visit Provider Internal Medicine Hematology & Oncology
DX: C18.4 Malignant neoplasm of transverse colon (principal)
CPT/HCPCS: 36415; 80053; 80186; 80185; 85025

== ENCOUNTER → 2023-01-23 14:52 | Outpatient (BNVA) | payer MEDICARE, SELFPAY | PROVIDERS: PCP Nurse Practitioner Family; Visit Provider Nurse Practitioner Gerontology | DX: R33.8 Other retention of urine (principal) | CPT/HCPCS: 51798; 99213 ==

== ENCOUNTER → 2023-02-02 11:28 | Outpatient (BNVA) | payer MEDICARE, SELFPAY | PROVIDERS: PCP Nurse Practitioner Family; Referring Provider Nurse Practitioner Family; Visit Provider Physical Therapy Assistant | DX: Z12.11 Encounter for screening for malignant neoplasm of colon (principal); Z85.038 Personal history of other malignant neoplasm of large intestine ==

== ENCOUNTER 2023-02-10 06:23 | Day surgery (SDC) | payer MEDICARE, SELFPAY ==
--- NOTE | 2023-02-09 20:55 | PDOC.DSDIS_ITS ---
Date of service: 02/10/23 Time of Service: 08:52 Discharge Plan Disposition Patient Disposition: Home Condition: Good Discharge Details Reason For Visit: Colonoscopy/post colon cancer surveillance Attending Provider: Jenn Willams Primary Care Provider: Abimael Diaz Home Meds and New Rx's Prescriptions: Continued finasteride 5 mg tablet 5 mg PO DAILY Qty: 90 3RF tamsulosin 0.4 mg capsule 0.8 mg PO DAILY Qty: 180 3RF Rx Instructions: Take one cap in AM and one in PM triamcinolone acetonide 0.1 % cream 1 applic topical BID Qty: 30 2RF multivitamin 1 EACH capsule 1 cap PO DAILY amlodipine 10 mg tablet 10 mg PO DAILY Qty: 90 4RF losartan 100 mg tablet 100 mg PO DAILY Qty: 90 3RF diphenoxylate-atropine [Lomotil] 2.5-0.025 mg tablet 1 tab PO BID PRN (Reason: diarrhea) Qty: 60 5RF hydrocortisone 2.5 % cream with perineal applicator 1 applic [place] BID-QID PRN (Reason: pain) Qty: 30 4RF trazodone 50 mg tablet 50 mg PO QHS PRN (Reason: sleep) Qty: 60 0RF phenytoin [Dilantin Infatabs] 50 mg tablet,chewable 50 mg PO .AM Qty: 90 4RF Hold Instructions: Changed by Provider Rx Instructions: Take with phenytoin 100 mg AM phenytoin sodium extended [Dilantin Extended] 100 mg capsule 100 mg PO BID Qty: 450 3RF Hold Instructions: Changed by Provider Rx Instructions: PER DR. MCGUIRE: 150mg AM 200mg PM Dilantin brand name only medically necessary acetaminophen 500 mg Tablet 1,000 mg PO TID Discontinued bisacodyl [Dulcolax (bisacodyl)] 5 mg tablet,delayed release (DR/EC) 5 mg PO ONCE Qty: 4 0RF Rx Instructions: Take per colonoscopy instructions provided by ordering providers office polyethylene glycol 3350 17 gram/dose powder 17 g PO ONCE Qty: 238 0RF Rx Instructions: Take per colonoscopy instructions provided by ordering providers office Discharge Instructions Additional Instructions: DSU Colonoscopy Post- Op Instructions Instructions for Everyone who is given Anesthesia: For your safety, please do the following for the next twenty-four (24) hours: *Do Not operate a motor vehicle (car, truck, motorcycle, etc.) *Do Not drink alcoholic beverages or use any recreational drugs for the first 24 hours or while taking pain medications. The medications in your body may have a reaction that can be dangerous. *Do Not make any important decisions or sign any important papers. Findings: Severe diverticulosis Colon polyp Follow up: repeat colonoscopy in 1 years time. Of course, you should continue to have a yearly physical exam including a rectal exam. If you should ever notice any pain or difficulty having a bowel movement, blood in the stool, unexplained weight loss, or change in your bowel habits, please contact your health provider 1. No lifting over 20 pounds or strenuous activity for the first 24 hours after your procedure. After 24 hours there are no restrictions on your activity but you may feel fatigued for a few days. 2. After you arrive home you may have a light meal and return to your normal diet as you can tolerate it without feeling sick to your stomach. 3. You may have a bloated, gaseous feeling in your belly (abdomen) after a colonoscopy. Passing gas and belching will help. Walking or lying down on your left side with your knees flexed may relieve the discomfort. Call the office at [phone] (Office) or [phone] (Hospital) right away if you notice any of the following: a.Vomiting of blood or ?coffee ground stools?. b.Rectal bleeding 1Tbsp, blood clots or continuous bleeding. c.Severe belly (abdominal) pain. d.A hard distended belly (abdomen) and an inability to pass gas. 4. Please don?t expect to have a normal BM (bowel movement) for 2-3 days after your procedure. 5. If there are questions regarding the findings of your procedure, please contact your doctor 6. If you are unable to contact your doctor with a problem, contact the hospital at [phone]. 7. Continue all your regular medications unless directed otherwise. I understand the above instructions and have no questions. Signature of Patient or Adult Escort Name of Responsible Adult Escort Signature of Nurse Date/Time Activity:: See above Diet:: See above Discharge Orders Discharge Orders: Discharge Order (Routine); Ordered 02/10/23 Ordered By: Jenn Willams DS: Diagnosis Discharge Diagnosis (1) Fe deficiency anemia: Status: Acute (2) H/O colon cancer, stage III: Status: Acute Asessment and Plan: The patient is seen and examined after their colonoscopy.? The patient has been able to pass gas.? They are not having abdominal pain.? They have been able to tolerate liquids and a snack.? They do not have any nausea or vomiting.? They are not having any chest pain or shortness of breath.??? They are not having any rectal bleeding. Their vital signs have been stable-see nursing notes. We discussed findings during their colonoscopy, and any biopsies that were done/polyps that were removed. The patient will be sent a letter with any biopsy results, and when to repeat the colonoscopy.-see discharge instructions. Patient was given explicit instructions to follow-up regarding colonoscopy-refer to discharge instructions.? We reviewed resumption of medications. Patient verbalized understanding and discharged in stable and satisfactory condition- See nursing notes. (3) Hypertension: Status: Chronic (4) Seizure disorder: Status: Chronic (5) Mitral valve regurgitation: Status: Chronic (6) Alcohol intake above recommended sensible limits: Status: Chronic (7) Anxiety: Status: Chronic (8) Adenomatous polyps: Status: Acute (9) Pancolonic diverticulosis: Status: Acute (10) BPH NOS w ur obs/LUTS: Status: Acute
--- NOTE | 2023-02-09 20:57 | W.COLOREPORT ---
Date of service: 02/10/23 Time of Service: 08:21 Colonoscopy Report Date of procedure: 02/10/23 Pre-op diagnosis general: Surveillance colonoscopy after colon cancer/status post transverse colon re Post-op diagnosis procedure note: other (Payan-diverticula/polyp at 60 cm/ external hemorrhoids without thrombosis/) Surgeon: Jenn Willams Anesthesia Type: General:No Airway Estimated blood loss (mL): 2 Pathology: other Complications: None Disposition: same day Prep: Miralax/Dulcolax Retraction Time: 12 mins Procedure Description: After informed consent was obtained the patient was taken to the procedure room and placed in a left decubitous position. Monitors were applied and a time out was done. The patients name, date of , procedure, allergies to medications and metal in their body was reviewed. The patient was then sedated. Once sedated and comfortable a rectal exam was done. External exam shows large external hemorrhoids without thrombosis. Internal exam revealed a normal sphincter tone and no palpable masses. The prostate enlarged symmetrically. The scope was then introduced and retrofelexed. Grade I internal hemorrhoids and tags were identified. The scope was then advanced to the cecum w/out difficulty. The TI and appendiceal orifice were identified. The prep was BBPS 2 in the right and left colon for a total of 6. Anastomosis is visualized. He still has ileocecal valve intact. The anastomosis is widely patent with no signs of stricturing or bleeding. There is no signs of recurrent tumor. The specimen was retrieved. No bleeding was noted. He does have severe multiple large diverticula that extend from the sigmoid colon all the way over to his cecal anastomosis. There is no signs of active bleeding or infection. There is a significant amount of inspissated stool.. The scope was then slowly retracted over 12minutes back into the rectum. I he has a 0.75 cm pedunculated polyp at 60 cm. This is removed with a cold snare. All specimen is retrieved and no bleeding is noted. the patient was woken up and taken back to Same day surgery in stable condition. The patient tolerated the procedure well and there were no immediate complications. Follow up: The patient should follow up in 1 years unless they develop changes in bowel habits or other new gastrointestinal complaints.
[2023-02-10 06:52] VITALS: BP 173/75; PULSE 61; RESP 18; TEMP 36.5; O2SAT 99
[2023-02-10] MEDS: Lactated Ringers 1,000 ML 80 ML IV (07:07)
--- NOTE | 2023-02-10 07:07 | W.ANESPRE ---
General Info Date of Service Date Performed: 02/10/23 Height: 5 ft 8 in Weight: 76.8 kg Body Mass Index (BMI): 25.7 Surgical Procedure: Operation Date: 02/10/23 07:35 Proposed Procedure Side Surgeon beata Willams, DO Meds Allergies and Home Medications Allergies Allergy/AdvReac Type Severity Reaction Status Date / Time camphor AdvReac Intermediate Nicolas Verified 02/10/23 06:46 lactose AdvReac Verified 02/10/23 06:46 Home Medication Medication Instructions Recorded multivitamin 1 cap PO DAILY 04/30/12 acetaminophen 500 mg tablet 1,000 mg PO TID 08/09/19 amlodipine 10 mg tablet 10 mg PO DAILY #90 tabs 03/18/22 losartan 100 mg tablet 100 mg PO DAILY #90 tabs 04/28/22 diphenoxylate-atropine 2.5 1 tab PO BID PRN diarrhea #60 tabs 11/11/22 mg-0.025 mg tablet (Lomotil) hydrocortisone 2.5 % topical cream 1 applic [place] BID-QID PRN pain #30 12/09/22 with perineal applicator grams triamcinolone acetonide 0.1 % 1 applic topical BID dermatitis 01/16/23 topical cream #30 grams finasteride 5 mg tablet 5 mg PO DAILY #90 tabs 01/23/23 tamsulosin 0.4 mg capsule 0.8 mg (2 x 0.4 mg) PO DAILY #180 01/23/23 caps trazodone 50 mg tablet 50 mg PO QHS PRN sleep #60 tabs 01/26/23 phenytoin 50 mg chewable tablet 50 mg PO .AM #90 tabs 02/08/23 (Dilantin Infatabs) phenytoin sodium extended 100 mg 100 mg PO BID #450 caps 02/08/23 capsule (Dilantin Extended) Current Visit Medications: Current Medications Generic Name Dose Route Start Last Admin Trade Name Freq PRN Reason Stop Dose Admin Hyoscyamine Sulfate 0.125 mg 02/10/23 07:17 Hyoscyamine 0.125 Mg Sl/Oral/Chew SL 03/12/23 07:16 DIRECTED PRN Ringer's Solution 1,000 mls @ 80 mls/hr 02/10/23 06:00 02/10/23 07:07 IV 01/05/24 23:59 80 mls/hr INFUSION ANN MARIE Administration IV Miscellaneous Supplies 1 each 02/10/23 06:00 Iv Access IV 02/10/23 23:59 DIRECTED ANN MARIE Ondansetron HCl 4 mg 02/10/23 07:17 Ondansetron 4 Mg/2 Ml Vial IVP 03/12/23 07:16 Q4H PRN PRN Nausea / Vomiting Sodium Chloride 0 ml 02/10/23 06:00 Normal Saline Flush 10 Ml Syr IV 02/10/23 23:59 PRN PRN Sodium Chloride 0 ml 02/10/23 06:00 Normal Saline 10 Ml Vial IJ 02/10/23 23:59 DIRECTED PRN Sterile Water 0 ml 02/10/23 06:00 Water,Injection,Sterile 10 Ml Vial IJ 02/10/23 23:59 DIRECTED PRN PFSH Active Problems Active Problems: Problem Status Onset Code Actinic keratosis L57.0 Trigger finger, left middle finger M65.332 Trigger thumb, right thumb M65.311 Ceruminosis H61.20 Fe deficiency anemia D50.9 H/O colon cancer, stage III Z85.038 Trigger finger, left index finger M65.322 Basal cell carcinoma C44.91 Hypertension I10 Seizure disorder G40.909 BPH NOS w ur obs/LUTS N40.1 Mitral valve regurgitation I34.0 Lactose intolerance E73.9 Hyperlipidemia E78.5 Hemorrhoids K64.9 Diverticulosis of colon without diverticulitis K57.30 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 Anxiety F41.9 Amblyopia H53.009 Alcohol intake above recommended sensible limits Z72.89 Medical History Medical History Cardiac murmur Pt. states he has been told he has a murmur that comes and goes for over 20years and has always been told not to worry about it. States if he had an ECHO it would have been in 1998. Colon stricture Tick bite Sciatica Osteoarthritis of both hips Osteoarthritis of left knee Depo-medrol injection: 11/04/2021; 11/19/19 Hematuria Dysuria Knee effusion Leg weakness, bilateral Intention tremor Epilepsy (11/08/11) Aura 200505/12/98@ 6am never has had another one since medically managed. Surgical History Surgical History History of surgical procedure Trigger finger, left ring finger S/P trigger finger release DOS: 12/27/17 STOMACH (02/07/1955) INTESTINES (02[birth year]07/1955) Tobacco Smoking/Tobacco Use Status: Never Passive smoking exposure: Yes Second hand exposure: Yes Alcohol Alcohol Intake: current Alcohol intake frequency: 0-2 drinks per day Alcohol type: beer and hard liquor Substance Use Substance use: Never Substance use type: does not use Vital Signs and Lab Results Vital Signs Most Recent Vital Signs in EMR: Most Recent Vital Signs Temp Pulse Resp BP Pulse Ox 36.5 C 61 18 173/75 H 99 02/10/23 06:52 02/10/23 06:52 02/10/23 06:52 02/10/23 06:52 02/10/23 06:52 Lab Results Blood Type / Crossmatch: No Data to Display Complete Blood Count: No Data to Display Complete Metabolic Panel: No Data to Display Liver Function Panel: No Data to Display Coagulation Panel: No Data to Display Cardiac Panel: No Data to Display Arterial Blood Gas: No Data to Display Venous Blood Gas: No Data to Display Pancreas Panel: No Data to Display Thyroid Panel: No Data to Display Infectious Disease: No Data to Display Blood Cultures: No Data to Display Toxicology Panel: No Data to Display Anesthesia Assessment and Plan Anesthesia History Personal History: No History of Anesthesia Complications Family History: No Family History of Anesthesia Complications Exercise Tolerance Exercise Tolerance: Metabolic Equivalents>4 Pertinent Negatives Pertinent Negatives: No Symptoms of GERD, No Major Cardiovascular Symptoms or Complaints and No Major Pulmonary Symptoms or Complaints Cardiac & Pulmonary Exam Cardiac Exam: Normal S1/S2 Heart Sounds Pulmonary Exam: Clear Bilateral Breath Sounds Implantable Cardiac Device Does patient have a Pacemaker or an ICD?: No Airway Exam Known Difficult Airway: No Mallampati Class: 2 Mouth Opening: Normal (> 3cm) Thyromental Distance: Greater than 3 cm Neck Range of Motion: Full ROM Neck Circumference: Normal Teeth Condition: Normal Dentition ASA Classification ASA Score: ASA 2 Emergency Case?: No NPO Status NPO Status: NPO Clears >2 hours, Solids >8 hours Anesthesia Plan Resuscitation Status: Full Code Anesthesia Technique: General Anesthesia Airway Planned: Natural Airway Monitors Used: Standard Monitors
[2023-02-10 07:12] VITALS: BMI 25.7
--- NOTE | 2023-02-10 07:42 | BOWEL_PTH ---
PATIENT: Freedom Deshpande LOC: [facility] U#:[id number] AGE/SX: 77/M ROOM: RE02/10/[address]: Jenn Willams : 1945 BED: DIS: 02/10/2023 SPEC #: [id number] RECD: 02/10/23 12:39 STATUS: CHARANJIT RE #: [id number] JONH: 02/10/23 07:[address]: Jenn Willams DEPT: Surgical Specimen RECD BY: Pat Braun ENTERED: 02/10/23 12:41 SP TYPE: Bowel OTHR DR: Abimael Diaz, JOSE ANTONIO Tissues: 1 - BIOPSY BOWEL Procedures: GROSS AND MICRO LEVEL 4 Comments: [id number]
[2023-02-10 08:06] VITALS: BP 105/60; PULSE 52; RESP 16; TEMP 36.4; O2SAT 95
--- NOTE | 2023-02-10 08:31 | W.ANESPOSTOP ---
Postoperative Evaluation Date, Time and Location Date Performed: 02/10/23 Time Performed: 08:15 Patient Location: Day Surgery Unit Vital Signs Most Recent Imported Vital Signs: Most Recent Vital Signs Temp Pulse Resp BP Pulse Ox 36.4 C L 52 L 16 105/60 95 02/10/23 08:06 02/10/23 08:06 02/10/23 08:06 02/10/23 08:06 02/10/23 08:06 Pain Score Most Recent Pain Score: Most Recent Pain Score Pain Level 0 02/10/23 08:06 Assessment Mental Status: Awake (Alert & Oriented to Patient Baseline) Airway and Respiratory Function: Patent airway with normal (patient baseline) respiratory exam Cardiovascular Function: Hemodynamically Stable Hydration Status: Adequately Hydrated Nausea & Vomiting: No Nausea or Vomiting Pain: Pt. Denies Any Pain Peripheral Nerve Block: Patient did not receive a nerve block
[2023-02-10 08:36] VITALS: BP 130/73; PULSE 52; RESP 16; TEMP 36.9; O2SAT 95
== END 2023-02-10 09:15 | disposition home or self-care (01) ==
LOC: SUR 06:23
PROVIDERS: PCP Nurse Practitioner Family; Visit Provider Surgery
PROC: 0DJD8ZZ Inspection of Lower Intestinal Tract, Via Natural or Artificial Opening Endoscopic (ICD-10-PCS; CPT 45378; principal; 2023-02-10 07:30)
DX: Z12.11 Encounter for screening for malignant neoplasm of colon (principal); D12.4 Benign neoplasm of descending colon; K64.5 Perianal venous thrombosis; K64.0 First degree hemorrhoids; Z85.038 Personal history of other malignant neoplasm of large intestine; I10 Essential (primary) hypertension
CPT/HCPCS: 45380; 88305; J2704

== ENCOUNTER → 2023-02-14 02:09 | Outpatient (CLI) | payer MEDICARE, SELFPAY ==
[2023-02-14 09:42] LABS: Abs Immature Grans 0.01 10^3/uL (0.0-0.06); Absolute Basophil Count 0.02 10^3/uL (0.0-0.2); Absolute Eosinophil Count 0.11 10^3/uL (0.0-0.7); Absolute Lymphocyte Count 1.66 10^3/uL (1.2-3.4); Absolute Monocyte Count 0.43 10^3/uL (0.1-0.8); Absolute Neutrophil Count 2.49 10^3/uL (1.2-6.7); Basophils % 0.4; Eosinophils % 2.3; HCT 38.9 % (40.0-50.0); HGB 13.6 g/dL (13.5-17.5); Immature Grans % 0.2; Lymphocytes % 35.2; MCH 35.6 pg (27.0-33.0); MCV 102 fL (80-95); MPV 9.5 fL (8.0-11.0); Monocytes % 9.1; Neutrophils % 52.8; Platelet Count 143 10^3/uL (130-400); RBC 3.82 10^6/uL (4.36-5.78); RDW 13.1 % (11.8-14.1); RDW-SD 48.7 fL; WBC 4.72 10^3/uL (4.4-10.8)
[2023-02-14 10:03] LABS: ALT 44 U/L (16-63); AST 28 U/L (15-37); Albumin 3.6 g/dL (3.4-5.0); Alkaline Phosphatase 53 U/L (46-116); Anion Gap 9.7 mmol/L (3-11); BUN 17 mg/dL (7-18); Bilirubin, Total 0.3 mg/dL (0.2-1.0); CO2 24.3 mmol/L (21.0-32.0); CREATININE 1.1 mg/dL (0.70-1.30); Calcium 8.3 mg/dL (8.5-10.1); Chloride 106 mmol/L (98-107); Estimated GFR 69.57 (mL/min/1.73m2); Glucose 99 mg/dL (74-106); Sodium 140 mmol/L (136-145); Total Protein 7.3 g/dL (6.4-8.2)
[2023-02-14] MEDS: Barium Sulfate 2% W/V-Creamy Vanilla Smoothie 450 ML BTL 900 ML PO (10:17)
[2023-02-14] MEDS: Normal Saline - Diluent 50 ML VIAL IJ (11:25)
[2023-02-14] MEDS: Omnipaque 350 MG/ML 500 ML BTL-Imaging package 100 ML IJ (11:26)
--- NOTE | 2023-02-14 11:45 | DI.CT_ITS ---
Exam(s) CT CHEST/ABD/PEL W EXAM: CT CHEST/ABD/PEL W CLINICAL HISTORY: H/O STAGE III COLON CA, S/P TRANSVERSE COLECTOMY/CHEMO, RESTAGING. TECHNIQUE: Imaging Protocol: Axial computed tomography images with coronal and sagittal reformatted images were created and reviewed CONTRAST MATERIAL: Intravenous: Omnipaque 350 Contrast volume:100 ml Oral: None COMPARISON: CT CT ABDOMEN PELVIS W from 02/17/2022 FINDINGS: CHEST: LUNGS: No infiltrates nor pleural effusions. There are no metastatic appearing lung nodules. No sig nificant focal findings in the trachea and mainstem bronchi.. MEDIASTINUM: There is no hilar nor mediastinal adenopathy. Visualized thyroid unremarkable. CARDIAC: Heart size is normal. There is no pericardial effusion.Caliber of the thoracic aorta is wit hin normal limits. OSSEOUS: No significant osseous lesions.. ABDOMEN: There is no ascites. LIVER: There are no focal hepatic lesions nor dilatation of intrahepatic ducts. GALLBLADDER/BILIARY: No obvious gallbladder pathology. CBD is not dilated. PANCREAS: No evidence of pancreatic mass nor dilatation of the pancreatic duct. SPLEEN: Spleen is not enlarged. There are no intrasplenic lesions. Splenic and portal veins are santamaria nt. ADRENALS: Previously described bilateral adrenal nodules remain stable and are probably incidental ad enomas. KIDNEYS: No calculi nor hydronephrosis. No solid renal masses. No cysts evident. ABDOMINAL AORTA: Abdominal aorta is not enlarged. LYMPH NODES: There is no retroperitoneal nor paraaortic adenopathy. ABDOMINAL WALL: No evidence of significant anterior abdominal wall nor inguinal hernia. 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 Slightly prominent jejunal loops a re noted in the right-side of the abdomen with maximum measurement 3.4 cm but there does not appear t o be significant bowel obstruction.. The cecum ileocecal valve are in the left side of the abdomen. There has been interval partial colectomy. The oral contrast has reached the distal rectum. There is some diverticular disease again noted in the remaining colon but no evidence of acute diverticulit is. There are no mesenteric masses. No ascites. PELVIS: LYMPH NODES: There is no intrapelvic nor inguinal adenopathy. GI: No evidence of appendicitis.No evidence of acute diverticulitis. URINARY BLADDER: Bladder diverticuli are again noted in the anterior aspect of the bladder. Moderate ly enlarged prostate gland REPRODUCTIVE: Prostate moderately enlarged. OSSEOUS: No significant osseous lesions. IMPRESSION: 1. Compared to the prior CT scan of 02/17/2022 there has been interval partial colectomy. 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 The oral contrast has reached th e rectum. There is no evidence of bowel obstruction. There is colonic diverticulosis without eviden ce of acute diverticulitis. 2. No evidence of metastatic disease in the chest, abdomen, and pelvis. 3. No osseous metastatic disease identified. 4. Continued stability of small bilateral hypodense adrenal nodules which are probably incidental jonny nomas. 5. Bladder diverticuli again noted. RADIATION DOSE DELIVERED: 1,694.76mGy.cm Total DLP DATA REPOSITORY: All CT scans at this facility are submitted to the National Radiology Data Registry (NRDR) Dose Index Registry (DIR) with the [employer] (ACR). RADIATION OPTIMIZATION: All CT scans at this facility use at least one of these dose optimization te chniques: automated exposure control; mA and/or kV adjustment per patient size (includes targeted exa ms where dose is matched to clinical indication); or iterative reconstruction.
[2023-02-14 17:53] LABS: Phenytoin (UVM) 9.7 ug/mL (10.0-20.0)
[2023-02-14 18:20] LABS: CEA 3.9 ng/mL (See Note)
== END ==
PROVIDERS: PCP Nurse Practitioner Family; Visit Provider Internal Medicine Hematology & Oncology
DX: K57.30 Diverticulosis of large intestine without perforation or abscess without bleeding; C18.9 Malignant neoplasm of colon, unspecified
CPT/HCPCS: 74177; 80053; 80185; 71260; 82378; 85025

== ENCOUNTER 2023-05-19 15:02 | Outpatient (CLI) | payer MEDICARE, SELFPAY ==
[2023-05-19 14:16] LABS: Absolute Basophil Count 0.01 10^3/uL (0.0-0.2); Absolute Eosinophil Count 0.07 10^3/uL (0.0-0.7); Absolute Lymphocyte Count 1.42 10^3/uL (1.2-3.4); Absolute Monocyte Count 0.42 10^3/uL (0.1-0.8); Absolute Neutrophil Count 2.66 10^3/uL (1.2-6.7); Basophils % 0.2; Eosinophils % 1.5; HCT 40.6 % (40.0-50.0); MCH 33.6 pg (27.0-33.0); MCHC 34.5 % (32.0-36.0); MCV 97 fL (80-95); MPV 8.7 fL (8.0-11.0); Monocytes % 9.2; Neutrophils % 58.1; Platelet Count 121 10^3/uL (130-400); RBC 4.17 10^6/uL (4.36-5.78); RDW 12.5 % (11.8-14.1); RDW-SD 44.5 fL; WBC 4.58 10^3/uL (4.4-10.8)
[2023-05-19 14:35] LABS: ALT 53 U/L (16-63); AST 31 U/L (15-37); Albumin 3.5 g/dL (3.4-5.0); Alkaline Phosphatase 56 U/L (46-116); Anion Gap 10.4 mmol/L (3-11); BUN 27 mg/dL (7-18); Bilirubin, Total 0.3 mg/dL (0.2-1.0); CO2 25.6 mmol/L (21.0-32.0); CREATININE 1.1 mg/dL (0.70-1.30); Calcium 8.3 mg/dL (8.5-10.1); Chloride 108 mmol/L (98-107); Estimated GFR 69.14 (mL/min/1.73m2); Glucose 140 mg/dL (74-106); Sodium 144 mmol/L (136-145)
[2023-05-19 23:34] LABS: CEA 3.2 ng/mL (See Note)
== END 2023-05-19 15:03 | disposition home or self-care (01) ==
LOC: LBO 15:02
PROVIDERS: PCP Nurse Practitioner Family; Visit Provider Internal Medicine Hematology & Oncology
DX: C18.4 Malignant neoplasm of transverse colon (principal)
CPT/HCPCS: 36415; 80053; 80185; 82378; 85025

== ENCOUNTER → 2023-07-24 14:52 | Outpatient (BNVA) | payer MEDICARE, SELFPAY | PROVIDERS: PCP Nurse Practitioner Family; Referring Provider Nurse Practitioner Family; Visit Provider Nurse Practitioner Gerontology | DX: R33.8 Other retention of urine (principal); N40.1 Benign prostatic hyperplasia with lower urinary tract symptoms | CPT/HCPCS: 51798; 99213 ==

== ENCOUNTER → 2023-08-17 00:08 | Outpatient (CLI) | payer MEDICARE, SELFPAY ==
--- NOTE | 2023-08-17 | DI.CT_ITS ---
Exam(s) CT CHEST/ABD/PEL W EXAM: CT CHEST/ABD/PEL W CLINICAL HISTORY: CANCER OF TRANSVERSE COLON, C18.4. TECHNIQUE: Imaging Protocol: Axial computed tomography images with coronal and sagittal reformatted images were created and reviewed CONTRAST MATERIAL: Intravenous: Omnipaque 350 Contrast volume:100 ml Oral: yes / COMPARISON: CT CT CHEST/ABD/PEL W from 02/14/2023 FINDINGS: CHEST: Tracheobronchial tree: Patent. Pulmonary parenchyma: No consolidation or dominant measurable mass. Pleura: No effusion or pneumothorax. Mediastinum: Within normal limits. Aorta: Thoracic portion non-dilated. Pulmonary arteries: No visible emboli. Heart: No pericardial effusion. Bones: Unremarkable for age. No lytic or blastic lesions.Stable mild compression fractures. Scolio sis upper thoracic level. Soft tissues: Unremarkable. ABDOMEN and PELVIS: Liver: Normal density. No measurable mass. Gallbladder and biliary tract: No evidence of stones or wall thickening. No biliary dilatation. Pancreas: Normal density, no abnormal calcifications or inflammatory process. Spleen: Normal. Kidneys: Normal size, contour and axis. No radiodense stones. No obstructive uropathy. No suspicious masses seen. Adrenal glands: Stable small bilateral adrenal nodules. Aorta: Abdominal portion non-dilated. Lymph nodes: Stable size of scattered mesenteric lymph nodes. Soft tissues: Mild scarring. Bladder: Thick wall. Diverticula again noted. Bowel: No obstruction or bowel wall thickening. Extensive diverticulosis. Partial colectomy. No v isible mass. Peritoneal cavity: No ascites. No focal collection. No mesenteric inflammatory response. No free ai r. Bones: Degenerative changes in the spine of reticulated at L4-5. Reproductive organs: Prostate mildly enlarged. IMPRESSION: No evidence of metastatic disease in the chest. Status post partial colectomy extensive diverticulosis. No evidence of mass. Stable scattered small mesenteric lymph nodes. Stable small bilateral adrenal nodules. RADIATION DOSE DELIVERED: Total DLP DATA REPOSITORY: All CT scans at this facility are submitted to the National Radiology Data Registry (NRDR) Dose Index Registry (DIR) with the [employer] (ACR). RADIATION OPTIMIZATION: All CT scans at this facility use at least one of these dose optimization te chniques: automated exposure control; mA and/or kV adjustment per patient size (includes targeted exa ms where dose is matched to clinical indication); or iterative reconstruction.
[2023-08-17 08:05] LABS: CREATININE 1.1 mg/dL (0.70-1.30); Estimated GFR 69.14 (mL/min/1.73m2)
[2023-08-17] MEDS: Barium Sulfate 2% W/V-Creamy Vanilla Smoothie 450 ML BTL PO ×3 (08:21→08:23)
[2023-08-17 08:33] LABS: PHENYTOIN (DILANTIN) 19.7 ug/mL (10.0-20.0)
[2023-08-17] MEDS: Normal Saline - Diluent 50 ML VIAL IJ (09:54)
[2023-08-17] MEDS: Omnipaque 350 MG/ML 100 ML BTL IJ (09:55)
[2023-08-18 10:13] LABS: CEA 3.2 ng/mL (See Note)
== END ==
PROVIDERS: PCP Nurse Practitioner Family; Visit Provider Internal Medicine Hematology & Oncology
DX: C18.4 Malignant neoplasm of transverse colon (principal)
CPT/HCPCS: 74177; 80186; 71260; 80185; 82378; 82565; J3490

== ENCOUNTER → 2023-09-11 09:07 | Outpatient (BNVA) | payer MEDICARE, SELFPAY | PROVIDERS: PCP Nurse Practitioner Family; Referring Provider Nurse Practitioner Family; Visit Provider Student in an Organized Health Care Education/Training Program | DX: M65.332 Trigger finger, left middle finger (principal) | CPT/HCPCS: 20550; J1010 ==

== ENCOUNTER 2023-10-24 02:09 | Outpatient (CLI) | payer MEDICARE, SELFPAY ==
[2023-10-24 09:39] LABS: Anion Gap 8.7 mmol/L (3-11); BUN 23 mg/dL (7-18); CO2 29.3 mmol/L (21.0-32.0); CREATININE 1.1 mg/dL (0.70-1.30); Calcium 8.4 mg/dL (8.5-10.1); Calculated LDL 35 mg/dL (<100); Chloride 101 mmol/L (98-107); Cholesterol 182 mg/dL (<200); Estimated GFR 69.14 (mL/min/1.73m2); Glucose 99 mg/dL (74-106); HDL Cholesterol 137 mg/dL (40-60); Potassium 3.5 mmol/L (3.5-5.1); Sodium 139 mmol/L (136-145); Triglyceride 50 mg/dL (<150)
[2023-10-24 20:46] LABS: PSA, Screening 0.6 ng/mL (<=6.5)
== END 2023-10-24 02:10 | disposition home or self-care (01) ==
LOC: LBO 02:09
PROVIDERS: PCP Nurse Practitioner Family; Visit Provider Nurse Practitioner Family
DX: Z12.5 Encounter for screening for malignant neoplasm of prostate (principal); Z13.1 Encounter for screening for diabetes mellitus; Z13.6 Encounter for screening for cardiovascular disorders
CPT/HCPCS: 36415; 80048; 80061; 84153

== ENCOUNTER 2023-11-21 15:03 | Outpatient (CLI) | payer MEDICARE, SELFPAY ==
--- NOTE | 2023-11-21 06:00 | DI.RAD_ITS ---
Exam(s) XR PAIN CLINIC LUMBAR SP 2V EXAM: XR PAIN CLINIC LUMBAR SP 2V CLINICAL HISTORY: DX: Lumbar Radiculopathy TECHNIQUE: 2D and realtime digital imaging was performed. Radiologist not present. CONTRAST MATERIAL: None. COMPARISON: No exams were available for comparison FINDINGS: Fluoroscopy was provided for pain management therapy. Please refer to procedure report or details. Radiation Exposure Index: Ka,r=5.27 mGy IMPRESSION: As above. RADIATION DOSE DELIVERED:
[2023-11-21 15:12] VITALS: BP 146/73; PULSE 63; RESP 18; TEMP 36.6; O2SAT 98
[2023-11-21 15:33] VITALS: O2SAT 97
[2023-11-21] MEDS: Omnipaque 240 MG/ML 50 ML BTL IJ (15:47)
[2023-11-21] MEDS: methylPREDNISolone ACETATE 40 MG/ML VIAL IJ (15:47)
--- NOTE | 2023-11-21 15:47 | PDOC.PAIN ---
Date of service: 11/21/23 Time of Service: 15:49 Pain Managment Procedure Note Procedure Note Procedure Note: Lumbar Interlaminar Epidural Steroid Injection ? Location: L5-S1 ? Pre-procedure Diagnosis: M54.16- Radiculopathy, LUMBAR region ? Post-procedure Diagnosis:? The same as above ? Sedation:? 2mg of intravenous midazolam was administered.? An independent trained observer monitored the patient for the duration of the procedure.? None ? Medication: Depo-Medrol 80 mg, Omnipaque 1 mL ? Estimated blood loss:? less than 2 cc ? Surgeon:? Dayron Llamas MD COMMENT: ? Procedure Detail:? The procedure and potential risks were explained to the patient and informed written consent was obtained. The patient was escorted to the procedure room and placed in the prone position. Pillows were utilized for proper positioning and comfort. Time out was performed in the procedure room with nursing staff confirming the patient's identity, procedure to be performed, allergies, and any blood thinning or anti-platelet medications.? The patient's neck and upper back was prepped with ChloraPrep and draped in a sterile fashion. Sterile technique was maintained throughout the procedure.? Sterile gloves were used, a face mask was worn, and new single dose vials of all medications were used with the top being swabbed with alcohol and given time to dry prior to withdrawal of medication. Lidocane 1% was used to anesthetize the skin.Using a 25-gauge 1.5 inch needle, 1% lidocaine was instilled into the superficial soft tissue overlying the targeted area to provide local anesthesia. With fluoroscopic guidance, a 17 -gauge Tuohy needle was advanced toward the interlaminar space of L5-S1. The needle was then advance through the ligamentum flavum and into the posterior epidural space using the loss of resistance technique. Correct needle placement was confirmed through review of the AP and contralateral oblique fluoroscopic views. A 19-gauge arrow catheter was threaded cephalad Following negative aspiration, one cc of Omnipaque 240 contrast was injected which confirmed good flow throughout the epidural space and no evidence of vascular flow or flow into adjacent compartments. Next, following negative aspiration, 1 cc's of normal saline and 80mg of Depo-Medrol was injected. The needle was gently removed. The patient tolerated the procedure well and was transported to the recovery area for observation and discharge instructions. Permanent images saved and recorded. PAIN PRE-PROCEDURE 06/15 POST-PROCEDURE 02/15 Plan:? Follow up prn. COMMENT:REPEAT PRN - PATIENT TO HAVE NSURG EVAL WELL
[2023-11-21] MEDS: Epidural Tray 1 EACH MC (15:48)
== END 2023-11-21 15:04 | disposition home or self-care (01) ==
LOC: PC 15:03
PROVIDERS: PCP Nurse Practitioner Family; Visit Provider Anesthesiology Pain Medicine
DX: M54.50 Low back pain, unspecified (principal); M54.16 Radiculopathy, lumbar region
CPT/HCPCS: 00123; 62323; 72100; J1010; Q9967

== ENCOUNTER 2023-11-22 05:00 | Outpatient (CLI) | payer MEDICARE, SELFPAY ==
[2023-11-22 13:55] LABS: Abs Immature Grans 0.01 10^3/uL (0.0-0.06); Absolute Basophil Count 0.01 10^3/uL (0.0-0.2); Absolute Eosinophil Count 0.04 10^3/uL (0.0-0.7); Absolute Lymphocyte Count 1.69 10^3/uL (1.2-3.4); Absolute Monocyte Count 0.39 10^3/uL (0.1-0.8); Basophils % 0.2 %; Eosinophils % 0.7 %; HCT 38.8 % (40.0-50.0); HGB 13.7 g/dL (13.5-17.5); Immature Grans % 0.2 %; MCH 33.9 pg (27.0-33.0); MCHC 35.3 % (32.0-36.0); MCV 96 fL (80-95); MPV 8.8 fL (8.0-11.0); Monocytes % 6.5 %; Neutrophils % 64.4 %; Platelet Count 116 10^3/uL (130-400); RBC 4.04 10^6/uL (4.36-5.78); RDW 12.3 % (11.8-14.1); RDW-SD 43.4 fL; WBC 6.04 10^3/uL (4.4-10.8)
[2023-11-22 15:01] LABS: ALT 44 U/L (16-63); AST 31 U/L (15-37); Albumin 3.4 g/dL (3.4-5.0); Alkaline Phosphatase 54 U/L (46-116); Anion Gap 8.1 mmol/L (3-11); BUN 20 mg/dL (7-18); Bilirubin, Total 0.36 mg/dL (0.2-1.0); CO2 29.9 mmol/L (21.0-32.0); CREATININE 1.2 mg/dL (0.70-1.30); Calcium 8.6 mg/dL (8.5-10.1); Chloride 101 mmol/L (98-107); Estimated GFR 62.29 (mL/min/1.73m2); Glucose 194 mg/dL (74-106); Potassium 3.1 mmol/L (3.5-5.1); Sodium 139 mmol/L (136-145); Total Protein 7.2 g/dL (6.4-8.2)
[2023-11-22 19:49] LABS: PHENYTOIN (DILANTIN) 25.6 ug/mL (10.0-20.0)
[2023-11-22 20:43] LABS: Vitamin B12 411 pg/mL (193-986); Vitamin D 25 Total 42.4 ng/mL (30-100)
[2023-11-22 23:04] LABS: CEA 2.5 ng/mL (See Note)
== END 2023-11-22 05:01 | disposition home or self-care (01) ==
LOC: LBO 05:00
PROVIDERS: PCP Nurse Practitioner Family; Visit Provider Internal Medicine Hematology & Oncology
DX: G40.909 Epilepsy, unspecified, not intractable, without status epilepticus (principal); R53.1 Weakness; C18.4 Malignant neoplasm of transverse colon
CPT/HCPCS: 36415; 80053; 82306; 80185; 82378; 82607; 85025

== ENCOUNTER 2023-12-12 02:35 | Outpatient (CLI) | payer MEDICARE, SELFPAY ==
[2023-12-12 15:12] LABS: Hemoglobin A1C 5.9 % (<5.7)
[2023-12-12 16:21] LABS: PHENYTOIN (DILANTIN) 13.7 ug/mL (10.0-20.0)
== END 2023-12-12 02:36 | disposition home or self-care (01) ==
LOC: LBO 02:36
PROVIDERS: PCP Nurse Practitioner Family; Visit Provider Nurse Practitioner Family
DX: G40.909 Epilepsy, unspecified, not intractable, without status epilepticus (principal); Z13.1 Encounter for screening for diabetes mellitus
CPT/HCPCS: 36415; 80185; 83036

== ENCOUNTER → 2024-01-24 14:53 | Outpatient (BNVA) | payer MEDICARE, SELFPAY | PROVIDERS: PCP Nurse Practitioner Family; Visit Provider Nurse Practitioner Gerontology | DX: R33.8 Other retention of urine (principal); N40.1 Benign prostatic hyperplasia with lower urinary tract symptoms | CPT/HCPCS: 51798; 99213 ==

== ENCOUNTER → 2024-02-08 14:54 | Outpatient (BNVA) | payer MEDICARE, SELFPAY | PROVIDERS: PCP Nurse Practitioner Family; Referring Provider Nurse Practitioner Family; Visit Provider Surgery | DX: Z12.11 Encounter for screening for malignant neoplasm of colon (principal); I10 Essential (primary) hypertension; Z85.038 Personal history of other malignant neoplasm of large intestine ==

== ENCOUNTER 2024-02-16 07:42 | Day surgery (SDC) | payer MEDICARE, SELFPAY ==
[2024-02-16 08:03] VITALS: BP 141/75; PULSE 63; RESP 18; TEMP 36.5; O2SAT 99
[2024-02-16] MEDS: Lactated Ringers 1,000 ML 80 ML IV (08:23)
[2024-02-16 09:08] VITALS: BMI 25.8
--- NOTE | 2024-02-16 09:08 | W.ANESPRE ---
General Info Date of Service Date Performed: 02/16/24 Height: 5 ft 8 in Weight: 77 kg Body Mass Index (BMI): 25.8 Surgical Procedure: Operation Date: 02/16/24 09:05 Proposed Procedure Side Surgeon p Griselda Willams, Meds Allergies and Home Medications Allergies Allergy/AdvReac Type Severity Reaction Status Date / Time camphor AdvReac Intermediate Nicolas Verified 02/16/24 08:01 hydrochlorothiazide AdvReac Intermediate heart Verified 02/16/24 08:01 palpitations lactose AdvReac Diarrhea Verified 02/16/24 08:01 Home Medication ?Medication ?Instructions ?Recorded multivitamin 1 cap PO DAILY 04/30/12 acetaminophen 500 mg tablet 1,000 mg PO TID 08/09/19 losartan 100 mg tablet 100 mg PO DAILY #90 tabs 05/22/23 phenytoin sodium extended 100 mg 200 mg (2 x 100 mg) PO BID #360 07/05/23 capsule (Dilantin Extended) caps diphenoxylate-atropine 2.5 1 tab PO BID PRN diarrhea #60 tabs 07/26/23 mg-0.025 mg tablet (Lomotil) tamsulosin 0.4 mg capsule 0.8 mg (2 x 0.4 mg) PO DAILY #180 10/18/23 caps triamcinolone acetonide 0.1 % 1 applic topical BID dermatitis 11/29/23 topical cream #30 grams hydrocortisone 2.5 % topical cream 1 applic VA BID-QID PRN pain #30 12/18/23 with perineal applicator grams amlodipine 10 mg tablet 10 mg PO DAILY #90 tabs 12/27/23 phenytoin 50 mg chewable tablet 50 mg PO .AM #90 tabs 01/22/24 (Dilantin Infatabs) bisacodyl 5 mg tablet,delayed 5 mg PO ONCE colonscopy bowel prep 02/08/24 release (Dulcolax (bisacodyl)) #4 tabs finasteride 5 mg tablet 5 mg PO DAILY #90 tabs 02/08/24 polyethylene glycol 3350 17 238 g PO ONCE colonoscopy prep 02/08/24 gram/dose oral powder #238 grams Current Visit Medications: Current Medications Generic Name Dose Route Start Last Admin Trade Name Freq PRN Reason Stop Dose Admin Hyoscyamine Sulfate 0.125 mg 02/16/24 08:43 Hyoscyamine 0.125 Mg Sl/Oral/Chew SL PRN PRN Ringer's Solution 1,000 mls @ 80 mls/hr 02/16/24 06:00 02/16/24 08:23 IV 02/16/24 23:59 80 mls/hr INFUSION ANN MARIE Administration IV Miscellaneous Supplies 1 each 02/16/24 06:00 Iv Access IV 02/16/24 23:59 DIRECTED ANN MARIE Ondansetron HCl 4 mg 02/16/24 08:43 Ondansetron 4 Mg/2 Ml Vial IVP 03/17/24 08:42 Q4H PRN PRN Nausea / Vomiting Sodium Chloride 0 ml 02/16/24 06:00 Normal Saline Flush 10 Ml Syr IV 02/16/24 23:59 PRN PRN Sodium Chloride 0 ml 02/16/24 06:00 Normal Saline 10 Ml Vial IJ 02/16/24 23:59 DIRECTED PRN Sterile Water 0 ml 02/16/24 06:00 Water,Injection,Sterile 10 Ml Vial IJ 02/16/24 23:59 DIRECTED PRN PFSH Active Problems Active Problems: Problem Status Onset Code Tardive dyskinesia Acute G24.01 Elevated glucose level Acute R73.09 Spinal stenosis, lumbar region with neurogenic claudication Acute M48.062 Pain in both lower legs Acute M79.661, M79.662 Pancolonic diverticulosis Acute K57.30 Adenomatous polyps Acute D36.9 Actinic keratosis Acute L57.0 Trigger finger, left middle finger Acute M65.332 Trigger thumb, right thumb Acute M65.311 Ceruminosis Acute H61.20 H/O colon cancer, stage III Acute Z85.038 Trigger finger, left index finger Acute M65.322 Basal cell carcinoma Acute C44.91 Hypertension Chronic I10 Seizure disorder Chronic G40.909 BPH NOS w ur obs/LUTS Acute N40.1 Mitral valve regurgitation Chronic I34.0 Lactose intolerance Acute E73.9 Hyperlipidemia Acute E78.5 Hemorrhoids Chronic K64.9 Diverticulosis of colon without diverticulitis Chronic K57.30 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 states he has been told he has a murmur that comes and goes for over 20years and has always been told not to worry about it. States if he had an ECHO it would have been in 1998. Colon stricture Tick bite Sciatica Osteoarthritis of both hips Osteoarthritis of left knee Depo-medrol injection: 11/04/2021; 11/19/19 Hematuria Dysuria Knee effusion Leg weakness, bilateral Intention tremor Epilepsy (11/08/11) Aura 200505/12/98@ 6am never has had another one since medically managed. Surgical History Surgical History History of colonoscopy (~02/2023) path sent History of surgical procedure Trigger finger, left ring finger S/P trigger finger release DOS: 12/27/17 STOMACH (02/07/1955) INTESTINES (02/07/1955) Tobacco Smoking/Tobacco Use Status: Never Passive smoking exposure: No Second hand exposure: Yes Alcohol Alcohol Intake: current Alcohol intake frequency: 0-2 drinks per day Alcohol type: hard liquor Substance Use Substance use: Never Substance use type: does not use Vital Signs and Lab Results Vital Signs Most Recent Vital Signs in EMR: Most Recent Vital Signs Temp Pulse Resp BP Pulse Ox 36.5 C 63 18 141/75 H 99 02/16/24 08:03 02/16/24 08:03 02/16/24 08:03 02/16/24 08:03 02/16/24 08:03 Lab Results Blood Type / Crossmatch: No Data to Display Complete Blood Count: No Data to Display Complete Metabolic Panel: No Data to Display Liver Function Panel: No Data to Display Coagulation Panel: No Data to Display Cardiac Panel: No Data to Display Arterial Blood Gas: No Data to Display Venous Blood Gas: No Data to Display Pancreas Panel: No Data to Display Thyroid Panel: No Data to Display Infectious Disease: No Data to Display Blood Cultures: No Data to Display Toxicology Panel: No Data to Display Anesthesia Assessment and Plan Anesthesia History Personal History: No History of Anesthesia Complications Family History: No Family History of Anesthesia Complications Exercise Tolerance Exercise Tolerance: Metabolic Equivalents>4 Pertinent Negatives Pertinent Negatives: No Symptoms of GERD Cardiac & Pulmonary Exam Cardiac Exam: Normal S1/S2 Heart Sounds Pulmonary Exam: Clear Bilateral Breath Sounds Implantable Cardiac Device Does patient have a Pacemaker or an ICD?: No Airway Exam Known Difficult Airway: No Mallampati Class: 2 Mouth Opening: Normal (> 3cm) Thyromental Distance: Greater than 3 cm Neck Range of Motion: Full ROM Neck Circumference: Normal Teeth Condition: Normal Dentition ASA Classification ASA Score: ASA 3 Emergency Case?: No NPO Status NPO Status: NPO Clears >2 hours, Solids >8 hours Anesthesia Plan Resuscitation Status: Full Code Anesthesia Technique: General Anesthesia Airway Planned: Natural Airway Monitors Used: Standard Monitors
--- NOTE | 2024-02-16 09:31 | BOWEL_PTH ---
PATIENT: Freedom Deshpande LOC: [facility] U#:[id number] AGE/SX: 78/M ROOM: RE02/16/[address]: Jenn Willams : 1945 BED: DIS: 02/16/2024 SPEC #: [id number] RECD: 02/16/24 13:08 STATUS: CHARANJIT REGloria #: [id number] JONH: 02/16/24 09:[address]: Jenn Willams DEPT: Surgical Specimen RECD BY: Pat Braun ENTERED: 02/16/24 13:08 SP TYPE: Bowel OTHR DR: Abimael Diaz, JOSE ANTONIO Tissues: 1 - BIOPSY BOWEL Procedures: GROSS AND MICRO LEVEL 4 Comments: [id number]
[2024-02-16 09:48] VITALS: BP 108/84; PULSE 63; RESP 17; TEMP 36.1; O2SAT 96
--- NOTE | 2024-02-16 09:57 | W.ANESPOSTOP ---
Postoperative Evaluation Date, Time and Location Date Performed: 02/16/24 Time Performed: 09:57 Patient Location: Day Surgery Unit Vital Signs Most Recent Imported Vital Signs: Most Recent Vital Signs Temp Pulse Resp BP Pulse Ox 36.1 C L 63 17 108/84 96 02/16/24 09:48 02/16/24 09:48 02/16/24 09:48 02/16/24 09:48 02/16/24 09:48 Pain Score Most Recent Pain Score: Most Recent Pain Score Pain Level 0 02/16/24 09:48 Assessment Mental Status: Awake (Alert & Oriented to Patient Baseline) Airway and Respiratory Function: Patent airway with normal (patient baseline) respiratory exam Cardiovascular Function: Hemodynamically Stable Hydration Status: Adequately Hydrated Nausea & Vomiting: No Nausea or Vomiting Pain: Pt. Denies Any Pain Peripheral Nerve Block: Patient did not receive a nerve block
--- NOTE | 2024-02-16 10:02 | COLE_ITS ---
Date of service: 02/16/24 Time of Service: 10:02 Colonoscopy Report Date of procedure: 02/16/24 Pre-op diagnosis general: Colon cancer and diverticula Post-op diagnosis procedure note: other (Severe diverticula/internal and external hemorrhoids/adenomatous polyp) Surgeon: Jenn Willams Anesthesia Type: General:No Airway Estimated blood loss (mL): 2 Pathology: other Complications: None Disposition: same day Prep: Miralax/Dulcolax Procedure Description: After informed consent was obtained, explaining risks of the procedure, including but not limits to: bleeding, infections, complications of anesthesia, perforations (which may require antibiotics and /or surgery and stay in the hospital), and abdominal pain/cramping. The patient was taken to the procedure room and placed in a left decubitous position. Monitors were applied and a time out was done. The patients name, date of , procedure, allergies to medications and metal in their body was reviewed. The patient was then sedated. Once sedated and comfortable a rectal exam was done. External exam large external hemorrhoids. No active bleeding or thrombosis. Internal exam revealed a decreased sphincter tone and no palpable masses. The prostate no palpable masses The previously lubricated Olympus scope was then introduced (see RN notes for scope number) and retrofelexed. Grade 3 x 3 columns internal hemorrhoids were identified. The scope was then advanced to the cecum without difficulty. The TI and appendiceal orifice were identified. The scope was then slowly retracted over [] minutes back into the rectum. Polyps: A flat, .75cm polyp was found at 60cm. This was removed with a cold biting forceps. All of the specimen was retrieved. This will be sent to pathology. There is no bleeding noted from the polypectomy site. Diverticula: Severe diverticula. pt had a large amount of small mouthed diverticula in the throughout the entire remaining colon and the anastomosis.. There were no signs of active bleeding or infection. The mucosa is pink and healthy w/ a normal vascular pattern. The scope was removed, and the patient was woken up and taken back to Same day surgery in stable condition. The patient tolerated the procedure well and there were no immediate complications. Follow up: The patient should follow up in 3-5 years, unless they develop changes in bowel habits or other new gastrointestinal complaints. [place] Bowel Prep [place] Bowel Prep Right Colon: 0 Left Colon: 2 Transverse Colon: 2 Total Score: 4
[2024-02-16 10:20] VITALS: BP 139/69; PULSE 49; RESP 16; TEMP 36.7; O2SAT 97
--- NOTE | 2024-02-16 10:35 | W.PM.DSUDISC ---
Date of service: 02/16/24 Discharge Plan Disposition Patient Disposition: Home Condition: Good Discharge Details Reason For Visit: Colon scope Attending Provider: Jenn Willams Primary Care Provider: Abimael Diaz Home Meds and New Rx's Prescriptions: Continued phenytoin [Dilantin Infatabs] 50 mg tablet,chewable 50 mg PO .AM Qty: 90 4RF Rx Instructions: Take with phenytoin 100 mg AM triamcinolone acetonide 0.1 % cream 1 applic topical BID Qty: 30 2RF amlodipine 10 mg tablet 10 mg PO DAILY Qty: 90 4RF multivitamin 1 EACH capsule 1 cap PO DAILY losartan 100 mg tablet 100 mg PO DAILY Qty: 90 3RF phenytoin sodium extended [Dilantin Extended] 100 mg capsule 200 mg PO BID Qty: 360 3RF Rx Instructions: PER DR. MCGUIRE: Dilantin brand name only medically necessary diphenoxylate-atropine [Lomotil] 2.5-0.025 mg tablet 1 tab PO BID PRN (Reason: diarrhea) Qty: 60 5RF tamsulosin 0.4 mg capsule 0.8 mg PO DAILY Qty: 180 3RF Rx Instructions: Take one cap in AM and one in PM hydrocortisone 2.5 % cream with perineal applicator 1 applic GA BID-QID PRN (Reason: pain) Qty: 30 4RF finasteride 5 mg tablet 5 mg PO DAILY Qty: 90 3RF acetaminophen 500 mg Tablet 1,000 mg PO TID Discontinued polyethylene glycol 3350 17 gram/dose powder 238 g PO ONCE Qty: 238 0RF Rx Instructions: take per colonoscopy instructions bisacodyl [Dulcolax (bisacodyl)] 5 mg tablet,delayed release (DR/EC) 5 mg PO ONCE Qty: 4 0RF Rx Instructions: take per colonoscopy instructions Discharge Instructions Additional Instructions: DSU Colonoscopy Post-Op Instructions Instructions for Everyone who is given Anesthesia: For your safety, please do the following for the next twenty-four (24) hours: *Do Not operate a motor vehicle (car, truck, motorcycle, etc.) *Do Not drink alcoholic beverages or use any recreational drugs for the first 24 hours or while taking pain medications. The medications in your body may have a reaction that can be dangerous. *Do Not make any important decisions or sign any important papers. Findings: Polyp x 1 Severe diverticular disease Follow up: My office will send you a letter in 3 to 4 weeks time with the results of the biopsy and when we want you to repeat the colonoscopy. 1. No lifting over 20 pounds or strenuous activity for the first 24 hours after your procedure. After 24 hours there are no restrictions on your activity but you may feel fatigued for a few days. 2. After you arrive home you may have a light meal and return to your normal diet as you can tolerate it without feeling sick to your stomach. 3. You may have a bloated, gaseous feeling in your belly (abdomen) after a colonoscopy. Passing gas and belching will help. Walking or lying down on your left side with your knees flexed may relieve the discomfort. Call the office at [phone] (Office) or [phone] (Hospital) right away if you notice any of the following: a.Vomiting of blood or ?coffee ground stools?. b.Rectal bleeding 1Tbsp, blood clots or continuous bleeding. c.Severe belly (abdominal) pain. d.A hard distended belly (abdomen) and an inability to pass gas. 4. Please don?t expect to have a normal BM (bowel movement) for 2-3 days after your procedure. 5. If there are questions regarding the findings of your procedure, please contact your doctor 6. If you are unable to contact your doctor with a problem, contact the hospital at [phone]. 7. Continue all your regular medications unless directed otherwise. I understand the above instructions and have no questions. Signature of Patient or Adult Escort Name of Responsible Adult Escort Signature of Nurse Date/Time Stand Alone Forms: Anesthesia Discharge Inst., Aleta Malin (DSU) Activity:: See above Diet:: The above Discharge Orders Discharge Orders: Discharge Order (Routine); Ordered 02/15/24 Ordered By: Jenn Willams DS: Diagnosis Discharge Diagnosis (1) Diverticulosis of colon without diverticulitis: Status: Chronic (2) Hemorrhoids: Status: Chronic (3) Pancolonic diverticulosis: Status: Acute (4) H/O colon cancer, stage III: Status: Acute Asessment and Plan: The patient is seen and examined after their colonoscopy.? The patient has been able to pass gas.? They are not having abdominal pain.? They have been able to tolerate liquids and a snack.? They do not have any nausea or vomiting.? They are not having any chest pain or shortness of breath.??? They are not having any rectal bleeding. Their vital signs have been stable-see nursing notes. We discussed findings during their colonoscopy, and any biopsies that were done/polyps that were removed. The patient will be sent a letter with any biopsy results, and when to repeat the colonoscopy.-see discharge instructions. Patient was given explicit instructions to follow-up regarding colonoscopy-refer to discharge instructions.? We reviewed resumption of medications. Patient verbalized understanding and discharged in stable and satisfactory condition- See nursing notes.
== END 2024-02-16 10:44 | disposition home or self-care (01) ==
PROVIDERS: PCP Nurse Practitioner Family; Visit Provider Surgery
PROC: 0DJD8ZZ Inspection of Lower Intestinal Tract, Via Natural or Artificial Opening Endoscopic (ICD-10-PCS; CPT 45378; principal; 2024-02-16 09:00)
DX: Z12.11 Encounter for screening for malignant neoplasm of colon (principal); K57.30 Diverticulosis of large intestine without perforation or abscess without bleeding; K64.4 Residual hemorrhoidal skin tags; D12.4 Benign neoplasm of descending colon; K64.8 Other hemorrhoids
CPT/HCPCS: 45380; 88305; J2704

== ENCOUNTER 2024-02-23 00:27 | Outpatient (CLI) | payer MEDICARE, SELFPAY ==
--- NOTE | 2024-02-23 | DI.CT_ITS ---
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 TECHNIQUE: Imaging Protocol: Axial computed tomography images with coronal and sagittal reformatted images were created and reviewed. Computer aided detection (CAD) was utilized. CONTRAST MATERIAL: Intravenous: Omnipaque 350 Contrast volume:100 ml Oral: yes / COMPARISON: CT CT ABDOMEN PELVIS W from 02/17/[address] CHEST/ABD/PEL W from 08/17/2023 FINDINGS: CHEST: Tracheobronchial tree: Patent. Pulmonary parenchyma: No consolidation or dominant measurable mass. Pleura: No effusion or pneumothorax. Mediastinum: Within normal limits. Aorta: Thoracic portion non-dilated. Pulmonary arteries: No visible emboli. Heart: No pericardial effusion. Bones: Unremarkable for age. No lytic or blastic lesions.Stable upper and mid thoracic compression fractures. Scoliosis. Soft tissues: Unremarkable. ABDOMEN and PELVIS: Liver: Normal density. No measurable mass. Gallbladder and biliary tract: No evidence of stones or wall thickening. No biliary dilatation. Pancreas: Normal density, no abnormal calcifications or inflammatory process. Spleen: Normal. Kidneys: Normal size, contour and axis. No radiodense stones. No obstructive uropathy. No suspicious masses seen. Adrenal glands: Stable small bilateral adrenal nodules. Aorta: Abdominal portion non-dilated. Lymph nodes: Scattered small mesenteric lymph nodes appear stable. Soft tissues: Unremarkable. Bladder: Wall thickening and multiple small diverticula. Bowel: Hiatal hernia. No obstruction or bowel wall thickening. Extensive diverticulosis. Congenit al malrotation again noted. No visible mass. Peritoneal cavity: No ascites. No focal collection. No mesenteric inflammatory response. No free ai r. Bones: Degenerative changes in the spine, most severe at L4-5 where there is significant central radha l stenosis.. No suspicious lesions.. Reproductive organs: The prostate is mildly enlarged. IMPRESSION: No acute abnormality in the chest, abdomen or pelvis. Stable mesenteric lymph nodes. Stable small adrenal nodules. RADIATION DOSE DELIVERED: 477.21mGy.cm Total DLP DATA REPOSITORY: All CT scans at this facility are submitted to the National Radiology Data Registry (NRDR) Dose Index Registry (DIR) with the [employer] (ACR). RADIATION OPTIMIZATION: All CT scans at this facility use at least one of these dose optimization te chniques: automated exposure control; mA and/or kV adjustment per patient size (includes targeted exa ms where dose is matched to clinical indication); or iterative reconstruction.
[2024-02-23] MEDS: Barium Sulfate 2% W/V-Berry Smoothie 450 ML BTL PO (08:02)
[2024-02-23] MEDS: Barium Sulfate 2% W/V-Creamy Vanilla Smoothie 450 ML BTL PO (08:04)
[2024-02-23 08:38] LABS: Absolute Basophil Count 0.01 10^3/uL (0.0-0.2); Absolute Eosinophil Count 0.09 10^3/uL (0.0-0.7); Absolute Lymphocyte Count 1.34 10^3/uL (1.2-3.4); Absolute Monocyte Count 0.32 10^3/uL (0.1-0.8); Absolute Neutrophil Count 1.96 10^3/uL (1.2-6.7); Basophils % 0.3 %; Eosinophils % 2.4 %; HCT 38.7 % (40.0-50.0); HGB 13.6 g/dL (13.5-17.5); MCH 33.7 pg (27.0-33.0); MCHC 35.1 % (32.0-36.0); MCV 96 fL (80-95); MPV 9.2 fL (8.0-11.0); Monocytes % 8.6 %; Neutrophils % 52.7 %; Platelet Count 128 10^3/uL (130-400); RBC 4.03 10^6/uL (4.36-5.78); RDW 12.7 % (11.8-14.1); RDW-SD 45.3 fL; WBC 3.72 10^3/uL (4.4-10.8)
[2024-02-23 09:14] LABS: ALT 48 U/L (16-63); AST 34 U/L (15-37); Albumin 3.2 g/dL (3.4-5.0); Alkaline Phosphatase 52 U/L (46-116); Anion Gap 9.1 mmol/L (3-11); BUN 24 mg/dL (7-18); Bilirubin, Total 0.28 mg/dL (0.2-1.0); CO2 25.9 mmol/L (21.0-32.0); Calcium 8.5 mg/dL (8.5-10.1); Chloride 108 mmol/L (98-107); Estimated GFR 77.52 (mL/min/1.73m2); Glucose 98 mg/dL (74-106); Sodium 143 mmol/L (136-145); Total Protein 6.7 g/dL (6.4-8.2)
[2024-02-23] MEDS: Omnipaque 350 MG/ML 100 ML BTL IJ (10:09)
[2024-02-23] MEDS: Normal Saline - Diluent 50 ML VIAL IJ (10:10)
== END 2024-02-23 00:47 ==
LOC: DI 00:27
PROVIDERS: PCP Nurse Practitioner Family; Visit Provider Nurse Practitioner Family
DX: C18.4 Malignant neoplasm of transverse colon (principal)
CPT/HCPCS: 74177; 80053; 71260; 82378; 85025; J3490

== ENCOUNTER 2024-04-25 01:41 | Outpatient (CLI) | payer MEDICARE, SELFPAY ==
[2024-04-25 10:08] LABS: Hemoglobin A1C 5.7 % (<5.7)
== END 2024-04-25 01:42 | disposition home or self-care (01) ==
PROVIDERS: PCP Nurse Practitioner Family; Visit Provider Nurse Practitioner Family
DX: Z13.1 Encounter for screening for diabetes mellitus (principal)
CPT/HCPCS: 36415; 83036

== ENCOUNTER 2024-05-13 02:12 | Outpatient (CLI) | payer MEDICARE, SELFPAY ==
--- NOTE | 2024-05-13 08:00 | DI.MRI_ITS ---
Exam(s) MR LUMBAR SPINE WO EXAM: MR LUMBAR SPINE WO CLINICAL HISTORY: pain,spinal stenosis, m48.062. TECHNIQUE: Multiplanar multisequence MRI of the Lumbar spine was performed. COMPARISON: CR XR KNEE LT 3V AP,LAT,ELAINE from 11/04/2021 MR MR LUMBAR SPINE WO from 08/24/2022 FINDINGS: Bones: The last intervertebral disc space is designated the L5/S1 level for the numbering purpose of this ex amination. The vertebral body heights are well maintained. Alignment: Unremarkable. The marrow signal characteristics are unremarkable. Cord: The conus tip ends at the T12 level. It is of normal size and signal intensity. T12-L1: No focal disc herniation is present. No central spinal canal stenosis.No neural foraminal st enosis. L1-2: No focal disc herniation is present. No central spinal canal stenosis.No neural foraminal sten osis. L2-3:Minimal lateral disc bulging. Mild facet degenerative changes. No focal disc herniation is pre sent. No central spinal canal stenosis.No neural foraminal stenosis. L3-4: No focal disc herniation is present. No central spinal canal stenosis.No neural foraminal mary nosis. Mild facet degenerative changes. L4-5:Mild loss of disc height. Mild concentric disc bulging. Prominent facet degenerative changes a s well as ligamentous hypertrophy. Fluid in the facet. No focal disc herniation is present. Stable severe central spinal canal stenosis.Mild spondylolisthesis.Severe left right neural foraminal steno sis. L5-S1: No focal disc herniation is present. Facet degenerative changes. No central spinal canal st enosis. Severe neural foraminal stenosis bilaterally. The visualized SI joints and sacrum are unremarkable. Soft tissues: The paraspinal soft tissues are unremarkable. IMPRESSION: Combination of degenerative disc changes and facet degenerative changes again causes severe central c anal stenosis as well as bilateral neural foraminal narrowing. Bilateral neural foraminal narrowing also present L 5 S1 secondary to facet joint encroachment. DATA REPOSITORY:
== END 2024-05-13 02:32 ==
LOC: DI 02:12
PROVIDERS: PCP Nurse Practitioner Family; Visit Provider Anesthesiology Pain Medicine
DX: M48.062 Spinal stenosis, lumbar region with neurogenic claudication (principal)
CPT/HCPCS: 72148

== ENCOUNTER → 2024-05-16 12:45 | Outpatient (BNVA) | payer MEDICARE, SELFPAY | PROVIDERS: PCP Nurse Practitioner Family; Referring Provider Nurse Practitioner Family; Visit Provider Psychiatry & Neurology Neurology | DX: G40.309 Generalized idiopathic epilepsy and epileptic syndromes, not intractable, without status epilepticus (principal); I10 Essential (primary) hypertension; R73.03 Prediabetes | CPT/HCPCS: 99215 ==

== ENCOUNTER 2024-05-29 03:27 | Outpatient (CLI) | payer MEDICARE, SELFPAY ==
[2024-05-29 14:01] LABS: Abs Immature Grans 0.02 10^3/uL (0.0-0.06); Absolute Basophil Count 0.01 10^3/uL (0.0-0.2); Absolute Eosinophil Count 0.07 10^3/uL (0.0-0.7); Absolute Monocyte Count 0.35 10^3/uL (0.1-0.8); Basophils % 0.2 %; Eosinophils % 1.5 %; HCT 41.1 % (40.0-50.0); HGB 13.9 g/dL (13.5-17.5); Immature Grans % 0.4 %; Lymphocytes % 42.1 %; MCH 33.4 pg (27.0-33.0); MCHC 33.8 % (32.0-36.0); MCV 99 fL (80-95); MPV 8.9 fL (8.0-11.0); Monocytes % 7.4 %; Neutrophils % 48.4 %; Platelet Count 144 10^3/uL (130-400); RBC 4.16 10^6/uL (4.36-5.78); RDW 12.6 % (11.8-14.1); RDW-SD 45.8 fL; WBC 4.75 10^3/uL (4.4-10.8)
[2024-05-29 14:27] LABS: ALT 50 U/L (16-63); AST 33 U/L (15-37); Albumin 3.5 g/dL (3.4-5.0); Alkaline Phosphatase 61 U/L (46-116); Anion Gap 9.5 mmol/L (3-11); BUN 28 mg/dL (7-18); Bilirubin, Total 0.3 mg/dL (0.2-1.0); CO2 25.5 mmol/L (21.0-32.0); CREATININE 1.3 mg/dL (0.70-1.30); Calcium 8.7 mg/dL (8.5-10.1); Chloride 108 mmol/L (98-107); Estimated GFR 56.23 (mL/min/1.73m2); Glucose 146 mg/dL (74-106); Potassium 3.9 mmol/L (3.5-5.1); Sodium 143 mmol/L (136-145); Total Protein 6.8 g/dL (6.4-8.2)
[2024-05-30 00:30] LABS: CEA 2.8 ng/mL (See Note)
== END 2024-05-29 03:28 | disposition home or self-care (01) ==
PROVIDERS: PCP Nurse Practitioner Family; Visit Provider Nurse Practitioner Adult Health
DX: C18.4 Malignant neoplasm of transverse colon (principal)
CPT/HCPCS: 36415; 80053; 82378; 85025

== ENCOUNTER → 2024-05-31 09:35 | Outpatient (BNVA) | payer MEDICARE, SELFPAY | PROVIDERS: PCP Nurse Practitioner Family; Referring Provider Nurse Practitioner Family; Visit Provider Physician Assistant | DX: M65.332 Trigger finger, left middle finger (principal) | CPT/HCPCS: 20550; J1010 ==

== ENCOUNTER 2024-06-17 13:13 | Outpatient (CLI) | payer MEDICARE, SELFPAY ==
[2024-06-17 13:24] VITALS: BP 181/76; PULSE 58; RESP 18; TEMP 36.3; O2SAT 99
--- NOTE | 2024-06-17 13:28 | PDOC.PAIN ---
Date of service: 06/17/24 Time of Service: 14:13 Pain Managment Procedure Note Procedure Note Procedure Note: Lumbar Transforaminal Epidural Steroid Injection ? Location: BILATERAL L4-5 ? Pre-procedure Diagnosis: M54.17-Radiculopathy, lumbosacral region M54.16 Radiculopathy, lumbar region ? Post-procedure Diagnosis:? The same as above ? Sedation:? none ? Estimated blood loss:? less than 2 cc ? Surgeon:? Dayron Llamas MD COMMENT: Patient has severe stenosis at L4-5 ? Procedure Detail:?? The procedure and potential risks were explained to the patient and informed written consent was obtained. The patient was escorted to the procedure room and placed in the prone position. Pillows were utilized for proper positioning and comfort. Time out was performed in the procedure room with nursing staff confirming the patient's identity, procedure to be performed, allergies, and any blood thinning or anti-platelet medications. The patient's lower back was prepped with ChloraPrep and draped in a sterile fashion. Sterile gloves were used, a face mask was worn, and new single dose vials of all medications were used with the top being swabbed with alcohol and given time to dry prior to withdrawal of medication. A right-sided oblique fluoroscopic view was obtained, with visualization of L4-5. Lidocaine 1% was used to anesthetize the skin. The tip of a 22-gauge, Quincke needle was advanced toward the 6 o'clock position of the superior pedicle at the target level.? It was advanced just under the pedicle to the neural foramen L4-5. Correct needle placement was confirmed through review of the fluoroscopy. Next, following negative aspiration, 1cc's of Omnipaque 240 contrast was injected under live fluoroscopy which showed good flow throughout the epidural space and no evidence of vascular flow on the left although there was some on the right. Next, following negative aspiration, 10 mg dexamethasone and 0.5 mL of 0.5% bupivacaine was injected. The needle was gently removed.? The procedure was also performed in the same fashion at Left L4-5 with 40mg Depo-Medrol and 0.5ml of 0.5% bupivacaine .? The patient tolerated the procedure well.? Permanent images saved and recorded. Plan:? Follow up prn PAIN: PRE PROCEDURE 10 POST PROCEDURE 0 COMMENT: Pt will f/u with Dr Rizzo for surgery if not improved Coding Conscious Sedation used for procedure: No CPT Codes: Transforaminal Lumbar/Sacral (includes fluoro) *BILATERAL* - [id number] ([id number]) Additional Codes: Date of Service (14024) Date of service: 06/17/24
[2024-06-17 13:49] VITALS: PULSE 64; O2SAT 97
[2024-06-17 13:50] VITALS: PULSE 60; O2SAT 98
[2024-06-17 14:00] VITALS: PULSE 72; O2SAT 98
--- NOTE | 2024-06-17 14:05 | DI.RAD_ITS ---
Exam(s) XR PAIN CLINIC LUMBAR SP 2V EXAM: XR PAIN CLINIC LUMBAR SP 2V CLINICAL HISTORY: Dx: Lumbar Radiculopathy TECHNIQUE: 2D and realtime digital imaging was performed. Radiologist not present. CONTRAST MATERIAL: None. COMPARISON: No exams were available for comparison FINDINGS: Fluoroscopy was provided for pain management therapy. Please refer to procedure report or details. Radiation Exposure Index: Ka,r=12.68 mGy IMPRESSION: As above. RADIATION DOSE DELIVERED:
[2024-06-17] MEDS: Nerve Block Tray 1 EACH MC (14:14)
[2024-06-17] MEDS: Omnipaque 240 MG/ML 50 ML BTL IJ (14:15)
[2024-06-17] MEDS: methylPREDNISolone ACETATE 40 MG/ML VIAL IJ (14:15)
[2024-06-17] MEDS: Dexamethasone Sod. Phos./Pres-Free 10 MG/ML VIAL IJ (14:15)
[2024-06-17] MEDS: Bupivacaine 0.5% Pres-Free 10 ML VIAL IJ (14:16)
== END 2024-06-17 13:14 | disposition home or self-care (01) ==
LOC: PC 13:13
PROVIDERS: PCP Nurse Practitioner Family; Visit Provider Anesthesiology Pain Medicine
DX: M54.17 Radiculopathy, lumbosacral region (principal); M54.16 Radiculopathy, lumbar region; M54.50 Low back pain, unspecified
CPT/HCPCS: 64483; 72100; J0665; J1010; J1100; Q9967

== ENCOUNTER 2024-07-08 03:09 | Outpatient (CLI) | payer MEDICARE, SELFPAY ==
--- NOTE | 2024-07-08 08:00 | DI.RAD_ITS ---
Exam(s) XR LUMBAR SPINE COMP W FLEX/EX EXAM: XR LUMBAR SPINE COMP W FLEX/EX CLINICAL HISTORY: Pre-operative planning,SPINAL [id number]. TECHNIQUE: 2D digital imaging was performed. COMPARISON: CT CT CHEST/ABD/PEL W from 02/23/2024 MR MR LUMBAR SPINE WO from 05/13/2024 FINDINGS: Seven views. There are 5 vertebra of lumbar configuration. There are no fractures. There is no prominent disc sp debbie narrowing. There is again noted anterolisthesis of L4 upon L5, this being the level exhibiting s evere central spinal canal stenosis on recent MRI. There are no obvious pars defects. The listhesis is related to facet arthropathy at this level. There is mild disc space narrowing at this level. T he amount of anterior slippage of L4 upon L5 is slightly over 1 cm and persists and appears similar i n flexion and extension. No other listhesis in the lumbar spine.. Incidentally noted is calcification within the central disc space at the 11-T12 level in, as seen on prior CT scan of February 2024. Bone density is age-appropriate and there are no osseous lesions evident. IMPRESSION: Significant anterolisthesis of L4 upon L5. Amount of listhesis appears similar in flexion as in exte nsion. This listhesis is related to facet arthropathy at this level. There is spinal canal stenosis at this level. DATA REPOSITORY: RADIATION DOSE DELIVERED:
== END 2024-07-08 03:29 ==
LOC: DI 03:09
PROVIDERS: PCP Nurse Practitioner Family; Visit Provider Preventive Medicine Occupational Medicine
DX: M48.062 Spinal stenosis, lumbar region with neurogenic claudication (principal)
CPT/HCPCS: 72114

== ENCOUNTER → 2024-07-24 15:19 | Outpatient (BNVA) | payer MEDICARE, SELFPAY | PROVIDERS: PCP Nurse Practitioner Family; Visit Provider Nurse Practitioner Gerontology | DX: N40.1 Benign prostatic hyperplasia with lower urinary tract symptoms (principal); R33.8 Other retention of urine | CPT/HCPCS: 99214 ==

== ENCOUNTER 2024-08-14 14:20 | Outpatient (CLI) | payer MEDICARE, SELFPAY ==
--- NOTE | 2024-08-14 14:15 | RT.EKG_ITS ---
APPROVED REPORT Exam: Resting ECG Reason for Exam: Pre-Op Patient Location: O HR:73 bpm ECG Measurements Heart Rate 73 AXIS MT 296 P -75 QRSd 107 QRS -31 QT 388 T 54 QTc 428 Conclusion Sinus or ectopic atrial rhythm...P axis (-45,135) Prolonged MT interval...MT >220, V-rate 50- 90 Left ventricular hypertrophy...multiple voltage criteria
== END 2024-08-14 14:21 | disposition home or self-care (01) ==
LOC: DI.CM 14:21
PROVIDERS: PCP Nurse Practitioner Family; Visit Provider Nurse Practitioner Family
DX: Z01.818 Encounter for other preprocedural examination (principal); I42.2 Other hypertrophic cardiomyopathy
CPT/HCPCS: 93010

== ENCOUNTER → 2024-08-15 14:42 | Outpatient (BNVA) | payer MEDICARE, SELFPAY | PROVIDERS: PCP Nurse Practitioner Family; Referring Provider Nurse Practitioner Family; Visit Provider Psychiatry & Neurology Neurology | DX: G40.309 Generalized idiopathic epilepsy and epileptic syndromes, not intractable, without status epilepticus (principal); I10 Essential (primary) hypertension; R19.7 Diarrhea, unspecified | CPT/HCPCS: 99214 ==

== ENCOUNTER 2024-09-20 00:21 | Outpatient (CLI) | payer MEDICARE, SELFPAY ==
[2024-09-20] MEDS: Barium Sulfate 2% W/V-Berry Smoothie 450 ML BTL 900 ML PO ×2 (07:55→07:56)
[2024-09-20 08:30] LABS: Abs Immature Grans 0.01 10^3/uL (0.0-0.06); HCT 40.4 % (40.0-50.0); HGB 13.9 g/dL (13.5-17.5); Immature Grans % 0.2 %; MCH 32.9 pg (27.0-33.0); MCHC 34.4 % (32.0-36.0); MCV 96 fL (80-95); MPV 9.4 fL (8.0-11.0); Platelet Count 157 10^3/uL (130-400); RBC 4.22 10^6/uL (4.36-5.78); RDW 12.3 % (11.8-14.1); RDW-SD 42.4 fL; WBC 4.87 10^3/uL (4.4-10.8)
[2024-09-20 09:09] LABS: ALT 42 U/L (16-63); AST 26 U/L (15-37); Albumin 4.1 g/dL (3.4-5.0); Alkaline Phosphatase 64 U/L (46-116); Anion Gap 10.4 mmol/L (3-11); BUN 28 mg/dL (7-18); Bilirubin, Total 0.5 mg/dL (0.2-1.0); CO2 25.6 mmol/L (21.0-32.0); Calcium 9.3 mg/dL (8.5-10.1); Chloride 106 mmol/L (98-107); Estimated GFR 68.71 (mL/min/1.73m2); Glucose 107 mg/dL (74-106); Potassium 4.1 mmol/L (3.5-5.1); Sodium 142 mmol/L (136-145); Total Protein 7.8 g/dL (6.4-8.2)
[2024-09-20] MEDS: Omnipaque 350 MG/ML 100 ML BTL IJ (10:18)
--- NOTE | 2024-09-20 10:20 | DI.CT_ITS ---
Exam(s) CT CHEST/ABD/PEL W EXAM: CT CHEST/ABD/PEL W CLINICAL HISTORY: TRANSVERSE COLON CANCER C18.4 STAGE III SURVEILLANCE. TECHNIQUE: Imaging Protocol: Axial computed tomography images with coronal and sagittal reformatted images were created and reviewed. Computer aided detection (CAD) was utilized. CONTRAST MATERIAL: Intravenous: Omnipaque 350 Contrast volume:100 ml Oral: yes COMPARISON: CT CT ABDOMEN PELVIS W from 02/17/[address] CHEST/ABD/PEL W from 02/14/[address] CHEST/ABD/PEL W from 02/23/2024 FINDINGS: CHEST: Pulmonary parenchyma: No consolidation. No dominant measurable mass. Tracheobronchial tree: No bronchiectasis. No mucous plugging.No bronchial wall thickening. Pleura: No effusion or pneumothorax. Mediastinum: Within normal limits. Pulmonary arteries: No visible emboli. Cardiovascular: The heart size is normal. No pericardial effusion. Thoracic aorta non-dilated. Minimal atherosclerotic changes. Bones: No lytic or blastic lesions. Stable mild compression fractures. Degenerative changes and upper thoracic scoliosis. Soft tissues: Minimal bilateral gynecomastia. ABDOMEN and PELVIS: Liver: Normal density. No suspicious mass. Gallbladder and biliary tract: No evidence of stones or wall thickening. No biliary dilatation. Pancreas: Normal density, no abnormal calcifications or inflammatory process. Spleen: Normal. Kidneys: Normal size, contour and axis. No radiodense stones. No obstructive uropathy. No suspicious masses seen. Adrenal glands: Stable small bilateral adrenal nodules. Aorta: Abdominal portion non-dilated. Lymph nodes: Within normal limits. Soft tissues: Unremarkable. Bladder: Anterior bladder wall diverticula. Bowel: The administered oral contrast reaches the rectum. Congenital malrotation bowel. The cecum is again noted to be on the left side of the colon. Extensive diverticulosis. Small hiatal hernia. Peritoneal cavity: No ascites. No focal collection. No mesenteric inflammatory response. No free air. Bones: No suspicious lesions. Reproductive organs: Mildly enlarged prostate. IMPRESSION: No evidence of metastatic disease in the chest, abdomen or pelvis. RADIATION DOSE DELIVERED: 741.5mGy.cm Total DLP DATA REPOSITORY: All CT scans at this facility are submitted to the National Radiology Data Registry (NRDR) Dose Index Registry (DIR) with the [employer] (ACR). RADIATION OPTIMIZATION: All CT scans at this facility use at least one of these dose optimization techniques: automated exposure control; mA and/or kV adjustment per patient size (includes targeted exams where dose is matched to clinical indication); or iterative reconstruction.
[2024-09-20] MEDS: Normal Saline - Diluent 50 ML VIAL IJ (10:22)
[2024-09-20] MEDS: Normal Saline Flush 10 ML SYR IVP (10:22)
[2024-09-20 19:06] LABS: CEA 3.3 ng/mL (See Note)
== END 2024-09-20 00:41 ==
LOC: DI 00:21
PROVIDERS: PCP Nurse Practitioner Family; Visit Provider Nurse Practitioner Family
DX: C18.4 Malignant neoplasm of transverse colon (principal)
CPT/HCPCS: 74177; 80053; 71260; 82378; 85025; J3490

== ENCOUNTER → 2024-11-06 14:48 | Outpatient (BNVA) | payer MEDICARE, SELFPAY | PROVIDERS: PCP Nurse Practitioner Family; Referring Provider Nurse Practitioner Family; Visit Provider Psychiatry & Neurology Neurology | DX: G40.309 Generalized idiopathic epilepsy and epileptic syndromes, not intractable, without status epilepticus (principal); I10 Essential (primary) hypertension | CPT/HCPCS: 99214 ==

== ENCOUNTER 2024-11-20 11:14 | Emergency (ER) | payer MEDICARE, SELFPAY ==
[2024-11-20 11:28] VITALS: BP 181/71; PULSE 55; RESP 14; TEMP 36.6; O2SAT 93
--- NOTE | 2024-11-20 11:30 | RT.EKG_ITS ---
APPROVED REPORT Exam: Resting ECG Reason for Exam: right arm pain Patient Location: E HR:56 bpm ECG Measurements Heart Rate 56 AXIS NM 148 P 242 QRSd 107 QRS -11 QT 413 T 58 QTc 400 Conclusion Sinus or ectopic atrial bradycardia...P axis (-45,135), rate< 60
--- NOTE | 2024-11-20 12:00 | DI.RAD_ITS ---
Exam(s) XR SHOULDER RT COMPLETE 2+V EXAM: XR SHOULDER RT COMPLETE 2+V CLINICAL HISTORY: Pain. TECHNIQUE: 2D digital imaging was performed of the right shoulder. Five images were obtained. AP, Grashey, Y-view and axillary views were obtained. COMPARISON: No exams were available for comparison FINDINGS: BONES: No acute fracture is present. No bony destructive lesion is seen. Mild hypertrophic changes are seen at the greater tuberosity. JOINTS: No dislocation present. The acromioclavicular and glenohumeral joints are well maintained with very little if any degenerative change present. SOFT TISSUE: Normal. IMPRESSION: There is no acute abnormality. DATA REPOSITORY: RADIATION DOSE DELIVERED:
--- NOTE | 2024-11-20 12:14 | W.ED.GENAD ---
Discharge Plan Disposition Patient Disposition: Home Condition: Stable Discharge Details Clinical Impression: Pain in right shoulder Primary Care Provider: Abimael Diaz ED Provider: Laura Toribio Home Meds and New Rx's Prescriptions: Continued lacosamide 50 mg tablet See Rx Instructions PO BID Qty: 120 5RF Rx Instructions: orally twice a day; 50mg BID x 1week, then 100mg BID thereafter lacosamide 100 mg tablet 100 mg PO BID Qty: 60 5RF triamcinolone acetonide 0.1 % cream 1 applic topical BID Qty: 30 2RF multivitamin 1 EACH capsule 1 cap PO DAILY diphenoxylate-atropine [Lomotil] 2.5-0.025 mg tablet 1 tab PO BID PRN (Reason: diarrhea) Qty: 60 5RF Patient Comments: prn finasteride 5 mg tablet 5 mg PO DAILY Qty: 90 3RF losartan 100 mg tablet 100 mg PO DAILY Qty: 90 3RF hydrocortisone 2.5 % cream with perineal applicator 1 applic UT BID-QID PRN (Reason: pain) Qty: 30 4RF Patient Comments: prn tamsulosin 0.4 mg capsule 0.8 mg PO DAILY Qty: 180 3RF Rx Instructions: Take one cap in AM and one in PM acetaminophen 500 mg Tablet 1,000 mg PO TID Patient Comments: prn Discharge Instructions Instructions: Shoulder Pain ED Additional Instructions: Please follow up with orthopedics within the next 1-2 weeks. X-ray showed no significant bony abnormality. I do suspect possible rotator cuff sprain or strain. Please continue to rest ice and take Tylenol every 4-6 hours as needed for pain. You may try topical lidocaine patches which you can get [id number]. Follow up with primary care provider in 3-5 days. Return to ED sooner if any worsening or concerns. Referrals: Omid Paulino MD [ [facility] STAFF PHYSICIAN, Orthopaedic Surgical] - 2 weeks Referral Note: ER follow up Right shoulder pain Clinical Impression: Pain in right shoulder HPI General Mode of arrival: ambulatory. Date/Time Provider Initiated Documentation: 11/20/24 12:09. Limitations to Documentation: no limitations. Information obtained by: patient, RN notes reviewed and old records reviewed. HPI Narrative: 79-year-old male presents to the ER with chief complaint of right shoulder pain after shoveling last weekend. He reports sharp shooting pains to his shoulder and inability to lay on it last night. Did not take any Tylenol this morning. Pain with internal rotation and external rotation. No obvious deformity noted. Distal CMS is intact. He did apply topical IcyHot or similar last night with little to no relief. Past medical history includes osteoarthritis, cardiac murmur, spinal stenosis, Related Data Home Medications ?Medication ?Instructions ?Recorded ?Confirmed multivitamin 1 cap PO DAILY 04/30/12 11/20/24 acetaminophen 500 mg tablet 1,000 mg PO TID 08/09/19 11/20/24 triamcinolone acetonide 0.1 % 1 applic topical BID dermatitis 11/29/23 11/20/24 topical cream #30 grams diphenoxylate-atropine 2.5 1 tab PO BID PRN diarrhea #60 tabs 04/19/24 11/20/24 mg-0.025 mg tablet (Lomotil) finasteride 5 mg tablet 5 mg PO DAILY #90 tabs 05/08/24 11/20/24 losartan 100 mg tablet 100 mg PO DAILY #90 tabs 05/08/24 11/20/24 hydrocortisone 2.5 % topical cream 1 applic UT BID-QID PRN pain #30 08/12/24 11/20/24 with perineal applicator grams lacosamide 50 mg tablet See Rx Instructions PO BID #120 08/15/24 11/20/24 tabs tamsulosin 0.4 mg capsule 0.8 mg (2 x 0.4 mg) PO DAILY #180 10/24/24 11/20/24 caps lacosamide 100 mg tablet 100 mg PO BID #60 tabs 11/06/24 11/20/24 Previous Rx's ?Medication ?Instructions ?Recorded triamcinolone acetonide 0.1 % 1 applic topical BID dermatitis 11/29/23 topical cream #30 grams diphenoxylate-atropine 2.5 1 tab PO BID PRN diarrhea #60 tabs 04/19/24 mg-0.025 mg tablet (Lomotil) finasteride 5 mg tablet 5 mg PO DAILY #90 tabs 05/08/24 losartan 100 mg tablet 100 mg PO DAILY #90 tabs 05/08/24 hydrocortisone 2.5 % topical cream 1 applic UT BID-QID PRN pain #30 08/12/24 with perineal applicator grams lacosamide 50 mg tablet See Rx Instructions PO BID #120 08/15/24 tabs tamsulosin 0.4 mg capsule 0.8 mg (2 x 0.4 mg) PO DAILY #180 10/24/24 caps lacosamide 100 mg tablet 100 mg PO BID #60 tabs 11/06/24 Allergies Allergy/AdvReac Type Severity Reaction Status Date / Time camphor AdvReac Intermediate Nicolas Verified 11/20/24 11:38 hydrochlorothiazide AdvReac Intermediate heart Verified 11/20/24 11:38 palpitations lactose AdvReac Diarrhea Verified 11/20/24 11:38 General Stated Complaint: Orthopedic GRACIA: 3 Review of Systems All systems reviewed & are unremarkable except as noted in HPI and below Musculoskeletal Musculoskeletal: Reports as per HPI and Reports arthralgias Exam Narrative Exam Narrative: Constitutional: Alert and oriented x3. Appears stated age. Normal body habitus. Head: Normocephalic, no trauma. Eyes: Pupils PERRL, Red reflex noted, EOM's intact. Eyelids symmetrical without lesions, discharge, or swelling. Chest: RRR, Normal S1, S2, distal pulses intact. Resp: Lungs clear to auscultation bilaterally, no wheezes, rales, or rhonchi. Abdomen: Soft, non-distended, Normoactive bowel sounds all 4 quads. Musculoskeletal: Normal gait, Moves all 4 extremities without difficulty. Skin: No suspicious rashes or lesions. Capillary refill less than 2 sec. Neurologic: Cranial nerves II-XII intact. Alert and oriented x 3. Motor: No deficits noted. Sensory: Intact bilaterally all 4 extremities. Hematologic/Lymphatic: No ecchymosis, no lymphadenopathy. Course Vital Signs Vital signs: Vital Signs Temperature 36.6 C 11/20/24 11:28 Pulse 55 L 11/20/24 11:28 Respiratory Rate 14 11/20/24 11:28 Blood Pressure 181/71 H 11/20/24 11:28 Pulse Oximetry 93 11/20/24 11:28 Temperature 36.6 C 11/20/24 11:28 Temperature Source Oral 11/20/24 11:28 Pulse 55 L 11/20/24 11:28 Respiratory Rate 14 11/20/24 11:28 Blood Pressure 181/71 H 11/20/24 11:28 Blood Pressure Position Sitting 11/20/24 11:28 Pulse Oximetry 93 11/20/24 11:28 Oxygen Delivery Method Room Air 11/20/24 11:28 Oxygen Flow Rate 0 11/20/24 11:28 Medical Decision Making 79-year-old male presents to the ER with chief complaint of right shoulder pain after shoveling last weekend. He reports sharp shooting pains to his shoulder and inability to lay on it last night. Did not take any Tylenol this morning. Pain with internal rotation and external rotation. No obvious deformity noted. Distal CMS is intact. He did apply topical IcyHot or similar last night with little to no relief. Past medical history includes osteoarthritis, cardiac murmur, spinal stenosis, X-ray right shoulder ordered, gram of Tylenol p.o. Differential diagnose include nominative to sprain, arthritis, rotator cuff injury, tendinitis occult fracture. X-ray within normal limits. Small amount of degenerative changes. Will refer patient to orthopedics for further evaluation and care. This text was generated using [employer] system, please disregard any oddities of phrase or misspellings. PFSH All Active Problems (Updated 11/20/24 @ 13:48 by Laura Toribio NP) Pain in right shoulder (Acute) Diarrhea (Acute) Epilepsy (Acute 11/08/11) Aura 200505/12/98@ 6am never has had another one since medically managed. Tardive dyskinesia (Acute) Elevated glucose level (Acute) Spinal stenosis, lumbar region with neurogenic claudication (Acute) Pain in both lower legs (Acute) Pancolonic diverticulosis (Acute) Adenomatous polyps (Acute) 2023 Actinic keratosis (Acute) Trigger finger, left middle finger (Acute) Injection: 05/31/2024; 09/11/2023; 10/31/2022 Trigger thumb, right thumb (Acute) Ceruminosis (Acute) H/O colon cancer, stage III (Acute) Surgically removed. Did chemo Trigger finger, left index finger (Acute) S/P Release: 11/17/2021 Basal cell carcinoma (Acute) Removed 09/06/21 Hypertension (Chronic) BPH NOS w ur obs/LUTS (Acute) Mitral valve regurgitation (Chronic) Lactose intolerance (Acute) Hyperlipidemia (Acute) Hemorrhoids (Chronic) Diverticulosis of colon without diverticulitis (Chronic) colonoscopy 2003 Congenital malrotation of intestine (Chronic) Anxiety (Chronic) obsessive thinking; sexual problems; possible depression Amblyopia (Acute) O.D. Alcohol intake above recommended sensible limits (Chronic) Regular alcohol Medical History Fe deficiency anemia Cardiac murmur Pt. states he has been told he has a murmur that comes and goes for over 20years and has always been told not to worry about it. States if he had an ECHO it would have been in 1998. Colon stricture Tick bite Sciatica Osteoarthritis of both hips Osteoarthritis of left knee Depo-medrol injection: 11/04/2021; 11/19/19 Hematuria Dysuria Knee effusion Leg weakness, bilateral Intention tremor Surgical History History of colonoscopy (~02/2024) path sent History of surgical procedure Trigger finger, left ring finger S/P trigger finger release DOS: 12/27/17 STOMACH ([birth year]07/1955) INTESTINES (02/07/1955) Family History Mother , 63 Alzheimer's disease Father , 62 Lung cancer Maternal Grandfather , 67 Stroke Heart disease Paternal Grandfather , 69 Stroke Maternal Grandmother , 72 Heart disease Stroke Paternal Grandmother , 77 Heart disease Daughter No problems noted. Daughter No problems noted. Social History Smoking/Tobacco Use Status: Never Second Hand Exposure: Yes Smoking risk assessment performed?: Yes Alcohol Intake: current Alcohol Intake frequency: 0-2 drinks per day Alcohol type: hard liquor Drug use: Never Substance use type: does not use Caregiver/Support person: No Household members: spouse Housing: house Communication Needs: None Do you need help understanding health information?: Never Pets and animals: No Sexually active: Yes Do you think of yourself as: straight/heterosexual Current gender identity: male What is your relationship status?: How often do you talk on the phone with friends or family?: twice per week How often do you get together with friends or relatives?: once per week Do you belong to any clubs or organized social groups?: yes Panel score (0-1 are the most socially isolated patients): 3 What type of physical activity do you participate in: walking and aerobic Duration: 15-30 minutes/day Frequency: 5-6 times per week Cat/Judaism: Anabaptism Special cat needs: No Seatbelt use: sometimes Helmet use: No Drive intox or ride w/intox stock car driver: No Do you feel safe at home: Yes Do you feel safe in your relationship?: Yes PAWSS Have you Been Recently Intoxicated or Drunk Within the Last 30 days?: No Have you Ever Experienced Previous Episodes of Alcohol Withdrawal?: No Have you ever Experienced Withdrawal Seizures?: No Have you ever Experienced Delirium Tremens(DT)s?: No Have you ever undergone Alcohol Rehabilitation Treatment (i.e, inpt ot outpatient treatment programs)?: No Have you ever Experienced Blackouts?: No Have you ever Combined Alcohol with other Downers within the last 90 days?: No Have you ever Combined Alcohol with any other Substance of Abuse during the last 90 days?: No Positive Blood Alcohol level on Presentation? [PCS.BAL]: No Evidence of Increased Autonomic Activity (i.e. HR>120, tremor, sweating, agitation, nausea)?: No Result: 0
[2024-11-20] MEDS: Acetaminophen 500 MG TAB 1000 MG PO (12:27)
[2024-11-20] MEDS: Lidocaine 5% Patch 1 PATCH TP (13:10)
[2024-11-20 14:03] VITALS: BP 161/92; PULSE 58; RESP 16; O2SAT 95
== END 2024-11-20 14:04 | disposition home or self-care (01) ==
PROVIDERS: Emergency Provider Registered Nurse Emergency; PCP Nurse Practitioner Family
DX: M25.511 Pain in right shoulder (principal)
CPT/HCPCS: 99284; 99283; 93005; 73030; 93010

== ENCOUNTER 2024-12-18 14:45 | Outpatient (REF) | payer MEDICARE, SELFPAY | END 2024-12-18 14:46 | disposition home or self-care (01) | LOC: LBN 14:45 | PROVIDERS: PCP Nurse Practitioner Family; Visit Provider Nurse Practitioner Adult Health | DX: R19.7 Diarrhea, unspecified (principal) | CPT/HCPCS: 83993 ==

== ENCOUNTER 2024-12-26 01:48 | Outpatient (CLI) | payer MEDICARE, SELFPAY ==
[2024-12-26 07:49] LABS: Abs Immature Grans 0.01 10^3/uL (0.0-0.06); HCT 39.8 % (40.0-50.0); HGB 13.4 g/dL (13.5-17.5); Immature Grans % 0.2 %; MCH 31.8 pg (27.0-33.0); MCHC 33.7 % (32.0-36.0); MCV 95 fL (80-95); MPV 9.5 fL (8.0-11.0); Platelet Count 143 10^3/uL (130-400); RBC 4.21 10^6/uL (4.36-5.78); RDW 13.1 % (11.8-14.1); RDW-SD 44.9 fL; WBC 5.32 10^3/uL (4.4-10.8)
[2024-12-26 08:08] LABS: ALT 28 U/L (10-49); AST 27 U/L (<34); Albumin 4.3 g/dL (3.4-5.0); Alkaline Phosphatase 45 U/L (46-116); Anion Gap 8.7 mmol/L (3-11); BUN 23 mg/dL (9-23); Bilirubin, Total 0.70 mg/dL (0.2-1.2); CO2 25.3 mmol/L (20.0-31.0); Calcium 8.9 mg/dL (8.3-10.6); Chloride 109 mmol/L (98-107); Glucose 98 mg/dL (74-106); Potassium 4.0 mmol/L (3.5-5.1); Sodium 143 mmol/L (136-145); Total Protein 7.1 g/dL (5.7-8.2)
[2024-12-26 23:05] LABS: CEA 2.6 ng/mL (See Note)
== END 2024-12-26 01:49 | disposition home or self-care (01) ==
LOC: LBO 01:48
PROVIDERS: PCP Nurse Practitioner Family; Visit Provider Nurse Practitioner Family
DX: C18.4 Malignant neoplasm of transverse colon (principal)
CPT/HCPCS: 36415; 80053; 82378; 85025

== ENCOUNTER 2025-01-09 14:20 | Outpatient (CLI) | payer MEDICARE, SELFPAY ==
--- NOTE | 2025-01-09 09:00 | DI.RAD_ITS ---
Exam(s) XR KNEE LT 1V XR STANDING ALIGNMENT EXAM: XR STANDING ALIGNMENT and XR knee LT 1 V CLINICAL HISTORY: left knee pain. TECHNIQUE: 2D digital imaging was performed. Five images were obtained. COMPARISON: CR XR KNEE LT 3V AP,LAT,ELAINE from 10/25/2019 CR XR LUMBAR SPINE COMPLETE from 04/20/2020 CR XR KNEE LT 3V AP,LAT,ELAINE from 11/04/2021 FINDINGS: There is patient motion artifact. BONES: There is moderately severe eccentric narrowing of the left hip. In the left knee, there is moderate joint space narrowing and mild spurring in the medial femoral tibial joint. There is a small joint effusion. There is an enthesophyte at the anterior patella. In the right knee, there is moderate narrowing in the medial femoral tibial joint. Small osteophytes are seen both medially and laterally. The ankles are well maintained.There is no significant leg length discrepancy. SOFT TISSUE: Atherosclerotic calcification is present. IMPRESSION: Moderate osteoarthritis of the left knee. DATA REPOSITORY: RADIATION DOSE DELIVERED:
== END 2025-01-09 14:21 | disposition home or self-care (01) ==
LOC: DIORS 14:21
PROVIDERS: PCP Nurse Practitioner Family; Referring Provider Nurse Practitioner Family; Visit Provider Student in an Organized Health Care Education/Training Program
DX: M25.562 Pain in left knee (principal); M65.332 Trigger finger, left middle finger
CPT/HCPCS: 99214; 73560; 77073

== ENCOUNTER 2025-01-22 12:57 | Day surgery (SDC) | payer MEDICARE, SELFPAY ==
--- NOTE | 2025-01-22 12:03 | W.PM.DSUDISC ---
Date of service: 01/22/25 Discharge Plan Disposition Patient Disposition: Home Condition: Good Discharge Details Reason For Visit: LMF Trigger Release Attending Provider: Jesus Pena Primary Care Provider: Abimael Diaz Home Meds and New Rx's Prescriptions: New acetaminophen 500 mg tablet 1,000 mg PO TID Qty: 90 0RF ibuprofen 600 mg tablet 600 mg PO TID PRN (Reason: pain) Qty: 90 0RF Continued lacosamide 50 mg tablet See Rx Instructions PO BID Qty: 120 5RF Rx Instructions: orally twice a day; 50mg BID x 1week, then 100mg BID thereafter lacosamide 100 mg tablet 100 mg PO BID Qty: 60 5RF triamcinolone acetonide 0.1 % cream 1 applic topical BID Qty: 30 2RF multivitamin 1 EACH capsule 1 cap PO DAILY finasteride 5 mg tablet 5 mg PO DAILY Qty: 90 3RF losartan 100 mg tablet 100 mg PO DAILY Qty: 90 3RF hydrocortisone 2.5 % cream with perineal applicator [address] BID-QID PRN (Reason: pain) Qty: 30 4RF Patient Comments: prn tamsulosin 0.4 mg capsule 0.8 mg PO DAILY Qty: 180 3RF Rx Instructions: Take one cap in AM and one in PM diphenoxylate-atropine [Lomotil] 2.5-0.025 mg tablet 1 tab PO BID PRN (Reason: diarrhea) Qty: 60 5RF Patient Comments: prn acetaminophen 500 mg Tablet 1,000 mg PO TID Patient Comments: prn Discharge Instructions Stand Alone Forms: Becky Quinteros, Portal Information Referrals: Jesus Pena MD [ [facility] STAFF PHYSICIAN, Orthopaedic Surgical] Activity:: Activity as Tolerated Remove Dressings/Wound Care:: 48 hours Shower/Bathe:: 48 hours Diet:: As Tolerated Discharge Orders Discharge Orders: Discharge Order (Routine); Ordered 01/22/25 Ordered By: Mo Mims DS: Diagnosis Discharge Diagnosis (1) Trigger finger, left middle finger: Status: Acute
[2025-01-22 13:15] VITALS: BP 171/70; PULSE 66; RESP 14; TEMP 36.1; O2SAT 97
[2025-01-22 13:53] VITALS: BP 158/76; PULSE 63; RESP 14; TEMP 36.5; O2SAT 98
--- NOTE | 2025-01-22 14:02 | ROE_ITS ---
Operative Note Operative Note PRE-OP DIAGNOSIS: Left Middle Finger Trigger Finger POST-OP DIAGNOSIS: same PROCEDURE: Trigger Finger Release - Left Middle Finger SURGEON: Jesus Pena ANESTHESIA TYPE: Local By Surgeon Refer to Anesthesia Record ESTIMATED BLOOD LOSS: 0 PATHOLOGY: none sent COMPLICATIONS: None Patient was transported to: same day Patient's condition: stable Indications: I have seen Jerry in clinic for symptoms of a trigger finger. The catching, clicking, locking, and pain limited function. The diagnosis of trigger finger was evident. The symptoms had not responded to conservative measures. I di scussed trigger finger release with the patient. I reviewed the risks of the procedure to include, but not limited to, bleeding, infection, pain, stiffness, incomplete release, damage to nerves or vessels, continued catching, recurrence. Despite these risks, the patient elected to proceed. Findings: There was a tightened A1 gennaro which was released. The flexor tendons were inspected and the patient was able to move the finger without any catching, clicking, or locking. Procedure Description: Jerry was greeted in the preoperative holding area where the correct side was identified and marked. The consent was reviewed with the patient and signed. All questions were answered. He was taken back to the operating room. The patient was placed into the supine position on the operating room table with the left arm on an arm board. All bony prominences were well padded. No prophylactic antibiotics were administered since this was a clean, elective hand surgical case. The left arm was then prepped with Chloraprep and draped in a standard fashion with stockinette and extremity drape. A timeout to confirm correct identity, side and site, procedure, allergies, anesthesia, and medical concerns was performed. The surgical site was marked as a longitudinal incision directly over the A1 pu lley of the involved digit. This was confirmed with palpation during finger flexion. This area, overlying the metacarpal head, was then anesthetized with 1% Lidocaine. The patient tolerated this well and once the anesthetic had setup, the procedure began. A longitudinal incision was made through skin only, approximately 1cm. The deep tissues were dissected bluntly. Once the A1 gennaro and flexor tendons were identified the soft tissue including neurovascular structures were retracted medially and laterally. There were no crossing structures over the A1 gennaro. The proximal edge of the gennaro was identified and the gennaro was incised with tenotomy scissors. There was a release of the tendons once this was fully released. The tendons were then removed from the wound and inspected. Excess synovium was resected. The tendons were then returned and the patient was asked to move the finger into deep flexion and back to extension. There was no recreation of the pre-operative symptoms. The hand was then once more inspected for any A0 gennaro or area of possible constriction. The wound was then irrigated and the skin was closed with a 4-0 Nylon. This was dressed with gauze and a Conform dressing. The patient tolerated the procedure well and was returned to the Same Day Surgery area in a stable condition suffering no known complication. Date of Procedure: 01/22/25
== END 2025-01-22 14:12 | disposition home or self-care (01) ==
LOC: SUR 12:57
PROVIDERS: PCP Nurse Practitioner Family; Visit Provider Student in an Organized Health Care Education/Training Program
PROC: (CPT 26055; principal; 2025-01-22 15:15)
DX: M65.332 Trigger finger, left middle finger (principal)
CPT/HCPCS: 26055; J2004

== ENCOUNTER → 2025-01-28 15:23 | Outpatient (BNVA) | payer MEDICARE, SELFPAY | PROVIDERS: PCP Nurse Practitioner Family; Visit Provider Nurse Practitioner Gerontology | DX: N40.1 Benign prostatic hyperplasia with lower urinary tract symptoms (principal); R33.8 Other retention of urine | CPT/HCPCS: 99213; 51798 ==

== ENCOUNTER → 2025-01-29 10:33 | Outpatient (BNVA) | payer MEDICARE, SELFPAY | PROVIDERS: PCP Nurse Practitioner Family; Referring Provider Nurse Practitioner Family; Visit Provider Physician Assistant | DX: Z47.89 Encounter for other orthopedic aftercare (principal); M65.332 Trigger finger, left middle finger | CPT/HCPCS: 99024 ==